=== PATIENT | male | born 1960 | race American Indian/Alaskan Native ===

== ENCOUNTER 2021-10-03 17:26 | Emergency (ER) | payer SELFPAY ==
[2021-10-03 21:37] VITALS: BP 169/107
[2021-10-03] MEDS ORDERED: HYDROcodone/ACETAMINOPHEN 5-325 MG TAB PO ONE (21:46)
--- NOTE | 2021-10-03 21:50 | Emergency Department Report ---
ED General Adult HPI - General Chief complaint: Medical Clearance Stated complaint: DIALYSIS PUI?: No Time Seen by Provider: 10/03/21 21:38 Source: patient, EMS Mode of arrival: Stretcher Limitations: Physical Limitation - History of Present Illness Initial comments: Patient is a 61-year-old male with history of chronic kidney disease stage IV, hypertension presenting to ED via EMS for evaluation. He denies any specific complaints however lives his chronic medical conditions, CKD, hypertension and sciatica and states he needs "treatment ". Associated Symptoms: denies: chest pain, fever/chills Treatments Prior to Arrival: none - Related Data Previous Rx's Medication Instructions Recorded Last Taken Type Calcium Carbonate/Vitamin D3 1 each PO DAILY #10 10/04/21 Unknown Rx [Calcium 500-Vit D3 600 Tablet] Allergies Allergy/AdvReac Type Severity Reaction Status Date / Time No Known Allergies Allergy Verified 10/03/21 17:52 ED Review of Systems ROS: Stated complaint: DIALYSIS Other details as noted in HPI Constitutional: denies: chills, fever Respiratory: denies: cough, shortness of breath, wheezing Cardiovascular: denies: chest pain, palpitations, dyspnea on exertion, orthopnea Gastrointestinal: denies: abdominal pain, nausea, vomiting Musculoskeletal: back pain Skin: denies: rash, lesions Neurological: weakness. denies: headache ED Past Medical Hx - Past Medical History Hx Hypertension: Yes Hx Renal Disease: Yes - Social History Smoking Status: Never Smoker Substance Use Type: None - Medications Home Medications: Home Medications Medication Instructions Recorded Confirmed Last Taken Type Calcium Carbonate/Vitamin D3 1 each PO DAILY #10 10/04/21 Unknown Rx [Calcium 500-Vit D3 600 Tablet] ED Physical Exam - General Limitations: Physical Limitation General appearance: alert, in no apparent distress - Head Head exam: Present: atraumatic, normocephalic - Eye Eye exam: Present: normal appearance, EOMI - Respiratory Respiratory exam: Present: normal lung sounds bilaterally. Absent: respiratory distress - Cardiovascular Cardiovascular Exam: Present: regular rate, normal rhythm. Absent: systolic murmur, diastolic murmur, rubs, gallop - GI/Abdominal GI/Abdominal exam: Present: soft. Absent: distended, tenderness - Rectal Rectal exam: Present: deferred - Back Exam Back exam: Present: paraspinal tenderness. Absent: vertebral tenderness - Neurological Exam Neurological exam: Present: alert, oriented X3 - Psychiatric Psychiatric exam: Present: normal affect, normal mood - Skin Skin exam: Present: warm, dry, intact, normal color ED Course Vital Signs 10/03/21 10/03/21 10/04/21 17:43 21:31 00:05 Temperature 98.6 F Pulse Rate 94 H 91 H 60 Respiratory 18 Rate Blood Pressure 169/107 Blood Pressure 164/98 [Left] O2 Sat by Pulse 95 96 Oximetry ED Medical Decision Making - Lab Data Result diagrams: 10/03/21 21:47 10/03/21 21:47 - Medical Decision Making Purvis given for pain. Labs reviewed. Creatinine 20.4. BUN 69. Potassium is within normal range. Calcium is 6.2. Given oral calcium in ED. Patient is alert and oriented without signs of uremia. He dialyzes Friday and Friday. He is stable for discharge home and follow-up with dialysis on Friday. Will discharge on supplemental calcium. Critical care attestation.: If time is entered above; I have spent that time in minutes in the direct care of this critically ill patient, excluding procedure time. ED Disposition Clinical Impression: Chronic kidney disease, Hypocalcemia, Sciatica Disposition: HOME / SELF CARE / HOMELESS Is pt being admited?: No Does the pt Need Aspirin: No Condition: Stable Instructions: Food Basics for Chronic Kidney Disease, Sciatica, Hypocalcemia, Adult Additional Instructions: Please follow-up with dialysis on Friday. Time of Disposition: 02:06 Print Language: ARMENIAN
[2021-10-03 22:03] LABS: Basophils # (Auto) 0.1 K/mm3 (0.0-0.1); Basophils % (Auto) 1.4 % (0.0-1.8); Eosinophils % (Auto) 0.8 % (0.0-4.3); Hematocrit 28.7 % (35.5-45.6); Lymphocytes # (Auto) 1.4 K/mm3 (1.2-5.4); Lymphocytes % (Auto) 29.9 % (13.4-35.0); Mean Corpuscular HGB Conc 31 % (32-34); Mean Corpuscular Volume 86 fl (84-94); Monocytes # (Auto) 0.5 K/mm3 (0.0-0.8); Monocytes % (Auto) 11.6 % (0.0-7.3); Platelet Count 105 K/mm3 (140-440); Red Blood Count 3.34 M/mm3 (3.65-5.03); Red Cell Distribution Width 15.9 % (13.2-15.2)
[2021-10-03 22:22] LABS: Alanine Aminotransferase 17 units/L (7-56); Albumin 2.1 g/dL (3.9-5); Blood Urea Nitrogen 69 mg/dL (9-20); Calcium 6.2 mg/dL (8.4-10.2); Hemolysis Index 6
[2021-10-03 22:25] LABS: BUN/Creatinine Ratio 3; Bilirubin,Direct < 0.2 mg/dL (0-0.2)
[2021-10-03] MEDS ORDERED: cloNIDine 0.1 MG TAB PO ONE (22:26)
[2021-10-04] MEDS ORDERED: CALCIUM CARBONATE 500 MG TAB CHEW PO ONE (02:00)
== END 2021-10-04 03:41 | disposition home or self-care (01) ==
LOC: ED 17:26
DX: I12.0 Hypertensive chronic kidney disease with stage 5 chronic kidney disease or end stage renal disease (principal); N18.6 End stage renal disease; E87.6 Hypokalemia; M54.30 Sciatica, unspecified side; N28.9 Disorder of kidney and ureter, unspecified
CPT/HCPCS: 36415; 80048; 80076; 85025; 99283

== ENCOUNTER 2021-10-04 23:02 | Inpatient (IN) | payer SELFPAY ==
--- NOTE | 2021-10-05 00:16 | Emergency Department Report ---
ED General Adult HPI - General Chief complaint: Earache Stated complaint: DIAYLIS Time Seen by Provider: 10/05/21 00:05 Source: patient Mode of arrival: Ambulatory Limitations: No Limitations - History of Present Illness Initial comments: Patient is 61 years old male with history of end-stage renal disease on hemodialysis and hypertension. Patient presented to the ER stating that he missed dialysis x7 days. Patient stated that he did not have transportation since his sister that take him to dialysis had a stroke this week and nobody is taking him to dialysis. Patient is complaining of mild shortness of breath. No cough fever or chills. Patient is also complaining of diarrhea has been going on for few days. No abdominal pain, nausea or vomiting. -: days(s) (7) - Related Data Previous Rx's Medication Instructions Recorded Last Taken Type Calcium Carbonate/Vitamin D3 1 each PO DAILY #10 10/04/21 Unknown Rx [Calcium 500-Vit D3 600 Tablet] Allergies Allergy/AdvReac Type Severity Reaction Status Date / Time No Known Allergies Allergy Verified 10/03/21 17:52 ED Review of Systems ROS: Stated complaint: DIAYLIS Other details as noted in HPI Comment: All other systems reviewed and negative Constitutional: denies: chills, fever Respiratory: shortness of breath, SOB with exertion, SOB at rest. denies: cough Cardiovascular: denies: chest pain, palpitations Gastrointestinal: diarrhea. denies: abdominal pain, nausea, vomiting Musculoskeletal: denies: back pain Neurological: denies: headache, weakness, numbness, paresthesias, confusion ED Past Medical Hx - Past Medical History Hx Hypertension: Yes Hx Renal Disease: Yes - Social History Smoking Status: Never Smoker Substance Use Type: None - Medications Home Medications: Home Medications Medication Instructions Recorded Confirmed Last Taken Type Calcium Carbonate/Vitamin D3 1 each PO DAILY #10 10/04/21 Unknown Rx [Calcium 500-Vit D3 600 Tablet] ED Physical Exam - General Limitations: No Limitations General appearance: alert, in no apparent distress - Head Head exam: Present: atraumatic, normocephalic, normal inspection - Eye Eye exam: Present: normal appearance - ENT ENT exam: Present: normal exam, normal orophraynx, mucous membranes moist - Neck Neck exam: Present: normal inspection, full ROM. Absent: tenderness, meningismus - Respiratory Respiratory exam: Present: normal lung sounds bilaterally - Cardiovascular Cardiovascular Exam: Present: regular rate, normal rhythm, normal heart sounds - GI/Abdominal GI/Abdominal exam: Present: soft, normal bowel sounds. Absent: distended, tenderness, guarding, rebound, rigid, organomegaly, mass, bruit, pulsatile mass - Extremities Exam Extremities exam: Present: normal inspection, full ROM, normal capillary refill. Absent: tenderness - Back Exam Back exam: Present: normal inspection, full ROM. Absent: CVA tenderness (R), CVA tenderness (L) - Neurological Exam Neurological exam: Present: alert, oriented X3, CN II-XII intact. Absent: motor sensory deficit - Psychiatric Psychiatric exam: Present: normal mood - Skin Skin exam: Present: warm, intact, normal color ED Course Vital Signs 10/04/21 23:52 Temperature 97.6 F Pulse Rate 91 H Respiratory 18 Rate Blood Pressure 151/91 O2 Sat by Pulse 96 Oximetry ED Medical Decision Making - Lab Data Result diagrams: 10/05/21 00:22 10/05/21 00:22 - Radiology Data Radiology results: report reviewed - Medical Decision Making Patient is 61 years old male with history of end-stage renal disease on hemodialysis and hypertension. Patient presented to the ER stating that he missed dialysis x7 days. Patient stated that he did not have transportation since his sister that take him to dialysis had a stroke this week and nobody is taking him to dialysis. Patient is complaining of mild shortness of breath. No cough fever or chills. Patient is also complaining of diarrhea has been going on for few days. No abdominal pain, nausea or vomiting. Patient remained stable in the ER with elevated blood pressure. Chest x-ray showed pulmonary edema and pleural effusion. Labs reviewed and showed significantly elevated creatinine of 20.4 and a BUN of 80 however potassium is 4.8. Calcium is 5.9. I discussed the patient with Dr. Lafleur, surveillance investigator on- call. He advised to admit the patient for dialysis. I discussed the patient with , he agreed to admit the patient to medical service for further management. Critical Care Time: Yes Critical care time in (mins) excluding proc time.: 35 Critical care attestation.: If time is entered above; I have spent that time in minutes in the direct care of this critically ill patient, excluding procedure time. ED Disposition Clinical Impression: End-stage renal disease needing dialysis, Volume overload, Hypocalcemia Disposition: 09 ADMITTED INPATIENT Is pt being admited?: Yes Condition: Stable
--- NOTE | 2021-10-05 00:37 | XRay Report ---
Chest single view INDICATION: Dyspnea IMPRESSION: Mild bilateral interstitial edema and tiny pleural effusions. Dialysis catheter terminate s near the SVC/right atrial junction. Signer Name: Angel oNrth MD Signed: 10/05/2021 12:33 AM Workstation Name: [email or web address]
[2021-10-05 00:58] LABS: Basophils % (Auto) 1.1 % (0.0-1.8); Eosinophils % (Auto) 1.3 % (0.0-4.3); Hematocrit 26.3 % (35.5-45.6); Hemoglobin 8.7 gm/dl (11.8-15.2); Lymphocytes # (Auto) 0.9 K/mm3 (1.2-5.4); Lymphocytes % (Auto) 26.4 % (13.4-35.0); Mean Corpuscular HGB Conc 33 % (32-34); Mean Corpuscular Volume 85 fl (84-94); Monocytes # (Auto) 0.4 K/mm3 (0.0-0.8); Monocytes % (Auto) 11.6 % (0.0-7.3); Platelet Count 104 K/mm3 (140-440); Red Blood Count 3.08 M/mm3 (3.65-5.03); Red Cell Distribution Width 16.2 % (13.2-15.2)
[2021-10-05 01:34] LABS: Calcium 5.9 mg/dL (8.4-10.2)
[2021-10-05] MEDS ORDERED: CALCIUM CHLORIDE 1,000 MG in SODIUM CHLORIDE 0.9% 100 ML IV ONE (02:06)
[2021-10-05 04:47] LABS: Hepatitis B Surface Antigen Non-Reactive (Negative); Hepatitis C Virus Antibody Non-Reactive (NonReactive)
[2021-10-05] MEDS ORDERED: MORPHINE 4 MG/1 ML INJ IV PRN (04:47)
[2021-10-05] MEDS ORDERED: MAGNESIUM HYDROXIDE (MOM) ORAL LIQD UDC PO PRN (04:47)
[2021-10-05] MEDS ORDERED: ONDANSETRON 4 MG/2 ML INJ IV PRN (04:47)
[2021-10-05] MEDS ORDERED: ACETAMINOPHEN 325 MG TAB PO PRN (04:47)
--- NOTE | 2021-10-05 05:11 | History and Physical Report ---
History of Present Illness Date of examination: 10/05/21 Date of admission: 10/05/2021 Chief complaint: ESRD - Needing dialysis History of present illness: 61-year-old male with known history of hypertension, end-stage renal disease on dialysis presenting to the emergency room today for evaluation stating he has missed dialysis for about 7 days. Indicates that he had transportation issues and therefore could not make it to the dialysis facility. His sister will take him to the dialysis unit had a stroke and therefore was unable to transport him. He denies any chest pain but has been having some mild shortness of breath. Denies any headache or dizziness and denies any diaphoresis. Denies any nausea or vomiting and no abdominal pain. Has had occasional diarrhea. Denies any bright red blood per rectum. Work-up in the emergency room today, significant findings were that of BUN of 81 and creatinine of 20.4. Calcium of 5.9. Hemoglobin of 8.7 and hematocrit of 26.3. Chest x-ray significant for mild bilateral interstitial edema and tiny pleural effusions. Past History Past Medical History: dialysis, ESRD, hypertension Past Surgical History: No surgical history Social history: no significant social history Family history: no significant family history Medications and Allergies Allergies Allergy/AdvReac Type Severity Reaction Status Date / Time No Known Allergies Allergy Verified 10/05/21 02:09 Home Medications Medication Instructions Recorded Confirmed Last Taken Type Calcium Carbonate/Vitamin D3 1 each PO DAILY #10 10/04/21 Unknown Rx [Calcium 500-Vit D3 600 Tablet] Active Meds: Active Medications Acetaminophen (Acetaminophen 325 Mg Tab) 650 mg PO Q4H PRN PRN Reason: Pain MILD(1-3)/Fever >100.5/RACHEL Heparin Sodium (Porcine) (Heparin 5,000 Unit/1 Ml Vial) 5,000 unit SUB-Q Q8HR [facility] Magnesium Hydroxide (Magnesium Hydroxide (Mom) Oral Liqd Udc) 30 ml PO Q4H PRN PRN Reason: Constipation Morphine Sulfate (Morphine 2 Mg/1 Ml Inj) 2 mg IV Q4H PRN PRN Reason: Pain, Moderate (4-6) Morphine Sulfate (Morphine 4 Mg/1 Ml Inj) 4 mg IV Q4H PRN PRN Reason: Pain , Severe (7-10) Ondansetron HCl (Ondansetron 4 Mg/2 Ml Inj) 4 mg IV Q8H PRN PRN Reason: Nausea And Vomiting Sodium Chloride (Sodium Chloride 0.9% 10 Ml Flush Syringe) 10 ml IV BID [facility] Sodium Chloride (Sodium Chloride 0.9% 10 Ml Flush Syringe) 10 ml IV PRN PRN PRN Reason: LINE FLUSH Review of Systems Constitutional: no fever, no chills Ears, nose, mouth and throat: no nasal congestion, no sore throat Cardiovascular: no chest pain, no palpitations Respiratory: no cough, no shortness of breath Gastrointestinal: no abdominal pain, no nausea, no vomiting, no diarrhea Genitourinary Male: no dysuria, no flank pain, no nocturia, no polyuria Musculoskeletal: no neck pain, no low back pain Integumentary: no rash, no pruritis Neurological: no headaches, no confusion Psychiatric: no anxiety, no depression, no confusion Endocrine: no polyphagia, no polydipsia, no polyuria, no nocturia Exam - Constitutional Vitals: Temp Pulse Resp BP Pulse Ox 98.9 F 89 20 156/104 100 10/05/21 03:09 10/05/21 03:09 10/05/21 03:09 10/05/21 03:09 10/05/21 03:09 General appearance: Present: no acute distress, well-nourished - EENT Eyes: Present: PERRL, EOM intact. Absent: scleral icterus ENT: hearing intact, clear oral mucosa, dentition normal - Neck Neck: Present: supple, normal ROM - Respiratory Respiratory effort: normal Respiratory: bilateral: CTA - Cardiovascular Rhythm: other (Right anterior chest wall vascath.) Heart Sounds: Present: S1 & S2. Absent: gallop, systolic murmur, diastolic murmur, rub, click - Extremities Extremities: no ischemia, pulses intact, pulses symmetrical, normal temperature, normal color, Full ROM Extremity abnormal: edema (2+ roscoe. lower extremity edema) Peripheral Pulses: within normal limits - Abdominal General gastrointestinal: Present: soft, non-tender, non-distended, normal bowel sounds. Absent: mass - Integumentary Integumentary: Present: clear, warm, dry, normal turgor. Absent: rash - Musculoskeletal Musculoskeletal: strength equal bilaterally - Psychiatric Psychiatric: appropriate mood/affect, intact judgment & insight, memory intact, cooperative - Neurologic Neurologic: CNII-XII intact, no focal deficits, moves all extremities Results - Labs CBC & Chem 7: 10/05/21 00:22 10/05/21 00:22 Labs: Abnormal lab results 10/05/21 10/05/21 Range/Units 00: 00:22 WBC 3.5 L (4.5-11.0) K/mm3 RBC 3.08 L (3.65-5.03) M/mm3 Hgb 8.7 L (11.8-15.2) gm/dl Hct 26.3 L (35.5-45.6) % RDW 16.2 H (13.2-15.2) % Plt Count 104 L (140-440) K/mm3 [place]ergus % (Auto) 11.6 H (0.0-7.3) % Lymph # (Auto) 0.9 L (1.2-5.4) K/mm3 Carbon Dioxide 16 L (22-30) mmol/L BUN 81 H (9-20) mg/dL Creatinine 20.4 H (0.8-1.3) mg/dL Calcium 5.9 L* (8.4-10.2) mg/dL Assessment and Plan - Patient Problems (1) End-stage renal disease needing dialysis Current Visit: Yes Status: Acute Plan to address problem: Patient has missed dialysis for about a week. Consult placed to nephrology for possible dialysis. (2) Hypertension Current Visit: Yes Status: Acute Plan to address problem: We will resume routine home medications and monitor vital signs closely. (3) Volume overload Current Visit: Yes Status: Acute Plan to address problem: Possibly secondary to the missed dialysis. (4) Hypocalcemia Current Visit: Yes Status: Acute Plan to address problem: Calcium will be repleted and will monitor chemistry. (5) DVT prophylaxis Current Visit: Yes Status: Acute Plan to address problem: Patient placed on subcutaneous heparin. (6) Full code status Current Visit: Yes Status: Acute Plan to address problem: Patient is full code.
[2021-10-05] MEDS: HEPARIN 5,000 UNIT/1 ML VIAL SUB-Q SCH ×3 (06:52→21:55)
[2021-10-05] MEDS ORDERED: SODIUM CHLORIDE 0.9% 100 ML IV PRN (07:08)
--- NOTE | 2021-10-05 07:18 | Consultation ---
History of Present Illness - Reason for Consult Consult date: 10/05/21 end stage renal disease Requesting physician: SHAYNE CEDILLO - History of Present Illness 61-year-old male with a history of hypertension completed by end-stage renal disease on hemodialysis on a Friday, Friday and Friday schedule. Patient lost discharge his dialysis clinic due to noncompliance. He had not been to dialysis for a month. He states his sister had a stroke and she was driving him to dialysis. He does not drive. He also moved here from [facility] when he became sick and does not really have any friends or anyone else he could depend on the driving to dialysis. Patient has not dialyzed in more than a week and came to the hospital on account of swelling and shortness of breath. He denies any chest pain but admits to nausea and vomiting. He has had diarrhea for some time and he says it is resolving. No fever or chills. No cough. Past History Past Medical History: dialysis, ESRD, hypertension Past Surgical History: No surgical history, Other (Permacath placement, back surgery in 2019) Social history: no significant social history, lives with family (With sister) Family history: hypertension, stroke Medications and Allergies Allergies Allergy/AdvReac Type Severity Reaction Status Date / Time No Known Allergies Allergy Verified 10/05/21 02:09 Home Medications Medication Instructions Recorded Confirmed Last Taken Type Calcium Carbonate/Vitamin D3 1 each PO DAILY #10 10/04/21 Unknown Rx [Calcium 500-Vit D3 600 Tablet] Active Meds: Active Medications Acetaminophen (Acetaminophen 325 Mg Tab) 650 mg PO Q4H PRN PRN Reason: Pain MILD(1-3)/Fever >100.5/RACHEL Epoetin Alen-epbx (Epoetin Alen-Epbx 20,000 Unit/1 Ml Vial) 20,000 unit [facility] Heparin Sodium (Porcine) (Heparin 5,000 Unit/1 Ml Vial) 5,000 unit SUB-Q Q8HR [facility] Last Admin: 10/05/21 06:52 Dose: 5,000 unit Sodium Chloride (Nacl 0.9%) 100 mls @ 999 mls/hr [facility] PRN PRN Reason: Hypotension Magnesium Hydroxide (Magnesium Hydroxide (Mom) Oral Liqd Udc) 30 ml PO Q4H PRN PRN Reason: Constipation Morphine Sulfate (Morphine 2 Mg/1 Ml Inj) 2 mg IV Q4H PRN PRN Reason: Pain, Moderate (4-6) Morphine Sulfate (Morphine 4 Mg/1 Ml Inj) 4 mg IV Q4H PRN PRN Reason: Pain , Severe (7-10) Ondansetron HCl (Ondansetron 4 Mg/2 Ml Inj) 4 mg IV Q8H PRN PRN Reason: Nausea And Vomiting Sodium Chloride (Sodium Chloride 0.9% 10 Ml Flush Syringe) 10 ml IV BID [facility] Sodium Chloride (Sodium Chloride 0.9% 10 Ml Flush Syringe) 10 ml IV PRN PRN PRN Reason: LINE FLUSH Review of Systems All systems: negative (Constitutional: no fever or chills. No anorexia or weight loss. HEENT: No sore throat or sinus drainage no hearing or vision impairment . Cardiovascular: No chest pain, admits to SOB, palpitations, admits to LE swelling or dizziness. Respiratory: No cough, sputum, shortness of breath, hemo) Gastrointestinal: nausea, vomiting, diarrhea, no abdominal pain, no hematemesis, no coffee ground emesis, no melena, no hematochezia Genitourinary Male: no dysuria, no hematuria, no urinary frequency, no urinary hesitancy Musculoskeletal: no neck stiffness, no low back pain, no hot joints Integumentary: no rash, no pruritis Neurological: no weakness, no numbness, no tingling, no seizures, no syncope, no headaches Psychiatric: no anxiety, no depression Endocrine: no cold intolerance, no heat intolerance Exam - Vital Signs Vital signs: Vital Signs Temp Pulse Resp BP Pulse Ox 97.6 F 91 H 18 151/91 96 10/04/21 23:52 10/04/21 23:52 10/04/21 23:52 10/04/21 23:52 10/04/21 23:52 - Physical Exam Narrative exam: Middle-aged -[place] male in no acute distress HEENT: NCAT, pink and intact anicteric sclera Neck: Supple, no venous distention, right IJ permacath CVS: S1S2 RRR with no murmur, rub or gallop Chest: Clear to auscultation Abdomen: Protuberant, soft, nontender, no organomegaly, bowel sounds are present Extremities: No edema Neuro: Awake, alert no focal deficits Results - Lab Results 10/05/21 00:22 10/05/21 00:22 Most recent lab results Calcium 5.9 mg/dL (8.4-10.2) L* 10/05/21 00:22 Assessment and Plan - Patient Problems (1) Volume overload Current Visit: Yes Status: Acute Plan to address problem: End-stage renal disease with volume overload secondary to missed dialysis. We will dialyze patient today and again tomorrow for fluid removal. (2) Hypertensive chronic kidney disease with stage 5 chronic kidney disease or end stage renal disease Current Visit: Yes Status: Acute Plan to address problem: Blood pressure was high on presentation due to fluid overload. Follow-up blood pressure with fluid removal. (3) Anemia in ESRD (end-stage renal disease) Current Visit: Yes Status: Acute Plan to address problem: Give erythropoietin on dialysis and follow-up hemoglobin. (4) Metabolic acidosis Current Visit: Yes Status: Acute Plan to address problem: Uremic acidosis secondary to missed dialysis treatment. Follow-up bicarbonate after dialysis (5) End stage renal disease Current Visit: Yes Status: Acute Plan to address problem: Patient does not have HF outpatient dialysis. Will consult case management to assist with placement.
[2021-10-05] MEDS ORDERED: EPOETIN ALFA-EPBX 20,000 UNIT/1 ML VIAL IV SCH (08:00)
--- NOTE | 2021-10-05 12:47 | Progress Note ---
Assessment and Plan Assessment and plan: ESRD Medical noncompliance Hypertension Volume overload Hypocalcemia 10/05/2021. Patient was discharged from his dialysis clinic due to noncompliance. He had not been to dialysis for a month. He states his sister had a stroke and she was driving him to dialysis. He does not drive. He also moved here from [facility] when he became sick and does not really have any friends or anyone else he could depend on the driving to dialysis. Patient has not dialyzed in more than a week and came to the hospital on account of swelling and shortness of breath. Nephrology seen the patient in consultation and plans for hemodialysis today and tomorrow. Patient does not have outpatient dialysis. Will consult case management to assist with placement. History Interval history: No new issues overnight. Hospitalist Physical - Constitutional Vitals: Temp Pulse Resp BP Pulse Ox 98.9 F 89 20 156/104 94 10/05/21 03:09 10/05/21 03:09 10/05/21 03:09 10/05/21 03:09 10/05/21 09:19 General appearance: Present: no acute distress, well-nourished - EENT Eyes: Present: PERRL, EOM intact ENT: hearing intact, clear oral mucosa, dentition normal - Neck Neck: Present: supple, normal ROM - Respiratory Respiratory effort: normal Respiratory: bilateral: CTA - Cardiovascular Rhythm: regular Heart Sounds: Present: S1 & S2. Absent: gallop, rub - Extremities Extremities: no ischemia, No edema, Full ROM - Abdominal General gastrointestinal: soft, non-tender, non-distended, normal bowel sounds - Integumentary Integumentary: Present: clear, warm, dry - Neurologic Neurologic: CNII-XII intact, moves all extremities Results - Labs CBC & Chem 7: 10/05/21 00:22 10/05/21 00:22 Labs: Laboratory Last Values WBC 3.5 K/mm3 (4.5-11.0) L 10/05/21 00:22 RBC 3.08 M/mm3 (3.65-5.03) L 10/05/21 00:22 Hgb 8.7 gm/dl (11.8-15.2) L 10/05/21 00:22 Hct 26.3 % (35.5-45.6) L 10/05/21 00:22 MCV 85 fl (84-94) 10/05/21 00: MCH 28 pg (28-32) 10/05/21 00: MCHC 33 % (32-34) 10/05/21 00: RDW 16.2 % (13.2-15.2) H 10/05/21 00:22 Plt Count 104 K/mm3 (140-440) L 10/05/21 00: Lymph % (Auto) 26.4 % (13.4-35.0) 10/05/21: [place] % (Auto) 11.6 % (0.0-7.3) H 10/05/21 00: Eos % (Auto) 1.3 % (0.0-4.3) 10/05/21: Baso % (Auto) 1.1 % (0.0-1.8) 10/05/21 00:22 Lymph # (Auto) 0.9 K/mm3 (1.2-5.4) L 10/05/21 00: [place] # (Auto) 0.4 K/mm3 (0.0-0.8) 10/05/21 00: Eos # (Auto) 0.0 K/mm3 (0.0-0.4) 10/05/21 00: Baso # (Auto) 0.0 K/mm3 (0.0-0.1) 10/05/21 00: Seg Neutrophils % 59.6 % (40.0-70.0) 10/05/21 00: Seg Neutrophils # 2.1 K/mm3 (1.8-7.7) 10/05/21 00: Sodium 140 mmol/L (137-145) 10/05/21 00: Potassium 4.8 mmol/L (3.6-5.0) 10/05/21 00: Chloride 101.2 mmol/L (98-107) 10/05/21 00: Carbon Dioxide 16 mmol/L (22-30) L 10/05/21 00: Anion Gap 28 mmol/L 10/05/21 00:22 BUN 81 mg/dL (9-20) H 10/05/21 00: Creatinine 20.4 mg/dL (0.8-1.3) H 10/05/21 00:22 Estimated GFR 3 ml/min 10/05/21 00:22 BUN/Creatinine Ratio 4 % 10/05/21 00:22 Glucose 87 mg/dL (75-100) 10/05/21 00:22 Calcium 5.9 mg/dL (8.4-10.2) L* 10/05/21 00:22 Hepatitis A IgM Ab Non-reactive (NonReactive) 10/05/21 03:36 Hep Bs Antigen Non-reactive (Negative) 10/05/21 03:36 Hep B Core IgM Ab Non-reactive (NonReactive) 10/05/21 03:36 Hepatitis C Antibody Non-reactive (NonReactive) 10/05/21 03:36 Active Medications - Current Medications Current Medications: Generic Name Dose Route Start Last Admin Trade Name Freq PRN Reason Stop Dose Admin Acetaminophen 650 mg 10/05/21 04:47 Acetaminophen 325 Mg Tab PO Q4H PRN Pain MILD(1-3)/Fever >100.5/RACHEL Epoetin Alen-epbx 20,000 unit 10/05/21 08:00 Epoetin Alen-Epbx 20,000 Unit/1 Ml Vial IV [place] Heparin Sodium (Porcine) 5,000 unit 10/05/21 06:00 10/05/21 06:52 Heparin 5,000 Unit/1 Ml Vial SUB-Q 5,000 unit Q8HR [facility] Administration Sodium Chloride 100 mls @ 999 mls/hr 10/05/21 07:08 Nacl 0.9% IV [place] PRN Hypotension Magnesium Hydroxide 30 ml 10/05/21 04:47 Magnesium Hydroxide (Mom) Oral Liqd Udc PO Q4H PRN Constipation Morphine Sulfate 2 mg 10/05/21 04:47 Morphine 2 Mg/1 Ml Inj IV Q4H PRN Pain, Moderate (4-6) Morphine Sulfate 4 mg 10/05/21 04:47 Morphine 4 Mg/1 Ml Inj IV Q4H PRN Pain , Severe (7-10) Ondansetron HCl 4 mg 10/05/21 04:47 Ondansetron 4 Mg/2 Ml Inj IV Q8H PRN Nausea And Vomiting Sodium Chloride 10 ml 10/05/21 10:00 Sodium Chloride 0.9% 10 Ml Flush Syringe IV BID [place]IL[place] Sodium Chloride 10 ml 10/05/21 04:47 Sodium Chloride 0.9% 10 Ml Flush Syringe IV PRN PRN LINE FLUSH
[2021-10-06] MEDS: HEPARIN 5,000 UNIT/1 ML VIAL SUB-Q SCH ×3 (05:39→21:21)
[2021-10-06 07:29] LABS: Basophils % (Auto) 0.8 % (0.0-1.8); Eosinophils % (Auto) 0.8 % (0.0-4.3); Hematocrit 23.7 % (35.5-45.6); Hemoglobin 7.7 gm/dl (11.8-15.2); Lymphocytes # (Auto) 1.1 K/mm3 (1.2-5.4); Lymphocytes % (Auto) 33.5 % (13.4-35.0); Mean Corpuscular HGB Conc 32 % (32-34); Mean Corpuscular Volume 84 fl (84-94); Monocytes # (Auto) 0.5 K/mm3 (0.0-0.8); Monocytes % (Auto) 15.7 % (0.0-7.3); Platelet Count 76 K/mm3 (140-440); Red Blood Count 2.83 M/mm3 (3.65-5.03); Red Cell Distribution Width 15.4 % (13.2-15.2)
--- NOTE | 2021-10-06 10:51 | Progress Note ---
Assessment and Plan Assessment and plan: ESRD Medical noncompliance Hypertension Volume overload Hypocalcemia 10/05/2021. Patient was discharged from his dialysis clinic due to noncompliance. He had not been to dialysis for a month. He states his sister had a stroke and she was driving him to dialysis. He does not drive. He also moved here from [facility] when he became sick and does not really have any friends or anyone else he could depend on the driving to dialysis. Patient has not dialyzed in more than a week and came to the hospital on account of swelling and shortness of breath. Nephrology seen the patient in consultation and plans for hemodialysis today and tomorrow. Patient does not have outpatient dialysis. Will consult case management to assist with placement. 10/06/2021. Patient reports that He was going to [facility] in [place] but he was discharged from there for non compliance. pt. has no insurance. He states he applied for Medicare and Medicaid. He lives with his sister, Viviana Ochoa. Await hemodialysis outpatient placement History Interval history: No new issues overnight. Hospitalist Physical - Constitutional Vitals: Temp Pulse Resp BP Pulse Ox 98.6 F 86 16 137/76 95 10/06/21 04:30 10/06/21 04:30 10/06/21 04:30 10/06/21 04:30 10/06/21 04:30 General appearance: Present: no acute distress, well-nourished - EENT Eyes: Present: PERRL, EOM intact ENT: hearing intact, clear oral mucosa, dentition normal - Neck Neck: Present: supple, normal ROM - Respiratory Respiratory effort: normal Respiratory: bilateral: CTA - Cardiovascular Rhythm: regular Heart Sounds: Present: S1 & S2. Absent: gallop, rub - Extremities Extremities: no ischemia, No edema, Full ROM - Abdominal General gastrointestinal: soft, non-tender, non-distended, normal bowel sounds - Integumentary Integumentary: Present: clear, warm, dry - Neurologic Neurologic: CNII-XII intact, moves all extremities Results - Labs CBC & Chem 7: 10/06/21 06:47 10/06/21 06:47 Labs: Laboratory Last Values WBC 3.3 K/mm3 (4.5-11.0) L 10/06/21 06:47 RBC 2.83 M/mm3 (3.65-5.03) L 10/06/21 06:47 Hgb 7.7 gm/dl (11.8-15.2) L 10/06/21 06:47 Hct 23.7 % (35.5-45.6) L 10/06/21 06:47 MCV 84 fl (84-94) 10/06/21 06:47 MCH 27 pg (28-32) L 10/06/21 06:47 MCHC 32 % (32-34) 10/06/21 06:47 RDW 15.4 % (13.2-15.2) H 10/06/21 06:47 Plt Count 76 K/mm3 (140-440) L 10/06/21 06:47 Lymph % (Auto) 33.5 % (13.4-35.0) 10/06/21 06:47 [place] % (Auto) 15.7 % (0.0-7.3) H 10/06/21 06:47 Eos % (Auto) 0.8 % (0.0-4.3) 10/06/21 06:47 Baso % (Auto) 0.8 % (0.0-1.8) 10/06/21 06:47 Lymph # (Auto) 1.1 K/mm3 (1.2-5.4) L 10/06/21 06:47 [place] # (Auto) 0.5 K/mm3 (0.0-0.8) 10/06/21 06:47 Eos # (Auto) 0.0 K/mm3 (0.0-0.4) 10/06/21 06:47 Baso # (Auto) 0.0 K/mm3 (0.0-0.1) 10/06/21 06:47 Seg Neutrophils % 49.2 % (40.0-70.0) 10/06/21 06:47 Seg Neutrophils # 1.6 K/mm3 (1.8-7.7) L 10/06/21 06:47 Sodium 139 mmol/L (137-145) 10/06/21 06:47 Potassium 3.6 mmol/L (3.6-5.0) D 10/06/21 06:47 Chloride 102.1 mmol/L (98-107) 10/06/21 06:47 Carbon Dioxide 23 mmol/L (22-30) D 10/06/21 06:47 Anion Gap 18 mmol/L 10/06/21 06:47 BUN 38 mg/dL (9-20) H 10/06/21 06:47 Creatinine 13.0 mg/dL (0.8-1.3) H 10/06/21 06:47 Estimated GFR 5 ml/min 10/06/21 06:47 BUN/Creatinine Ratio 3 % 10/06/21 06:47 Glucose 79 mg/dL (75-100) 10/06/21 06:47 Calcium 7.0 mg/dL (8.4-10.2) L D 10/06/21 06:47 Hepatitis A IgM Ab Non-reactive (NonReactive) 10/05/21 03:36 Hep Bs Antigen Non-reactive (Negative) 10/05/21 03:36 Hep B Core IgM Ab Non-reactive (NonReactive) 10/05/21 03:36 Hepatitis C Antibody Non-reactive (NonReactive) 10/05/21 03:36 [place]/IV: Voiding Method Toilet Active Medications - Current Medications Current Medications: Generic Name Dose Route Start Last Admin Trade Name Freq PRN Reason Stop Dose Admin Acetaminophen 650 mg 10/05/21 04:47 Acetaminophen 325 Mg Tab PO Q4H PRN Pain MILD(1-3)/Fever >100.5/RACHEL Epoetin Alen-epbx 20,000 unit 10/05/21 08:00 10/05/21 13:45 Epoetin Alen-Epbx 20,000 Unit/1 Ml Vial IV 20,000 unit [place] Administration Heparin Sodium (Porcine) 5,000 unit 10/05/21 06:00 10/06/21 05:39 Heparin 5,000 Unit/1 Ml Vial SUB-Q Not Given Q8HR [place] Sodium Chloride 100 mls @ 999 mls/hr 10/05/21 07:08 Nacl 0.9% IV [place] PRN Hypotension Magnesium Hydroxide 30 ml 10/05/21 04:47 Magnesium Hydroxide (Mom) Oral Liqd Udc PO Q4H PRN Constipation Morphine Sulfate 2 mg 10/05/21 04:47 Morphine 2 Mg/1 Ml Inj IV Q4H PRN Pain, Moderate (4-6) Morphine Sulfate 4 mg 10/05/21 04:47 Morphine 4 Mg/1 Ml Inj IV Q4H PRN Pain , Severe (7-10) Ondansetron HCl 4 mg 10/05/21 04:47 Ondansetron 4 Mg/2 Ml Inj IV Q8H PRN Nausea And Vomiting Sodium Chloride 10 ml 10/05/21 10:00 10/05/21 21:55 Sodium Chloride 0.9% 10 Ml Flush Syringe IV 10 ml BID [place] Administration Sodium Chloride 10 ml 10/05/21 04:47 Sodium Chloride 0.9% 10 Ml Flush Syringe IV PRN PRN LINE FLUSH
--- NOTE | 2021-10-06 11:26 | Progress Note ---
Assessment and Plan - Patient Problems (1) Volume overload Current Visit: Yes Status: Acute Plan to address problem: End-stage renal disease with volume overload secondary to missed dialysis. We will dialyze patient again today for fluid removal. (2) Hypertensive chronic kidney disease with stage 5 chronic kidney disease or end stage renal disease Current Visit: Yes Status: Acute Plan to address problem: Blood pressure was high on presentation due to fluid overload. Improved with fluid removal on dialysis. (3) Anemia in ESRD (end-stage renal disease) Current Visit: Yes Status: Acute Plan to address problem: Give erythropoietin on dialysis and follow-up hemoglobin. (4) Metabolic acidosis Current Visit: Yes Status: Acute Plan to address problem: Uremic acidosis secondary to missed dialysis treatment. Improved after dialysis (5) End stage renal disease Current Visit: Yes Status: Acute Plan to address problem: Patient does not have outpatient dialysis clinic arrangements. He was discharged from [facility] after missing dialysis for a month. I discussed with case management social worker yesterday and she is working on placement though she admits it would be challenging as patient is currently uninsured. Subjective Date of service: 10/06/21 Principal diagnosis: End-stage renal disease with fluid overload Interval history: Patient seen lying in bed. He has no complaints this morning. Shortness of breath improving. Had nausea earlier. No vomiting. Objective - Exam Narrative Exam: Middle-aged -La[place] male in no acute distress HEENT: NCAT, pink and intact anicteric sclera Neck: Supple, no venous distention, right IJ permacath CVS: S1S2 RRR with no murmur, rub or gallop Chest: Few rhonchi bilaterally Abdomen: Protuberant, soft, nontender, no organomegaly, bowel sounds are present Extremities: Mild edema Neuro: Awake, alert no focal deficits - Vital Signs Vital signs: Vital Signs - 12hr 10/06/21 04:30 Temperature 98.6 F Pulse Rate 86 Respiratory 16 Rate Blood Pressure 137/76 O2 Sat by Pulse 95 Oximetry - Lab 10/06/21 06:47 10/06/21 06:47 Most recent lab results Calcium 7.0 mg/dL (8.4-10.2) L D 10/06/21 06:47 Medications & Allergies - Medications Allergies/Adverse Reactions: Allergies No Known Allergies Allergy (Verified 10/05/21 02:09) Home Medications: Home Medications Medication Instructions Recorded Confirmed Last Taken Type Calcium Carbonate/Vitamin D3 1 each PO DAILY #10 10/04/21 Unknown Rx [Calcium 500-Vit D3 600 Tablet] Active Medications: Generic Name Dose Route Start Last Admin Trade Name Shahbazq PRN Reason Stop Dose Admin Acetaminophen 650 mg 10/05/21 04:47 Acetaminophen 325 Mg Tab PO Q4H PRN Pain MILD(1-3)/Fever >100.5/RACHEL Epoetin Alen-epbx 20,000 unit 10/05/21 08:00 10/05/21 13:45 Epoetin Alen-Epbx 20,000 Unit/1 Ml Vial IV 20,000 unit [place] Administration Heparin Sodium (Porcine) 5,000 unit 10/05/21 06:00 10/06/21 05:39 Heparin 5,000 Unit/1 Ml Vial SUB-Q Not Given Q8HR [facility] Sodium Chloride 100 mls @ 999 mls/hr 10/05/21 07:08 Nacl 0.9% IV [place] PRN Hypotension Magnesium Hydroxide 30 ml 10/05/21 04:47 Magnesium Hydroxide (Mom) Oral Liqd Udc PO Q4H PRN Constipation Morphine Sulfate 2 mg 10/05/21 04:47 Morphine 2 Mg/1 Ml Inj IV Q4H PRN Pain, Moderate (4-6) Morphine Sulfate 4 mg 10/05/21 04:47 Morphine 4 Mg/1 Ml Inj IV Q4H PRN Pain , Severe (7-10) Ondansetron HCl 4 mg 10/05/21 04:47 Ondansetron 4 Mg/2 Ml Inj IV Q8H PRN Nausea And Vomiting Sodium Chloride 10 ml 10/05/21 10:00 10/05/21 21:55 Sodium Chloride 0.9% 10 Ml Flush Syringe IV 10 ml BID [place] Administration Sodium Chloride 10 ml 10/05/21 04:47 Sodium Chloride 0.9% 10 Ml Flush Syringe IV PRN PRN LINE FLUSH
[2021-10-06] MEDS: MORPHINE 2 MG/1 ML INJ IV PRN ×2 (15:40→16:10)
[2021-10-06] MEDS ORDERED: oxyCODONE /ACETAMINOPHEN 5-325MG TAB PO PRN (15:55)
[2021-10-06] MEDS: GABAPENTIN 300 MG CAP PO SCH (21:21)
[2021-10-07] MEDS: GABAPENTIN 300 MG CAP PO SCH ×2 (05:23→14:07)
[2021-10-07] MEDS: HEPARIN 5,000 UNIT/1 ML VIAL SUB-Q SCH ×2 (05:24→14:07)
--- NOTE | 2021-10-07 09:01 | Discharge Summary ---
Providers - Providers Date of Admission: 10/05/21 04:47 Date of discharge: 10/07/21 Attending physician: JADEN DENIS 10/05/21 02:02 Consult to Physician [CONS] Stat Comment: Dr. Gould spoke with Dr. Lafleur @ [phone] Consulting Provider: KATHARINE LAFLEUR Physician Instructions: Reason For Exam: End-stage renal disease needing dialysis 10/05/21 12:20 Consult to Case Management [CONS] Routine Services Needed at Discharge: Other Notified:: cm Comment:: Arrange outpatient dialysis Additional Physician Instructions: Patient has been discharged from [facility] Primary care physician: JEANNETTE WALSH Hospitalization Reason for admission: missed HD Condition: Stable Hospital course: 61-year-old male with known history of hypertension, end-stage renal disease on dialysis presenting to the emergency room today for evaluation stating he has missed dialysis for about 7 days. Indicates that he had transportation issues and therefore could not make it to the dialysis facility. His sister will take him to the dialysis unit had a stroke and therefore was unable to transport him. Work-up in the emergency room revealed significant findings of BUN 81 and creatinine of 20.4. Calcium of 5.9. Hemoglobin of 8.7 and hematocrit of 26.3. Chest x-ray significant for mild bilateral interstitial edema and tiny pleural effusions. The patient was admitted with diagnosis of ESRD with missed hemodialysis, medical noncompliance, volume overload, bilateral pleural effusions, hypertension, and hypercalcemia. Hospital course: 10/05/2021. Patient was discharged from his dialysis clinic due to noncompliance. He had not been to dialysis for a month. He states his sister had a stroke and she was driving him to dialysis. He does not drive. He also moved here from [facility] when he became sick and does not really have any friends or anyone else he could depend on the driving to dialysis. Patient has not dialyzed in more than a week and came to the hospital on account of swelling and shortness of breath. Nephrology seen the patient in consultation and plans for hemodialysis today and tomorrow. Patient does not have outpatient dialysis. Will consult case management to assist with placement. 10/06/2021. Patient reports that He was going to [facility] in [place] but he was discharged from there for non compliance. pt. has no insurance. He states he applied for Medicare and Medicaid. He lives with his sister, Viviana Ochoa. Await hemodialysis outpatient placement 10/07/2021. Patient reports that he would like to leave AMA. I discussed the risk including . Patient voiced understanding but would like to leave AMA. Dedicated discharge time 35 minutes Disposition: LEFT AGAINST MEDICAL ADVICE Final Discharge Diagnosis (Prints w/discharge instructions): Bilateral pleural effusions, volume overload, ESRD, anemia of chronic kidney disease, metabolic acidosis Core Measure Documentation - Palliative Care Palliative Care/ Comfort Measures: Not Applicable - Core Measures Any of the following diagnoses?: none Exam - Constitutional Vitals: Temp Pulse Resp BP Pulse Ox 100.4 F H 89 20 139/64 93 10/07/21 05:42 10/07/21 05:42 10/07/21 05:42 10/07/21 05:42 10/07/21 05:42 General appearance: Present: no acute distress, well-nourished - EENT Eyes: Present: PERRL ENT: hearing intact, clear oral mucosa - Neck Neck: Present: supple, normal ROM - Respiratory Respiratory effort: normal Respiratory: bilateral: CTA - Cardiovascular Heart Sounds: Present: S1 & S2. Absent: rub, click - Extremities Extremities: pulses symmetrical, No edema Peripheral Pulses: within normal limits - Abdominal General gastrointestinal: Present: soft, non-tender, non-distended, normal bowel sounds Male genitourinary: Present: normal - Integumentary Integumentary: Present: clear, warm, dry - Musculoskeletal Musculoskeletal: gait normal, strength equal bilaterally - Psychiatric Psychiatric: appropriate mood/affect, intact judgment & insight - Neurologic Neurologic: CNII-XII intact, moves all extremities Plan Activity: advance as tolerated Weight Bearing Status: Weight Bear as Tolerated Diet: renal Follow up with: JEANNETTE WALSH MD [Primary Care Provider] - 7 Days
[2021-10-07 12:01] VITALS: BP 146/91
== END 2021-10-07 14:30 | disposition left against medical advice (07) | DRG 186 ==
LOC: ED 23:02 → 3A 10-05 04:47
PROVIDERS: ADMIT Internal Medicine Geriatric Medicine; ATTEND Hospitalist
PROC: 5A1D70Z Performance of Urinary Filtration, Intermittent, Less than 6 Hours Per Day (ICD-10-PCS; principal; 2021-10-05)
PROC: 5A1D70Z Performance of Urinary Filtration, Intermittent, Less than 6 Hours Per Day (ICD-10-PCS; 2021-10-06)
DX: J90 Pleural effusion, not elsewhere classified (principal); N18.6 End stage renal disease; E87.2 Acidosis; I12.0 Hypertensive chronic kidney disease with stage 5 chronic kidney disease or end stage renal disease; D63.1 Anemia in chronic kidney disease; E87.70 Fluid overload, unspecified; E83.51 Hypocalcemia; Z82.49 Family history of ischemic heart disease and other diseases of the circulatory system; Z82.3 Family history of stroke; Z91.14 Patient's other noncompliance with medication regimen
CPT/HCPCS: 36415; 71045; 80048; 80074; 85025; G0378; J3490; J0885; J1644; J2270; U0003

== ENCOUNTER 2021-10-07 22:33 | Emergency (ER) | payer SELFPAY ==
[2021-10-08 09:01] VITALS: BP 136/79
--- NOTE | 2021-10-08 11:40 | Emergency Department Report ---
ED General Adult HPI - General Chief complaint: Nausea/Vomiting/Diarrhea Stated complaint: EVALUATION Time Seen by Provider: 10/08/21 11:30 Source: patient, old records reviewed Mode of arrival: Ambulatory Limitations: No Limitations - History of Present Illness Initial comments: 61-year-old male with end-stage renal disease on dialysis presents to the hospital after signing out AGAINST MEDICAL ADVICE requesting readmission. Patient was admitted on the for noncompliance with dialysis, edema, shortness of breath. Patient apparently has been discharged from his previous dialysis center for noncompliance and does not have transportation to and from dialysis. As per medical record review patient received dialysis. October 06 and signed out AGAINST MEDICAL ADVICE on the . He returns stating that signing out AGAINST MEDICAL ADVICE was mistake but the only physical complaint he complains of a sciatic related leg pain rated 10/10 intensity. Patient does endorse shortness of breath when asked what no respiratory distress noted Severity scale (0 -10): 10 - Related Data Previous Rx's Medication Instructions Recorded Last Taken Type Calcium Carbonate/Vitamin D3 1 each PO DAILY #10 10/04/21 Unknown Rx [Calcium 500-Vit D3 600 Tablet] Allergies Allergy/AdvReac Type Severity Reaction Status Date / Time No Known Allergies Allergy Verified 10/05/21 02:09 ED Review of Systems ROS: Stated complaint: EVALUATION Other details as noted in HPI Comment: All other systems reviewed and negative ED Past Medical Hx - Past Medical History Hx Hypertension: Yes Hx Renal Disease: Yes - Social History Smoking Status: Never Smoker Substance Use Type: None - Medications Home Medications: Home Medications Medication Instructions Recorded Confirmed Last Taken Type Calcium Carbonate/Vitamin D3 1 each PO DAILY #10 10/04/21 Unknown Rx [Calcium 500-Vit D3 600 Tablet] ED Physical Exam - General Limitations: No Limitations - Other Other exam information: General: No acute distress Head: Atraumatic Eyes: normal appearance ENT: Moist mucous membranes Neck: Normal appearance, no midline tenderness Chest: Clear to auscultation bilaterally, dialysis access right upper chest wall wall CV: Regular rate and rhythm Abdomen: Soft, normal bowel sounds, nontender, nondistended, no rebound or guarding Back: Normal inspection Extremity: Normal inspection, full range of motion Neuro: Alert O x 3, no facial asymmetry, speech clear, no gross motor sensory deficit Psych: Appropriate behavior Skin: No rash ED Course Vital Signs 04/17/22 04/18/22 22:59 08:58 Temperature 98.2 F 97.6 F Pulse Rate 92 H 101 H Respiratory 18 26 H Rate Blood Pressure 135/100 Blood Pressure 136/79 [Right] O2 Sat by Pulse 98 94 Oximetry - Consultations Consultation #1: 10/08/21 13:[address] Muñoz on-call residential field manager who agrees patient does not meet criteria for dialysis at this time ED Medical Decision Making - Lab Data Result diagrams: 10/08/21 12:09 10/08/21 12:09 Lab Results 10/08/21 10/08/21 Range/Units 12:09 12:09 WBC 3.4 L (4.5-11.0) K/mm3 RBC 3.28 L (3.65-5.03) M/mm3 Hgb 9.1 L (11.8-15.2) gm/dl Hct 27.5 L (35.5-45.6) % MCV 84 (84-94) fl MCH 28 (28-32) pg MCHC 33 (32-34) % RDW 15.0 (13.2-15.2) % Plt Count 123 L (140-440) K/mm3 Lymph % (Auto) 26.0 (13.4-35.0) % [place] % (Auto) 12.7 H (0.0-7.3) % Eos % (Auto) 1.4 (0.0-4.3) % Baso % (Auto) 1.4 (0.0-1.8) % Lymph # (Auto) 0.9 L (1.2-5.4) K/mm3 [place] # (Auto) 0.4 (0.0-0.8) K/mm3 Eos # (Auto) 0.0 (0.0-0.4) K/mm3 Baso # (Auto) 0.0 (0.0-0.1) K/mm3 Seg Neutrophils % 58.5 (40.0-70.0) % Seg Neutrophils # 2.0 (1.8-7.7) K/mm3 Sodium 134 L (137-145) mmol/L Potassium 3.8 (3.6-5.0) mmol/L Chloride 96.0 L (98-107) mmol/L Carbon Dioxide 24 (22-30) mmol/L Anion Gap 18 mmol/L BUN 23 H (9-20) mg/dL Creatinine 10.0 H (0.8-1.3) mg/dL Estimated GFR 6 ml/min BUN/Creatinine Ratio 2 % Glucose 81 (75-100) mg/dL Calcium 7.0 L (8.4-10.2) mg/dL - Radiology Data Radiology results: report reviewed CHEST 1 VIEW INDICATION / CLINICAL INFORMATION: missed dialysis. COMPARISON: 10/05/2021 FINDINGS: SUPPORT DEVICES: Right internal jugular dialysis catheter, unchanged. HEART / MEDIASTINUM: No significant abnormality. LUNGS / PLEURA: Tiny right pleural effusion and mild interstitial edema again noted. No pneumothorax. ADDITIONAL FINDINGS: No significant additional findings. IMPRESSION: 1. Mild CHF - Medical Decision Making 61-year-old male presents to the hospital with end-stage renal disease without a dialysis center who decided against AMA after receiving dialysis on October 06. Labs did not not indicate need for emergent dialysis. Patient does have mild CHF remained saturation 94 to 98% and no dyspnea or crackles on examination. Case discussed with residential field manager on-call Dr. Salas who agrees that patient does not meet criteria for admission and therefore will be discharged - Differential Diagnosis Volume overload, hyperkalemia, uremia, anemia Critical Care Time: No Critical care attestation.: If time is entered above; I have spent that time in minutes in the direct care of this critically ill patient, excluding procedure time. ED Disposition Clinical Impression: ESRD on dialysis, Mild congestive heart failure Disposition: HOME / SELF CARE / HOMELESS Is pt being admited?: No Does the pt Need Aspirin: No Condition: Stable Instructions: Dialysis, Heart Failure, Self Care, [id number] Additional Instructions: Follow-up with your doctor or doctor/clinic provided. Return if symptoms worsen as indicated by your discharge instructions. Referrals: PRIMARY MD FAIZAN [Primary Care Provider] - 3-5 Days MARGIE SALAS MD [Staff Physician] - 3-5 Days Time of Disposition: 13:50
--- NOTE | 2021-10-08 12:23 | XRay Report ---
CHEST 1 VIEW INDICATION / CLINICAL INFORMATION: missed dialysis. COMPARISON: 10/05/2021 FINDINGS: SUPPORT DEVICES: Right internal jugular dialysis catheter, unchanged. HEART / MEDIASTINUM: No significant abnormality. LUNGS / PLEURA: Tiny right pleural effusion and mild interstitial edema again noted. No pneumothorax. ADDITIONAL FINDINGS: No significant additional findings. IMPRESSION: 1. Mild CHF Signer Name: Sotero Herbert MD Signed: 10/08/2021 12:18 PM Workstation Name: [id number] [id number]
[2021-10-08 12:45] LABS: Basophils % (Auto) 1.4 % (0.0-1.8); Eosinophils % (Auto) 1.4 % (0.0-4.3); Hematocrit 27.5 % (35.5-45.6); Hemoglobin 9.1 gm/dl (11.8-15.2); Lymphocytes # (Auto) 0.9 K/mm3 (1.2-5.4); Mean Corpuscular HGB Conc 33 % (32-34); Mean Corpuscular Volume 84 fl (84-94); Monocytes # (Auto) 0.4 K/mm3 (0.0-0.8); Monocytes % (Auto) 12.7 % (0.0-7.3); Platelet Count 123 K/mm3 (140-440); Red Blood Count 3.28 M/mm3 (3.65-5.03)
== END 2021-10-08 14:27 | disposition home or self-care (01) ==
LOC: ED 22:33
DX: I13.2 Hypertensive heart and chronic kidney disease with heart failure and with stage 5 chronic kidney disease, or end stage renal disease (principal); N18.6 End stage renal disease; I50.9 Heart failure, unspecified; Z99.2 Dependence on renal dialysis
CPT/HCPCS: 36415; 71045; 80048; 85025; 99283

== ENCOUNTER 2021-10-09 10:56 | Emergency (ER) | payer SELFPAY ==
--- NOTE | 2021-10-09 12:04 | Emergency Department Report ---
ED Fall HPI - General Chief Complaint: Fall Stated Complaint: FALL Time Seen by Provider: 10/09/21 11:37 Source: patient Mode of arrival: Stretcher Limitations: No Limitations - History of Present Illness Initial Comments: 61-year-old male with a past medical history of hypertension and end-stage renal disease on dialysis presents to the hospital with generalized weakness and trip and fall outside the hospital. Patient was seen by me yesterday after returning 1 day after signing out AGAINST MEDICAL ADVICE. Patient does not currently have an outpatient dialysis center and was admitted to receive dialysis prior to signing out AMA. Yesterday he was reevaluated and did not meet criteria for emergent dialysis therefore was subsequently discharged. Patient was returning to the ER to sign in due to complaint of generalized weakness. He tripped, fell, sustained abrasions and injury to right forehead, left thumb, and left knee but denies LOC. Patient was too weak to lift himself off the ground. patient complains of moderate pain at areas of impact. Patient denies lightheadedness, chest pain, shortness of breath, or abdominal pain. Tetanus up-to-date within 10 years. Last dialysis was performed here on October 06. Patient denies being on a blood thinner. Hide Shaker: Dr. Olivo but he has been discharged from practice as per DR Lafleur therefore he is unassigned - Related Data Previous Rx's Medication Instructions Recorded Last Taken Type Calcium Carbonate/Vitamin D3 1 each PO DAILY #10 10/04/21 Unknown Rx [Calcium 500-Vit D3 600 Tablet] Bacitracin/Pramoxine/Aloe Vera 1 applicatio TP TID #1 tube 10/09/21 Unknown Rx [Bacitraycin Plus Ointment] Allergies Allergy/AdvReac Type Severity Reaction Status Date / Time No Known Allergies Allergy Verified 10/09/21 11:02 ED Review of Systems ROS: Stated complaint: FALL Other details as noted in HPI Comment: All other systems reviewed and negative ED Past Medical Hx - Past Medical History Hx Hypertension: Yes Hx Renal Disease: Yes - Social History Smoking Status: Never Smoker - Medications Home Medications: Home Medications Medication Instructions Recorded Confirmed Last Taken Type Calcium Carbonate/Vitamin D3 1 each PO DAILY #10 10/04/21 Unknown Rx [Calcium 500-Vit D3 600 Tablet] Bacitracin/Pramoxine/Aloe Vera 1 applicatio TP TID #1 tube 10/09/21 Unknown Rx [Bacitraycin Plus Ointment] ED Physical Exam - General Limitations: No Limitations - Other Other exam information: General: No acute distress Head: Right forehead abrasion without step-off Eyes: normal appearance ENT: Moist mucous membranes Neck: Normal appearance, no midline tenderness Chest: Clear to auscultation bilaterally CV: Regular rate and rhythm Abdomen: Soft, normal bowel sounds, nontender, nondistended, no rebound or guarding Back: Normal inspection Extremity: Left knee abrasion with pain with flexion past 30 degrees. Left lateral thumb abrasion with full range of motion. No snuffbox tenderness Neuro: Alert O x 3, no facial asymmetry, speech clear, no gross motor sensory deficit, gcs 15 Psych: Appropriate behavior Skin: Abrasion ED Course Vital Signs 10/09/21 11:06 Temperature 97.9 F Pulse Rate 95 H Blood Pressure 138/80 [Left] O2 Sat by Pulse 100 Oximetry - Reevaluation(s) Reevaluation #1: 10/09/21 13:25 pt able to ambulate in the ed 10/09/21 13:39 respiratory rate 18 - Consultations Consultation #1: 10/09/21 13:35 Case d/w Dr Lafleur, pt has been discharged from Dr Olivo's practice ED Medical Decision Making - Lab Data Result diagrams: 10/09/21 12:36 10/09/21 12:36 Lab Results 10/09/21 10/09/21 Range/Units 12:36 12:36 WBC 4.6 (4.5-11.0) K/mm3 RBC 3.09 L (3.65-5.03) M/mm3 Hgb 8.5 L (11.8-15.2) gm/dl Hct 25.9 L (35.5-45.6) % MCV 84 (84-94) fl MCH 28 (28-32) pg MCHC 33 (32-34) % RDW 15.5 H (13.2-15.2) % Plt Count 140 (140-440) K/mm3 Lymph % (Auto) 18.8 (13.4-35.0) % [place] % (Auto) 12.6 H (0.0-7.3) % Eos % (Auto) 1.2 (0.0-4.3) % Baso % (Auto) 1.3 (0.0-1.8) % Lymph # (Auto) 0.9 L (1.2-5.4) K/mm3 [place] # (Auto) 0.6 (0.0-0.8) K/mm3 Eos # (Auto) 0.1 (0.0-0.4) K/mm3 Baso # (Auto) 0.1 (0.0-0.1) K/mm3 Seg Neutrophils % 66.1 (40.0-70.0) % Seg Neutrophils # 3.0 (1.8-7.7) K/mm3 Sodium 138 (137-145) mmol/L Potassium 3.7 (3.6-5.0) mmol/L Chloride 98.8 (98-107) mmol/L Carbon Dioxide 23 (22-30) mmol/L Anion Gap 20 mmol/L BUN 31 H (9-20) mg/dL Creatinine 11.2 H (0.8-1.3) mg/dL Estimated GFR 6 ml/min BUN/Creatinine Ratio 3 % Glucose 88 (75-100) mg/dL Calcium 6.6 L (8.4-10.2) mg/dL - EKG Data -: EKG Interpreted by Pr EKG shows normal: sinus rhythm (with premature atrial complexes), intervals (qtc 567 prolonged), ST-T waves (lateral t wae inversions) - EKG Data When compared to previous EKG there are: previous EKG unavailable - Radiology Data Radiology results: report reviewed (xray left knee, arthritis, no fracture as per report) - Medical Decision Making 61-year-old male presents to the hospital close head injury and abrasion status post fall without signs of LOC or anticoagulant use. Patient does not meet indication for CT scanning at this time. ED work-up performed due to history of dialysis noncompliance and complaints of generalized weakness [place] ct head rules score: [address] head not indicated. Patient tripped and fell and needed help getting off the ground. He does not endorse syncope. not meet criteria for inpatient dialysis at this time. Patient has abnormal EKG without complaints of chest pain or shortness of breath. Critical Care Time: No Critical care attestation.: If time is entered above; I have spent that time in minutes in the direct care of this critically ill patient, excluding procedure time. ED Disposition Clinical Impression: End stage renal disease, Fall from slip, trip, or stumble, Abrasion, Minor head injury Disposition: 01 HOME / SELF CARE / HOMELESS Is pt being admited?: No Does the pt Need Aspirin: No Condition: Stable Instructions: Abrasion, Dialysis, Head Injury, Adult, [id number], Fall Prevention in the Home, Adult Additional Instructions: Take the medication as prescribed. Follow-up with your doctor or doctor/clinic provided. Return if symptoms worsen as indicated by your discharge instru ctions. Prescriptions: Bacitracin/Pramoxine/Aloe Vera [Bacitraycin Plus Ointment] 1 applicatio TP TID #1 tube Referrals: PRIMARY CAREMD [Primary Care Provider] - 3-5 Days PETRA ROONEY MD [Staff Physician] - 3-5 Days (cma or lpn)
--- NOTE | 2021-10-09 12:51 | XRay Report ---
LEFT KNEE 3 VIEW(S) INDICATION / CLINICAL INFORMATION: fall, abrasion, pain COMPARISON: None available. FINDINGS: BONES / JOINT(S): No acute fracture or dislocation. Mild to moderate tricompartmental DJD, most prono unced at the medial compartment. Mild degenerative enthesopathic changes at the superior pole patella . SOFT TISSUES: No significant abnormality. ADDITIONAL FINDINGS: None. Signer Name: Derrek Carson MD Signed: 10/09/2021 12:47 PM Workstation Name: [id number]
[2021-10-09 13:10] LABS: Basophils # (Auto) 0.1 K/mm3 (0.0-0.1); Basophils % (Auto) 1.3 % (0.0-1.8); Calcium 6.6 mg/dL (8.4-10.2); Eosinophils # (Auto) 0.1 K/mm3 (0.0-0.4); Eosinophils % (Auto) 1.2 % (0.0-4.3); Hematocrit 25.9 % (35.5-45.6); Hemoglobin 8.5 gm/dl (11.8-15.2); Lymphocytes # (Auto) 0.9 K/mm3 (1.2-5.4); Lymphocytes % (Auto) 18.8 % (13.4-35.0); Mean Corpuscular HGB Conc 33 % (32-34); Mean Corpuscular Volume 84 fl (84-94); Monocytes # (Auto) 0.6 K/mm3 (0.0-0.8); Monocytes % (Auto) 12.6 % (0.0-7.3); Platelet Count 140 K/mm3 (140-440); Red Blood Count 3.09 M/mm3 (3.65-5.03); Red Cell Distribution Width 15.5 % (13.2-15.2)
[2021-10-09 17:59] VITALS: BP 148/90
--- NOTE | 2021-10-10 10:58 | Electrocardiograph Report ---
[facility] Test Date: 2021-10-09 Test Time: 11:11:40 Pat Name: TERESA HARGROVE Department: Room: Gender: M Uniform [employer]: TV : 1960 Requested By: AIDA OLIVAS Order Number: [id number] Reading MD: Declan Fitzgerald Measurements Intervals [place] Rate: 88 P: 46 NE: 134 QRS: -66 QRSD: 108 T: 186 QT: 469 QTc: 567 Interpretive Statements Sinus rhythm Atrial premature complexes Left atrial enlargement Left anterior fascicular block Abnrm T, consider ischemia, anterolateral lds No previous ECG available for comparison Electronically Signed On 10-10-2021 10:58:08 EDT by Declan Fitzgerald
== END 2021-10-09 14:00 | disposition home or self-care (01) ==
LOC: ED 10:56
DX: S00.91XA Abrasion of unspecified part of head, initial encounter (principal); R53.1 Weakness; I12.0 Hypertensive chronic kidney disease with stage 5 chronic kidney disease or end stage renal disease; N18.6 End stage renal disease; Z79.899 Other long term (current) drug therapy; W19.XXXA Unspecified fall, initial encounter; Y93.89 Activity, other specified; Y92.89 Other specified places as the place of occurrence of the external cause; Y99.8 Other external cause status
CPT/HCPCS: 36415; 80048; 85025; 93005; 99284

== ENCOUNTER 2021-10-14 06:24 | Inpatient (IN) | payer SELFPAY ==
--- NOTE | 2021-10-14 07:46 | Emergency Department Report ---
HPI - General Chief Complaint: Dyspnea/Respdistress Time Seen by Provider: 10/14/21 07:27 - HPI HPI: Room 19 The patient is a 61-year-old male present with a chief complaint of shortness of breath. The patient has a history ESRD but states is secondary to transportation he has not received dialysis since 10/08/2021. The patient states last night he developed shortness of breath and occasional cough that was nonproductive. EMS was called and found the patient hypoxic with an SPO2 in the 80s. The patient is not on home O2. The patient is HIV positive but states he has not had any HIV meds for the past 6 months. Patient is not certain when his last CD4 count was but believes it was normal ED Past Medical Hx - Past Medical History Hx Hypertension: Yes Hx Renal Disease: Yes Hx HIV: Yes (Unknown CD4 count. No meds x6 months) Additional medical history: MS, Sciatica - Surgical History Additional Surgical History: Right chest Vas-Cath, back surgery - Family History Family history: no significant - Social History Smoking Status: Never Smoker Substance Use Type: None (Denies illicit drug use) - Medications Home Medications: Home Medications Medication Instructions Recorded Confirmed Last Taken Type Calcium Carbonate/Vitamin D3 1 each PO DAILY #10 10/04/21 Unknown Rx [Calcium 500-Vit D3 600 Tablet] Bacitracin/Pramoxine/Aloe Vera 1 applicatio TP TID #1 tube 10/09/21 Unknown Rx [Bacitraycin Plus Ointment] ED Review of Systems ROS: Stated complaint: SOB Other details as noted in HPI Constitutional: denies: fever Eyes: denies: eye pain ENT: denies: throat pain Respiratory: cough, shortness of breath Cardiovascular: denies: chest pain Endocrine: no symptoms reported Gastrointestinal: nausea, vomiting Genitourinary: denies: dysuria Musculoskeletal: denies: back pain Neurological: denies: headache Physical Exam - Physical Exam Vital Signs: Vital Signs 10/14/21 10/14/21 06:36 06:55 Temperature 98.6 F Pulse Rate 118 H Respiratory 24 22 Rate Blood Pressure 189/118 [Right] O2 Sat by Pulse 99 96 Oximetry Physical Exam: GENERAL: The patient is well-developed well-nourished male sitting on stretcher appearing to have slightly increased work of breathing with no acute distress. [] HEENT: Normocephalic. Atraumatic. Extraocular motions are intact. Patient has moist mucous membranes. NECK: Supple. Trachea midline CHEST/LUNGS: Diminished at the bases, coarse breath sounds throughout. No wheezing auscultated. There is slightly increased work of breathing HEART/CARDIOVASCULAR: Regular. There is no tachycardia. There is no gallop rub or murmur. ABDOMEN: Abdomen is soft, nontender. Patient has normal bowel sounds. There is no abdominal distention. SKIN: There is no rash. There is trace bilateral lower extremity pitting edema. There is no diaphoresis. NEURO: The patient is awake, alert, and oriented. The patient is cooperative. The patient has no focal neurologic deficits. The patient has normal speech. GCS 15 MUSCULOSKELETAL: There is no evidence of acute injury. ED Course Vital Signs 10/14/21 10/14/21 06:36 06:55 Temperature 98.6 F Pulse Rate 118 H Respiratory 24 22 Rate Blood Pressure 189/118 [Right] O2 Sat by Pulse 99 96 Oximetry - Consultations Consultation #1: 10/14/21 10:01 Nephrology called ED Medical Decision Making - Lab Data Result diagrams: 10/14/21 08:03 10/14/21 08:03 Laboratory Tests 10/14/21 10/14/21 08:03 08:03 WBC 7.0 RBC 3.39 L Hgb 9.3 L Hct 29.1 L MCV 86 MCH 28 MCHC 32 RDW 16.8 H Plt Count 197 Lymph % (Auto) 33.1 [place] % (Auto) 7.6 H Eos % (Auto) 0.5 Baso % (Auto) 1.4 Lymph # (Auto) 2.3 [place] # (Auto) 0.5 Eos # (Auto) 0.0 Baso # (Auto) 0.1 Seg Neutrophils % 57.4 Seg Neutrophils # 4.0 Sodium 140 Potassium 4.6 D Chloride 101.7 Carbon Dioxide 18 L Anion Gap 25 BUN 58 H Creatinine 16.0 H Estimated GFR 4 BUN/Creatinine Ratio 4 Glucose 99 Calcium 6.8 L - Differential Diagnosis Volume overload, PCP, symptomatic anemia Critical care attestation.: If time is entered above; I have spent that time in minutes in the direct care of this critically ill patient, excluding procedure time. ED Disposition Clinical Impression: End-stage renal disease needing dialysis, Volume overload, Hypoxia Disposition: 09 ADMITTED INPATIENT Is pt being admited?: Yes Does the pt Need Aspirin: No Condition: Serious Time of Disposition: 10:07 (Care transferred to hospitalist Dr Lopes (discussed with Dr. Gonzalez))
--- NOTE | 2021-10-14 07:59 | XRay Report ---
XR chest 1V ap INDICATION / CLINICAL INFORMATION: Shortness of breath, hypoxia. COMPARISON: 10/08/2021 FINDINGS: SUPPORT DEVICES: Unchanged. HEART /PULMONARY VASCULATURE: Worsening congestive changes. LUNGS / PLEURA: Pulmonary edema is worse compared to the prior examination. No pneumothorax. IMPRESSION: Worsening volume overload/CHF with pulmonary edema. Signer Name: Hola Birmingham MD Signed: 10/14/2021 7:55 AM Workstation Name: [id number]
[2021-10-14 09:19] LABS: Calcium 6.8 mg/dL (8.4-10.2)
[2021-10-14 09:57] LABS: Basophils # (Auto) 0.1 K/mm3 (0.0-0.1); Basophils % (Auto) 1.4 % (0.0-1.8); Eosinophils % (Auto) 0.5 % (0.0-4.3); Hematocrit 29.1 % (35.5-45.6); Hemoglobin 9.3 gm/dl (11.8-15.2); Lymphocytes # (Auto) 2.3 K/mm3 (1.2-5.4); Lymphocytes % (Auto) 33.1 % (13.4-35.0); Mean Corpuscular HGB Conc 32 % (32-34); Mean Corpuscular Volume 86 fl (84-94); Monocytes # (Auto) 0.5 K/mm3 (0.0-0.8); Monocytes % (Auto) 7.6 % (0.0-7.3); Platelet Count 197 K/mm3 (140-440); Red Blood Count 3.39 M/mm3 (3.65-5.03); Red Cell Distribution Width 16.8 % (13.2-15.2)
[2021-10-14] MEDS ORDERED: SODIUM CHLORIDE 0.9% 100 ML IV PRN (10:10)
[2021-10-14 10:15] LABS: INR 1.02 (0.87-1.13)
[2021-10-14] MEDS ORDERED: MORPHINE 4 MG/1 ML INJ IV PRN (12:15)
[2021-10-14] MEDS ORDERED: ACETAMINOPHEN 325 MG TAB PO PRN (12:15)
[2021-10-14] MEDS ORDERED: oxyCODONE /ACETAMINOPHEN 5-325MG TAB PO PRN (12:15)
[2021-10-14] MEDS ORDERED: ONDANSETRON 4 MG/2 ML INJ IV PRN (12:15)
--- NOTE | 2021-10-14 12:55 | History and Physical Report ---
History of Present Illness Date of examination: 10/14/21 Date of admission: 10/14/2021 Chief complaint: Shortness of breath History of present illness: Patient is 61-year-old male past medical history of ESRD on hemodialysis, hypertension, HIV (not on antiretrovirals), normocytic anemia, history of multiple sclerosis, and history of sciatica who presented with shortness of breath. The patient endorsed not receiving dialysis since 10/08/2021 due to laughlin sportation issues. In the EMS, the patient was found to be hypoxic to the 80s, and he does not normally utilize supplemental oxygen. In the ED the patient was found to be hypertensive, tachycardic, and hypoxic requiring supplemental oxygen. Nephrology was immediately consulted for emergent hemodialysis given the patient's severe hypoxia secondary to presumed volume overload. Past History Past Medical History: ESRD, HIV/AIDS, hypertension, other (Multiple sclerosis and sciatica) Past Surgical History: Other (AV fistula formation) Social history: single, full code Family history: hypertension Medications and Allergies Allergies Allergy/AdvReac Type Severity Reaction Status Date / Time No Known Allergies Allergy Verified 10/09/21 11:02 Home Medications Medication Instructions Recorded Confirmed Last Taken Type Calcium Carbonate/Vitamin D3 1 each PO DAILY #10 10/04/21 10/14/21 Unknown Rx [Calcium 500-Vit D3 600 Tablet] Bacitracin/Pramoxine/Aloe Vera 1 applicatio TP TID #1 tube 10/09/21 10/14/21 Unknown Rx [Bacitraycin Plus Ointment] Gabapentin 300 mg PO BID 10/15/21 10/15/21 Unknown History Losartan 50 mg PO DAILY 10/15/21 10/15/21 Unknown History Active Meds: Active Medications Acetaminophen (Acetaminophen 325 Mg Tab) 650 mg PO Q4H PRN PRN Reason: Pain MILD(1-3)/Fever >100.5/RACHEL Albuterol/Ipratropium (Ipratropium/Albuterol Sulfate 3 Ml Ampul.Neb) 1 ampul IH QIDRT [facility] Azithromycin (Azithromycin 250 Mg Tab) 500 mg PO DAILY [facility]; Protocol Stop: 10/17/21 10:01 Calcitriol (Calcitriol 0.5 Mcg Cap) 0.5 mcg PO DAILY [facility] Dexamethasone (Dexamethasone 4 Mg/Ml Vial) 8 mg IV DAILY [facility] Stop: 10/23/21 10:01 Famotidine (Famotidine 10 Mg Tab) 10 mg PO BID [facility] Furosemide (Furosemide 20 Mg/2 Ml Inj) 60 mg IV ONCE ONE Stop: 10/14/21 13:01 Heparin Sodium (Porcine) (Heparin 5,000 Unit/1 Ml Vial) 5,000 unit SUB-Q Q8H S [facility] Sodium Chloride (Nacl 0.9%) 100 mls @ 999 mls/hr IV [place] PRN PRN Reason: Hypotension Ceftriaxone Sodium (Rocephin/Ns 1 Gm/50 Ml) 1 gm in 50 mls @ 100 mls/hr IV Q24H [facility]; Protocol Stop: 10/19/21 12:59 Morphine Sulfate (Morphine 4 Mg/1 Ml Inj) 2 mg IV Q4H PRN PRN Reason: Pain , Severe (7-10) Ondansetron HCl (Ondansetron 4 Mg/2 Ml Inj) 4 mg IV Q8H PRN PRN Reason: Nausea And Vomiting Oxycodone/Acetaminophen (Oxycodone /Acetaminophen 5-325mg Tab) 1 tab PO Q6H PRN PRN Reason: Pain, Moderate (4-6) Sodium Chloride (Sodium Chloride 0.9% 10 Ml Flush Syringe) 10 ml IV BID [facility] Sodium Chloride (Sodium Chloride 0.9% 10 Ml Flush Syringe) 10 ml IV PRN PRN PRN Reason: LINE FLUSH Review of Systems All systems: negative Cardiovascular: edema Respiratory: shortness of breath Gastrointestinal: nausea Exam - Constitutional Vitals: Temp Pulse Resp BP Pulse Ox 98.7 F 110 H 20 166/111 95 10/14/21 08:09 10/14/21 08:09 10/14/21 08:09 10/14/21 08:09 10/14/21 08:14 General appearance: Present: no acute distress - EENT Eyes: Present: PERRL, EOM intact ENT: hearing intact, clear oral mucosa, dentition normal - Neck Neck: Present: supple, normal ROM - Respiratory Respiratory effort: labored Respiratory: bilateral: diminished (On 5 L nasal cannula) - Cardiovascular Heart rate: 120 Rhythm: regular Heart Sounds: Present: S1 & S2 - Extremities Extremities: no ischemia, pulses intact, pulses symmetrical, normal temperature, Full ROM, abnormal (Left upper extremity AV fistula) Extremity abnormal: edema (1+ pitting edema bilateral lower extremities) Peripheral Pulses: within normal limits - Abdominal General gastrointestinal: Present: soft, non-tender, non-distended, normal bowel sounds Male genitourinary: Present: deferred - Rectal Rectal Exam: deferred - Integumentary Integumentary: Present: clear, warm, dry - Musculoskeletal Musculoskeletal: strength equal bilaterally - Psychiatric Psychiatric: appropriate mood/affect, intact judgment & insight, memory intact, cooperative - Neurologic Neurologic: CNII-XII intact - Allied Health Allied health notes reviewed: nursing Results - Labs CBC & Chem 7: 10/14/21 08:03 10/15/21 04:10 Labs: Laboratory Last Values WBC 7.0 K/mm3 (4.5-11.0) 10/14/21 08:03 RBC 3.39 M/mm3 (3.65-5.03) L 10/14/21 08:03 Hgb 9.3 gm/dl (11.8-15.2) L 10/14/21 08:03 Hct 29.1 % (35.5-45.6) L 10/14/21 08:03 MCV 86 fl (84-94) 10/14/21 08:03 MCH 28 pg (28-32) 10/14/21 08:03 MCHC 32 % (32-34) 10/14/21 08:03 RDW 16.8 % (13.2-15.2) H 10/14/21 08:03 Plt Count 197 K/mm3 (140-440) 10/14/21 08:03 Lymph % (Auto) 33.1 % (13.4-35.0) 10/14/21 08:03 [place] % (Auto) 7.6 % (0.0-7.3) H 10/14/21 08:03 Eos % (Auto) 0.5 % (0.0-4.3) 10/14/21 08:03 Baso % (Auto) 1.4 % (0.0-1.8) 10/14/21 08:03 Lymph # (Auto) 2.3 K/mm3 (1.2-5.4) 10/14/21 08:03 [place] # (Auto) 0.5 K/mm3 (0.0-0.8) 10/14/21 08:03 Eos # (Auto) 0.0 K/mm3 (0.0-0.4) 10/14/21 08:03 Baso # (Auto) 0.1 K/mm3 (0.0-0.1) 10/14/21 08:03 Seg Neutrophils % 57.4 % (40.0-70.0) 10/14/21 08:03 Seg Neutrophils # 4.0 K/mm3 (1.8-7.7) 10/14/21 08:03 PT 14.5 Sec. (12.2-14.9) 10/14/21 08:03 INR 1.02 (0.87-1.13) 10/14/21 08:03 Sodium 140 mmol/L (137-145) 10/14/21 08:03 Potassium 4.6 mmol/L (3.6-5.0) D 10/14/21 08:03 Chloride 101.7 mmol/L (98-107) 10/14/21 08:03 Carbon Dioxide 18 mmol/L (22-30) L 10/14/21 08:03 Anion Gap 25 mmol/L 10/14/21 08:03 BUN 58 mg/dL (9-20) H 10/14/21 08:03 Creatinine 16.0 mg/dL (0.8-1.3) H 10/14/21 08:03 Estimated GFR 4 ml/min 10/14/21 08:03 BUN/Creatinine Ratio 4 % 10/14/21 08:03 Glucose 99 mg/dL (75-100) 10/14/21 08:03 Calcium 6.8 mg/dL (8.4-10.2) L 10/14/21 08:03 Assessment and Plan Assessment and plan: #Acute hypoxic respiratory failure - etiology: Secondary to volume overload with missed HD sessions but also can be coinciding with infectious etiology such as pneumonia - baseline oxygen requirements: Room air - supplemental oxygen: Ventimask -Ordering sputum culture, procalcitonin, DuoNebs, and coronavirus PCR. Starting azithromycin 500 mg daily and Rocephin 1 g daily for community- acquired pneumonia treatment. Starting IV dexamethasone 8 mg daily for possible COVID-19 treatment. If coronavirus PCR is negative, discontinue antibiotics. - Continue protocol: continue pulse oximetry, wean oxygen as tolerated, ordered incentive spirometry and educated patient on how to use it and its importance. - continue to monitor #Hypertensive emergency Likely secondary to missed hemodialysis sessions in the setting of volume overload Associated with acute hypoxic respiratory failure. Ordering IV Lasix 60 mg x 1, valsartan 160 mg daily, nifedipine 60 mg twice daily, and p.o. hydralazine 25 mg every 8 hours Should improve when patient receives hemodialysis tomorrow Continue to monitor #ESRD on hemodialysis -Access: Permacath in right upper chest -Outpatient schedule: -HD center: Unknown -Nephrology consulted; appreciate recs. -Renally dose medications and avoid nephrotoxic drugs. Renal diet. #Hypertension - home medications: - current medications: - SBP goal <160 and DBP goal <90 while inpatient - continue to monitor #HIV CD4 count unknown; pending labs Patient endorses not being on antiretrovirals for approximately 6 months. Patient cannot recall medications. Infectious disease consulted; pending recs #Hypocalcemia Calcium 6.8 --> likely worsened by anemia of chronic disease secondary to ESRD. Repleted. Initiating calcitriol 0.5 mcg daily. Continue to monitor. #Normocytic anemia Hemoglobin 9.3 Likely secondary to anemia of chronic disease. Transfuse if hemoglobin less than 7 or patient becomes symptomatic. #History of multiple sclerosis Stable #History of sciatica Stable The high probability of a clinically significant, sudden or life threatening deterioration of the [respiratory] system(s) required my full and direct attention, intervention and personal management. The aggregate critical care time was [60] minutes. This time is in addition to time spent performing reported procedures but includes the following: [x] Data Review and interpretation [x] Patient assessment and monitoring of vital signs [x] Documentation [x] Medication orders and management Advance Directives: No VTE prophylaxis?: Chemical Plan of care discussed with patient/family: Yes
[2021-10-14] MEDS ORDERED: cefTRIAXone/NS 1 GM/50 ML 1 GM/50 ML BAG IV SCH (13:00)
[2021-10-14] MEDS ORDERED: FUROSEMIDE 20 MG/2 ML INJ IV ONE (13:00)
[2021-10-14] MEDS ORDERED: dexAMETHasone 4 MG/ML VIAL IV SCH (13:00)
[2021-10-14] MEDS ORDERED: VALSARTAN 160MG TAB PO ONE (13:05)
[2021-10-14] MEDS: IPRATROPIUM/ALBUTEROL SULFATE 3 ML AMPUL.NEB IH SCH ×2 (16:09→19:54)
[2021-10-14] MEDS: FAMOTIDINE 10 MG TAB PO SCH (21:35)
[2021-10-14] MEDS: NIFEdipine XL 60 MG TAB PO SCH (21:35)
[2021-10-14] MEDS: HEPARIN 5,000 UNIT/1 ML VIAL SUB-Q SCH (21:36)
[2021-10-15] MEDS: hydrALAZINE 25 MG TAB PO SCH ×5 (00:41→22:08)
[2021-10-15] MEDS: HEPARIN 5,000 UNIT/1 ML VIAL SUB-Q SCH ×4 (04:30→22:08)
[2021-10-15 05:02] LABS: Calcium 6.5 mg/dL (8.4-10.2)
--- NOTE | 2021-10-15 07:56 | Progress Note ---
Assessment and Plan Assessment and plan: #Acute hypoxic respiratory failure - etiology: Secondary to volume overload with missed HD sessions but also can be coinciding with infectious etiology such as pneumonia - baseline oxygen requirements: Room air - supplemental oxygen: Ventimask -Ordering sputum culture, procalcitonin, DuoNebs, and coronavirus PCR. Starting azithromycin 500 mg daily and Rocephin 1 g daily for community- acquired pneumonia treatment. Starting IV dexamethasone 8 mg daily for possible COVID-19 treatment. If coronavirus PCR is negative, discontinue antibiotics. - Continue protocol: continue pulse oximetry, wean oxygen as tolerated, ordered incentive spirometry and educated patient on how to use it and its importance. - continue to monitor -CT chest ordered. #Hypertensive emergency Likely secondary to missed hemodialysis sessions in the setting of volume overl oad Associated with acute hypoxic respiratory failure. Ordering IV Lasix 60 mg x 1, valsartan 160 mg daily, nifedipine 60 mg twice daily, and p.o. hydralazine 25 mg every 8 hours Should improve when patient receives hemodialysis tomorrow Continue to monitor #ESRD on hemodialysis -Access: Permacath in right upper chest -HD center: Unknown, non compliant with HD, was discharged from previous dialysis center per prior documentation. -Nephrology consulted; appreciate recs. -Renally dose medications and avoid nephrotoxic drugs. Renal diet. #Hypertension - home medications: - current medications: - SBP goal <160 and DBP goal <90 while inpatient - continue to monitor #HIV CD4 count unknown; pending labs Patient endorses not being on antiretrovirals for approximately 6 months. Patient cannot recall medications. Infectious disease consulted; pending recs #Hypocalcemia Calcium 6.8 --> likely worsened by anemia of chronic disease secondary to ESRD. Repleted. Initiating calcitriol 0.5 mcg daily. Continue to monitor. #Normocytic anemia Hemoglobin 9.3 Likely secondary to anemia of chronic disease. Transfuse if hemoglobin less than 7 or patient becomes symptomatic. #History of multiple sclerosis Stable #History of sciatica Stable Dispo: med/surg. History Interval history: Spoke to patient on bedside encounter. Patient has no history of lung disorders. He does not utilize oxygen at home. Currently on 4 L nasal cannula. He states he received hemodialysis yesterday for volume control however states that his respiratory symptoms are still persisting. Patient is unsure about his CD4 count. Has not been taking antiretroviral therapy. Hospitalist Physical - Physical exam Narrative exam: Physical Exam: VITAL SIGNS: Reviewed. GENERAL: The patient appears normally developed, Vital signs as documented. On 4 L nasal cannula HEAD: No signs of head trauma. EYES: Pupils are equal. Extraocular motions intact. EARS: Hearing grossly intact. MOUTH: Oropharynx is normal. NECK: No adenopathy, no JVD. CHEST: Bilateral rhonchi CARDIAC: Regular rate and rhythm. S1 and S2, without murmurs, gallops, or rubs. VASCULAR: No Edema. Peripheral pulses normal and equal in all extremities. ABDOMEN: Soft, non tender and non distended. No rebound or guarding, and no masses palpated. Bowel Sounds normal. MUSCULOSKELETAL: Good range of motion of all major joints. Extremities without clubbing, cyanosis or edema. NEUROLOGIC EXAM: Alert and oriented x 4. no focal sensory or strength deficits. PSYCHIATRIC: Mood normal. SKIN: detail exam as documented in skin assessment - Constitutional Vitals: Temp Pulse Resp BP Pulse Ox 98.1 F 101 H 14 98/55 92 10/15/21 04:31 10/15/21 04:31 10/15/21 04:31 10/15/21 04:31 10/15/21 04:31 Results - Labs CBC & Chem 7: 10/14/21 08:03 10/15/21 04:10 Labs: Laboratory Last Values WBC 7.0 K/mm3 (4.5-11.0) 10/14/21 08:03 RBC 3.39 M/mm3 (3.65-5.03) L 10/14/21 08:03 Hgb 9.3 gm/dl (11.8-15.2) L 10/14/21 08:03 Hct 29.1 % (35.5-45.6) L 10/14/21 08:03 MCV 86 fl (84-94) 10/14/21 08:03 MCH 28 pg (28-32) 10/14/21 08:03 MCHC 32 % (32-34) 10/14/21 08:03 RDW 16.8 % (13.2-15.2) H 10/14/21 08:03 Plt Count 197 K/mm3 (140-440) 10/14/21 08:03 Lymph % (Auto) 33.1 % (13.4-35.0) 10/14/21 08:03 [place] % (Auto) 7.6 % (0.0-7.3) H 10/14/21 08:03 Eos % (Auto) 0.5 % (0.0-4.3) 10/14/21 08:03 Baso % (Auto) 1.4 % (0.0-1.8) 10/14/21 08:03 Lymph # (Auto) 2.3 K/mm3 (1.2-5.4) 10/14/21 08:03 [place] # (Auto) 0.5 K/mm3 (0.0-0.8) 10/14/21 08:03 Eos # (Auto) 0.0 K/mm3 (0.0-0.4) 10/14/21 08:03 Baso # (Auto) 0.1 K/mm3 (0.0-0.1) 10/14/21 08:03 Seg Neutrophils % 57.4 % (40.0-70.0) 10/14/21 08:03 Seg Neutrophils # 4.0 K/mm3 (1.8-7.7) 10/14/21 08:03 PT 14.5 Sec. (12.2-14.9) 10/14/21 08:03 INR 1.02 (0.87-1.13) 10/14/21 08:03 Sodium 138 mmol/L (137-145) 10/15/21 04:10 Potassium 3.8 mmol/L (3.6-5.0) 10/15/21 04:10 Chloride 99.1 mmol/L (98-107) 10/15/21 04:10 Carbon Dioxide 24 mmol/L (22-30) 10/15/21 04:10 Anion Gap 19 mmol/L 10/15/21 04:10 BUN 38 mg/dL (9-20) H 10/15/21 04:10 Creatinine 11.8 mg/dL (0.8-1.3) H 10/15/21 04:10 Estimated GFR 5 ml/min 10/15/21 04:10 BUN/Creatinine Ratio 3 % 10/15/21 04:10 Glucose 96 mg/dL (75-100) 10/15/21 04:10 Calcium 6.5 mg/dL (8.4-10.2) L 10/15/21 04:10 Coronavirus (PCR) Negative (Negative) 10/14/21 11:35 Atkins/IV: Voiding Method Urinal Active Medications - Current Medications Current Medications: Generic Name Dose Route Start Last Admin Trade Name Freq PRN Reason Stop Dose Admin Acetaminophen 650 mg 10/14/21 12:15 Acetaminophen 325 Mg Tab PO Q4H PRN Pain MILD(1-3)/Fever >100.5/RACHEL Albuterol/Ipratropium 1 ampul 10/14/21 16:00 10/14/21 19:54 Ipratropium/Albuterol Sulfate 3 Ml Ampul.Neb IH 1 ampul QIDRT CAILIN Administration Azithromycin 500 mg 10/14/21 13:00 Azithromycin 250 Mg Tab PO 10/17/21 10:01 DAILY ON LICENSE OF [facility] Protocol Calcitriol 0.5 mcg 10/15/21 10:00 Calcitriol 0.5 Mcg Cap PO DAILY CAILIN Famotidine 10 mg 10/14/21 22:00 10/14/21 21:35 Famotidine 10 Mg Tab PO 10 mg BID ON LICENSE OF [facility] Administration Heparin Sodium (Porcine) 5,000 unit 10/14/21 12:30 10/14/21 21:36 Heparin 5,000 Unit/1 Ml Vial SUB-Q 5,000 unit Q8H ON LICENSE OF [facility] Administration Hydralazine HCl 50 mg 10/14/21 14:00 10/15/21 00:41 Hydralazine 25 Mg Tab PO Not Given Q8H ON LICENSE OF [facility] Sodium Chloride 100 mls @ 999 mls/hr 10/14/21 10:10 Nacl 0.9% IV [place]KE PRN Hypotension Ceftriaxone Sodium 1 gm in 50 mls @ 100 mls/hr 10/14/21 13:00 Rocephin/Ns 1 Gm/50 Ml IV 10/19/21 12:59 Q24H ON LICENSE OF [facility] Protocol Morphine Sulfate 2 mg 10/14/21 12:15 Morphine 4 Mg/1 Ml Inj IV Q4H PRN Pain , Severe (7-10) Nifedipine 60 mg 10/14/21 14:00 10/14/21 21:35 Nifedipine Xl 60 Mg Tab PO 60 mg BID CAILIN Administration Ondansetron HCl 4 mg 10/14/21 12:15 10/14/21 21:37 Ondansetron 4 Mg/2 Ml Inj IV 4 mg Q8H PRN Administration Nausea And Vomiting Oxycodone/Acetaminophen 1 tab 10/14/21 12:15 Oxycodone /Acetaminophen 5-325mg Tab PO Q6H PRN Pain, Moderate (4-6) Sodium Chloride 10 ml 10/14/21 22:00 10/14/21 21:35 Sodium Chloride 0.9% 10 Ml Flush Syringe IV 10 ml BID CAILIN Administration Sodium Chloride 10 ml 10/14/21 12:15 Sodium Chloride 0.9% 10 Ml Flush Syringe IV PRN PRN LINE FLUSH
[2021-10-15] MEDS: IPRATROPIUM/ALBUTEROL SULFATE 3 ML AMPUL.NEB IH SCH ×4 (08:51→19:54)
[2021-10-15] MEDS: NIFEdipine XL 60 MG TAB PO SCH ×3 (09:51→22:04)
[2021-10-15] MEDS: AZITHROMYCIN 250 MG TAB PO SCH ×2 (09:57→10:55)
[2021-10-15] MEDS: FAMOTIDINE 10 MG TAB PO SCH ×2 (09:57→22:04)
[2021-10-15] MEDS: GABAPENTIN 300 MG CAP PO SCH ×2 (10:55→22:04)
--- NOTE | 2021-10-15 11:11 | Consultation ---
History of Present Illness - Reason for Consult Consult date: 10/15/21 end stage renal disease Requesting physician: HELEN DAVID - History of Present Illness This is a 61 yo M with history of hypertension, HIV, ESRD on HD,currently does not have outpatient HD chair due to uninsured status, who presents to ER with chief complaint of shortness of breath. EMS was called and found the patient hypoxic with an SPO2 in the 80s. Pt has not had any HIV meds for the past 6 months. Pt was evaluated by ID at [facility] during hospitalization in 08/2021, he was supposed to follow-up with [facility] for HIV therapy (e.g., IDP at [place], [facility]). renal consult is requested for management of ESRD/HD. Past History Past Medical History: ESRD, HIV/AIDS, hypertension Past Surgical History: Other (permcath ) Social history: denies: smoking, alcohol abuse, prescription drug abuse Family history: hypertension Medications and Allergies Allergies Allergy/AdvReac Type Severity Reaction Status Date / Time No Known Allergies Allergy Verified 10/09/21 11:02 Home Medications Medication Instructions Recorded Confirmed Last Taken Type Calcium Carbonate/Vitamin D3 1 each PO DAILY #10 10/04/21 10/14/21 Unknown Rx [Calcium 500-Vit D3 600 Tablet] Bacitracin/Pramoxine/Aloe Vera 1 applicatio TP TID #1 tube 10/09/21 10/14/21 Unknown Rx [Bacitraycin Plus Ointment] Gabapentin 300 mg PO BID 10/15/21 10/15/21 Unknown History Losartan 50 mg PO DAILY 10/15/21 10/15/21 Unknown History Active Meds: Active Medications Acetaminophen (Acetaminophen 325 Mg Tab) 650 mg PO Q4H PRN PRN Reason: Pain MILD(1-3)/Fever >100.5/RACHEL Albuterol/Ipratropium (Ipratropium/Albuterol Sulfate 3 Ml Ampul.Neb) 1 ampul IH QIDRT [facility] Last Admin: 10/15/21 08:51 Dose: 1 ampul Azithromycin (Azithromycin 250 Mg Tab) 500 mg PO DAILY [facility]; Protocol Stop: 10/17/21 10:01 Last Admin: 10/15/21 10:55 Dose: 500 mg Calcitriol (Calcitriol 0.5 Mcg Cap) 0.5 mcg PO DAILY [facility] Famotidine (Famotidine 10 Mg Tab) 10 mg PO BID [facility] Last Admin: 10/15/21 09:57 Dose: 10 mg Gabapentin (Gabapentin 300 Mg Cap) 300 mg PO BID [facility] Last Admin: 10/15/21 10:55 Dose: 300 mg Heparin Sodium (Porcine) (Heparin 5,000 Unit/1 Ml Vial) 5,000 unit SUB-Q Q8H [facility] Last Admin: 10/15/21 04:30 Dose: Not Given Hydralazine HCl (Hydralazine 25 Mg Tab) 50 mg PO Q8H [facility] Last Admin: 10/15/21 06:00 Dose: Not Given Sodium Chloride (Nacl 0.9%) 100 mls @ 999 mls/hr [place] PRN PRN Reason: Hypotension Ceftriaxone Sodium (Rocephin/Ns 1 Gm/50 Ml) 1 gm in 50 mls @ 100 mls/hr IV Q24H [facility]; Protocol Stop: 10/19/21 12:59 Morphine Sulfate (Morphine 4 Mg/1 Ml Inj) 2 mg IV Q4H PRN PRN Reason: Pain , Severe (7-10) Nifedipine (Nifedipine Xl 60 Mg Tab) 60 mg PO BID [facility] Last Admin: 10/15/21 09:51 Dose: Not Given Ondansetron HCl (Ondansetron 4 Mg/2 Ml Inj) 4 mg IV Q8H PRN PRN Reason: Nausea And Vomiting Last Admin: 10/14/21 21:37 Dose: 4 mg Oxycodone/Acetaminophen (Oxycodone /Acetaminophen 5-325mg Tab) 1 tab PO Q6H PRN PRN Reason: Pain, Moderate (4-6) Sodium Chloride (Sodium Chloride 0.9% 10 Ml Flush Syringe) 10 ml IV BID [facility] Last Admin: 10/15/21 09:58 Dose: 10 ml Sodium Chloride (Sodium Chloride 0.9% 10 Ml Flush Syringe) 10 ml IV PRN PRN PRN Reason: LINE FLUSH Review of Systems All systems: negative Constitutional: fatigue, weakness, malaise Cardiovascular: shortness of breath Exam - Vital Signs Vital signs: Vital Signs Temp Pulse Resp BP Pulse Ox 98.6 F 118 H 24 189/118 99 10/14/21 06:36 10/14/21 06:36 10/14/21 06:36 10/14/21 06:36 10/14/21 06:36 - General Appearance General appearance: well-developed, well-nourished, appears stated age EENT: ATNC, PERRL, mucous membranes moist Neck: Present: neck supple Respiratory: Clear to Ascultation Heart: regular, S1S2 Gastrointestinal: Present: normoactive bowel sounds Integumentary: no rash Neurologic: no focal deficit, CN 3-12 intact Psychiatric: mood/affect appropriate, cooperative Results - Lab Results 10/14/21 08:03 10/15/21 04:10 Most recent lab results Calcium 6.5 mg/dL (8.4-10.2) L 10/15/21 04:10 Assessment and Plan - Patient Problems (1) End-stage renal disease needing dialysis Current Visit: Yes Status: Acute Plan to address problem: Pt received HD yesterday for volume control and solute clearance. Cont HD on TTS schedule (2) Hypertensive chronic kidney disease with stage 5 chronic kidney disease or end stage renal disease Current Visit: No Status: Acute Plan to address problem: BP improved with HD with IF of3L, monitor BP on current meds (3) Anemia in ESRD (end-stage renal disease) Current Visit: No Status: Acute (4) Hypocalcemia Current Visit: No Status: Acute Plan to address problem: use 3Ca bath. check PTH/PO4 level, if PO4 remains above target > 5.5 will start phoslo. (5) HIV (human immunodeficiency virus infection) Current Visit: Yes Status: Acute Plan to address problem: Pt was evaluated by ID at [facility] during hospitalization in 08/2021, he was supposed to [facility]up with [facility] for [facility] therapy (e.g., IDP at [place] [facility])
[2021-10-15 15:50] LABS: Hepatitis B Surface Antigen Non-Reactive (Negative); Hepatitis C Virus Antibody Non-Reactive (NonReactive)
--- NOTE | 2021-10-15 16:03 | Cat Scan Report ---
CT chest wo con INDICATION / CLINICAL INFORMATION: interstitial pneumonitis vs pneumonia. TECHNIQUE: CT of the chest without IV contrast All CT scans at this location are performed using CT dose reducti on for ALARA by means of automated exposure control. COMPARISON: None available. FINDINGS: CHEST: There are large bilateral pleural effusions present. There is evidence of mild bilateral inter stitial edema. Scattered groundglass densities in a perihilar distribution are present bilaterally. T he heart size is borderline enlarged. There is minimal pericardial fluid. Large bore right IJ cathete r terminates near the SVC/right atrial junction. The upper abdomen demonstrates no acute findings IMPRESSION: Large bilateral pleural effusions with mild bilateral interstitial edema. Signer Name: Angel North MD Signed: 10/15/2021 3:51 PM Workstation Name: [id number]
--- NOTE | 2021-10-15 16:04 | Progress Note ---
Assessment and Plan Cultures: None A/P: 61-year-old man past medical history ESRD on HD, HIV presented with: #Bilateral pulmonary edema: After missed dialysis sessions due to transportation issues. #HIV: Most recent CD4 count in July was 139 (11%). Unknown viral load. Not on antiretrovirals. Has been discussed with him previously that he needs to follow-up with the [facility] for [facility] to establish care for ART. He is also not on prophylactics #ESRD on HD: Renally dose medications Recs: -Follow-up CT chest. If shortness of breath does not resolve with removal of fluid, he is at risk of PJP given CD4 count. -Check CD4 and viral load -Follow-up with [facility] or [facility] for establishing ART care Thank you for the consult, we will continue to follow. Karishma Liang MD [facility] O: [phone] F: [phone] Subjective Date of service: 10/15/21 Interval history: 61-year-old male past medical history HIV, ESRD on HD, hypertension presented to hospital complaining of shortness of breath. He notes*dialysis since 10/09/2019 due to transportation issues. He was found to be hypoxic on admission. He was requiring supplemental oxygen. He has known to me from [place] has been seen multiple times due to his HIV diarrhea. He has not on ART, and has not been for at least 1 year. Afebrile, white count 7. COVID-negative. No cultures available for review. Personally reviewed: Chest x-ray: Volume overload/CHF pulmonary edema. Review of Systems: Bold if positive, otherwise negative General: fevers, chills, rigors HEENT: visual disturbance, diplopia, eye pain Respiratory: cough, sputum, hemoptysis, shortness of breath Cardiovascular: chest pain, syncope Gastrointestinal: nausea, vomiting, diarrhea, abdominal pain Genitourinary: dysuria, hematuria, flank pain Musculoskeletal: neck pain, back pain, joint pain, edema Neurologic: headaches, seizures Hematologic: easy bruising or bleeding Endocrine: night sweats, acute weight loss Skin: rash, jaundice, redness Psychiatric: suicidal, homicidal ideation Objective - Exam Narrative Exam: Physical Exam: Constitutional: Alert, cooperative. No acute distress Head, Ears, Nose: Normocephalic, atraumatic. External ears, nose normal Eyes: Conjunctivae/corneas clear. No icterus. No ptosis. Neck: Supple, no meningeal signs Oral: dentition fair, no thrush Cardiovascular: S1, S2 normal. Respiratory: Good air entry, clear to auscultation bilaterally GI: Soft, non-tender; bowel sounds normal. No peritoneal signs. Musculoskeletal: No pedal edema, no cyanosis. Skin: No rash or abscess Hem/Lymphatic: No palpable cervical or supraclavicular nodes. No lymphangitis Psych: Mood ok. Affect normal Neurological: Awake, alert, oriented. No gross abnormality - Constitutional Vitals: Vital Signs Temp Pulse Resp BP Pulse Ox 98.6 F 92 H 16 99/62 96 10/15/21 11:57 10/15/21 12:50 10/15/21 12:50 10/15/21 11:57 10/15/21 11:57 Temperature -Last 24 Hours Temperature 98.6 F Temperature 97.7 F Temperature 98.1 F Temperature 98.2 F Temperature 98.2 F Temperature 98.2 F - Labs CBC & Chem 7: 10/14/21 08:03 10/15/21 04:10 Labs: Abnormal lab results 10/15/21 Range/Units 04:10 BUN 38 H (9-20) mg/dL Creatinine 11.8 H (0.8-1.3) mg/dL Calcium 6.5 L (8.4-10.2) mg/dL
[2021-10-15] MEDS: CALCITRIOL 0.5 MCG CAP PO SCH (19:00)
[2021-10-16] MEDS: HEPARIN 5,000 UNIT/1 ML VIAL SUB-Q SCH ×3 (05:19→21:49)
[2021-10-16] MEDS: hydrALAZINE 25 MG TAB PO SCH ×3 (05:20→21:55)
[2021-10-16 07:00] LABS: Calcium 6.4 mg/dL (8.4-10.2)
[2021-10-16] MEDS: IPRATROPIUM/ALBUTEROL SULFATE 3 ML AMPUL.NEB IH SCH ×4 (09:27→19:44)
--- NOTE | 2021-10-16 09:32 | Discharge Summary ---
Providers - Providers Date of Admission: 10/15/21 07:42 Date of discharge: 10/17/21 Attending physician: JADEN DENIS 10/14/21 10:06 Consult to Physician [CONS] Urgent Comment: Consulting Provider: LEESA BUSH Physician Instructions: Reason For Exam: ESRD needing dialysis 10/14/21 12:21 Consult to Physician [CONS] Routine Comment: Consulting Provider: SABAS TAPIA Physician Instructions: Reason For Exam: HIV not on antiretrovirals x6 months 10/15/21 10:58 Physical Therapy Evaluation and Treat [CONS] Routine Comment: Reason For Exam: weakness Primary care physician: JEANNETTE WALSH Hospitalization Reason for admission: sob Condition: Serious Hospital course: 61-year-old male past medical history HIV, ESRD on HD, hypertension presented to hospital complaining of shortness of breath. He notes*dialysis since 10/09/2019 due to transportation issues. He was found to be hypoxic on admission. He was requiring supplemental oxygen. He has known to me from [place] has been seen multiple times due to his HIV diarrhea. The patient was admitted with diagnosis of acute hypoxic respiratory failure secondary to volume overload from missed hemodialysis, ESRD, hypertensive emergency, HIV, hypocalcemia, history of multiple sclerosis and normocytic anemia. The patient was started empirically on antibiotics with azithromycin and Rocephin daily for possible community-acquired pneumonia. Treviño PCR was found to be negative. The patient initially required 4 L O2 which was later weaned off after patient underwent hemodialysis. The patient is back to baseline respiratory status. The patient was seen in hemodialysis today and will be discharged home after. Dedicated discharge time 32 minutes. Disposition: 30 STILL A PATIENT Final Discharge Diagnosis (Prints w/discharge instructions): Acute hypoxic respiratory failure, hypertensive emergency, volume overload secondary to missed hemodialysis, ESRD, hypocalcemia, Core Measure Documentation - Palliative Care Palliative Care/ Comfort Measures: Not Applicable - Core Measures Any of the following diagnoses?: none Exam - Constitutional Vitals: Temp Pulse Resp BP Pulse Ox 98.4 F 93 H 18 99/65 96 10/16/21 05:06 10/16/21 05:06 10/16/21 05:06 10/16/21 05:06 10/16/21 08:00 General appearance: Present: no acute distress, well-nourished - EENT Eyes: Present: PERRL ENT: hearing intact, clear oral mucosa - Neck Neck: Present: supple, normal ROM - Respiratory Respiratory effort: normal Respiratory: bilateral: CTA - Cardiovascular Heart Sounds: Present: S1 & S2. Absent: rub, click - Extremities Extremities: pulses symmetrical, No edema Peripheral Pulses: within normal limits - Abdominal General gastrointestinal: Present: soft, non-tender, non-distended, normal bowel sounds Male genitourinary: Present: normal - Integumentary Integumentary: Present: clear, warm, dry - Musculoskeletal Musculoskeletal: gait normal, strength equal bilaterally - Psychiatric Psychiatric: appropriate mood/affect, intact judgment & insight - Neurologic Neurologic: CNII-XII intact, moves all extremities Plan Activity: advance as tolerated Weight Bearing Status: Weight Bear as Tolerated Diet: renal Follow up with: JEANNETTE WALSH MD [Primary Care Provider] - 7 Days LEESA BUSH MD [Staff Physician] - 7 Days
[2021-10-16] MEDS: NIFEdipine XL 60 MG TAB PO SCH ×2 (10:00→21:57)
[2021-10-16] MEDS: GABAPENTIN 300 MG CAP PO SCH ×2 (10:34→21:49)
[2021-10-16] MEDS: FAMOTIDINE 10 MG TAB PO SCH ×2 (10:35→21:49)
[2021-10-16] MEDS: CALCITRIOL 0.5 MCG CAP PO SCH (10:36)
[2021-10-16] MEDS ORDERED: SODIUM CHLORIDE 0.9% 100 ML IV PRN (11:24)
--- NOTE | 2021-10-16 11:54 | Progress Note ---
Assessment and Plan - Patient Problems (1) End-stage renal disease needing dialysis Current Visit: Yes Status: Acute Plan to address problem: Pt received HD yesterday for volume control and solute clearance. Cont HD on TTS schedule. Stable for discharge from renal stand point after HD today. pt does not have outpatient HD chair due to uninsured status, has to come to ER for HD treatments. (2) Hypertensive chronic kidney disease with stage 5 chronic kidney disease or end stage renal disease Current Visit: No Status: Acute Plan to address problem: BP improved with HD with IF of3L, monitor BP on current meds (3) Anemia in ESRD (end-stage renal disease) Current Visit: No Status: Acute (4) Hypocalcemia Current Visit: No Status: Acute Plan to address problem: use 3Ca bath. start phoslo 1 tab tid with meals (5) HIV (human immunodeficiency virus infection) Current Visit: Yes Status: Acute Plan to address problem: Pt was evaluated by ID at [facility] during hospitalization in 08/2021, he was supposed to follow-up with [facility] for HIV therapy (e.g., IDP at [facility]) Subjective Date of service: 10/16/21 Principal diagnosis: ESRD Interval history: Patient awake, alert, in no acute distress Objective - Vital Signs Vital signs: Vital Signs - 12hr 10/16/21 10/16/21 10/16/21 05:06 08:00 09:27 Temperature 98.4 F Pulse Rate 93 H Pulse Rate [ 97 H Anterior Throughout] Respiratory 18 Rate Respiratory 18 Rate [Anterior Throughout] Blood Pressure 99/65 O2 Sat by Pulse 97 96 Oximetry O2 Sat by Pulse Oximetry [ Anterior Throughout] 10/16/21 10/16/21 10/16/21 09:30 11:09 11:16 Temperature 98.2 F Pulse Rate 97 H 94 H Pulse Rate [ Anterior Throughout] Respiratory 20 Rate Respiratory Rate [Anterior Throughout] Blood Pressure 110/64 111/65 O2 Sat by Pulse 96 Oximetry O2 Sat by Pulse 95 Oximetry [ Anterior Throughout] 10/16/21 10/16/21 11:30 11:45 Temperature Pulse Rate 93 H 64 Pulse Rate [ Anterior Throughout] Respiratory Rate Respiratory Rate [Anterior Throughout] Blood Pressure 117/67 103/60 O2 Sat by Pulse Oximetry O2 Sat by Pulse Oximetry [ Anterior Throughout] - General Appearance General appearance: well-developed, well-nourished, appears stated age EENT: ATNC, PERRL, mucous membranes moist Neck: no JVD Respiratory: Present: Clear to Ascultation Cardiology: regular, S1S2 Gastrointestinal: normoactive bowel sounds Integumentary: no rash Neurologic: no focal deficit, CN 3-12 intact Psychiatric: mood/affect appropriate, cooperative - Lab 10/14/21 08:03 10/16/21 05:15 Most recent lab results Calcium 6.4 mg/dL (8.4-10.2) L 10/16/21 05:15 Phosphorus 5.50 mg/dL (2.5-4.5) H 10/16/21 05:15 Medications & Allergies - Medications Allergies/Adverse Reactions: Allergies No Known Allergies Allergy (Verified 10/09/21 11:02) Home Medications: Home Medications Medication Instructions Recorded Confirmed Last Taken Type Calcium Carbonate/Vitamin D3 1 each PO DAILY #10 10/04/21 10/14/21 Unknown Rx [Calcium 500-Vit D3 600 Tablet] Bacitracin/Pramoxine/Aloe Vera 1 applicatio TP TID #1 tube 10/09/21 10/14/21 Unknown Rx [Bacitraycin Plus Ointment] Gabapentin 300 mg PO BID 10/15/21 10/15/21 Unknown History Losartan 50 mg PO DAILY 10/15/21 10/15/21 Unknown History Active Medications: Generic Name Dose Route Start Last Admin Trade Name Freq PRN Reason Stop Dose Admin Acetaminophen 650 mg 10/14/21 12:15 Acetaminophen 325 Mg Tab PO Q4H PRN Pain MILD(1-3)/Fever >100.5/RACHEL Albuterol/Ipratropium 1 ampul 10/14/21 16:00 10/16/21 09:27 Ipratropium/Albuterol Sulfate 3 Ml Ampul.Neb IH 1 ampul QIDRT CAILIN Administration Calcitriol 0.5 mcg 10/15/21 10:00 10/16/21 10:36 Calcitriol 0.5 Mcg Cap PO 0.5 mcg DAILY CAILIN Administration Calcium Acetate 667 mg 10/16/21 12:00 Calcium Acetate 667 Mg Cap PO TIDWM CAILIN Epoetin Alen-epbx 10,000 unit 10/16/21 12:00 Epoetin Alen-Epbx 10,000 Unit/1 Ml Vial SUB-Q [place] CAILIN Famotidine 10 mg 10/14/21 22:00 10/16/21 10:35 Famotidine 10 Mg Tab PO 10 mg BID CAILIN Administration Gabapentin 300 mg 10/15/21 11:00 10/16/21 10:34 Gabapentin 300 Mg Cap PO 300 mg BID CAILIN Administration Heparin Sodium (Porcine) 5,000 unit 10/14/21 12:30 10/16/21 05:19 Heparin 5,000 Unit/1 Ml Vial SUB-Q 5,000 unit Q8H CAILIN Administration Hydralazine HCl 50 mg 10/14/21 14:00 10/16/21 05:20 Hydralazine 25 Mg Tab PO Not Given Q8H [facility] Sodium Chloride 100 mls @ 999 mls/hr 10/16/21 11:24 Nacl 0.9% IV [place] PRN Hypotension Morphine Sulfate 2 mg 10/14/21 12:15 Morphine 4 Mg/1 Ml Inj IV Q4H PRN Pain , Severe (7-10) Nifedipine 60 mg 10/14/21 14:00 10/15/21 22:04 Nifedipine Xl 60 Mg Tab PO 60 mg BID CAILIN Administration Ondansetron HCl 4 mg 10/14/21 12:15 10/14/21 21:37 Ondansetron 4 Mg/2 Ml Inj IV 4 mg Q8H PRN Administration Nausea And Vomiting Oxycodone/Acetaminophen 1 tab 10/14/21 12:15 Oxycodone /Acetaminophen 5-325mg Tab PO Q6H PRN Pain, Moderate (4-6) Sodium Chloride 10 ml 10/14/21 22:00 10/15/21 22:05 Sodium Chloride 0.9% 10 Ml Flush Syringe IV 10 ml BID CAILIN Administration Sodium Chloride 10 ml 10/14/21 12:15 Sodium Chloride 0.9% 10 Ml Flush Syringe IV PRN PRN LINE FLUSH
[2021-10-16] MEDS ORDERED: EPOETIN ALFA-EPBX 10,000 UNIT/1 ML VIAL SUB-Q SCH (12:00)
[2021-10-16] MEDS: CALCIUM ACETATE 667 MG CAP PO SCH ×2 (12:00→16:59)
--- NOTE | 2021-10-16 15:54 | Progress Note ---
Assessment and Plan Cultures: None A/P: 61-year-old man past medical history ESRD on HD, HIV presented with: #Bilateral pulmonary edema: After missed dialysis sessions due to transportation issues. #HIV: Most recent CD4 count in July was 139 (11%). Unknown viral load. Not on antiretrovirals. Has been discussed with him previously that he needs to follow-up with the [facility] to establish care for ART. He is also not on prophylactics #ESRD on HD: Renally dose medications Recs:. -Check CD4 and viral load -Follow-up with [facility] or [facility] for establishing ART care -Okay for discharge from infectious disease perspective Thank you for the consult, we will continue to follow. Karishma Liang MD [facility] O: [phone] F: [phone] Subjective Date of service: 10/16/21 Principal diagnosis: ESRD Interval history: Afebrile, normal white count. Imaging personally reviewed: Chest CT: 5 bilateral pleural effusions with interstitial edema. Objective - Exam Narrative Exam: Physical Exam: Constitutional: Alert, cooperative. No acute distress Head, Ears, Nose: Normocephalic, atraumatic. External ears, nose normal Eyes: Conjunctivae/corneas clear. No icterus. No ptosis. Neck: Supple, no meningeal signs Oral: dentition fair, no thrush Cardiovascular: S1, S2 normal. Respiratory: Good air entry, clear to auscultation bilaterally GI: Soft, non-tender; bowel sounds normal. No peritoneal signs. Musculoskeletal: No pedal edema, no cyanosis. Skin: No rash or abscess Hem/Lymphatic: No palpable cervical or supraclavicular nodes. No lymphangitis Psych: Mood ok. Affect normal Neurological: Awake, alert, oriented. No gross abnormality - Constitutional Vitals: Vital Signs Temp Pulse Resp BP Pulse Ox 98.0 F 101 H 20 128/82 99 10/16/21 14:59 10/16/21 14:59 10/16/21 14:59 10/16/21 14:59 10/16/21 14:59 Temperature -Last 24 Hours Temperature 98.0 F Temperature 98.2 F Temperature 98.4 F Temperature 98.8 F Temperature 98.7 F - Labs CBC & Chem 7: 10/14/21 08:03 10/16/21 05:15 Labs: Abnormal lab results 10/16/21 10/16/21 Range/Units 05:15 05:15 Carbon Dioxide 20 L (22-30) mmol/L BUN 47 H (9-20) mg/dL Creatinine 13.2 H (0.8-1.3) mg/dL Calcium 6.4 L (8.4-10.2) mg/dL Phosphorus 5.50 H (2.5-4.5) mg/dL PTH Intact 205.3 H (15-65) pg/mL
[2021-10-17] MEDS: hydrALAZINE 25 MG TAB PO SCH ×2 (05:38→14:10)
[2021-10-17] MEDS: HEPARIN 5,000 UNIT/1 ML VIAL SUB-Q SCH ×2 (05:40→14:09)
[2021-10-17] MEDS: IPRATROPIUM/ALBUTEROL SULFATE 3 ML AMPUL.NEB IH SCH ×2 (08:28→13:04)
[2021-10-17 09:29] VITALS: BP 97/57
[2021-10-17] MEDS: GABAPENTIN 300 MG CAP PO SCH (09:29)
[2021-10-17] MEDS: FAMOTIDINE 10 MG TAB PO SCH (09:29)
[2021-10-17] MEDS: CALCITRIOL 0.5 MCG CAP PO SCH (09:29)
[2021-10-17] MEDS: NIFEdipine XL 60 MG TAB PO SCH (09:30)
[2021-10-17] MEDS: CALCIUM ACETATE 667 MG CAP PO SCH ×2 (09:30→14:09)
--- NOTE | 2021-10-17 09:32 | Progress Note ---
Assessment and Plan Assessment and plan: Acute hypoxic respiratory failure Etiology secondary to bilateral pulmonary edema after missed hemodialysis session due to medical noncompliance and transportation issues Hypertensive emergency Likely secondary to missed hemodialysis sessions in the setting of volume overload Resolved. ESRD on hemodialysis -Access: Permacath in right upper chest -HD center: Unknown, non compliant with HD, was discharged from previous dialys is center per prior documentation. -Nephrology following -Renally dose medications and avoid nephrotoxic drugs. Renal diet. HIV Most recent CD4 count in July was 139 (11%). Unknown viral load. Not on antiretrovirals. Has been discussed with him previously that he needs to follow-up with the [facility] for [facility] to establish care for ART. He is also not on prophylactics Hypocalcemia Calcium 6.8 --> likely worsened by anemia of chronic disease secondary to ESRD. Repleted. Initiating calcitriol 0.5 mcg daily. Continue to monitor. Normocytic anemia Hemoglobin 9.3 Likely secondary to anemia of chronic disease. Transfuse if hemoglobin less than 7 or patient becomes symptomatic. History of multiple sclerosis Stable History of sciatica Stable Disposition. Patient has been discharged but sister reports she is unable to get him into the [facility] patient refused bus pass History Interval history: No new issues overnight. Hospitalist Physical - Constitutional Vitals: Temp Pulse Resp BP Pulse Ox 98.3 F 97 H 16 114/67 94 10/17/21 04:44 10/17/21 08:31 10/17/21 08:31 10/17/21 04:44 10/17/21 08:31 General appearance: Present: no acute distress, well-nourished - EENT Eyes: Present: PERRL, EOM intact ENT: hearing intact, clear oral mucosa, dentition normal - Neck Neck: Present: supple, normal ROM - Respiratory Respiratory effort: normal Respiratory: bilateral: CTA - Cardiovascular Rhythm: regular Heart Sounds: Present: S1 & S2. Absent: gallop, rub - Extremities Extremities: no ischemia, No edema, Full ROM - Abdominal General gastrointestinal: soft, non-tender, non-distended, normal bowel sounds - Integumentary Integumentary: Present: clear, warm, dry - Neurologic Neurologic: CNII-XII intact, moves all extremities Results - Labs CBC & Chem 7: 10/14/21 08:03 10/16/21 05:15 Labs: Laboratory Last Values WBC 7.0 K/mm3 (4.5-11.0) 10/14/21 08:03 RBC 3.39 M/mm3 (3.65-5.03) L 10/14/21 08:03 Hgb 9.3 gm/dl (11.8-15.2) L 10/14/21 08:03 Hct 29.1 % (35.5-45.6) L 10/14/21 08:03 MCV 86 fl (84-94) 10/14/21 08:03 MCH 28 pg (28-32) 10/14/21 08:03 MCHC 32 % (32-34) 10/14/21 08:03 RDW 16.8 % (13.2-15.2) H 10/14/21 08:03 Plt Count 197 K/mm3 (140-440) 10/14/21 08:03 Lymph % (Auto) 33.1 % (13.4-35.0) 10/14/21 08:03 [place] % (Auto) 7.6 % (0.0-7.3) H 10/14/21 08:03 Eos % (Auto) 0.5 % (0.0-4.3) 10/14/21 08:03 Baso % (Auto) 1.4 % (0.0-1.8) 10/14/21 08:03 Lymph # (Auto) 2.3 K/mm3 (1.2-5.4) 10/14/21 08:03 [place] # (Auto) 0.5 K/mm3 (0.0-0.8) 10/14/21 08:03 Eos # (Auto) 0.0 K/mm3 (0.0-0.4) 10/14/21 08:03 Baso # (Auto) 0.1 K/mm3 (0.0-0.1) 10/14/21 08:03 Seg Neutrophils % 57.4 % (40.0-70.0) 10/14/21 08:03 Seg Neutrophils # 4.0 K/mm3 (1.8-7.7) 10/14/21 08:03 PT 14.5 Sec. (12.2-14.9) 10/14/21 08:03 INR 1.02 (0.87-1.13) 10/14/21 08:03 Sodium 139 mmol/L (137-145) 10/16/21 05:15 Potassium 3.7 mmol/L (3.6-5.0) 10/16/21 05:15 Chloride 100.9 mmol/L (98-107) 10/16/21 05:15 Carbon Dioxide 20 mmol/L (22-30) L 10/16/21 05:15 Anion Gap 22 mmol/L 10/16/21 05:15 BUN 47 mg/dL (9-20) H 10/16/21 05:15 Creatinine 13.2 mg/dL (0.8-1.3) H 10/16/21 05:15 Estimated GFR 5 ml/min 10/16/21 05:15 BUN/Creatinine Ratio 4 % 10/16/21 05:15 Glucose 82 mg/dL (75-100) 10/16/21 05:15 Calcium 6.4 mg/dL (8.4-10.2) L 10/16/21 05:15 Phosphorus 5.50 mg/dL (2.5-4.5) H 10/16/21 05:15 PTH Intact 205.3 pg/mL (15-65) H 10/16/21 05:15 Coronavirus (PCR) Negative (Negative) 10/14/21 11:35 Hep Bs Antigen Non-reactive (Negative) 10/15/21 13:52 Hep B Core IgM Ab Non-reactive (NonReactive) 10/15/21 13:52 Hepatitis C Antibody Non-reactive (NonReactive) 10/15/21 13:52 Atkins/IV: Voiding Method Toilet Active Medications - Current Medications Current Medications: Generic Name Dose Route Start Last Admin Trade Name Freq PRN Reason Stop Dose Admin Acetaminophen 650 mg 10/14/21 12:15 Acetaminophen 325 Mg Tab PO Q4H PRN Pain MILD(1-3)/Fever >100.5/RACHEL Albuterol/Ipratropium 1 ampul 10/14/21 16:00 10/17/21 08:28 Ipratropium/Albuterol Sulfate 3 Ml Ampul.Neb IH 1 ampul QIDRT CAILIN Administration Calcitriol 0.5 mcg 10/15/21 10:00 10/16/21 10:36 Calcitriol 0.5 Mcg Cap PO 0.5 mcg DAILY CAILIN Administration Calcium Acetate 667 mg 10/16/21 12:00 10/16/21 16:59 Calcium Acetate 667 Mg Cap PO 667 mg TIDWM CAILIN Administration Epoetin Alen-epbx 10,000 unit 10/16/21 12:00 10/16/21 14:42 Epoetin Alen-Epbx 10,000 Unit/1 Ml Vial SUB-Q 10,000 unit [place] CAILIN Administration Famotidine 10 mg 10/14/21 22:00 10/16/21 21:49 Famotidine 10 Mg Tab PO 10 mg BID CAILIN Administration Gabapentin 300 mg 10/15/21 11:00 10/16/21 21:49 Gabapentin 300 Mg Cap PO 300 mg BID [facility] Administration Heparin Sodium (Porcine) 5,000 unit 10/14/21 12:30 10/17/21 05:40 Heparin 5,000 Unit/1 Ml Vial SUB-Q 5,000 unit Q8H CAILIN Administration Hydralazine HCl 50 mg 10/14/21 14:00 10/17/21 05:38 Hydralazine 25 Mg Tab PO Not Given Q8H [facility] Sodium Chloride 100 mls @ 999 mls/hr 10/16/21 11:24 Nacl 0.9% IV [place] PRN Hypotension Morphine Sulfate 2 mg 10/14/21 12:15 Morphine 4 Mg/1 Ml Inj IV Q4H PRN Pain , Severe (7-10) Nifedipine 60 mg 10/14/21 14:00 10/16/21 21:57 Nifedipine Xl 60 Mg Tab PO 60 mg BID [facility] Administration Ondansetron HCl 4 mg 10/14/21 12:15 10/14/21 21:37 Ondansetron 4 Mg/2 Ml Inj IV 4 mg Q8H PRN Administration Nausea And Vomiting Oxycodone/Acetaminophen 1 tab 10/14/21 12:15 Oxycodone /Acetaminophen 5-325mg Tab PO Q6H PRN Pain, Moderate (4-6) Sodium Chloride 10 ml 10/14/21 22:00 10/16/21 21:56 Sodium Chloride 0.9% 10 Ml Flush Syringe IV 10 ml BID CAILIN Administration Sodium Chloride 10 ml 10/14/21 12:15 Sodium Chloride 0.9% 10 Ml Flush Syringe IV PRN PRN LINE FLUSH
--- NOTE | 2021-10-17 09:53 | Progress Note ---
Assessment and Plan - Patient Problems (1) End-stage renal disease needing dialysis Current Visit: Yes Status: Acute Plan to address problem: Cont HD on TTS schedule while inpatient. Stable for discharge from renal stand point. pt does not have outpatient HD chair due to uninsured status, has to come to ER for HD treatments. (2) Hypertensive chronic kidney disease with stage 5 chronic kidney disease or end stage renal disease Current Visit: No Status: Acute Plan to address problem: BP improved with HD with IF of3L, monitor BP on current meds (3) Anemia in ESRD (end-stage renal disease) Current Visit: No Status: Acute (4) Hypocalcemia Current Visit: No Status: Acute Plan to address problem: use 3Ca bath. start phoslo 1 tab tid with meals (5) HIV (human immunodeficiency virus infection) Current Visit: Yes Status: Acute Plan to address problem: follow ID recommendations Subjective Date of service: 10/17/21 Principal diagnosis: ESRD Interval history: Patient awake, alert, in no acute distress Objective - Vital Signs Vital signs: Vital Signs - 12hr 10/16/21 10/16/21 10/17/21 21:55 22:05 04:44 Temperature 98.2 F 98.3 F Pulse Rate 107 H 96 H Pulse Rate [ Anterior Throughout] Respiratory 20 18 Rate Respiratory Rate [Anterior Throughout] Blood Pressure 131/66 114/67 Blood Pressure 131/66 [Left] O2 Sat by Pulse 95 Oximetry 10/17/21 10/17/21 10/17/21 07:41 08:31 09:28 Temperature Pulse Rate 102 H Pulse Rate [ 97 H Anterior Throughout] Respiratory 20 Rate Respiratory 16 Rate [Anterior Throughout] Blood Pressure Blood Pressure 97/57 [Left] O2 Sat by Pulse 96 94 98 Oximetry - General Appearance General appearance: well-developed, well-nourished, appears stated age EENT: ATNC, PERRL, mucous membranes moist Neck: no JVD Respiratory: Present: Clear to Ascultation Cardiology: regular, S1S2 Gastrointestinal: normoactive bowel sounds Integumentary: no rash Neurologic: no focal deficit, alert and oriented x3, strength 5/5, CN 3-12 intact Psychiatric: mood/affect appropriate, cooperative - Lab 10/14/21 08:03 10/16/21 05:15 Most recent lab results Calcium 6.4 mg/dL (8.4-10.2) L 10/16/21 05:15 Phosphorus 5.50 mg/dL (2.5-4.5) H 10/16/21 05:15 Medications & Allergies - Medications Allergies/Adverse Reactions: Allergies No Known Allergies Allergy (Verified 10/09/21 11:02) Home Medications: Home Medications Medication Instructions Recorded Confirmed Last Taken Type Calcium Carbonate/Vitamin D3 1 each PO DAILY #10 10/04/21 10/14/21 Unknown Rx [Calcium 500-Vit D3 600 Tablet] Bacitracin/Pramoxine/Aloe Vera 1 applicatio TP TID #1 tube 10/09/21 10/14/21 Unknown Rx [Bacitraycin Plus Ointment] Gabapentin 300 mg PO BID 10/15/21 10/15/21 Unknown History Losartan 50 mg PO DAILY 10/15/21 10/15/21 Unknown History Active Medications: Generic Name Dose Route Start Last Admin Trade Name Freq PRN Reason Stop Dose Admin Acetaminophen 650 mg 10/14/21 12:15 Acetaminophen 325 Mg Tab PO Q4H PRN Pain MILD(1-3)/Fever >100.5/RACHEL Albuterol/Ipratropium 1 ampul 10/14/21 16:00 10/17/21 08:28 Ipratropium/Albuterol Sulfate 3 Ml Ampul.Neb IH 1 ampul QIDRT CAILIN Administration Calcitriol 0.5 mcg 10/15/21 10:00 10/17/21 09:29 Calcitriol 0.5 Mcg Cap PO 0.5 mcg DAILY CAILIN Administration Calcium Acetate 667 mg 10/16/21 12:00 10/17/21 09:30 Calcium Acetate 667 Mg Cap PO 667 mg TIDWM CAILIN Administration Epoetin Alen-epbx 10,000 unit 10/16/21 12:00 10/16/21 14:42 Epoetin Alen-Epbx 10,000 Unit/1 Ml Vial SUB-Q 10,000 unit [place] CAILIN Administration Famotidine 10 mg 10/14/21 22:00 10/17/21 09:29 Famotidine 10 Mg Tab PO 10 mg BID CAILIN Administration Gabapentin 300 mg 10/15/21 11:00 10/17/21 09:29 Gabapentin 300 Mg Cap PO 300 mg BID CAILIN Administration Heparin Sodium (Porcine) 5,000 unit 10/14/21 12:30 10/17/21 05:40 Heparin 5,000 Unit/1 Ml Vial SUB-Q 5,000 unit Q8H CAILIN Administration Hydralazine HCl 50 mg 10/14/21 14:00 10/17/21 05:38 Hydralazine 25 Mg Tab PO Not Given Q8H [facility] Sodium Chloride 100 mls @ 999 mls/hr 10/16/21 11:24 Nacl 0.9% IV [place] PRN Hypotension Morphine Sulfate 2 mg 10/14/21 12:15 Morphine 4 Mg/1 Ml Inj IV Q4H PRN Pain , Severe (7-10) Nifedipine 60 mg 10/14/21 14:00 10/17/21 09:30 Nifedipine Xl 60 Mg Tab PO 60 mg BID CAILIN Administration Ondansetron HCl 4 mg 10/14/21 12:15 10/14/21 21:37 Ondansetron 4 Mg/2 Ml Inj IV 4 mg Q8H PRN Administration Nausea And Vomiting Oxycodone/Acetaminophen 1 tab 10/14/21 12:15 Oxycodone /Acetaminophen 5-325mg Tab PO Q6H PRN Pain, Moderate (4-6) Sodium Chloride 10 ml 10/14/21 22:00 10/17/21 09:30 Sodium Chloride 0.9% 10 Ml Flush Syringe IV 10 ml BID CAILIN Administration Sodium Chloride 10 ml 10/14/21 12:15 Sodium Chloride 0.9% 10 Ml Flush Syringe IV PRN PRN LINE FLUSH
--- NOTE | 2021-10-17 14:04 | Progress Note ---
Assessment and Plan Cultures: None A/P: 61-year-old man past medical history ESRD on HD, HIV presented with: #Bilateral pulmonary edema: After missed dialysis sessions due to transportation issues. #HIV: Most recent CD4 count in July was 139 (11%). Unknown viral load. Not on antiretrovirals. Has been discussed with him previously that he needs to follow-up with the [facility] for [facility] to establish care for ART. He is also not on prophylactics #ESRD on HD: Renally dose medications Recs:. -Follow up CD4 and viral load -Follow-up with [facility] or [facility] for establishing ART care -Okay for discharge from infectious disease perspective Thank you for the consult, we will continue to follow. Karishma Liang MD [facility] O: [phone] F: [phone] Subjective Date of service: 10/17/21 Principal diagnosis: ESRD Interval history: Afebrile, normal white count. No acute changes. Objective - Exam Narrative Exam: Physical Exam: Constitutional: Alert, cooperative. No acute distress Head, Ears, Nose: Normocephalic, atraumatic. External ears, nose normal Eyes: Conjunctivae/corneas clear. No icterus. No ptosis. Neck: Supple, no meningeal signs Oral: dentition fair, no thrush Cardiovascular: S1, S2 normal. Respiratory: Good air entry, clear to auscultation bilaterally GI: Soft, non-tender; bowel sounds normal. No peritoneal signs. Musculoskeletal: No pedal edema, no cyanosis. Skin: No rash or abscess Hem/Lymphatic: No palpable cervical or supraclavicular nodes. No lymphangitis Psych: Mood ok. Affect normal Neurological: Awake, alert, oriented. No gross abnormality - Constitutional Vitals: Vital Signs Temp Pulse Resp BP Pulse Ox 98.3 F 98 H 18 97/57 98 10/17/21 04:44 10/17/21 13:05 10/17/21 13:05 10/17/21 09:28 10/17/21 09:28 Temperature -Last 24 Hours Temperature 98.3 F Temperature 98.2 F Temperature 98.0 F - Labs CBC & Chem 7: 10/14/21 08:03 10/16/21 05:15
[2021-10-17 22:10] LABS: HIV-1 RNA QN PCR 5.02 Log cps/mL
== END 2021-10-17 16:48 | disposition home or self-care (01) | DRG 189 ==
LOC: ED 06:24 → 3A 12:15 → OBSVTOIN 10-15 07:42 → 3A 10-17 09:14
PROVIDERS: ADMIT Student in an Organized Health Care Education/Training Program; ATTEND Hospitalist
PROC: 5A1D70Z Performance of Urinary Filtration, Intermittent, Less than 6 Hours Per Day (ICD-10-PCS; principal; 2021-10-14)
PROC: 5A1D70Z Performance of Urinary Filtration, Intermittent, Less than 6 Hours Per Day (ICD-10-PCS; 2021-10-16)
DX: J96.01 Acute respiratory failure with hypoxia (principal); N18.6 End stage renal disease; I16.1 Hypertensive emergency; B20 Human immunodeficiency virus [HIV] disease; I12.0 Hypertensive chronic kidney disease with stage 5 chronic kidney disease or end stage renal disease; I10 Essential (primary) hypertension; E87.70 Fluid overload, unspecified; Z82.49 Family history of ischemic heart disease and other diseases of the circulatory system; E83.51 Hypocalcemia; D64.9 Anemia, unspecified; D63.1 Anemia in chronic kidney disease; Z20.822 Contact with and (suspected) exposure to COVID-19
CPT/HCPCS: 36415; 71045; 71250; 80048; 80074; 82024; 83970; 84100; 84145; 85025; 85610; 87535; 87536; 94640; 94760; G0378; J0885; J1644; J2405; U0003

== ENCOUNTER 2021-10-20 02:49 | Observation (INO) | payer SELFPAY ==
[2021-10-20 04:58] LABS: Hematocrit 25.1 % (35.5-45.6); Hemoglobin 8.3 gm/dl (11.8-15.2); Mean Corpuscular HGB Conc 33 % (32-34); Mean Corpuscular Volume 85 fl (84-94); Platelet Count 167 K/mm3 (140-440); Red Blood Count 2.96 M/mm3 (3.65-5.03); Red Cell Distribution Width 16.7 % (13.2-15.2)
[2021-10-20 05:22] LABS: Albumin 2.4 g/dL (3.9-5); Calcium 7.8 mg/dL (8.4-10.2)
[2021-10-20 05:39] LABS: Band Neutrophils # (Manual) 0.1 K/mm3; Basophils % (Manual) 0 % (0.0-1.8); Total Cells Counted 100
[2021-10-20 05:40] LABS: Anisocytosis 1+; Hypochromasia 2+; Platelet Estimate Consistent w Auto
[2021-10-20] MEDS ORDERED: SODIUM CHLORIDE 0.9% 100 ML IV PRN (09:26)
--- NOTE | 2021-10-20 09:28 | Emergency Department Report ---
ED Shortness of Breath HPI - General Chief Complaint: Recheck/Abnormal Lab/Rx Stated Complaint: DIALYSIS Time Seen by Provider: 10/20/21 08:36 Source: patient Mode of arrival: Ambulatory Limitations: No Limitations - History of Present Illness Initial Comments: Patient is a 61-year-old male that is known to us in the emergency room. He presents to the ER for dialysis. Patient is complaining of shortness of breath. He is winded with conversation and when walking. He denies chest pain. He denies fever or chills. No appreciable pedal or pretibial edema. Patient states that he was last dialyzed on Friday here. He states he does not have a dialysis clinic. He reports to me that he was a patient of Dr. Olivo. However, when I called Dr. Olivo's office they say he is not a patient of theirs. So they referred me to Dr. Soni who is on-call for nephrology. I have staffed with Dr. Soni and he will place dialysis orders. He asked that I admit to hospital medicine. MD Complaint: shortness of breath -: Gradual, days(s) Worsens With: lying flat, movement Context: other (End-stage renal disease on HD) Associated Symptoms: denies other symptoms, orhopnia Treatments Prior to Arrival: none - Related Data Home Oxygen Therapy: No Home Medications Medication Instructions Recorded Confirmed Last Taken Gabapentin 300 mg PO BID 10/15/21 10/15/21 Unknown Losartan 50 mg PO DAILY 10/15/21 10/15/21 Unknown Previous Rx's Medication Instructions Recorded Last Taken Type Calcium Carbonate/Vitamin D3 1 each PO DAILY #10 10/04/21 Unknown Rx [Calcium 500-Vit D3 600 Tablet] Bacitracin/Pramoxine/Aloe Vera 1 applicatio TP TID #1 tube 10/09/21 Unknown Rx [Bacitraycin Plus Ointment] Allergies Allergy/AdvReac Type Severity Reaction Status Date / Time No Known Allergies Allergy Verified 10/09/21 11:02 ED Review of Systems ROS: Stated complaint: DIALYSIS Other details as noted in HPI Comment: All other systems reviewed and negative ED Past Medical Hx - Past Medical History Previous Medical History?: Yes Hx Hypertension: Yes Hx Congestive Heart Failure: Yes Hx Diabetes: Yes Hx Renal Disease: Yes Hx HIV: Yes (Unknown CD4 count. No meds x6 months) Additional medical history: MS, Sciatica - Surgical History Past Surgical History?: Yes Additional Surgical History: Right chest Vas-Cath, back surgery - Family History Family history: no significant - Social History Smoking Status: Never Smoker Substance Use Type: None - Medications Home Medications: Home Medications Medication Instructions Recorded Confirmed Last Taken Type Calcium Carbonate/Vitamin D3 1 each PO DAILY #10 10/04/21 10/14/21 Unknown Rx [Calcium 500-Vit D3 600 Tablet] Bacitracin/Pramoxine/Aloe Vera 1 applicatio TP TID #1 tube 10/09/21 10/14/21 Unknown Rx [Bacitraycin Plus Ointment] Gabapentin 300 mg PO BID 10/15/21 10/15/21 Unknown History Losartan 50 mg PO DAILY 10/15/21 10/15/21 Unknown History ED Physical Exam - General Limitations: No Limitations General appearance: alert - Head Head exam: Present: atraumatic, normocephalic - Eye Eye exam: Present: normal appearance, PERRL, EOMI - ENT ENT exam: Present: mucous membranes moist - Neck Neck exam: Present: normal inspection - Respiratory Respiratory exam: Present: normal lung sounds bilaterally. Absent: respiratory distress - Cardiovascular Cardiovascular Exam: Present: regular rate, normal rhythm, S3. Absent: systolic murmur, diastolic murmur, rubs, gallop - GI/Abdominal GI/Abdominal exam: Present: soft, normal bowel sounds - Rectal Rectal exam: Present: deferred - Extremities Exam Extremities exam: Present: normal inspection - Back Exam Back exam: Present: normal inspection - Neurological Exam Neurological exam: Present: alert, oriented X3 - Psychiatric Psychiatric exam: Present: normal affect, normal mood - Skin Skin exam: Present: warm, dry, intact, normal color. Absent: rash ED Course Vital Signs 10/20/21 03:35 Temperature 99.0 F Pulse Rate 97 H Respiratory 18 Rate Blood Pressure 102/42 O2 Sat by Pulse 97 Oximetry ED Medical Decision Making - Lab Data Result diagrams: 10/20/21 04:44 10/20/21 04:44 - EKG Data -: EKG Interpreted by Or EKG shows normal: sinus rhythm - Medical Decision Making Vital Signs 10/20/21 03:35 Temperature 99.0 F Pulse Rate 97 H Respiratory 18 Rate Blood Pressure 102/42 O2 Sat by Pulse 97 Oximetry Lab Results 10/20/21 10/20/21 10/20/21 Range/Units 04:44 04:44 04:44 WBC 4.4 L (4.5-11.0) K/mm3 RBC 2.96 L (3.65-5.03) M/mm3 Hgb 8.3 L (11.8-15.2) gm/dl Hct 25.1 L (35.5-45.6) % MCV 85 (84-94) fl MCH 28 (28-32) pg MCHC 33 (32-34) % RDW 16.7 H (13.2-15.2) % Plt Count 167 (140-440) K/mm3 Add Manual Diff Complete Total Counted 100 Seg Neuts % (Manual) 75.0 H (40.0-70.0) % Band Neutrophils % 2.0 % Lymphocytes % (Manual) 14.0 (13.4-35.0) % Reactive Lymphs % (Man) 0 % Monocytes % (Manual) 8.0 H (0.0-7.3) % Eosinophils % (Manual) 1.0 (0.0-4.3) % Basophils % (Manual) 0 (0.0-1.8) % Metamyelocytes % 0 % Myelocytes % 0 % Promyelocytes % 0 % Blast Cells % 0 % Nucleated RBC % Not Reportable Seg Neutrophils # Man 3.3 (1.8-7.7) K/mm3 Band Neutrophils # 0.1 K/mm3 Lymphocytes # (Manual) 0.6 L (1.2-5.4) K/mm3 Abs React Lymphs (Man) 0.0 K/mm3 Monocytes # (Manual) 0.4 (0.0-0.8) K/mm3 Eosinophils # (Manual) 0.0 (0.0-0.4) K/mm3 Basophils # (Manual) 0.0 (0.0-0.1) K/mm3 Metamyelocytes # 0.0 K/mm3 Myelocytes # 0.0 K/mm3 Promyelocytes # 0.0 K/mm3 Blast Cells # 0.0 K/mm3 WBC Morphology Not Reportable Hypersegmented Neuts Not Reportable Hyposegmented Neuts Not Reportable Hypogranular Neuts Not Reportable Smudge Cells Not Reportable Toxic Granulation Not Reportable Toxic Vacuolation Not Reportable Dohle Bodies Not Reportable Pelger-Huet Anomaly Not Reportable Jim Rods Not Reportable Platelet Estimate Consistent w auto Clumped Platelets Not Reportable Plt Clumps, EDTA Not Reportable Large Platelets Not Reportable Giant Platelets Not Reportable Platelet Satelliting Not Reportable Plt Morphology Comment Not Reportable RBC Morphology Not Reportable Dimorphic RBCs Not Reportable Polychromasia Not Reportable Hypochromasia 2+ Poikilocytosis Not Reportable Anisocytosis 1+ Microcytosis 1+ Macrocytosis Not Reportable Spherocytes Not Reportable Pappenheimer Bodies Not Reportable Sickle Cells Not Reportable Target Cells Not Reportable Tear Drop Cells Not Reportable Ovalocytes Not Reportable Helmet Cells Not Reportable Escalante-[place] Bodies Not Reportable [place] Rings Not Reportable [place] Cells Not Reportable Bite Cells Not Reportable Crenated Cell Not Reportable Elliptocytes Not Reportable Acanthocytes (Spur) Not Reportable Rouleaux Not Reportable Hemoglobin C Crystals Not Reportable Schistocytes Not Reportable Malaria parasites Not Reportable Severo Bodies Not Reportable Hem Pathologist Commnt No Sodium 138 (137-145) mmol/L Potassium 4.5 D (3.6-5.0) mmol/L Chloride 101.0 (98-107) mmol/L Carbon Dioxide 20 L (22-30) mmol/L Anion Gap 22 mmol/L BUN 43 H (9-20) mg/dL Creatinine 11.6 H (0.8-1.3) mg/dL Estimated GFR 5 ml/min BUN/Creatinine Ratio 4 % Glucose 91 (75-100) mg/dL Calcium 7.8 L D (8.4-10.2) mg/dL Phosphorus 4.80 H (2.5-4.5) mg/dL Total Bilirubin 0.20 (0.1-1.2) mg/dL AST 24 (5-40) units/L ALT 15 (7-56) units/L Alkaline Phosphatase 80 (35-129) units/L Total Protein 7.4 (6.3-8.2) g/dL Albumin 2.4 L (3.9-5) g/dL Albumin/Globulin Ratio 0.5 % Case discussed with Dr. Soni. He is placing HD orders. He has asked me to admit to hospital medicine. [facility] [place] and admit is being assigned to Dr. Costa. 1000 patient taken to main ED. HD and HMS evaluation pending. - Differential Diagnosis Eval for emergent HD Critical care attestation.: If time is entered above; I have spent that time in minutes in the direct care of this critically ill patient, excluding procedure time. ED Disposition Clinical Impression: Shortness of breath, Anemia in ESRD (end-stage renal disease) HIV (human immunodeficiency virus infection) Qualifiers: HIV symptom status: unspecified Qualified Code(s): B20 - Human immunodeficiency virus [HIV] disease Disposition: 02 [facility] Is pt being admited?: Yes Does the pt Need Aspirin: No Condition: Stable Referrals: PRIMARY CARE, [Primary Care Provider] - 3-5 Days Time of Disposition: 09:28
--- NOTE | 2021-10-20 10:23 | Consultation ---
History of Present Illness - Reason for Consult Consult date: 10/20/21 end stage renal disease Requesting physician: KISHA AVENDAÑO - History of Present Illness Patient is a 61-year-old male that is known to us in the emergency room. He presents to the ER for dialysis. Patient is complaining of shortness of breath. He is winded with conversation and when walking. He denies chest pain. He denies fever or chills. No appreciable pedal or pretibial edema. Patient states that he was last dialyzed on Friday here. He states he does not have a dialysis clinic. He reports to me that he was a patient of Dr. Olivo. However, when I called Dr. Olivo's office they say he is not a patient of theirs. So they referred me to Dr. Soni who is on-call for nephrology. I have staffed with Dr. Soni and he will place dialysis orders. He asked that I admit to hospital medicine. MD Complaint: shortness of breath -: Gradual, days(s) Worsens With: lying flat, movement Context: other (End-stage renal disease on HD) Associated Symptoms: denies other symptoms, orhopnia Treatments Prior to Arrival: none ROS: Stated complaint: DIALYSIS Other details as noted in HPI Comment: All other systems reviewed and negative - Past Medical History Previous Medical History?: Yes Hx Hypertension: Yes Hx Congestive Heart Failure: Yes Hx Diabetes: Yes Hx Renal Disease: Yes Hx HIV: Yes (Unknown CD4 count. No meds x6 months) Additional medical history: MS, Sciatica - Surgical History Past Surgical History?: Yes Additional Surgical History: Right chest Vas-Cath, back surgery - Family History Family history: no significant - Social History Smoking Status: Never Smoker Substance Use Type: None Medications and Allergies Allergies Allergy/AdvReac Type Severity Reaction Status Date / Time No Known Allergies Allergy Verified 10/09/21 11:02 Home Medications Medication Instructions Recorded Confirmed Last Taken Type Calcium Carbonate/Vitamin D3 1 each PO DAILY #10 10/04/21 10/14/21 Unknown Rx [Calcium 500-Vit D3 600 Tablet] Bacitracin/Pramoxine/Aloe Vera 1 applicatio TP TID #1 tube 10/09/21 10/14/21 Unknown Rx [Bacitraycin Plus Ointment] Gabapentin 300 mg PO BID 10/15/21 10/15/21 Unknown History Losartan 50 mg PO DAILY 10/15/21 10/15/21 Unknown History Active Meds: Active Medications Sodium Chloride (Nacl 0.9%) 100 mls @ 999 mls/hr IV [place] PRN PRN Reason: Hypotension Exam - Vital Signs Vital signs: Vital Signs Temp Pulse Resp BP Pulse Ox 99.0 F 97 H 18 102/42 97 10/20/21 03:35 10/20/21 03:35 10/20/21 03:35 10/20/21 03:35 10/20/21 03:35 - Physical Exam Narrative exam: - General Limitations: No Limitations General appearance: alert - Head Head exam: Present: atraumatic, normocephalic - Eye Eye exam: Present: normal appearance, PERRL, EOMI - ENT ENT exam: Present: mucous membranes moist - Neck Neck exam: Present: normal inspection - Respiratory Respiratory exam: Present: normal lung sounds bilaterally. Absent: respiratory distress - Cardiovascular Cardiovascular Exam: Present: regular rate, normal rhythm, S3. Absent: systolic murmur, diastolic murmur, rubs, gallop - GI/Abdominal GI/Abdominal exam: Present: soft, normal bowel sounds - Rectal Rectal exam: Present: deferred - Extremities Exam Extremities exam: Present: normal inspection - Back Exam Back exam: Present: normal inspection - Neurological Exam Neurological exam: Present: alert, oriented X3 - Psychiatric Psychiatric exam: Present: normal affect, normal mood - Skin Skin exam: Present: warm, dry, intact, normal color. Absent: rash Results - Lab Results 10/20/21 04:44 10/20/21 04:44 Most recent lab results Calcium 7.8 mg/dL (8.4-10.2) L D 10/20/21 04:44 Phosphorus 4.80 mg/dL (2.5-4.5) H 10/20/21 04:44 Assessment and Plan impression: * ESRD * acc HTN * HIV * shortness of breath Plan: * hd today, uf as tolerated * strict i/o, fluid restriction and renal diet * recently discharge from [facility] due to noncompliance * ok to dc after hd today if stable from primary team standpoint
[2021-10-20] MEDS ORDERED: ONDANSETRON 4 MG/2 ML INJ IV PRN (12:43)
[2021-10-20] MEDS ORDERED: MORPHINE 2 MG/1 ML INJ IV PRN (12:43)
[2021-10-20] MEDS ORDERED: METOCLOPRAMIDE 10 MG/2 ML INJ IV PRN (12:43)
[2021-10-20] MEDS ORDERED: oxyCODONE /ACETAMINOPHEN 5-325MG TAB PO PRN (12:43)
[2021-10-20] MEDS ORDERED: ACETAMINOPHEN 325 MG TAB PO PRN (12:43)
[2021-10-20] MEDS ORDERED: NON-FORMULARY EACH (Losartan 50 MG) PO SCH (12:45)
[2021-10-20] MEDS ORDERED: VITAMIN D3 PO SCH (12:45)
[2021-10-20] MEDS ORDERED: [UNRECOGNIZED DRUG - OTHER] PO SCH (12:45)
[2021-10-20] MEDS ORDERED: CALCIUM CARBONATE PO SCH (12:45)
[2021-10-20] MEDS ORDERED: NON-FORMULARY EACH (Gabapentin 300 MG) PO SCH (12:45)
[2021-10-20] MEDS: LOSARTAN 50 MG TAB PO SCH (18:29)
[2021-10-20] MEDS: HEPARIN 5,000 UNIT/1 ML VIAL SUB-Q SCH ×2 (18:29→22:48)
[2021-10-20] MEDS: FAMOTIDINE 10 MG TAB PO SCH (23:05)
[2021-10-20] MEDS: GABAPENTIN 300 MG CAP PO SCH (23:05)
[2021-10-21 06:18] LABS: Basophils % (Auto) 1.4 % (0.0-1.8); Eosinophils # (Auto) 0.1 K/mm3 (0.0-0.4); Eosinophils % (Auto) 4.6 % (0.0-4.3); Hemoglobin 7.3 gm/dl (11.8-15.2); Lymphocytes # (Auto) 0.9 K/mm3 (1.2-5.4); Lymphocytes % (Auto) 30.6 % (13.4-35.0); Mean Corpuscular HGB Conc 32 % (32-34); Mean Corpuscular Volume 86 fl (84-94); Monocytes # (Auto) 0.4 K/mm3 (0.0-0.8); Monocytes % (Auto) 13.7 % (0.0-7.3); Platelet Count 125 K/mm3 (140-440); Red Blood Count 2.66 M/mm3 (3.65-5.03); Red Cell Distribution Width 16.1 % (13.2-15.2)
[2021-10-21 06:39] LABS: Alanine Aminotransferase 11 units/L (7-56); Albumin 2.1 g/dL (3.9-5); Blood Urea Nitrogen 29 mg/dL (9-20); Hemolysis Index 2
[2021-10-21 06:46] LABS: BUN/Creatinine Ratio 3
--- NOTE | 2021-10-21 07:07 | History and Physical Report ---
History of Present Illness Date of examination: 10/20/21 Date of admission: 10/20/21 10:48 Chief complaint: Shortness of breath for 1 day History of present illness: 61-year-old -[place] male comes in for shortness of breath. He is a hemodialysis patient. Does not have a dialysis chair. Whenever he has shortness of breath patient comes to emergency room for emergency hemodialysis. Patient was last dialyzed 5 days ago. Patient is waiting for his Medicare and Medicaid to come through. Patient being admitted for emergent hemodialysis. Shortness of breath on minimal exertion present. - Past Medical History Previous Medical History?: Yes Hx Hypertension: Yes Hx Congestive Heart Failure: Yes Hx Diabetes: Yes Hx Renal Disease: Yes Hx HIV: Yes (Unknown CD4 count. No meds x6 months) Additional medical history: MS, Sciatica - Surgical History Past Surgical History?: Yes Additional Surgical History: Right chest Vas-Cath, back surgery - Family History Family history: no significant - Social History Smoking Status: Never Smoker Substance Use Type: None - Medications Home Medications: Home Medications Medication Instructions Recorded Confirmed Last Taken Type Calcium Carbonate/Vitamin D3 1 each PO DAILY #10 10/04/21 10/14/21 Unknown Rx [Calcium 500-Vit D3 600 Tablet] Bacitracin/Pramoxine/Aloe Vera 1 applicatio TP TID #1 tube 10/09/21 10/14/21 Unknown Rx [Bacitraycin Plus Ointment] Gabapentin 300 mg PO BID 10/15/21 10/15/21 Unknown History Losartan 50 mg PO DAILY 10/15/21 10/15/21 Unknown History Review of Systems ROS: Stated complaint: DIALYSIS Other details as noted in HPI Comment: All other systems reviewed and negative Medications and Allergies Allergies Allergy/AdvReac Type Severity Reaction Status Date / Time No Known Allergies Allergy Verified 10/09/21 11:02 Home Medications Medication Instructions Recorded Confirmed Last Taken Type Calcium Carbonate/Vitamin D3 1 each PO DAILY #10 10/04/21 10/14/21 Unknown Rx [Calcium 500-Vit D3 600 Tablet] Bacitracin/Pramoxine/Aloe Vera 1 applicatio TP TID #1 tube 10/09/21 10/14/21 Unknown Rx [Bacitraycin Plus Ointment] Gabapentin 300 mg PO BID 10/15/21 10/15/21 Unknown History Losartan 50 mg PO DAILY 10/15/21 10/15/21 Unknown History Active Meds: Active Medications Acetaminophen (Acetaminophen 325 Mg Tab) 650 mg PO Q4H PRN PRN Reason: Pain MILD(1-3)/Fever >100.5/RACHEL Calcium/Vitamin D (Calcium Carbonate/Vitamin D3 500 Mg-200 Unit Tab) 1 each PO DAILY [facility] Famotidine (Famotidine 10 Mg Tab) 10 mg PO BID [facility] Last Admin: 10/20/21 23:05 Dose: 10 mg Gabapentin (Gabapentin 300 Mg Cap) 300 mg PO BID [facility] Last Admin: 10/20/21 23:05 Dose: 300 mg Heparin Sodium (Porcine) (Heparin 5,000 Unit/1 Ml Vial) 5,000 unit SUB-Q Q12HR [facility] Last Admin: 10/20/21 22:48 Dose: 5,000 unit Sodium Chloride (Nacl 0.9%) 100 mls @ 999 mls/hr [place] PRN PRN Reason: Hypotension Losartan Potassium (Losartan 50 Mg Tab) 50 mg PO QDAY [facility] Last Admin: 10/20/21 18:29 Dose: Not Given Metoclopramide HCl (Metoclopramide 10 Mg/2 Ml Inj) 10 mg IV Q6H PRN PRN Reason: Nausea And Vomiting Morphine Sulfate (Morphine 2 Mg/1 Ml Inj) 2 mg IV Q4H PRN PRN Reason: Pain, Moderate (4-6) Ondansetron HCl (Ondansetron 4 Mg/2 Ml Inj) 4 mg IV Q8H PRN PRN Reason: Nausea And Vomiting Last Admin: 10/20/21 23:10 Dose: 4 mg Oxycodone/Acetaminophen (Oxycodone /Acetaminophen 5-325mg Tab) 1 tab PO Q6H PRN PRN Reason: Pain, Moderate (4-6) Sodium Chloride (Sodium Chloride 0.9% 10 Ml Flush Syringe) 10 ml IV BID [facility] Last Admin: 10/20/21 23:05 Dose: 10 ml Sodium Chloride (Sodium Chloride 0.9% 10 Ml Flush Syringe) 10 ml IV PRN PRN PRN Reason: LINE FLUSH Exam - Constitutional Vitals: Temp Pulse Resp BP Pulse Ox 99.1 F 91 H 16 120/77 99 10/21/21 03:16 10/21/21 03:16 10/21/21 03:16 10/21/21 03:16 10/21/21 03:16 General appearance: Present: no acute distress, well-nourished - EENT Eyes: Present: PERRL ENT: hearing intact, clear oral mucosa - Neck Neck: Present: supple, normal ROM - Respiratory Respiratory effort: normal Respiratory: bilateral: CTA - Cardiovascular Heart rate: 78 Rhythm: regular Heart Sounds: Present: S1 & S2. Absent: rub, click - Extremities Extremities: pulses symmetrical, No edema Peripheral Pulses: within normal limits - Abdominal General gastrointestinal: Present: soft, non-tender, non-distended, normal bowel sounds Male genitourinary: Present: normal - Integumentary Integumentary: Present: clear, warm, dry - Musculoskeletal Musculoskeletal: gait normal, strength equal bilaterally - Psychiatric Psychiatric: appropriate mood/affect, intact judgment & insight - Neurologic Neurologic: CNII-XII intact, moves all extremities Results - Labs CBC & Chem 7: 10/21/21 05:26 10/21/21 05:26 Labs: Laboratory Last Values WBC 2.8 K/mm3 (4.5-11.0) L 10/21/21 05:26 RBC 2.66 M/mm3 (3.65-5.03) L 10/21/21 05:26 Hgb 7.3 gm/dl (11.8-15.2) L 10/21/21 05:26 Hct 23.0 % (35.5-45.6) L 10/21/21 05:26 MCV 86 fl (84-94) 10/21/21 05:26 MCH 28 pg (28-32) 10/21/21 05:26 MCHC 32 % (32-34) 10/21/21 05:26 RDW 16.1 % (13.2-15.2) H 10/21/21 05:26 Plt Count 125 K/mm3 (140-440) L 10/21/21 05:26 Lymph % (Auto) 30.6 % (13.4-35.0) 10/21/21 05:26 [place] % (Auto) 13.7 % (0.0-7.3) H 10/21/21 05:26 Eos % (Auto) 4.6 % (0.0-4.3) H 10/21/21 05:26 Baso % (Auto) 1.4 % (0.0-1.8) 10/21/21 05:26 Lymph # (Auto) 0.9 K/mm3 (1.2-5.4) L 10/21/21 05:26 [place] # (Auto) 0.4 K/mm3 (0.0-0.8) 10/21/21 05:26 Eos # (Auto) 0.1 K/mm3 (0.0-0.4) 10/21/21 05:26 Baso # (Auto) 0.0 K/mm3 (0.0-0.1) 10/21/21 05:26 Add Manual Diff Complete 10/20/21 04:44 Total Counted 100 10/20/21 04:44 Seg Neutrophils % 49.7 % (40.0-70.0) 10/21/21 05:26 Seg Neuts % (Manual) 75.0 % (40.0-70.0) H 10/20/21 04:44 Band Neutrophils % 2.0 % 10/20/21 04:44 Lymphocytes % (Manual) 14.0 % (13.4-35.0) 10/20/21 04:44 Reactive Lymphs % (Man) 0 % 10/20/21 04:44 Monocytes % (Manual) 8.0 % (0.0-7.3) H 10/20/21 04:44 Eosinophils % (Manual) 1.0 % (0.0-4.3) 10/20/21 04:44 Basophils % (Manual) 0 % (0.0-1.8) 10/20/21 04:44 Metamyelocytes % 0 % 10/20/21 04:44 Myelocytes % 0 % 10/20/21 04:44 Promyelocytes % 0 % 10/20/21 04:44 Blast Cells % 0 % 10/20/21 04:44 Nucleated RBC % Not Reportable 10/20/21 04:44 Seg Neutrophils # 1.4 K/mm3 (1.8-7.7) L 10/21/21 05:26 Seg Neutrophils # Man 3.3 K/mm3 (1.8-7.7) 10/20/21 04:44 Band Neutrophils # 0.1 K/mm3 10/20/21 04:44 Lymphocytes # (Manual) 0.6 K/mm3 (1.2-5.4) L 10/20/21 04:44 Abs React Lymphs (Man) 0.0 K/mm3 10/20/21 04:44 Monocytes # (Manual) 0.4 K/mm3 (0.0-0.8) 10/20/21 04:44 Eosinophils # (Manual) 0.0 K/mm3 (0.0-0.4) 10/20/21 04:44 Basophils # (Manual) 0.0 K/mm3 (0.0-0.1) 10/20/21 04:44 Metamyelocytes # 0.0 K/mm3 10/20/21 04:44 Myelocytes # 0.0 K/mm3 10/20/21 04:44 Promyelocytes # 0.0 K/mm3 10/20/21 04:44 Blast Cells # 0.0 K/mm3 10/20/21 04:44 WBC Morphology Not Reportable 10/20/21 04:44 Hypersegmented Neuts Not Reportable 10/20/21 04:44 Hyposegmented Neuts Not Reportable 10/20/21 04:44 Hypogranular Neuts Not Reportable 10/20/21 04:44 Smudge Cells Not Reportable 10/20/21 04:44 Toxic Granulation Not Reportable 10/20/21 04:44 Toxic Vacuolation Not Reportable 10/20/21 04:44 Dohle Bodies Not Reportable 10/20/21 04:44 Pelger-Huet Anomaly Not Reportable 10/20/21 04:44 Jim Rods Not Reportable 10/20/21 04:44 Platelet Estimate Consistent w auto 10/20/21 04:44 Clumped Platelets Not Reportable 10/20/21 04:44 Plt Clumps, EDTA Not Reportable 10/20/21 04:44 Large Platelets Not Reportable 10/20/21 04:44 Giant Platelets Not Reportable 10/20/21 04:44 Platelet Satelliting Not Reportable 10/20/21 04:44 Plt Morphology Comment Not Reportable 10/20/21 04:44 RBC Morphology Not Reportable 10/20/21 04:44 Dimorphic RBCs Not Reportable 10/20/21 04:44 Polychromasia Not Reportable 10/20/21 04:44 Hypochromasia 2+ 10/20/21 04:44 Poikilocytosis Not Reportable 10/20/21 04:44 Anisocytosis 1+ 10/20/21 04:44 Microcytosis 1+ 10/20/21 04:44 Macrocytosis Not Reportable 10/20/21 04:44 Spherocytes Not Reportable 10/20/21 04:44 Pappenheimer Bodies Not Reportable 10/20/21 04:44 Sickle Cells Not Reportable 10/20/21 04:44 Target Cells Not Reportable 10/20/21 04:44 Tear Drop Cells Not Reportable 10/20/21 04:44 Ovalocytes Not Reportable 10/20/21 04:44 Helmet Cells Not Reportable 10/20/21 04:44 [place]al[place] Bodies Not Reportable 10/20/21 04:44 [place] Rings Not Reportable 10/20/21 04:44 [place] Cells Not Reportable 10/20/21 04:44 Bite Cells Not Reportable 10/20/21 04:44 Crenated Cell Not Reportable 10/20/21 04:44 Elliptocytes Not Reportable 10/20/21 04:44 Acanthocytes (Spur) Not Reportable 10/20/21 04:44 Rouleaux Not Reportable 10/20/21 04:44 Hemoglobin C Crystals Not Reportable 10/20/21 04:44 Schistocytes Not Reportable 10/20/21 04:44 Malaria parasites Not Reportable 10/20/21 04:44 Severo Bodies Not Reportable 10/20/21 04:44 Hem Pathologist Commnt No 10/20/21 04:44 Sodium 139 mmol/L (137-145) 10/21/21 05:26 Potassium 4.1 mmol/L (3.6-5.0) 10/21/21 05:26 Chloride 102.3 mmol/L (98-107) 10/21/21 05:26 Carbon Dioxide 23 mmol/L (22-30) 10/21/21 05:26 Anion Gap 18 mmol/L 10/21/21 05:26 BUN 29 mg/dL (9-20) H 10/21/21 05:26 Creatinine 8.5 mg/dL (0.8-1.3) H 10/21/21 05:26 Estimated GFR 8 ml/min 10/21/21 05:26 BUN/Creatinine Ratio 3 % 10/21/21 05:26 Glucose 83 mg/dL (75-100) 10/21/21 05:26 Calcium 7.0 mg/dL (8.4-10.2) L 10/21/21 05:26 Phosphorus 4.80 mg/dL (2.5-4.5) H 10/20/21 04:44 Total Bilirubin < 0.20 mg/dL (0.1-1.2) 10/21/21 05:26 AST 19 units/L (5-40) 10/21/21 05:26 ALT 11 units/L (7-56) 10/21/21 05:26 Alkaline Phosphatase 63 units/L (35-129) 10/21/21 05:26 NT-Pro-B Natriuret Pep [id number] pg/mL (0-900) H 10/20/21 04:44 Total Protein 6.4 g/dL (6.3-8.2) 10/21/21 05:26 Albumin 2.1 g/dL (3.9-5) L 10/21/21 05:26 Albumin/Globulin Ratio 0.5 % 10/21/21 05:26 Short CBC 10/21/21 Range/Units 05:26 WBC 2.8 L (4.5-11.0) K/mm3 Hgb 7.3 L (11.8-15.2) gm/dl Hct 23.0 L (35.5-45.6) % Plt Count 125 L (140-440) K/mm3 BMP 10/21/21 05:26 Sodium 139 Potassium 4.1 Chloride 102.3 Carbon Dioxide 23 BUN 29 H Creatinine 8.5 H Glucose 83 Calcium 7.0 L Liver Function 10/21/21 Range/Units 05:26 Total Bilirubin < 0.20 (0.1-1.2) mg/dL AST 19 (5-40) units/L ALT 11 (7-56) units/L Alkaline Phosphatase 63 (35-129) units/L Albumin 2.1 L (3.9-5) g/dL Atkins/IV: Voiding Method Toilet Assessment and Plan Advance Directives: Yes (Full code) VTE prophylaxis?: Chemical Plan of care discussed with patient/family: Yes - Patient Problems (1) Volume overload Current Visit: No Status: Acute Plan to address problem: Emergent hemodialysis (2) End-stage renal disease needing dialysis Current Visit: No Status: Acute Plan to address problem: Emergent hemodialysis Nephrology consulted (3) Hypertension Current Visit: No Status: Chronic Qualifiers: Hypertension type: primary hypertension Qualified Code(s): I10 - Essential (primary) hypertension Plan to address problem: Continue antihypertensives (4) DVT prophylaxis Current Visit: No Status: Acute Plan to address problem: On heparin and GI prophylaxis (5) Advance care planning Current Visit: Yes Status: Acute Plan to address problem: Disease education conducted, care plan discussed, diagnosis discussed, prognosis discussed, patient is full code. Patient acknowledges understanding and agreement.. Care plan +30 minutes.
--- NOTE | 2021-10-21 07:08 | Discharge Summary ---
Providers - Providers Date of Admission: 10/20/21 10:48 Date of discharge: 10/21/21 Attending physician: DARIAN ARELLANO 10/20/21 12:43 Consult to Physician [CONS] Routine Comment: Consulting Provider: SUSSY NAQVI Physician Instructions: Reason For Exam: ESRD Primary care physician: PROCUREMENT CONSULTANT Hospitalization Condition: Stable Hospital course: 61-year-old -[place] male comes in for shortness of breath. He is a hemodialysis patient. Does not have a dialysis chair. Whenever he has shortness of breath patient comes to emergency room for emergency hemodialysis. Patient was last dialyzed 5 days ago. Patient is waiting for his Medicare and Medicaid to come through. Patient being admitted for emergent hemodialysis. Shortness of breath on minimal exertion present. Assessment and Plan Advance Directives: Yes (Full code) VTE prophylaxis?: Chemical Plan of care discussed with patient/family: Yes - Patient Problems (1) Volume overload Current Visit: No Status: Acute Plan to address problem: Emergent hemodialysis (2) End-stage renal disease needing dialysis Current Visit: No Status: Acute Plan to address problem: Emergent hemodialysis Nephrology consulted (3) Hypertension Current Visit: No Status: Chronic Qualifiers: Hypertension type: primary hypertension Qualified Code(s): I10 - Essential (primary) hypertension Plan to address problem: Continue antihypertensives (4) DVT prophylaxis Current Visit: No Status: Acute Plan to address problem: On heparin and GI prophylaxis (5) Advance care planning Current Visit: Yes Status: Acute Plan to address problem: Disease education conducted, care plan discussed, diagnosis discussed, prognosis discussed, patient is full code. Patient acknowledges understanding and agreement.. Care plan +30 minutes. Disposition: 01 HOME / SELF CARE / HOMELESS Final Discharge Diagnosis (Prints w/discharge instructions): Volume overload. End-stage renal disease. Hypertension. Anemia Time spent for discharge: 32 minutes - Discharge Diagnoses (1) Volume overload Status: Acute (2) Anemia in ESRD (end-stage renal disease) Status: Acute (3) ESRD on dialysis Status: Acute (4) Hypertension Status: Chronic Qualifiers: Hypertension type: primary hypertension Qualified Code(s): I10 - Essential (primary) hypertension (5) DVT prophylaxis Status: Acute (6) Advance care planning Status: Acute Core Measure Documentation - Palliative Care Palliative Care/ Comfort Measures: Not Applicable - Core Measures Any of the following diagnoses?: none Exam - Constitutional Vitals: Temp Pulse Resp BP Pulse Ox 99.1 F 91 H 16 120/77 99 10/21/21 03:16 10/21/21 03:16 10/21/21 03:16 10/21/21 03:16 10/21/21 03:16 General appearance: Present: no acute distress, well-nourished - EENT Eyes: Present: PERRL ENT: hearing intact, clear oral mucosa - Neck Neck: Present: supple, normal ROM - Respiratory Respiratory effort: normal Respiratory: bilateral: CTA - Cardiovascular Rhythm: regular Heart Sounds: Present: S1 & S2. Absent: rub, click - Extremities Extremities: pulses symmetrical, No edema Peripheral Pulses: within normal limits - Abdominal General gastrointestinal: Present: soft, non-tender, non-distended, normal bowel sounds Male genitourinary: Present: normal - Integumentary Integumentary: Present: clear, warm, dry - Musculoskeletal Musculoskeletal: gait normal, strength equal bilaterally - Psychiatric Psychiatric: appropriate mood/affect, intact judgment & insight - Neurologic Neurologic: CNII-XII intact, moves all extremities Plan Activity: no restrictions Diet: renal Follow up with: PRIMARY CAREMD [Primary Care Provider] - 3-5 Days SUSSY NAQVI MD [Staff Physician] - 7 Days
--- NOTE | 2021-10-21 10:02 | Progress Note ---
Assessment and Plan impression: * ESRD * acc HTN * HIV * shortness of breath Plan: * hd yesterday and q MWF, uf as tolerated * strict i/o, fluid restriction and renal diet * recently discharge from [facility] due to noncompliance * ok to dc today if stable from primary team standpoint Subjective Date of service: 10/21/21 Principal diagnosis: esrd Interval history: resting in bed no acute issues Objective - Exam Narrative Exam: - General Limitations: No Limitations General appearance: alert - Head Head exam: Present: atraumatic, normocephalic - Eye Eye exam: Present: normal appearance, PERRL, EOMI - ENT ENT exam: Present: mucous membranes moist - Neck Neck exam: Present: normal inspection - Respiratory Respiratory exam: Present: normal lung sounds bilaterally. Absent: respiratory distress - Cardiovascular Cardiovascular Exam: Present: regular rate, normal rhythm, S3. Absent: systolic murmur, diastolic murmur, rubs, gallop - GI/Abdominal GI/Abdominal exam: Present: soft, normal bowel sounds - Rectal Rectal exam: Present: deferred - Extremities Exam Extremities exam: Present: normal inspection - Back Exam Back exam: Present: normal inspection - Neurological Exam Neurological exam: Present: alert, oriented X3 - Psychiatric Psychiatric exam: Present: normal affect, normal mood - Skin Skin exam: Present: warm, dry, intact, normal color. Absent: rash - Vital Signs Vital signs: Vital Signs - 12hr 10/20/21 10/20/21 10/21/21 23:26 23:47 03:16 Temperature 99.2 F 99.1 F Pulse Rate 93 H 91 H Respiratory 16 16 Rate Blood Pressure 125/78 120/77 O2 Sat by Pulse 98 98 99 Oximetry 10/21/21 07:49 Temperature 98.4 F Pulse Rate 89 Respiratory 16 Rate Blood Pressure 128/82 O2 Sat by Pulse 95 Oximetry - Lab 10/21/21 05:26 10/21/21 05:26 Most recent lab results Calcium 7.0 mg/dL (8.4-10.2) L 10/21/21 05:26 Phosphorus 4.80 mg/dL (2.5-4.5) H 10/20/21 04:44 Medications & Allergies - Medications Allergies/Adverse Reactions: Allergies No Known Allergies Allergy (Verified 10/09/21 11:02) Home Medications: Home Medications Medication Instructions Recorded Confirmed Last Taken Type Calcium Carbonate/Vitamin D3 1 each PO DAILY #10 10/04/21 10/14/21 Unknown Rx [Calcium 500-Vit D3 600 Tablet] Bacitracin/Pramoxine/Aloe Vera 1 applicatio TP TID #1 tube 10/09/21 10/14/21 Unknown Rx [Bacitraycin Plus Ointment] Gabapentin 300 mg PO BID 10/15/21 10/15/21 Unknown History Losartan 50 mg PO DAILY 10/15/21 10/15/21 Unknown History Active Medications: Generic Name Dose Route Start Last Admin Trade Name Freq PRN Reason Stop Dose Admin Acetaminophen 650 mg 10/20/21 12:43 Acetaminophen 325 Mg Tab PO Q4H PRN Pain MILD(1-3)/Fever >100.5/RACHEL Calcium/Vitamin D 1 each 10/21/21 10:00 Calcium Carbonate/Vitamin D3 500 Mg-200 Unit Tab PO DAILY CAILIN Famotidine 10 mg 10/20/21 22:00 10/20/21 23:05 Famotidine 10 Mg Tab PO 10 mg BID CAILIN Administration Gabapentin 300 mg 10/20/21 22:00 10/20/21 23:05 Gabapentin 300 Mg Cap PO 300 mg BID CAILIN Administration Heparin Sodium (Porcine) 5,000 unit 10/20/21 14:00 10/20/21 22:48 Heparin 5,000 Unit/1 Ml Vial SUB-Q 5,000 unit Q12HR CAILIN Administration Sodium Chloride 100 mls @ 999 mls/hr 10/20/21 09:26 Nacl 0.9% IV LAKE PRN Hypotension Losartan Potassium 50 mg 10/20/21 15:00 10/20/21 18:29 Losartan 50 Mg Tab PO Not Given QDAY CAILIN Metoclopramide HCl 10 mg 10/20/21 12:43 Metoclopramide 10 Mg/2 Ml Inj IV Q6H PRN Nausea And Vomiting Morphine Sulfate 2 mg 10/20/21 12:43 Morphine 2 Mg/1 Ml Inj IV Q4H PRN Pain, Moderate (4-6) Ondansetron HCl 4 mg 10/20/21 12:43 10/20/21 23:10 Ondansetron 4 Mg/2 Ml Inj IV 4 mg Q8H PRN Administration Nausea And Vomiting Oxycodone/Acetaminophen 1 tab 10/20/21 12:43 Oxycodone /Acetaminophen 5-325mg Tab PO Q6H PRN Pain, Moderate (4-6) Sodium Chloride 10 ml 10/20/21 22:00 10/20/21 23:05 Sodium Chloride 0.9% 10 Ml Flush Syringe IV 10 ml BID CAILIN Administration Sodium Chloride 10 ml 10/20/21 12:43 Sodium Chloride 0.9% 10 Ml Flush Syringe IV PRN PRN LINE FLUSH
[2021-10-21] MEDS: GABAPENTIN 300 MG CAP PO SCH ×2 (10:28→21:41)
[2021-10-21] MEDS: FAMOTIDINE 10 MG TAB PO SCH ×2 (10:28→21:41)
[2021-10-21] MEDS: LOSARTAN 50 MG TAB PO SCH (10:28)
[2021-10-21] MEDS: CALCIUM CARBONATE/VITAMIN D3 500 MG-200 UNIT TAB PO SCH (10:28)
[2021-10-21] MEDS: HEPARIN 5,000 UNIT/1 ML VIAL SUB-Q SCH (21:41)
--- NOTE | 2021-10-22 08:57 | Progress Note ---
Assessment and Plan impression: * ESRD * acc HTN * HIV * shortness of breath * anemia in ESRD Plan: * continue HD MWF or prn, due today * continue ESAs with HD prn * strict i/o, fluid restriction and renal diet * recently discharge from [facility] due to noncompliance- patient continues to state he is a patient of Dr. Olivo but not active with their group currently * ok to dc today if stable from primary team standpoint after HD Subjective Date of service: 10/22/21 Principal diagnosis: esrd Interval history: No acute issues noted this AM. Objective - Exam Narrative Exam: Constitutional: no acute distress Head: NC/AT Neck: supple Lungs: clear to auscultation CV: RRR, no M/R/G Abdomen: soft, non-tender, bowel sounds present Back: nontender Extremities: no edema, pulses WNL Skin: intact Neuro: no focal deficits, alert and oriented x4 - Vital Signs Vital signs: Vital Signs - 12hr 10/21/21 10/21/21 10/22/21 23:00 23:15 03:17 Temperature 98.5 F 98.5 F Pulse Rate 91 H 89 Respiratory 19 16 16 Rate Blood Pressure 139/95 136/93 O2 Sat by Pulse 95 96 89 Oximetry 10/22/21 03:18 Temperature Pulse Rate Respiratory Rate Blood Pressure O2 Sat by Pulse 96 Oximetry - Lab 10/21/21 05:26 10/21/21 05:26 Most recent lab results Calcium 7.0 mg/dL (8.4-10.2) L 10/21/21 05:26 Phosphorus 4.80 mg/dL (2.5-4.5) H 10/20/21 04:44 Medications & Allergies - Medications Allergies/Adverse Reactions: Allergies No Known Allergies Allergy (Verified 10/09/21 11:02) Home Medications: Home Medications Medication Instructions Recorded Confirmed Last Taken Type Bacitracin/Pramoxine/Aloe Vera 1 applicatio TP TID #1 tube 10/09/21 10/14/21 Unknown Rx [Bacitraycin Plus Ointment] Calc Carb/Vit D 500 mg-200 Uni 1 each PO DAILY #30 tablet 10/21/21 Unknown Rx [Oysco D 500 mg-200 Unit] Famotidine [Pepcid] 10 mg PO BID #60 tablet 10/21/21 Unknown Rx Gabapentin 300 mg PO BID #60 capsule 10/21/21 Unknown Rx Losartan 50 mg PO DAILY #30 10/21/21 Unknown Rx Active Medications: Generic Name Dose Route Start Last Admin Trade Name Freq PRN Reason Stop Dose Admin Acetaminophen 650 mg 10/20/21 12:43 Acetaminophen 325 Mg Tab PO Q4H PRN Pain MILD(1-3)/Fever >100.5/RACHEL Calcium/Vitamin D 1 each 10/21/21 10:00 10/21/21 10:28 Calcium Carbonate/Vitamin D3 500 Mg-200 Unit Tab PO 1 each DAILY CAILIN Administration Famotidine 10 mg 10/20/21 22:00 10/21/21 21:41 Famotidine 10 Mg Tab PO 10 mg BID CAILIN Administration Gabapentin 300 mg 10/20/21 22:00 10/21/21 21:41 Gabapentin 300 Mg Cap PO 300 mg BID CAILIN Administration Heparin Sodium (Porcine) 5,000 unit 10/20/21 14:00 10/21/21 21:41 Heparin 5,000 Unit/1 Ml Vial SUB-Q 5,000 unit Q12HR CAILIN Administration Sodium Chloride 100 mls @ 999 mls/hr 10/20/21 09:26 Nacl 0.9% IV LAKE PRN Hypotension Losartan Potassium 50 mg 10/20/21 15:00 10/21/21 10:28 Losartan 50 Mg Tab PO 50 mg QDAY CAILIN Administration Metoclopramide HCl 10 mg 10/20/21 12:43 Metoclopramide 10 Mg/2 Ml Inj IV Q6H PRN Nausea And Vomiting Morphine Sulfate 2 mg 10/20/21 12:43 Morphine 2 Mg/1 Ml Inj IV Q4H PRN Pain, Moderate (4-6) Ondansetron HCl 4 mg 10/20/21 12:43 10/20/21 23:10 Ondansetron 4 Mg/2 Ml Inj IV 4 mg Q8H PRN Administration Nausea And Vomiting Oxycodone/Acetaminophen 1 tab 10/20/21 12:43 Oxycodone /Acetaminophen 5-325mg Tab PO Q6H PRN Pain, Moderate (4-6) Sodium Chloride 10 ml 10/20/21 22:00 10/22/21 04:24 Sodium Chloride 0.9% 10 Ml Flush Syringe IV Not Given BID CAILIN Sodium Chloride 10 ml 10/20/21 12:43 Sodium Chloride 0.9% 10 Ml Flush Syringe IV PRN PRN LINE FLUSH
[2021-10-22] MEDS: FAMOTIDINE 10 MG TAB PO SCH (09:21)
[2021-10-22] MEDS: GABAPENTIN 300 MG CAP PO SCH (09:21)
[2021-10-22] MEDS: HEPARIN 5,000 UNIT/1 ML VIAL SUB-Q SCH (09:21)
[2021-10-22] MEDS: CALCIUM CARBONATE/VITAMIN D3 500 MG-200 UNIT TAB PO SCH (09:21)
[2021-10-22] MEDS: LOSARTAN 50 MG TAB PO SCH (09:22)
[2021-10-22 17:23] VITALS: BP 145/84
== END 2021-10-22 20:05 | disposition home or self-care (01) ==
LOC: ED 02:49 → 4A 10:48 → INTOOBSV 10:48 → 4A 17:36
PROVIDERS: ADMIT Internal Medicine; ATTEND Internal Medicine
DX: E87.70 Fluid overload, unspecified (principal); I16.1 Hypertensive emergency; I13.2 Hypertensive heart and chronic kidney disease with heart failure and with stage 5 chronic kidney disease, or end stage renal disease; I50.9 Heart failure, unspecified; N18.6 End stage renal disease; E11.22 Type 2 diabetes mellitus with diabetic chronic kidney disease; D63.1 Anemia in chronic kidney disease; M54.30 Sciatica, unspecified side; Z21 Asymptomatic human immunodeficiency virus [HIV] infection status; Z99.2 Dependence on renal dialysis; Z79.899 Other long term (current) drug therapy; Z98.890 Other specified postprocedural states
CPT/HCPCS: 36415; 80053; 83880; 84100; 85025; 96372; 96374; 99284; G0257; G0378; J1644; J2405; 85007; 99285

== ENCOUNTER 2021-10-26 17:26 | Inpatient (IN) | payer SELFPAY ==
[2021-10-26 19:04] LABS: Hematocrit 26.2 % (35.5-45.6); Hemoglobin 8.5 gm/dl (11.8-15.2); Mean Corpuscular HGB Conc 32 % (32-34); Mean Corpuscular Volume 86 fl (84-94); Platelet Count 166 K/mm3 (140-440); Red Blood Count 3.06 M/mm3 (3.65-5.03); Red Cell Distribution Width 16.3 % (13.2-15.2)
[2021-10-26 19:15] LABS: Calcium 8.1 mg/dL (8.4-10.2)
--- NOTE | 2021-10-26 19:31 | XRay Report ---
CHEST 1 VIEW 10/26/2021 6:16 PM INDICATION / CLINICAL INFORMATION: esrd weakness needs HD. COMPARISON: 10/14/2021 FINDINGS: SUPPORT DEVICES: Right Port-A-Cath tip overlies distal SVC HEART / MEDIASTINUM: No significant abnormality. LUNGS / PLEURA: Mild increased pulmonary opacities in bilateral lungs appears improved No pneumothora x. ADDITIONAL FINDINGS: No significant additional findings. IMPRESSION: 1. Bilateral pulmonary opacities appear improved. Signer Name: Jerad Caballero MD Signed: 10/26/2021 7:26 PM Workstation Name: [id number]
--- NOTE | 2021-10-27 08:28 | Emergency Department Report ---
HPI - General Chief Complaint: Weakness - HPI HPI: Room 25 The patient is a 61-year-old male present with a chief complaint of "need dialysis." Patient has a history of end-stage renal disease but does not yet have his own code enforcement inspector and dialysis center/schedule. Patient states he was last dialyzed 5 days ago on 10/22/2021. Patient states he developed shortness of breath yesterday. Patient complains of left lower extremity pain from his sciatica as well. ED Past Medical Hx - Past Medical History Hx Hypertension: Yes Hx Congestive Heart Failure: Yes Hx Diabetes: Yes Hx Renal Disease: Yes Hx HIV: Yes (Unknown CD4 count. No meds x6 months) Additional medical history: MS, Sciatica - Surgical History Additional Surgical History: Right chest Vas-Cath, back surgery - Family History Family history: no significant - Social History Smoking Status: Never Smoker Substance Use Type: None - Medications Home Medications: Home Medications Medication Instructions Recorded Confirmed Last Taken Type Bacitracin/Pramoxine/Aloe Vera 1 applicatio TP TID #1 tube 10/09/21 10/14/21 Unknown Rx [Bacitraycin Plus Ointment] Calc Carb/Vit D 500 mg-200 Uni 1 each PO DAILY #30 tablet 10/21/21 Unknown Rx [Oysco D 500 mg-200 Unit] Famotidine [Pepcid] 10 mg PO BID #60 tablet 10/21/21 Unknown Rx Gabapentin 300 mg PO BID #60 capsule 10/21/21 Unknown Rx Losartan 50 mg PO DAILY #30 10/21/21 Unknown Rx ED Review of Systems ROS: Stated complaint: MISSED DIALYSIS Other details as noted in HPI Constitutional: no symptoms reported Eyes: denies: eye pain ENT: denies: throat pain Respiratory: shortness of breath Cardiovascular: denies: chest pain Endocrine: no symptoms reported Gastrointestinal: denies: abdominal pain Genitourinary: denies: testicular pain Musculoskeletal: denies: back pain Neurological: other (Sciatica). denies: headache Physical Exam - Physical Exam Vital Signs: Vital Signs 10/26/21 10/27/21 10/27/21 17:29 05:55 06:47 Temperature 98.3 F Pulse Rate 89 103 H Respiratory 16 13 Rate Blood Pressure 155/107 Blood Pressure 156/77 [Left] O2 Sat by Pulse 99 98 98 Oximetry Physical Exam: GENERAL: The patient is well-developed well-nourished male lying on stretcher not appearing to be in acute distress. [] HEENT: Normocephalic. Atraumatic. Extraocular motions are intact. Patient has moist mucous membranes. NECK: Supple. Trachea midline CHEST/LUNGS: Clear to auscultation. There is no respiratory distress noted. HEART/CARDIOVASCULAR: Regular. There is no tachycardia. There is no gallop rub or murmur. ABDOMEN: Abdomen is soft, nontender. Patient has normal bowel sounds. There is no abdominal distention. SKIN: There is no rash. There is no edema. There is no diaphoresis. NEURO: The patient is awake, alert, and oriented. The patient is cooperative. The patient has no focal neurologic deficits. The patient has normal speech. GCS 15 MUSCULOSKELETAL: There is no evidence of acute injury. ED Course Vital Signs 10/26/21 10/27/21 10/27/21 17:29 05:55 06:47 Temperature 98.3 F Pulse Rate 89 103 H Respiratory 16 13 Rate Blood Pressure 155/107 Blood Pressure 156/77 [Left] O2 Sat by Pulse 99 98 98 Oximetry - Consultations Consultation #1: 10/27/21 08:29 Nephrology paged 10/27/21 08:37 Case discussed with code enforcement inspector Dr. Olivo-will place dialysis orders. ED Medical Decision Making - Lab Data Result diagrams: 10/26/21 18:45 10/26/21 18:45 Laboratory Tests 10/26/21 10/26/21 18:45 18:45 WBC 4.2 L RBC 3.06 L Hgb 8.5 L Hct 26.2 L MCV 86 MCH 28 MCHC 32 RDW 16.3 H Plt Count 166 Sodium 144 Potassium 4.2 Chloride 105.6 Carbon Dioxide 23 Anion Gap 20 BUN 48 H Creatinine 12.1 H Estimated GFR 5 BUN/Creatinine Ratio 4 Glucose 93 Calcium 8.1 L - Radiology Data Radiology results: report reviewed (Chest x-ray), image reviewed (Chest x-ray) interpreted by me: Chest x-ray-trace right lower lobe opacity. No pneumothorax [facility] [address] [place] [address] XRay Report Signed Patient: TERESA HARGROVE MR#: [id number] : 1960 Acct:[id number] Age/Sex: 61 / M ADM Date: 10/26/21 Loc: ED Attending Dr: Ordering Physician: KISHA AVENDAÑO MD Date of Service: 10/26/21 Procedure(s): XR chest 1V ap Accession Number(s): [id number] cc: KISHA AVENDAÑO MD Fluoro Time In Minutes: CHEST 1 VIEW 10/26/2021 6:16 PM INDICATION / CLINICAL INFORMATION: esrd weakness needs HD. COMPARISON: 10/14/2021 FINDINGS: SUPPORT DEVICES: Right Port-A-Cath tip overlies distal SVC HEART / MEDIASTINUM: No significant abnormality. LUNGS / PLEURA: Mild increased pulmonary opacities in bilateral lungs appears improved No pneumothorax. ADDITIONAL FINDINGS: No significant additional findings. IMPRESSION: 1. Bilateral pulmonary opacities appear improved. Signer Name: Jerad Caballero MD Signed: 10/26/2021 7:26 PM Workstation Name: [id number] Transcribed By: CW Dictated By: STEPHON CABALLERO MD Electronically Authenticated By: STEPHON CABALLERO MD Signed Date/Time: 10/26/211925 DD/ 25 TD/TT: - Differential Diagnosis ESRD needing dialysis Critical care attestation.: If time is entered above; I have spent that time in minutes in the direct care of this critically ill patient, excluding procedure time. ED Disposition Clinical Impression: Uremia, ESRD needing dialysis Disposition: 09 ADMITTED INPATIENT Is pt being admited?: Yes Does the pt Need Aspirin: No Condition: Fair Time of Disposition: 08:37 (Care transferred to hospitalist Dr. Ross (discussed with Dr. Gonzalez))
[2021-10-27] MEDS ORDERED: SODIUM CHLORIDE 0.9% 100 ML IV PRN (08:39)
--- NOTE | 2021-10-27 09:50 | Electrocardiograph Report ---
[facility] Test Date: 2021-10-27 Test Time: 06:22:22 Pat Name: TERESA HARGROVE Department: Room: Gender: M [employer] Finisher: Lamar CULVER : 1960 Requested By: KISHA AVENDAÑO Order Number: [id number] Reading MD: John Sharma Measurements Intervals [place] Rate: 100 P: 40 NM: 117 QRS: -38 QRSD: 101 T: 150 QT: 371 QTc: 479 Interpretive Statements Sinus tachycardia Incomplete right bundle branch block Probable left atrial enlargement LVH T wave abnormality, consider anterolateral ischemia Compared to ECG 10/09/2021 11:11:40 Left ventricular hypertrophy now present Atrial premature complex(es) no longer present Left anterior fascicular block no longer present Electronically Signed On 10-27-2021 9:49:28 EDT by John Sharma
[2021-10-27] MEDS ORDERED: NALOXONE 0.4 MG/1 ML INJ IV PRN (11:04)
[2021-10-27] MEDS ORDERED: HYDROmorphone 1 MG/1 ML INJ IV PRN ×2 (11:04→11:11)
[2021-10-27] MEDS ORDERED: ONDANSETRON 4 MG/2 ML INJ IV PRN (11:04)
[2021-10-27] MEDS ORDERED: oxyCODONE /ACETAMINOPHEN 5-325MG TAB PO PRN (11:04)
[2021-10-27] MEDS ORDERED: ACETAMINOPHEN 325 MG TAB PO PRN (11:04)
--- NOTE | 2021-10-27 11:11 | History and Physical Report ---
History of Present Illness Date of examination: 10/27/21 Date of admission: 10/27/2021 Chief complaint: Worsening shortness of breath, noncompliance with hemodialysis, fluid overload of 1 day duration History of present illness: 61-year-old male patient with significant past medical history of end-stage renal disease on hemodialysis, hypertension peripheral neuropathy on gabapentin noncompliant with dialysis presented to the emergency room with worsening shortness of breath of 1 day duration, patient reports that his last dialysis was 5 days ago, and came for dialysis treatment here. Patient complains of some social issues unable to go to the dialysis center Initial evaluation shows some fluid overload, however chest x-ray showed improvement of pulmonary opacities compared to previous imaging study. ER physician has informed the wheelchair van operator first responder for possible stat HD Patient denies any fevers no nausea vomiting or abdominal pain, no chest pain denies cough Denies headache or dizziness, weakness or numbness Past History Past Medical History: dialysis, ESRD, hypertension, other (Neuropathy) Past Surgical History: Other (AV fistula) Social history: denies: smoking, alcohol abuse, prescription drug abuse Family history: denies: no significant family history Medications and Allergies Allergies Allergy/AdvReac Type Severity Reaction Status Date / Time No Known Allergies Allergy Verified 10/09/21 11:02 Home Medications Medication Instructions Recorded Confirmed Last Taken Type Bacitracin/Pramoxine/Aloe Vera 1 applicatio TP TID #1 tube 10/09/21 10/14/21 Unknown Rx [Bacitraycin Plus Ointment] Calc Carb/Vit D 500 mg-200 Uni 1 each PO DAILY #30 tablet 10/21/21 Unknown Rx [Oysco D 500 mg-200 Unit] Famotidine [Pepcid] 10 mg PO BID #60 tablet 10/21/21 10/27/21 Unknown Rx Losartan 50 mg PO DAILY #30 10/21/21 10/27/21 Unknown Rx Acetaminophen [Tylenol] 500 mg PO Q6H PRN 10/27/21 10/27/21 Unknown History Gabapentin [Neurontin] 600 mg PO BID 10/27/21 10/27/21 Unknown History amLODIPine 10 mg PO DAILY 10/27/21 10/27/21 Unknown History Active Meds: Active Medications Acetaminophen (Acetaminophen 325 Mg Tab) 650 mg PO Q4H PRN PRN Reason: Pain MILD(1-3)/Fever >100.5/RACHEL Famotidine (Famotidine 10 Mg Tab) 10 mg PO BID CAILIN Gabapentin (Gabapentin 300 Mg Cap) 300 mg PO BID [facility] Heparin Sodium (Porcine) (Heparin 5,000 Unit/1 Ml Vial) 5,000 unit SUB-Q Q12HR CAILIN Hydromorphone HCl (Hydromorphone 1 Mg/1 Ml Inj) 0.5 mg IV Q3H PRN PRN Reason: Pain , Severe (7-10) Sodium Chloride (Nacl 0.9%) 100 mls @ 999 mls/hr IV LAKE PRN PRN Reason: Hypotension Miscellaneous Medication (Losartan) 50 mg PO DAILY CAILIN Naloxone HCl (Naloxone 0.4 Mg/1 Ml Inj) 0.1 mg IV Q2MIN PRN PRN Reason: Res Rate </= 8 or 02 SAT < 92% Ondansetron HCl (Ondansetron 4 Mg/2 Ml Inj) 4 mg IV Q8H PRN PRN Reason: Nausea And Vomiting Oxycodone/Acetaminophen (Oxycodone /Acetaminophen 5-325mg Tab) 1 tab PO Q6H PRN PRN Reason: Pain, Moderate (4-6) Review of Systems Constitutional: fatigue, weakness, no weight loss, no weight gain Ears, nose, mouth and throat: no nasal congestion, no nasal discharge Cardiovascular: edema, shortness of breath, no chest pain Respiratory: shortness of breath, no cough, no cough with sputum Gastrointestinal: no abdominal pain, no nausea, no vomiting Genitourinary Male: no flank pain Musculoskeletal: no myalgias, no arthritis Integumentary: no rash, no lesions Neurological: weakness, no seizures, no syncope, no tremors Psychiatric: no anxiety, no depression Endocrine: no cold intolerance, no heat intolerance Hematologic/Lymphatic: no easy bruising, no easy bleeding Allergic/Immunologic: no urticaria, no allergic rhinitis Exam - Constitutional Vitals: Temp Pulse Resp BP Pulse Ox 98.3 F 103 H 13 155/107 98 10/26/21 17:29 10/27/21 05:55 10/27/21 05:55 10/27/21 05:55 10/27/21 06:47 General appearance: Present: no acute distress, well-nourished - EENT Eyes: Present: PERRL, EOM intact - Neck Neck: Present: supple, normal ROM - Respiratory Respiratory effort: normal Respiratory: bilateral: diminished, negative: rales, rhonchi, wheezing - Cardiovascular Rhythm: regular Heart Sounds: Present: S1 & S2 - Extremities Extremities: no ischemia, No edema - Abdominal General gastrointestinal: Present: soft, non-tender, non-distended, normal bowel sounds - Integumentary Integumentary: Present: clear, warm - Musculoskeletal Musculoskeletal: strength equal bilaterally, generalized weakness - Psychiatric Psychiatric: appropriate mood/affect, cooperative - Neurologic Neurologic: moves all extremities Results - Labs CBC & Chem 7: 10/26/21 18:45 10/26/21 18:45 Labs: Abnormal lab results 10/26/21 10/26/21 Range/Units 18:45 18:45 WBC 4.2 L (4.5-11.0) K/mm3 RBC 3.06 L (3.65-5.03) M/mm3 Hgb 8.5 L (11.8-15.2) gm/dl Hct 26.2 L (35.5-45.6) % RDW 16.3 H (13.2-15.2) % BUN 48 H (9-20) mg/dL Creatinine 12.1 H (0.8-1.3) mg/dL Calcium 8.1 L (8.4-10.2) mg/dL Assessment and Plan -- Worsening shortness of breath/secondary to fluid overload/due to missed dialysis Hemodialysis per schedule, oxygen titrate O2 sats to more than 90%, supportive care --Fluid overload; -- ESRD; on dialysis Nephrology consulted, hemodialysis per schedule Supportive care -- Hypertension; Resume home antihypertensives And as needed hydralazine -- Peripheral neuropathy; Continue home gabapentin -- DVT prophylaxis; Subcu heparin -- Medical noncompliance; Counseled the importance of adhering to the treatment plan diet and mainly hemodialysis And follow-up visits Advance care planning Disease education conducted, care plan discussed, diagnosis discussed, prognosis discussed, patient is full code. Patient acknowledges understanding and agreement.. Care plan +30 minutes.
[2021-10-27] MEDS: FAMOTIDINE 10 MG TAB PO SCH (21:49)
[2021-10-27] MEDS: HEPARIN 5,000 UNIT/1 ML VIAL SUB-Q SCH (21:49)
[2021-10-27] MEDS: GABAPENTIN 300 MG CAP PO SCH (21:49)
--- NOTE | 2021-10-28 01:57 | Progress Note ---
Assessment and Plan Assessment and plan: -- Worsening shortness of breath/secondary to fluid overload/due to missed dialysis Hemodialysis per schedule, oxygen titrate O2 sats to more than 90%, supportive care --Fluid overload; -- ESRD; on dialysis Nephrology consulted, hemodialysis per schedule Supportive care -- Hypertension; Resume home antihypertensives And as needed hydralazine -- Peripheral neuropathy; Continue home gabapentin -- DVT prophylaxis; Subcu heparin -- Medical noncompliance; Counseled the importance of adhering to the treatment plan diet and mainly hemodialysis And follow-up visits Advance care planning Disease education conducted, care plan discussed, diagnosis discussed, prognosis discussed, patient is full code. Patient acknowledges understanding and agreement.. Care plan +30 minutes. Hospitalist Physical - Constitutional Vitals: Temp Pulse Resp BP Pulse Ox 98.9 F 86 20 183/106 98 10/27/21 19:59 10/27/21 19:59 10/27/21 19:59 10/27/21 19:59 10/27/21 22:00 General appearance: Present: no acute distress, well-nourished Results - Labs CBC & Chem 7: 10/26/21 18:45 10/26/21 18:45 Labs: Laboratory Last Values WBC 4.2 K/mm3 (4.5-11.0) L 10/26/21 18:45 RBC 3.06 M/mm3 (3.65-5.03) L 10/26/21 18:45 Hgb 8.5 gm/dl (11.8-15.2) L 10/26/21 18:45 Hct 26.2 % (35.5-45.6) L 10/26/21 18:45 MCV 86 fl (84-94) 10/26/21 18:45 MCH 28 pg (28-32) 10/26/21 18:45 MCHC 32 % (32-34) 10/26/21 18:45 RDW 16.3 % (13.2-15.2) H 10/26/21 18:45 Plt Count 166 K/mm3 (140-440) 10/26/21 18:45 Sodium 144 mmol/L (137-145) 10/26/21 18:45 Potassium 4.2 mmol/L (3.6-5.0) 10/26/21 18:45 Chloride 105.6 mmol/L (98-107) 10/26/21 18:45 Carbon Dioxide 23 mmol/L (22-30) 10/26/21 18:45 Anion Gap 20 mmol/L 10/26/21 18:45 BUN 48 mg/dL (9-20) H 10/26/21 18:45 Creatinine 12.1 mg/dL (0.8-1.3) H 10/26/21 18:45 Estimated GFR 5 ml/min 10/26/21 18:45 BUN/Creatinine Ratio 4 % 10/26/21 18:45 Glucose 93 mg/dL (75-100) 10/26/21 18:45 Calcium 8.1 mg/dL (8.4-10.2) L 10/26/21 18:45 Atkins/IV: Voiding Method Toilet Active Medications - Current Medications Current Medications: Generic Name Dose Route Start Last Admin Trade Name Freq PRN Reason Stop Dose Admin Acetaminophen 650 mg 10/27/21 11:04 Acetaminophen 325 Mg Tab PO Q4H PRN Pain MILD(1-3)/Fever >100.5/RACHEL Famotidine 10 mg 10/27/21 22:00 10/27/21 21:49 Famotidine 10 Mg Tab PO 10 mg BID CAILIN Administration Gabapentin 300 mg 10/27/21 22:00 10/27/21 21:49 Gabapentin 300 Mg Cap PO 300 mg BID CAILIN Administration Heparin Sodium (Porcine) 5,000 unit 10/27/21 22:00 10/27/21 21:49 Heparin 5,000 Unit/1 Ml Vial SUB-Q 5,000 unit Q12HR CAILIN Administration Hydromorphone HCl 0.5 mg 10/27/21 11:11 Hydromorphone 1 Mg/1 Ml Inj IV Q6H PRN Pain , Severe (7-10) Sodium Chloride 100 mls @ 999 mls/hr 10/27/21 08:39 Nacl 0.9% IV LAKE PRN Hypotension Losartan Potassium 50 mg 10/28/21 10:00 Losartan 50 Mg Tab PO QDAY CAILIN Naloxone HCl 0.1 mg 10/27/21 11:04 Naloxone 0.4 Mg/1 Ml Inj IV Q2MIN PRN Res Rate </= 8 or 02 SAT < 92% Ondansetron HCl 4 mg 10/27/21 11:04 Ondansetron 4 Mg/2 Ml Inj IV Q8H PRN Nausea And Vomiting Oxycodone/Acetaminophen 1 tab 10/27/21 11:04 10/27/21 15:05 Oxycodone /Acetaminophen 5-325mg Tab PO 1 tab Q6H PRN Administration Pain, Moderate (4-6)
[2021-10-28 04:58] VITALS: BP 133/79
[2021-10-28 05:55] LABS: Calcium 7.2 mg/dL (8.4-10.2)
--- NOTE | 2021-10-28 09:35 | Consultation ---
History of Present Illness - Reason for Consult Consult date: 10/28/21 end stage renal disease Requesting physician: DOMINIC MILLER - History of Present Illness This is a 61 yo M with history of hypertension, HIV, ESRD on HD,currently does not have outpatient HD chair due to uninsured status, who presents to ER with chief complaint of shortness of breath. chest x-ray showed improvement of pulmonary opacities compared to previous imaging study. renal consult is req uested for management of ESRD/HD. Patient denies any chest pain, fever, chills, no nausea vomiting or abdominal pain Past History Past Medical History: dialysis, ESRD, hypertension, other (Neuropathy) Past Surgical History: Other (AV fistula) Social history: denies: smoking, alcohol abuse, prescription drug abuse Family history: denies: no significant family history Medications and Allergies Allergies Allergy/AdvReac Type Severity Reaction Status Date / Time No Known Allergies Allergy Verified 10/09/21 11:02 Home Medications Medication Instructions Recorded Confirmed Last Taken Type Bacitracin/Pramoxine/Aloe Vera 1 applicatio TP TID #1 tube 10/09/21 10/27/21 Unknown Rx [Bacitraycin Plus Ointment] Calc Carb/Vit D 500 mg-200 Uni 1 each PO DAILY #30 tablet 10/21/21 10/27/21 Unknown Rx [Oysco D 500 mg-200 Unit] Famotidine [Pepcid] 10 mg PO BID #60 tablet 10/21/21 10/27/21 Unknown Rx Losartan 50 mg PO DAILY #30 10/21/21 10/27/21 Unknown Rx Acetaminophen [Tylenol] 500 mg PO Q6H PRN 10/27/21 10/27/21 Unknown History Gabapentin [Neurontin] 600 mg PO BID 10/27/21 10/27/21 Unknown History amLODIPine 10 mg PO DAILY 10/27/21 10/27/21 Unknown History Active Meds: Active Medications Acetaminophen (Acetaminophen 325 Mg Tab) 650 mg PO Q4H PRN PRN Reason: Pain MILD(1-3)/Fever >100.5/RACHEL Famotidine (Famotidine 10 Mg Tab) 10 mg PO BID [facility] Last Admin: 10/27/21 21:49 Dose: 10 mg Gabapentin (Gabapentin 300 Mg Cap) 300 mg PO BID [facility] Last Admin: 10/27/21 21:49 Dose: 300 mg Heparin Sodium (Porcine) (Heparin 5,000 Unit/1 Ml Vial) 5,000 unit SUB-Q Q12HR CAILIN Last Admin: 10/27/21 21:49 Dose: 5,000 unit Hydromorphone HCl (Hydromorphone 1 Mg/1 Ml Inj) 0.5 mg IV Q6H PRN PRN Reason: Pain , Severe (7-10) Sodium Chloride (Nacl 0.9%) 100 mls @ 999 mls/hr IV LAKE PRN PRN Reason: Hypotension Losartan Potassium (Losartan 50 Mg Tab) 50 mg PO QDAY CAILIN Naloxone HCl (Naloxone 0.4 Mg/1 Ml Inj) 0.1 mg IV Q2MIN PRN PRN Reason: Res Rate </= 8 or 02 SAT < 92% Ondansetron HCl (Ondansetron 4 Mg/2 Ml Inj) 4 mg IV Q8H PRN PRN Reason: Nausea And Vomiting Oxycodone/Acetaminophen (Oxycodone /Acetaminophen 5-325mg Tab) 1 tab PO Q6H PRN PRN Reason: Pain, Moderate (4-6) Last Admin: 10/27/21 15:05 Dose: 1 tab Review of Systems All systems: negative Constitutional: weakness Cardiovascular: shortness of breath Exam - Vital Signs Vital signs: Vital Signs Temp Pulse Resp BP Pulse Ox 98.3 F 89 16 156/77 99 10/26/21 17:29 10/26/21 17:29 10/26/21 17:29 10/26/21 17:29 10/26/21 17:29 Results - Lab Results 10/26/21 18:45 10/28/21 05:15 Most recent lab results Calcium 7.2 mg/dL (8.4-10.2) L 10/28/21 05:15 Assessment and Plan - Patient Problems (1) End-stage renal disease needing dialysis Current Visit: Yes Status: Acute Plan to address problem: Pt received HD on 10/27/21 for volume control and solute clearance. Patient is stable for discharge from renal stand point (2) Hypertensive chronic kidney disease with stage 5 chronic kidney disease or end stage renal disease Current Visit: No Status: Acute Plan to address problem: monitor BP on current meds (3) Anemia in ESRD (end-stage renal disease) Current Visit: No Status: Acute Plan to address problem: cont EPO with HD. (4) HIV (human immunodeficiency virus infection) Current Visit: No Status: Acute Qualifiers: HIV symptom status: unspecified Qualified Code(s): B20 - Human immunodeficiency virus [HIV] disease Plan to address problem: Pt was evaluated by ID during prior hospitalizations, he was supposed to follow- up with [facility] for HIV therapy (e.g., IDP at [facility])
[2021-10-28] MEDS: FAMOTIDINE 10 MG TAB PO SCH (09:52)
[2021-10-28] MEDS: GABAPENTIN 300 MG CAP PO SCH (09:52)
[2021-10-28] MEDS: HEPARIN 5,000 UNIT/1 ML VIAL SUB-Q SCH (09:52)
[2021-10-28] MEDS ORDERED: LOSARTAN 50 MG TAB PO SCH (10:00)
[2021-10-28] MEDS ORDERED: NON-FORMULARY EACH (Losartan 50 MG) PO SCH (10:00)
[2021-10-28] MEDS ORDERED: FAMOTIDINE 20 MG TAB PO ONE (11:06)
[2021-10-28] MEDS ORDERED: ONDANSETRON 4 MG ODT TAB PO ONE (11:06)
--- NOTE | 2021-10-28 11:15 | Discharge Summary ---
Providers - Providers Date of Admission: 10/27/21 11:04 Date of discharge: 10/28/21 Attending physician: DOMINIC MILLER 10/27/21 08:36 Consult to Physician [CONS] Urgent Comment: Consulting Provider: LEESA BUSH Physician Instructions: Reason For Exam: ESRD needing hemodialysis Primary care physician: JEANNETTE WALSH Hospitalization Reason for admission: Worsening shortness of breath and fluid overload/missed dialysis Condition: Fair Pertinent studies: X-ray; bilateral pulmonary opacities Hospital course: -- Worsening shortness of breath/secondary to fluid overload/due to missed dialysis Hemodialysis per schedule, oxygen titrate O2 sats to more than 90%, supportive care --Fluid overload; -- ESRD; on dialysis Nephrology consulted, hemodialysis per schedule Supportive care -- Hypertension; Resume home antihypertensives And as needed hydralazine -- Peripheral neuropathy; Continue home gabapentin -- DVT prophylaxis; Subcu heparin -- Medical noncompliance; Counseled the importance of adhering to the treatment plan diet and mainly hemodialysis And follow-up visits -- Noncompliance with hemodialysis Advance care planning Disease education conducted, care plan discussed, diagnosis discussed, prognosis discussed, patient is full code. Patient acknowledges understanding and agreement.. Care plan +30 minutes. Final Discharge Diagnosis (Prints w/discharge instructions): Worsening shortness of breath/improved. Fluid overload due to ESRD. ESRD on hemodialysis. Hypertension. Peripheral neuropathy. Medical noncompliance. Noncompliance with hemodialysis Time spent for discharge: 35 minutes Core Measure Documentation - Palliative Care Palliative Care/ Comfort Measures: Not Applicable - Core Measures Any of the following diagnoses?: none Exam - Constitutional Vitals: Temp Pulse Resp BP Pulse Ox 99.0 F 86 16 133/79 98 10/28/21 04:30 10/27/21 19:59 10/28/21 04:30 10/28/21 04:30 10/27/21 22:00 General appearance: Present: no acute distress, well-nourished - EENT Eyes: Present: PERRL, EOM intact - Neck Neck: Present: supple, normal ROM - Respiratory Respiratory effort: normal Respiratory: bilateral: diminished, negative: rales, rhonchi, wheezing - Cardiovascular Rhythm: regular Heart Sounds: Present: S1 & S2 - Extremities Extremities: no ischemia, No edema - Integumentary Integumentary: Present: clear, warm - Musculoskeletal Musculoskeletal: strength equal bilaterally - Psychiatric Psychiatric: appropriate mood/affect, cooperative - Neurologic Neurologic: moves all extremities Plan Activity: no restrictions, advance as tolerated Diet: renal Additional Instructions: Follow renal, hemodialysis per schedule. If you have worsening symptoms contact MD or go to the nearest emergency room as needed. Strongly advised t to comply with medications, diet and follow-up visits Follow up with: JEANNETTE WALSH MD [Primary Care Provider] - 3-5 Days LEESA BUSH MD [Staff Physician] - 7 Days Prescriptions: Mag Hydrox/Aluminum Hyd/Simeth [Maalox Advanced Suspension] 15 ml PO Q6H PRN 15 Days #1 bottle PRN Reason: Dyspepsia Ondansetron [Zofran Odt] 4 mg PO Q8HR PRN #20 tab.rapdis PRN Reason: Nausea And Vomiting
== END 2021-10-28 13:47 | disposition home or self-care (01) | DRG 640 ==
LOC: ED 17:26 → 3A 10-27 11:04
PROVIDERS: ADMIT Internal Medicine; ATTEND Internal Medicine
DX: E87.79 Other fluid overload (principal); N18.6 End stage renal disease; I13.2 Hypertensive heart and chronic kidney disease with heart failure and with stage 5 chronic kidney disease, or end stage renal disease; B20 Human immunodeficiency virus [HIV] disease; E87.2 Acidosis; I50.9 Heart failure, unspecified; D63.1 Anemia in chronic kidney disease; E11.42 Type 2 diabetes mellitus with diabetic polyneuropathy; E11.22 Type 2 diabetes mellitus with diabetic chronic kidney disease; Z99.2 Dependence on renal dialysis; Z91.14 Patient's other noncompliance with medication regimen; Z79.899 Other long term (current) drug therapy
CPT/HCPCS: 36415; 71045; 80048; 85027; 93005; 94760; 99285; G0378; J3490; J1644; Q0162

== ENCOUNTER 2021-11-01 18:08 | Inpatient (IN) | payer SELFPAY ==
--- NOTE | 2021-11-02 06:45 | XRay Report ---
CHEST 1 VIEW 11/02/2021 5:30 AM INDICATION / CLINICAL INFORMATION: Dyspnea. COMPARISON: 10/26/2021 FINDINGS: SUPPORT DEVICES: None. HEART / MEDIASTINUM: No significant abnormality. LUNGS / PLEURA: Mild pulmonary vascular indistinctness. No pneumothorax. ADDITIONAL FINDINGS: No significant additional findings. IMPRESSION: 1. Mild pulmonary edema Signer Name: González Keen DO Signed: 11/02/2021 6:40 AM Workstation Name: [id number]
--- NOTE | 2021-11-02 06:50 | Emergency Department Report ---
ED Shortness of Breath HPI - General Chief Complaint: Dyspnea/Respdistress Stated Complaint: SKIPPED DIALYSIS Time Seen by Provider: 11/02/21 06:07 Source: patient Mode of arrival: Ambulatory Limitations: No Limitations - History of Present Illness Initial Comments: Patient is a 61-year-old male with history of end-stage renal disease on dialysis Friday and Friday presenting with complaint of shortness of breath after missed dialysis. States his last dialysis was last Friday. - Related Data Home Medications Medication Instructions Recorded Confirmed Last Taken Acetaminophen [Tylenol] 500 mg PO Q6H PRN 10/27/21 10/27/21 Unknown Gabapentin [Neurontin] 600 mg PO BID 10/27/21 10/27/21 Unknown amLODIPine 10 mg PO DAILY 10/27/21 10/27/21 Unknown Previous Rx's Medication Instructions Recorded Last Taken Type Bacitracin/Pramoxine/Aloe Vera 1 applicatio TP TID #1 tube 10/09/21 Unknown Rx [Bacitraycin Plus Ointment] Calc Carb/Vit D 500 mg-200 Uni 1 each PO DAILY #30 tablet 10/21/21 Unknown Rx [Oysco D 500 mg-200 Unit] Famotidine [Pepcid] 10 mg PO BID #60 tablet 10/21/21 Unknown Rx Losartan 50 mg PO DAILY #30 10/21/21 Unknown Rx Mag Hydrox/Aluminum Hyd/Simeth 15 ml PO Q6H PRN 15 Days #1 bottle 10/28/21 Unknown Rx [Maalox Advanced Suspension] Ondansetron [Zofran Odt] 4 mg PO Q8HR PRN #20 tab.rapdis 10/28/21 Unknown Rx Allergies Allergy/AdvReac Type Severity Reaction Status Date / Time No Known Allergies Allergy Verified 10/09/21 11:02 ED Review of Systems ROS: Stated complaint: SKIPPED DIALYSIS Other details as noted in HPI Comment: All other systems reviewed and negative Constitutional: denies: chills, fever Respiratory: shortness of breath Cardiovascular: denies: chest pain, palpitations Gastrointestinal: denies: abdominal pain, nausea, diarrhea Musculoskeletal: denies: back pain, joint swelling Skin: denies: rash, lesions Neurological: denies: headache, weakness Psychiatric: denies: anxiety, depression ED Past Medical Hx - Past Medical History Hx Hypertension: Yes Hx Congestive Heart Failure: Yes Hx Diabetes: Yes Hx Renal Disease: Yes Hx HIV: Yes (Unknown CD4 count. No meds x6 months) Additional medical history: MS, Sciatica - Surgical History Additional Surgical History: Right chest Vas-Cath, back surgery - Social History Smoking Status: Unknown if ever smoked Substance Use Type: None - Medications Home Medications: Home Medications Medication Instructions Recorded Confirmed Last Taken Type Bacitracin/Pramoxine/Aloe Vera 1 applicatio TP TID #1 tube 10/09/21 10/27/21 Unknown Rx [Bacitraycin Plus Ointment] Calc Carb/Vit D 500 mg-200 Uni 1 each PO DAILY #30 tablet 10/21/21 10/27/21 Unknown Rx [Oysco D 500 mg-200 Unit] Famotidine [Pepcid] 10 mg PO BID #60 tablet 10/21/21 10/27/21 Unknown Rx Losartan 50 mg PO DAILY #30 10/21/21 10/27/21 Unknown Rx Acetaminophen [Tylenol] 500 mg PO Q6H PRN 10/27/21 10/27/21 Unknown History Gabapentin [Neurontin] 600 mg PO BID 10/27/21 10/27/21 Unknown History amLODIPine 10 mg PO DAILY 10/27/21 10/27/21 Unknown History Mag Hydrox/Aluminum Hyd/Simeth 15 ml PO Q6H PRN 15 Days #1 bottle 10/28/21 Unknown Rx [Maalox Advanced Suspension] Ondansetron [Zofran Odt] 4 mg PO Q8HR PRN #20 tab.rapdis 10/28/21 Unknown Rx ED Physical Exam - General Limitations: No Limitations General appearance: alert, in no apparent distress - Head Head exam: Present: atraumatic, normocephalic - Neck Neck exam: Present: normal inspection - Respiratory Respiratory exam: Present: normal lung sounds bilaterally, respiratory distress (Mild respiratory distress) - Cardiovascular Cardiovascular Exam: Present: regular rate, normal rhythm, normal heart sounds - GI/Abdominal GI/Abdominal exam: Present: soft. Absent: distended, guarding - Neurological Exam Neurological exam: Present: alert, oriented X3 - Psychiatric Psychiatric exam: Present: normal affect, normal mood - Skin Skin exam: Present: warm, dry, intact, normal color ED Course Vital Signs 11/01/21 11/02/21 11/02/21 21:49 04:10 04:11 Temperature 98.9 F 98.9 F Pulse Rate 99 H 100 H Respiratory 20 14 Rate Blood Pressure Blood Pressure 150/93 159/102 [Right] O2 Sat by Pulse 99 85 94 Oximetry 11/02/21 11/02/21 11/02/21 04:12 04:16 04:30 Temperature 98.9 F Pulse Rate 100 H Respiratory 15 15 Rate Blood Pressure 159/102 151/93 Blood Pressure [Right] O2 Sat by Pulse 94 94 89 Oximetry 11/02/21 07:44 Temperature Pulse Rate 93 H Respiratory 18 Rate Blood Pressure Blood Pressure 149/91 [Right] O2 Sat by Pulse 94 Oximetry ED Medical Decision Making - Lab Data Result diagrams: 11/02/21 06:37 11/02/21 06:37 - Medical Decision Making Chest x-ray shows mild pulmonary edema. Potassium 5.1. Patient currently satting 94% on room air and does not appear to be in any acute respiratory distr ess. Speaking full sentences. States he currently receives his dialysis here due to not having insurance. Will admit to hospitalist service for dialysis. Critical care attestation.: If time is entered above; I have spent that time in minutes in the direct care of this critically ill patient, excluding procedure time. ED Disposition Clinical Impression: End-stage renal disease needing dialysis Disposition: 09 ADMITTED INPATIENT Is pt being admited?: Yes Condition: Stable
[2021-11-02 07:01] LABS: Basophils % (Auto) 1.1 % (0.0-1.8); Eosinophils # (Auto) 0.2 K/mm3 (0.0-0.4); Eosinophils % (Auto) 5.5 % (0.0-4.3); Hematocrit 25.9 % (35.5-45.6); Hemoglobin 8.5 gm/dl (11.8-15.2); Lymphocytes # (Auto) 1.1 K/mm3 (1.2-5.4); Lymphocytes % (Auto) 27.5 % (13.4-35.0); Mean Corpuscular HGB Conc 33 % (32-34); Mean Corpuscular Volume 86 fl (84-94); Monocytes # (Auto) 0.6 K/mm3 (0.0-0.8); Monocytes % (Auto) 15.4 % (0.0-7.3); Platelet Count 143 K/mm3 (140-440); Red Blood Count 3.03 M/mm3 (3.65-5.03); Red Cell Distribution Width 16.2 % (13.2-15.2)
[2021-11-02 07:40] LABS: Albumin 2.5 g/dL (3.9-5); Calcium 8.2 mg/dL (8.4-10.2)
--- NOTE | 2021-11-02 09:17 | History and Physical Report ---
History of Present Illness Date of examination: 11/02/21 Date of admission: 11/02/21 Chief complaint: Missed hemodialysis History of present illness: Patient is a 61-year-old male with history of end-stage renal disease on dialysis Friday and Friday presenting with complaint of shortness of breath after missed dialysis. States his last dialysis was last Friday. Also note patient does not have any insurance or outpatient dialysis set up. He had multiple admission in the past for similar issues. Nephrology was immediately consulted for emergent hemodialysis given the patient's severe hypoxia secondary to presumed volume overload. Patient being admitted for further evaluation and management. Past History Past Medical History: ESRD, hypertension, HIV Past Surgical History: Other (AV fistula formation) Social history: single, full code Family history: hypertension Review of System: Constitutional: no fever, no chills, no weight loss Ears, eyes, nose, mouth and throat: no nasal congestion, no nasal discharge, no sinus pressure, no vision change, no red eye. Neck: No neck pain or rigidity. Cardiovascular: No chest pain, +ve orthopnea, no palpitations, no leg swelling Respiratory: +ve shortness of breath, no cough, no congestion, no wheezing Gastrointestinal: no abdominal pain, no nausea, no vomiting Genitourinary : no dysuria, no hematuria Musculoskeletal: no joint swelling or muscle ache Integumentary: no rash, no pruritis Neurological: no parathesias, no numbness, no tingling Endocrine: no cold or heat intolerance, no polyuria or polydipsia Hematologic/Lymphatic: no easy bruising, no easy bleeding, no gland swelling Allergic/Immunologic: no urticaria, no angioedema. Medications and Allergies Allergies Allergy/AdvReac Type Severity Reaction Status Date / Time No Known Allergies Allergy Verified 10/09/21 11:02 Home Medications Medication Instructions Recorded Confirmed Last Taken Type Bacitracin/Pramoxine/Aloe Vera 1 applicatio TP TID #1 tube 10/09/21 11/02/21 Unknown Rx [Bacitraycin Plus Ointment] Calc Carb/Vit D 500 mg-200 Uni 1 each PO DAILY #30 tablet 10/21/21 11/02/21 11/01/21 10:00 Rx [Oysco D 500 mg-200 Unit] Famotidine [Pepcid] 10 mg PO BID #60 tablet 10/21/21 11/02/21 11/01/21 22:00 Rx Losartan 50 mg PO DAILY #30 10/21/21 11/02/21 11/01/21 09:00 Rx Acetaminophen [Tylenol] 500 mg PO Q6H PRN 10/27/21 11/02/21 Unknown History Gabapentin [Neurontin] 600 mg PO BID 10/27/21 11/02/21 11/01/21 22:00 History amLODIPine 10 mg PO DAILY 10/27/21 11/02/21 11/01/21 10:00 History Mag Hydrox/Aluminum Hyd/Simeth 15 ml PO Q6H PRN 15 Days #1 bottle 10/28/21 11/02/21 Unknown Rx [Maalox Advanced Suspension] Ondansetron [Zofran Odt] 4 mg PO Q8HR PRN #20 tab.rapdis 10/28/21 11/02/21 11/01/21 09:00 Rx Exam - Physical Exam Narrative exam: Physical exam GENERAL: well-developed and well-nourished elderly - Vincentian male lying on bed appeared to be in no discomfort. HEENT: Normocephalic. Atraumatic. No conjunctival congestion or icterus. Patient has moist mucous membranes. NECK: Supple. Trachea midline. CHEST/LUNGS: Diminished breath sound auscultated bilaterally, patient on nasal cannula O2 HEART/CARDIOVASCULAR: Regular in rate and rhythm. S1 and S2 positive. ABDOMEN: Abdomen is soft, nontender. Patient has normal bowel sounds. SKIN: There is no rash. Warm and dry. NEURO: No focal motor deficit. Follows command. MUSCULOSKELETAL: No joint effusion or tenderness. EXTRIMITY: No edema, no cyanosis or clubbing. PSYCH: Cooperative. - Constitutional Vitals: Temp Pulse Resp BP Pulse Ox 98.9 F 93 H 18 149/91 94 11/02/21 04:16 11/02/21 07:44 11/02/21 07:44 11/02/21 07:44 11/02/21 07:44 Results - Labs CBC & Chem 7: 11/02/21 06:37 11/03/21 04:24 Labs: Abnormal lab results 11/02/21 11/02/21 Range/Units 06:37 06:37 WBC 4.0 L (4.5-11.0) K/mm3 RBC 3.03 L (3.65-5.03) M/mm3 Hgb 8.5 L (11.8-15.2) gm/dl Hct 25.9 L (35.5-45.6) % RDW 16.2 H (13.2-15.2) % [place] % (Auto) 15.4 H (0.0-7.3) % Eos % (Auto) 5.5 H (0.0-4.3) % Lymph # (Auto) 1.1 L (1.2-5.4) K/mm3 Potassium 5.1 H (3.6-5.0) mmol/L Carbon Dioxide 18 L (22-30) mmol/L BUN 54 H (9-20) mg/dL Creatinine 17.3 H (0.8-1.3) mg/dL Glucose 72 L (75-100) mg/dL Calcium 8.2 L (8.4-10.2) mg/dL Albumin 2.5 L (3.9-5) g/dL - Imaging and Cardiology Chest x-ray: report reviewed (Mild pulmonary edema) Assessment and Plan End-stage renal disease with volume overload hypertension Mild hyperkalemia Anemia of chronic disease Hypoalbuminemia HIV not on any medications -- Admit to MedSurg, consult nephrology for immediate hemodialysis -- Resume home meds, follow CBC and BMP --Heparin for DVT prophylaxis -- Dietary consult, renal diet
[2021-11-02] MEDS ORDERED: NALOXONE 0.4 MG/1 ML INJ IV PRN (09:30)
[2021-11-02] MEDS ORDERED: ONDANSETRON 4 MG/2 ML INJ IV PRN (10:00)
[2021-11-02] MEDS ORDERED: NON-FORMULARY EACH (Amlodipine 10 MG) PO SCH (10:00)
[2021-11-02] MEDS ORDERED: ACETAMINOPHEN 325 MG TAB PO PRN (10:00)
[2021-11-02] MEDS ORDERED: MORPHINE 4 MG/1 ML INJ IV PRN (10:00)
[2021-11-02] MEDS ORDERED: NON-FORMULARY EACH (Gabapentin [Neurontin] 600 MG Tablet) PO SCH (10:00)
--- NOTE | 2021-11-02 11:23 | Consultation ---
History of Present Illness - History of Present Illness Thank you for the consultation ! Patient was evaluated today, Assessment and plan; #End-stage kidney disease: Patient will continue to receive hemodialysis treatment 3 times a week on Friday and Friday, Patient currently does not have insurance or any [facility] admitted with volume overload will benefit from hemodialysis Discussed about compliance issues Monitor dialysis related labs/monitor for any access issues Fluid restriction 1200 cc/day high-protein diet #Access: Needs to be monitored during dialysis #Hypertension and volume: To monitor and follow avoid hypotension tachycardia during dialysis ultrafiltration goals can be adjusted if needed dialysis nurse to monitor hemodynamics closely #Anemia in end-stage kidney disease: To monitor and follow erythropoietin periodically goal hemoglobin between 10-11-1/2 Minimize lab draw in dialysis patients, if possible consider limiting to dialysis days #Bone mineral disorder and secondary hyperparathyroidism; Monitor phosphorus binders as necessary goal phosphorus less than 5-1/2 #Diet and nutrition: Consider high-protein diet nutrition supplementation, #Medication recommendation: Please dose for creatinine clearance less than 15 cc/min All related questions have been addressed with the patient including diet lifestyle changes fluid restriction sodium restrictions avoidance of processed food as much as possible. Patient has been advised to get further education regarding renal related issues from our website as well as attached links such as [email or web address] as well as [employer], patient was advised to make a follow-up appointment with coater brake linings within a week or 2 of the discharge If you have any questions regarding this patient's renal care please feel free to reach me at [phone] Author: Kayden Cordero M.D. [facility], [address] [place] [address] Tel; [phone] History of present illness; Patient is 61-year-old male who has been admitted here with pulmonary edema, currently on dialysis and has not been dialyzed since Friday this week, admission potassium was 5.1 with a BUN of 54 creatinine 7.3 hemoglobin was 8.5 platelet count was normal white cell count slightly low at 4000, currently is uninsured, needing dialysis, which has been ordered Past medical history: End-stage kidney disease Anemia in end-stage kidney disease Secondary hyperparathyroidism Hypertension Current allergies: Reviewed from the current chart Social history: Reviewed from the current chart Family history: Reviewed from the current chart Review of system: Positive for shortness of breath volume overload unable to dialyze since Friday of this week All other review of systems negative Physical examination Vitals: Reviewed General: No acute distress HEENT: Oral mucosa moist no pallor or icterus Neck: Supple without any JVD thyromegaly or nodular mass Chest: Clear to auscultation Heart: Regular rate and rhythm S1-S2 heard no S3-S4 Abdomen: Soft nontender, bowel sounds present no renal bruit no suprapubic masses no CVA tenderness noted Extremity: Minimal edema dry skin no peripheral cyanosis Endocrine: Thyroid not enlarged Psychiatric: No agitation and aggression noted Musculoskeletal: No joint effusion noted Labs and x-rays: Reviewed from this admission Medications and Allergies Allergies Allergy/AdvReac Type Severity Reaction Status Date / Time No Known Allergies Allergy Verified 10/09/21 11:02 Home Medications Medication Instructions Recorded Confirmed Last Taken Type Bacitracin/Pramoxine/Aloe Vera 1 applicatio TP TID #1 tube 10/09/21 10/27/21 Unknown Rx [Bacitraycin Plus Ointment] Calc Carb/Vit D 500 mg-200 Uni 1 each PO DAILY #30 tablet 10/21/21 10/27/21 Unknown Rx [Oysco D 500 mg-200 Unit] Famotidine [Pepcid] 10 mg PO BID #60 tablet 10/21/21 10/27/21 Unknown Rx Losartan 50 mg PO DAILY #30 10/21/21 10/27/21 Unknown Rx Acetaminophen [Tylenol] 500 mg PO Q6H PRN 10/27/21 10/27/21 Unknown History Gabapentin [Neurontin] 600 mg PO BID 10/27/21 10/27/21 Unknown History amLODIPine 10 mg PO DAILY 10/27/21 10/27/21 Unknown History Mag Hydrox/Aluminum Hyd/Simeth 15 ml PO Q6H PRN 15 Days #1 bottle 10/28/21 Unknown Rx [Maalox Advanced Suspension] Ondansetron [Zofran Odt] 4 mg PO Q8HR PRN #20 tab.rapdis 10/28/21 Unknown Rx Active Meds: Active Medications Acetaminophen (Acetaminophen 325 Mg Tab) 650 mg PO Q4H PRN PRN Reason: Pain MILD(1-3)/Fever >100.5/RACHEL Amlodipine Besylate (Amlodipine 10 Mg Tab) 10 mg PO DAILY CAILIN Docusate Sodium (Docusate Sodium 100 Mg Cap) 100 mg PO BID [facility] Famotidine (Famotidine 10 Mg Tab) 10 mg PO QDAY [facility] Heparin Sodium (Porcine) (Heparin 5,000 Unit/1 Ml Vial) 5,000 unit SUB-Q Q8HR [facility] Miscellaneous Medication (Gabapentin [Neurontin]) 100 mg PO BID [facility] Morphine Sulfate (Morphine 4 Mg/1 Ml Inj) 4 mg IV Q4H PRN PRN Reason: Pain , Severe (7-10) Naloxone HCl (Naloxone 0.4 Mg/1 Ml Inj) 0.1 mg IV Q2MIN PRN PRN Reason: Res Rate </= 8 or 02 SAT < 92% Ondansetron HCl (Ondansetron 4 Mg/2 Ml Inj) 4 mg IV Q8H PRN PRN Reason: Nausea And Vomiting Oxycodone/Acetaminophen (Oxycodone /Acetaminophen 5-325mg Tab) 1 tab PO Q6H PRN PRN Reason: Pain, Moderate (4-6) Sodium Chloride (Sodium Chloride 0.9% 10 Ml Flush Syringe) 10 ml IV BID [facility] Sodium Chloride (Sodium Chloride 0.9% 10 Ml Flush Syringe) 10 ml IV PRN PRN PRN Reason: LINE FLUSH Exam - Vital Signs Vital signs: Vital Signs Temp Pulse Resp BP Pulse Ox 98.9 F 99 H 20 150/93 99 11/01/21 21:49 11/01/21 21:49 11/01/21 21:49 11/01/21 21:49 11/01/21 21:49 Results - Lab Results 11/02/21 06:37 11/02/21 06:37 Most recent lab results Calcium 8.2 mg/dL (8.4-10.2) L 11/02/21 06:37
[2021-11-02] MEDS ORDERED: EPOETIN ALFA-EPBX 20,000 UNIT/1 ML VIAL SUB-Q NR (11:24)
[2021-11-02] MEDS ORDERED: SODIUM CHLORIDE 0.9% 100 ML IV PRN (11:30)
[2021-11-02] MEDS: GABAPENTIN 300 MG CAP PO SCH ×2 (12:28→22:26)
[2021-11-02] MEDS: FAMOTIDINE 10 MG TAB PO SCH (12:29)
[2021-11-02] MEDS: amLODIPine 10 MG TAB PO SCH (12:30)
[2021-11-02] MEDS: DOCUSATE SODIUM 100 MG CAP PO SCH ×2 (12:30→22:27)
[2021-11-02] MEDS: HEPARIN 5,000 UNIT/1 ML VIAL SUB-Q SCH ×2 (14:41→22:26)
[2021-11-02] MEDS: oxyCODONE /ACETAMINOPHEN 5-325MG TAB PO PRN (22:30)
[2021-11-03 05:33] LABS: Calcium 8.1 mg/dL (8.4-10.2)
[2021-11-03] MEDS: HEPARIN 5,000 UNIT/1 ML VIAL SUB-Q SCH ×3 (07:51→21:53)
[2021-11-03] MEDS: amLODIPine 10 MG TAB PO SCH (09:12)
[2021-11-03] MEDS: GABAPENTIN 300 MG CAP PO SCH ×2 (09:12→21:53)
[2021-11-03] MEDS: FAMOTIDINE 10 MG TAB PO SCH (09:12)
[2021-11-03] MEDS: DOCUSATE SODIUM 100 MG CAP PO SCH ×2 (09:13→21:53)
--- NOTE | 2021-11-03 11:14 | Progress Note ---
Subjective Interval history: My assessment and plan are as follows #End-stage kidney disease: Status postdialysis As of today potassium is 4.3 BUN 29 creatinine is 10.1 much better and improved He currently does not have any insurance and dialysis clinic to go to but have encouraged him to consider dialysis at least 2-3 times per week Patient has had evidence of volume overload and shortness of breath yesterday he was dyspneic during conversation but much improved today Monitor dialysis related labs/monitor for any access issues Fluid restriction 1200 cc/day high-protein diet #Access: Needs to be monitored during dialysis #Hypertension and volume: To monitor and follow avoid hypotension tachycardia during dialysis ultrafiltration goals can be adjusted if needed dialysis nurse to monitor hemodynamics closely Volume status much improved #Anemia in end-stage kidney disease: To monitor and follow erythropoietin periodically goal hemoglobin between 04-02-06/24 Minimize lab draw in dialysis patients, if possible consider limiting to dialysis days Patient was adequately counseled and educated regarding all the renal related issues, relevant renal related labs were also discussed and all questions were answered If there are any renal related issues in regards to this patient please feel free to reach out without any hesitation at [phone] We'll continue to follow and make recommendation for renal standpoint. Progress note by: Kayden Cordero MD [address] [place] [id number] Tele [phone] [email or web address] Patient was seen today for follow-up of multiple renal related issues No complaints of any chest pain pressure or shortness of breath Interdisciplinary notes that also reviewed Events of 24 hours vitals labs intake output medications were reviewed Past medical history: Reviewed Family history: Reviewed Social history: Reviewed Allergies: Reviewed Physical examination: Vitals: Reviewed HEENT: No pallor or icterus oral mucosa moist Neck: Supple no JVD no thyromegaly Chest: Bilateral clear to auscultation anteriorly Heart: Regular rate and rhythm S1-S2 heard no S3-S4 Abdomen: Soft nontender no voluntary guarding rigidity rebound Extremity: Dry skin less than 1+ peripheral edema Psychiatric: No evidence of agitation and aggression noted Dermatology: No petechial rashes Labs and x-rays: Reviewed from today Objective - Vital Signs Vital signs: Vital Signs - 12hr 11/03/21 11/03/21 11/03/21 02:00 04:59 08:16 Temperature 98.8 F Pulse Rate 97 H Respiratory 18 18 Rate Blood Pressure 151/87 O2 Sat by Pulse 97 95 100 Oximetry 11/03/21 09:12 Temperature Pulse Rate Respiratory Rate Blood Pressure 151/91 O2 Sat by Pulse Oximetry - Lab 11/02/21 06:37 11/03/21 04:24 Most recent lab results Calcium 8.1 mg/dL (8.4-10.2) L 11/03/21 04:24 Medications & Allergies - Medications Allergies/Adverse Reactions: Allergies No Known Allergies Allergy (Verified 10/09/21 11:02) Home Medications: Home Medications Medication Instructions Recorded Confirmed Last Taken Type RX: Bacitracin/Pramoxine/Aloe Vera 1 applicatio TP TID #1 tube 10/09/21 11/02/21 Unknown Rx [Bacitraycin Plus Ointment] RX: Calc Carb/Vit D 500 mg-200 Uni 1 each PO DAILY #30 tablet 10/21/21 11/02/21 11/01/21 10:00 Rx [Oysco D 500 mg-200 Unit] RX: Famotidine [Pepcid] 10 mg PO BID #60 tablet 10/21/21 11/02/21 11/01/21 22:00 Rx RX: Acetaminophen [Tylenol] 500 mg PO Q6H PRN 10/27/21 11/02/21 Unknown History amLODIPine 10 mg PO DAILY 10/27/21 11/02/21 11/01/21 10:00 History Active Medications: Generic Name Dose Route Start Last Admin Trade Name Freq PRN Reason Stop Dose Admin Acetaminophen 650 mg 11/02/21 10:00 Acetaminophen 325 Mg Tab PO Q4H PRN Pain MILD(1-3)/Fever >100.5/RACHEL Amlodipine Besylate 10 mg 11/02/21 10:00 11/03/21 09:12 Amlodipine 10 Mg Tab PO 10 mg DAILY CAILIN Administration Docusate Sodium 100 mg 11/02/21 10:00 11/03/21 09:13 Docusate Sodium 100 Mg Cap PO Not Given BID CAILIN Famotidine 10 mg 11/02/21 10:00 11/03/21 09:12 Famotidine 10 Mg Tab PO 10 mg QDAY CAILIN Administration Gabapentin 600 mg 11/02/21 12:30 11/03/21 09:12 Gabapentin 300 Mg Cap PO 600 mg BID CAILIN Administration Heparin Sodium (Porcine) 5,000 unit 11/02/21 14:00 11/03/21 07:51 Heparin 5,000 Unit/1 Ml Vial SUB-Q 5,000 unit Q8HR CAILIN Administration Sodium Chloride 100 mls @ 999 mls/hr 11/02/21 11:30 Nacl 0.9% IV LAKE PRN Hypotension Morphine Sulfate 4 mg 11/02/21 10:00 Morphine 4 Mg/1 Ml Inj IV Q4H PRN Pain , Severe (7-10) Naloxone HCl 0.1 mg 11/02/21 09:30 Naloxone 0.4 Mg/1 Ml Inj IV Q2MIN PRN Res Rate </= 8 or 02 SAT < 92% Ondansetron HCl 4 mg 11/02/21 10:00 Ondansetron 4 Mg/2 Ml Inj IV Q8H PRN Nausea And Vomiting Oxycodone/Acetaminophen 1 tab 11/02/21 10:00 11/02/21 22:30 Oxycodone /Acetaminophen 5-325mg Tab PO 1 tab Q6H PRN Administration Pain, Moderate (4-6) Sodium Chloride 10 ml 11/02/21 10:00 11/03/21 09:14 Sodium Chloride 0.9% 10 Ml Flush Syringe IV 10 ml BID CAILIN Administration Sodium Chloride 10 ml 11/02/21 10:00 Sodium Chloride 0.9% 10 Ml Flush Syringe IV PRN PRN LINE FLUSH
[2021-11-03] MEDS: oxyCODONE /ACETAMINOPHEN 5-325MG TAB PO PRN (13:17)
--- NOTE | 2021-11-03 14:18 | Discharge Summary ---
Providers - Providers Date of Admission: 11/02/21 09:17 Date of discharge: 11/05/21 Attending physician: SOCTT SINGH 11/02/21 09:17 Consult to Physician [CONS] Routine Comment: Consulting Provider: SUSSY NAQVI Physician Instructions: Reason For Exam: ESRD Primary care physician: OUTCOMES ANALYST Hospitalization Condition: Stable Hospital course: Patient is a 61-year-old male with history of end-stage renal disease on dialysis Friday and Friday presenting with complaint of shortness of breath after missed dialysis. States his last dialysis was last Friday. Also note patient does not have any insurance or outpatient dialysis set up. He had multiple admission in the past for similar issues. Nephrology was immediately consulted for emergent hemodialysis given the patient's severe hypoxia secondary to presumed volume overload. Patient was admitted for further evaluation and management. His home medications were resumed and his symptom improved following hemodialysis. Patient was then planned for discharge but he claimed that he does not have any ride home. He was then dialyzed again today and he will be discharged home when his ride is available. Discharge planning management was thoroughly discussed with the patient and he verbalized understanding. Disposition: 01 HOME / SELF CARE / HOMELESS Final Discharge Diagnosis (Prints w/discharge instructions): Acute respiratory failure, due to volume overload. End-stage renal disease with volume overload. hypertension. Mild hyperkalemia. Anemia of chronic disease. Hypoalbuminemia. HIV not on any medications Time spent for discharge: 34 minutes Core Measure Documentation - Palliative Care Palliative Care/ Comfort Measures: Not Applicable - Core Measures Any of the following diagnoses?: none Exam - Physical Exam Narrative exam: Physical exam GENERAL: well-developed and well-nourished elderly - Taiwanese male lying on bed appeared to be in no discomfort. HEENT: Normocephalic. Atraumatic. No conjunctival congestion or icterus. Patient has moist mucous membranes. NECK: Supple. Trachea midline. CHEST/LUNGS: +ve breath sound auscultated bilaterally, patient on RA HEART/CARDIOVASCULAR: Regular in rate and rhythm. S1 and S2 positive. ABDOMEN: Abdomen is soft, nontender. Patient has normal bowel sounds. SKIN: There is no rash. Warm and dry. NEURO: No focal motor deficit. Follows command. MUSCULOSKELETAL: No joint effusion or tenderness. EXTRIMITY: No edema, no cyanosis or clubbing. PSYCH: Cooperative. - Constitutional Vitals: Temp Pulse Resp BP Pulse Ox 98.8 F 101 H 20 127/88 94 11/03/21 11:54 11/03/21 11:54 11/03/21 11:54 11/03/21 11:54 11/03/21 11:54 Plan Activity: advance as tolerated Weight Bearing Status: Weight Bear as Tolerated Diet: renal Special Instructions: restrict fluid intake to (1.2L daily) Additional Instructions: Please come back to your nearest ER for your next dialysis need Follow up with: KAMARI GLORIA MD [Primary Care Provider] - 3-5 Days DARIAN ARELLANO MD [Staff Physician] - 7 Days
[2021-11-04] MEDS: HEPARIN 5,000 UNIT/1 ML VIAL SUB-Q SCH ×3 (05:51→21:53)
[2021-11-04] MEDS: GABAPENTIN 300 MG CAP PO SCH ×2 (09:38→21:53)
[2021-11-04] MEDS: FAMOTIDINE 10 MG TAB PO SCH (09:38)
[2021-11-04] MEDS: DOCUSATE SODIUM 100 MG CAP PO SCH ×2 (09:39→21:53)
[2021-11-04] MEDS: amLODIPine 10 MG TAB PO SCH (09:40)
--- NOTE | 2021-11-04 15:31 | Progress Note ---
Assessment and Plan End-stage renal disease with volume overload hypertension, moderately controlled Mild hyperkalemia Anemia of chronic disease Hypoalbuminemia HIV not on any medications -- consulted nephrology for immediate hemodialysis -- Resumed home meds, follow CBC and BMP -- Heparin for DVT prophylaxis -- Continue renal diet --Patient stating that he does not have any ride until Friday, CM unable to set up for transportation Subjective Date of service: 11/04/21 Interval history: Patient seen and examined. Medical records and medication list reviewed. No acute event overnight noted by the RN. Patient denies any chest pain or difficulty breathing. Patient is tolerating diet. Discussed plan of care at bedside with patient. Objective - Exam Narrative Exam: Physical exam GENERAL: well-developed and well-nourished elderly - Mauritanian male lying on bed appeared to be in no discomfort. HEENT: Normocephalic. Atraumatic. No conjunctival congestion or icterus. Patient has moist mucous membranes. NECK: Supple. Trachea midline. CHEST/LUNGS: +ve breath sound auscultated bilaterally, patient on RA HEART/CARDIOVASCULAR: Regular in rate and rhythm. S1 and S2 positive. ABDOMEN: Abdomen is soft, nontender. Patient has normal bowel sounds. SKIN: There is no rash. Warm and dry. NEURO: No focal motor deficit. Follows command. MUSCULOSKELETAL: No joint effusion or tenderness. EXTRIMITY: No edema, no cyanosis or clubbing. PSYCH: Cooperative. - Constitutional Vitals: Vital Signs - 12hr 11/04/21 11/04/21 11/04/21 06:00 08:13 08:20 Temperature 99.2 F Pulse Rate 94 H Respiratory 18 Rate Blood Pressure Blood Pressure 149/81 [Right] O2 Sat by Pulse 95 95 98 Oximetry 11/04/21 11/04/21 11/04/21 09:39 09:40 11:15 Temperature 98.9 F Pulse Rate 98 H 99 H Respiratory 22 Rate Blood Pressure 143/91 138/92 Blood Pressure [Right] O2 Sat by Pulse 96 95 Oximetry - Labs CBC & Chem 7: 11/02/21 06:37 11/03/21 04:24
[2021-11-05] MEDS: HEPARIN 5,000 UNIT/1 ML VIAL SUB-Q SCH ×2 (06:08→14:05)
--- NOTE | 2021-11-05 08:17 | Progress Note ---
Assessment and Plan End-stage renal disease with volume overload hypertension, moderately controlled Mild hyperkalemia Anemia of chronic disease Hypoalbuminemia HIV not on any medications -- consulted nephrology for immediate hemodialysis -- Resumed home meds, follow CBC and BMP -- Heparin for DVT prophylaxis -- Continue renal diet --Patient was discharged today stating that he does not have any ride, called his sister but she stated that she cannot come and cotton picker the patient, called on-call disability case manager to arrange transportation for discharge. Subjective Date of service: 11/03/21 Interval history: Patient seen and examined. Medical records and medication list reviewed. No acute event overnight noted by the RN. Patient denies any chest pain or difficulty breathing. Patient is tolerating diet. Discussed plan of care at bedside with patient. Objective - Exam Narrative Exam: Physical exam GENERAL: well-developed and well-nourished elderly - Grenadian male lying on bed appeared to be in no discomfort. HEENT: Normocephalic. Atraumatic. No conjunctival congestion or icterus. Patient has moist mucous membranes. NECK: Supple. Trachea midline. CHEST/LUNGS: +ve breath sound auscultated bilaterally, patient on RA HEART/CARDIOVASCULAR: Regular in rate and rhythm. S1 and S2 positive. ABDOMEN: Abdomen is soft, nontender. Patient has normal bowel sounds. SKIN: There is no rash. Warm and dry. NEURO: No focal motor deficit. Follows command. MUSCULOSKELETAL: No joint effusion or tenderness. EXTRIMITY: No edema, no cyanosis or clubbing. PSYCH: Cooperative. - Constitutional Vitals: Vital Signs - 12hr 11/04/21 11/04/21 11/05/21 21:30 22:30 06:45 Temperature 98.6 F Pulse Rate 100 H 90 Respiratory 18 20 Rate Blood Pressure 148/98 142/88 [Right] O2 Sat by Pulse 98 98 96 Oximetry - Labs CBC & Chem 7: 11/02/21 06:37 11/03/21 04:24
[2021-11-05] MEDS: amLODIPine 10 MG TAB PO SCH (09:12)
[2021-11-05] MEDS: GABAPENTIN 300 MG CAP PO SCH (09:12)
[2021-11-05] MEDS: FAMOTIDINE 10 MG TAB PO SCH (09:12)
[2021-11-05] MEDS: DOCUSATE SODIUM 100 MG CAP PO SCH (09:13)
--- NOTE | 2021-11-05 10:48 | Progress Note ---
Subjective Date of service: 11/05/21 Interval history: #End-stage kidney disease: Status postdialysis He currently does not have any insurance and dialysis clinic to go to but have encouraged him to consider dialysis at least 2-3 times per week HD q MWF Monitor dialysis related labs/monitor for any access issues Fluid restriction 1200 cc/day high-protein diet ok to dc from renal standpoint after hd today #Access: Needs to be monitored during dialysis #Hypertension and volume: To monitor and follow avoid hypotension tachycardia during dialysis ultrafiltration goals can be adjusted if needed dialysis nurse to monitor hemodynamics closely Volume status much improved #Anemia in end-stage kidney disease: To monitor and follow erythropoietin periodically goal hemoglobin between 04-02-06/24 Minimize lab draw in dialysis patients, if possible consider limiting to dialysis days Patient was adequately counseled and educated regarding all the renal related issues, relevant renal related labs were also discussed and all questions were answered Patient was seen today for follow-up of multiple renal related issues No complaints of any chest pain pressure or shortness of breath Interdisciplinary notes that also reviewed Events of 24 hours vitals labs intake output medications were reviewed Past medical history: Reviewed Family history: Reviewed Social history: Reviewed Allergies: Reviewed Physical examination: Vitals: Reviewed HEENT: No pallor or icterus oral mucosa moist Neck: Supple no JVD no thyromegaly Chest: Bilateral clear to auscultation anteriorly Heart: Regular rate and rhythm S1-S2 heard no S3-S4 Abdomen: Soft nontender no voluntary guarding rigidity rebound Extremity: Dry skin less than 1+ peripheral edema Psychiatric: No evidence of agitation and aggression noted Dermatology: No petechial rashes Labs and x-rays: Reviewed from today Objective - Vital Signs Vital signs: Vital Signs - 12hr 11/05/21 11/05/21 11/05/21 06:45 08:00 09:11 Pulse Rate 90 100 H Respiratory 20 20 Rate Blood Pressure Blood Pressure 142/88 144/92 [Right] O2 Sat by Pulse 96 97 Oximetry 11/05/21 09:12 Pulse Rate 100 H Respiratory Rate Blood Pressure 144/92 Blood Pressure [Right] O2 Sat by Pulse Oximetry - Lab 11/02/21 06:37 11/03/21 04:24 Most recent lab results Calcium 8.1 mg/dL (8.4-10.2) L 11/03/21 04:24 Medications & Allergies - Medications Allergies/Adverse Reactions: Allergies No Known Allergies Allergy (Verified 10/09/21 11:02) Home Medications: Home Medications Medication Instructions Recorded Confirmed Last Taken Type Bacitracin/Pramoxine/Aloe Vera 1 applicatio TP TID #1 tube 10/09/21 11/02/21 Unknown Rx [Bacitraycin Plus Ointment] Calc Carb/Vit D 500 mg-200 Uni 1 each PO DAILY #30 tablet 10/21/21 11/02/21 11/01/21 10:00 Rx [Oysco D 500 mg-200 Unit] Famotidine [Pepcid] 10 mg PO BID #60 tablet 10/21/21 11/02/21 11/01/21 22:00 Rx Acetaminophen [Tylenol] 500 mg PO Q6H PRN 10/27/21 11/02/21 Unknown History amLODIPine 10 mg PO DAILY 10/27/21 11/02/21 11/01/21 10:00 History Active Medications: Generic Name Dose Route Start Last Admin Trade Name Freq PRN Reason Stop Dose Admin Acetaminophen 650 mg 11/02/21 10:00 Acetaminophen 325 Mg Tab PO Q4H PRN Pain MILD(1-3)/Fever >100.5/RACHEL Amlodipine Besylate 10 mg 11/02/21 10:00 11/05/21 09:12 Amlodipine 10 Mg Tab PO 10 mg DAILY CAILIN Administration Docusate Sodium 100 mg 11/02/21 10:00 11/05/21 09:13 Docusate Sodium 100 Mg Cap PO 100 mg BID CAILIN Administration Famotidine 10 mg 11/02/21 10:00 11/05/21 09:12 Famotidine 10 Mg Tab PO 10 mg QDAY CAILIN Administration Gabapentin 600 mg 11/02/21 12:30 11/05/21 09:12 Gabapentin 300 Mg Cap PO 600 mg BID CAILIN Administration Heparin Sodium (Porcine) 5,000 unit 11/02/21 14:00 11/05/21 06:08 Heparin 5,000 Unit/1 Ml Vial SUB-Q 5,000 unit Q8HR CAILIN Administration Sodium Chloride 100 mls @ 999 mls/hr 11/02/21 11:30 Nacl 0.9% IV LAKE PRN Hypotension Morphine Sulfate 4 mg 11/02/21 10:00 Morphine 4 Mg/1 Ml Inj IV Q4H PRN Pain , Severe (7-10) Naloxone HCl 0.1 mg 11/02/21 09:30 Naloxone 0.4 Mg/1 Ml Inj IV Q2MIN PRN Res Rate </= 8 or 02 SAT < 92% Ondansetron HCl 4 mg 11/02/21 10:00 Ondansetron 4 Mg/2 Ml Inj IV Q8H PRN Nausea And Vomiting Oxycodone/Acetaminophen 1 tab 11/02/21 10:00 11/03/21 13:17 Oxycodone /Acetaminophen 5-325mg Tab PO 1 tab Q6H PRN Administration Pain, Moderate (4-6) Sodium Chloride 10 ml 11/02/21 10:00 11/05/21 09:13 Sodium Chloride 0.9% 10 Ml Flush Syringe IV 10 ml BID CAILIN Administration Sodium Chloride 10 ml 11/02/21 10:00 Sodium Chloride 0.9% 10 Ml Flush Syringe IV PRN PRN LINE FLUSH
[2021-11-05] MEDS ORDERED: hydrALAZINE 20 MG/1 ML INJ IV ONE (15:00)
[2021-11-05 15:02] VITALS: BP 118/68
--- NOTE | 2021-11-06 18:47 | Electrocardiograph Report ---
[facility] Test Date: 2021-11-04 Test Time: 07:40:00 Pat Name: TERESA HARGROVE Department: Room: A390 Gender: M Apricot Washer: KYLE : 1960 Requested By: POLO TIERNEY Order Number: [id number] Reading MD: Parul Rodriguez Measurements Intervals [place] Rate: 95 P: 60 NH: 131 QRS: -59 QRSD: 104 T: 154 QT: 415 QTc: 519 Interpretive Statements Sinus with frequent PACs Left axis deviation Low voltage QRS Possible old anterior infarct Nonspecific anterolateral T wave abnormality Compared to ECG 10/27/2021 06:22:22 No significant change Electronically Signed On 11-06-2021 18:46:52 EDT by Parul Rodriguez
== END 2021-11-05 16:00 | disposition home or self-care (01) | DRG 640 ==
LOC: ED 18:08 → 3A 11-02 09:17 → OBSVTOIN 11-04 08:28
PROVIDERS: ADMIT Internal Medicine; ATTEND Internal Medicine
PROC: 5A1D70Z Performance of Urinary Filtration, Intermittent, Less than 6 Hours Per Day (ICD-10-PCS; principal; 2021-11-02)
PROC: 5A1D70Z Performance of Urinary Filtration, Intermittent, Less than 6 Hours Per Day (ICD-10-PCS; 2021-11-05)
DX: E87.5 Hyperkalemia (principal); N18.6 End stage renal disease; J96.01 Acute respiratory failure with hypoxia; I13.2 Hypertensive heart and chronic kidney disease with heart failure and with stage 5 chronic kidney disease, or end stage renal disease; N25.81 Secondary hyperparathyroidism of renal origin; Z21 Asymptomatic human immunodeficiency virus [HIV] infection status; E11.22 Type 2 diabetes mellitus with diabetic chronic kidney disease; Z99.2 Dependence on renal dialysis; I50.9 Heart failure, unspecified; Z82.49 Family history of ischemic heart disease and other diseases of the circulatory system; D63.1 Anemia in chronic kidney disease; Z86.79 Personal history of other diseases of the circulatory system
CPT/HCPCS: 36415; 71045; 80048; 80053; 85025; 93005; 94760; G0378; J0360; J0885; J1644

== ENCOUNTER 2021-11-12 06:01 | Observation (INO) | payer SELFPAY ==
--- NOTE | 2021-11-12 06:53 | Emergency Department Report ---
HPI - General Time Seen by Provider: 11/12/21 06:38 - HPI HPI: Room 24 The patient is a 61-year-old male present with chief complaint of "needing hemodialysis." The patient states he receives hemodialysis every Friday and Friday here from the emergency department. Patient states his last dialyzed 7 days ago did not go over the weekend secondary to episodes of nausea vomiting and sciatic pain. Patient denies shortness of breath or fever. The patient also states he does not know what happened to his right chest Vas-Cath his last time he saw it was 1 week ago but is now not present. ED Past Medical Hx - Past Medical History Hx Hypertension: Yes Hx Congestive Heart Failure: Yes Hx Diabetes: Yes Hx Renal Disease: Yes (ESRD) Hx HIV: Yes (Unknown CD4 count. No meds x12 months) Additional medical history: MS, Sciatica - Surgical History Additional Surgical History: Right chest Vas-Cath, back surgery - Family History Family history: no significant - Social History Smoking Status: Never Smoker Substance Use Type: None - Medications Home Medications: Home Medications Medication Instructions Recorded Confirmed Last Taken Type Bacitracin/Pramoxine/Aloe Vera 1 applicatio TP TID #1 tube 10/09/21 11/02/21 Unknown Rx [Bacitraycin Plus Ointment] Calc Carb/Vit D 500 mg-200 Uni 1 each PO DAILY #30 tablet 10/21/21 11/02/21 11/01/21 10:00 Rx [Oysco D 500 mg-200 Unit] Famotidine [Pepcid] 10 mg PO BID #60 tablet 10/21/21 11/02/21 11/01/21 22:00 Rx Acetaminophen [Tylenol] 500 mg PO Q6H PRN 10/27/21 11/02/21 Unknown History amLODIPine 10 mg PO DAILY 10/27/21 11/02/21 11/01/21 10:00 History ED Review of Systems ROS: Stated complaint: NEED DIALYSIS Other details as noted in HPI Constitutional: denies: fever Eyes: denies: eye pain ENT: denies: throat pain Respiratory: denies: shortness of breath Cardiovascular: denies: chest pain Endocrine: no symptoms reported Gastrointestinal: denies: abdominal pain Genitourinary: denies: testicular pain Musculoskeletal: back pain Neurological: denies: headache Physical Exam - Physical Exam Physical Exam: GENERAL: The patient is well-developed well-nourished male lying on stretcher not appearing to be in acute distress. [] HEENT: Normocephalic. Atraumatic. Extraocular motions are intact. Patient has moist mucous membranes. NECK: Supple. Trachea midline CHEST/LUNGS: Clear to auscultation. There is no respiratory distress noted. HEART/CARDIOVASCULAR: Regular. There is no tachycardia. There is no gallop rub or murmur. ABDOMEN: Abdomen is soft, nontender. Patient has normal bowel sounds. There is no abdominal distention. SKIN: There is no rash. There is no edema. There is no diaphoresis. NEURO: The patient is awake, alert, and oriented. The patient is cooperative. The patient has no focal neurologic deficits. The patient has normal speech. GCS 15 MUSCULOSKELETAL: There is no evidence of acute injury. ED Course - Consultations Consultation #1: 11/12/21 09:22 Case discussed with embossograph operator Dr. Colon-karolina arrange for hemodialysis. Please consult vascular surgery for access Consultation #2: 11/12/21 09:22 Vascular surgery paged 11/12/21 10:[address] Nava-keep patient n.p.o. except for sips of water with meds ED Medical Decision Making - Lab Data Result diagrams: 11/12/21 06:50 11/12/21 06:50 Laboratory Tests 11/12/21 11/12/21 11/12/21 06:50 06:50 06:50 WBC 5.9 RBC 3.07 L Hgb 8.5 L Hct 26.0 L MCV 85 MCH 28 MCHC 33 RDW 16.3 H Plt Count 147 Lymph % (Auto) 23.1 Bowie % (Auto) 12.0 H Eos % (Auto) 3.8 Baso % (Auto) 1.0 Lymph # (Auto) 1.4 Bowie # (Auto) 0.7 Eos # (Auto) 0.2 Baso # (Auto) 0.1 Seg Neutrophils % 60.1 Seg Neutrophils # 3.5 PT 13.7 INR 0.95 APTT 32.7 Sodium 143 Potassium 4.8 Chloride 104.6 Carbon Dioxide 21 L Anion Gap 22 BUN 74 H Creatinine 15.9 H Estimated GFR 4 BUN/Creatinine Ratio 5 Glucose 89 Calcium 7.7 L - Radiology Data Radiology results: report reviewed (Chest x-ray), image reviewed (Chest x-ray) interpreted by me: Chest [id number]-feertemuvpod edema, no pneumothorax [facility] [address] [place] [address] XRay Report Signed Patient: TERESA HARGROVE MR#: [id number] [birth year] : 1960 Acct:[id number] Age/Sex: 61 / M ADM Date: 11/12/21 Loc: ED Attending Dr: Ordering Physician: ACOSTA DOUGLASS MD Date of Service: 11/12/21 Procedure(s): XR chest 1V ap Accession Number(s): [id number] cc: ACOSTA DOUGLASS MD Fluoro Time In Minutes: CHEST 1 VIEW INDICATION / CLINICAL INFORMATION: Right chest Vas-Cath pulled out STUDY TIME: 645 COMPARISON: 11/02/2021 FINDINGS: SUPPORT DEVICES: Vas-Cath has been removed. HEART / MEDIASTINUM: No significant abnormality. LUNGS / PLEURA: Mildly congested appearance is noted with slight interstitial edema. Density in the right base has improved without definite focal infiltrate at this time. No pneumothorax. ADDITIONAL FINDINGS: No significant additional findings. Signer Name: Kin Schultz MD Signed: 11/12/2021 7:02 AM Workstation Name: [id number] Transcribed By: GJ Dictated By: Kin Schultz MD Electronically Authenticated By: Kin Schultz MD Signed Date/Time: 11/12/21701 DD/ 0 TD/TT: - Differential Diagnosis ESRD, hyperkalemia Critical care attestation.: If time is entered above; I have spent that time in minutes in the direct care of this critically ill patient, excluding procedure time. ED Disposition Clinical Impression: End-stage renal disease needing dialysis Disposition: ADMITTED INPATIENT Is pt being admited?: Yes Does the pt Need Aspirin: No Condition: Fair Referrals: JEANNETTE WALSH MD [Primary Care Provider] - 3-5 Days Time of Disposition: 10:09 (Care transferred to hospitalist Dr Lopes (discussed with Dr. Gonzalez))
--- NOTE | 2021-11-12 07:06 | XRay Report ---
CHEST 1 VIEW INDICATION / CLINICAL INFORMATION: Right chest Vas-Cath pulled out STUDY TIME: 645 COMPARISON: 11/02/2021 FINDINGS: SUPPORT DEVICES: Vas-Cath has been removed. HEART / MEDIASTINUM: No significant abnormality. LUNGS / PLEURA: Mildly congested appearance is noted with slight interstitial edema. Density in the r ight base has improved without definite focal infiltrate at this time. No pneumothorax. ADDITIONAL FINDINGS: No significant additional findings. Signer Name: Kin Schultz MD Signed: 11/12/2021 7:02 AM Workstation Name: [id number]
[2021-11-12 07:11] LABS: Basophils # (Auto) 0.1 K/mm3 (0.0-0.1); Eosinophils # (Auto) 0.2 K/mm3 (0.0-0.4); Eosinophils % (Auto) 3.8 % (0.0-4.3); Hemoglobin 8.5 gm/dl (11.8-15.2); Lymphocytes # (Auto) 1.4 K/mm3 (1.2-5.4); Lymphocytes % (Auto) 23.1 % (13.4-35.0); Mean Corpuscular HGB Conc 33 % (32-34); Mean Corpuscular Volume 85 fl (84-94); Monocytes # (Auto) 0.7 K/mm3 (0.0-0.8); Platelet Count 147 K/mm3 (140-440); Red Blood Count 3.07 M/mm3 (3.65-5.03); Red Cell Distribution Width 16.3 % (13.2-15.2)
[2021-11-12 07:23] LABS: INR 0.95 (0.87-1.13)
[2021-11-12 07:24] LABS: Partial Thromboplastin Time 32.7 Sec. (24.2-36.6)
[2021-11-12 07:31] LABS: Calcium 7.7 mg/dL (8.4-10.2)
[2021-11-12] MEDS: HEPARIN 10,000 UNITS/10 ML VIAL IV PRN (09:00)
[2021-11-12] MEDS ORDERED: ONDANSETRON 4 MG/2 ML INJ IV PRN (10:54)
[2021-11-12] MEDS ORDERED: ACETAMINOPHEN 325 MG TAB PO PRN (10:54)
[2021-11-12] MEDS ORDERED: oxyCODONE /ACETAMINOPHEN 5-325MG TAB PO PRN (10:54)
[2021-11-12] MEDS ORDERED: CALCITRIOL 0.5 MCG CAP PO ONE (10:57)
[2021-11-12] MEDS ORDERED: HEPARIN/NS 5000 UNIT/500ML 1,000 ML IR ONE (11:02)
[2021-11-12] MEDS ORDERED: MIDAZOLAM 2 MG/2 ML INJ ONE (11:02)
[2021-11-12] MEDS ORDERED: fentaNYL 100 MCG/2 ML INJ ONE (11:02)
[2021-11-12] MEDS ORDERED: HEPARIN 10,000 UNITS/10 ML VIAL ONE (11:02)
[2021-11-12] MEDS ORDERED: ceFAZolin/Water 2 GM/20 ML 2 GM/20 ML SYRINGE IV ONE (11:03)
[2021-11-12] MEDS ORDERED: SODIUM CHLORIDE 0.9% 250ML 250 ML ONE (11:04)
[2021-11-12] MEDS ORDERED: LIDOCAINE 2%/EPINEPHRINE 1:200,000 VIAL (20 ML) INFILTRATI ONE ×2 (11:09→12:28)
[2021-11-12] MEDS: HEPARIN 10,000 UNITS/10 ML VIAL ONE ×2 (12:30→12:31)
--- NOTE | 2021-11-12 12:50 | Operative Report ---
Operative Report Operative Report: EXAM: 1. Ultrasound-guided puncture of the right internal jugular vein 2. Fluoroscopic-guided placement of a right internal jugular tunneled cuffed hemodialysis catheter. DATE: 11/12/2021 INDICATION: End-stage renal disease requiring hemodialysis. MEDICATIONS: Please see nursing report for full details. DEVICES: 27 cm tip to cuff 15 Fr dual lumen hemodialysis catheter [employer]ENSKEEPER LABORER: JOCELYNE SHOOK MD CONTRAST: None PROCEDURE: The risks, benefits, and alternatives were discussed and informed consent was obtained. The patient was transported to the angiography suite in satisfactory/stable condition and was transported onto the angiography table. The patient's right internal jugular vein was assessed with ultrasound and determined to be patent prior to procedure. The patient was prepped and draped in a sterile fashion. The puncture site was anesthetized. Under sonographic guidance, the right internal jugular vein was punctured with a 21-gauge micropuncture needle and a 0.018 inch wire was advanced into the inferior vena cava. The micropuncture needle was exchanged for a transitional dilator and the wire was retracted into the right atrium to halle intravascular distance. The wire and inner dilator were removed. 0.035 inch wire was advanced through the transitional dilator int o the inferior vena cava. A suitable exit site was identified on the patient's chest inferior and lateral to the venotomy. The site was anesthetized with local anesthetic and the track was anesthetized. Dermatotomy was made. The PermCath was attached to the tunneling device and tunneled between the dermatotomy to the venotomy. Over the 0.035 inch wire, serial dilatation was performed with ultimate placement of a peel-away sheath. The catheter was advanced through the peel- away sheath after the wire was removed and positioned centrally under fluoroscopic guidance. The peel-away sheath was removed. 4-0 Vicryl suture was used to close the venotomy and Dermabond was then applied. 2-0 Ethilon suture was used to secure the catheter at the dermatotomy. The catheter was charged with heparin 1000 units/mL of space. Sterile dressing and Biopatch applied. The patient was transferred from the angiography suite back to the floor in stable condition. FINDINGS: 1. Excellent flow was obtained through the dialysis catheter with 20 mL syringes. 2. The catheter tip is in the right atrium. IMPRESSION: 1. Successful ultrasound and fluoroscopically guided placement of a right internal jugular tunneled cuffed hemodialysis catheter.
[2021-11-12] MEDS ORDERED: SODIUM CHLORIDE 0.9% 100 ML IV PRN (13:58)
[2021-11-12] MEDS ORDERED: EPOETIN ALFA-EPBX 20,000 UNIT/1 ML VIAL SUB-Q PRN (13:58)
--- NOTE | 2021-11-12 14:00 | Consultation ---
History of Present Illness - Reason for Consult Consult date: 11/12/21 end stage renal disease - History of Present Illness The patient is a 61 YO male with history significant for HTN, Anemia and ESRD on HD who presented to [facility] ED 11/12/2021 with hemodialysis need. Patient currently not establised with any outpatient dialysis unit. He has been coming to ED for dialysis. He was last dialyzed about a week ago during the prior admission at this facility. Patient also reports that his hemodialysis catheter fell off few days ago. Denies fever, chills, nausea, vomiting, diarrhea, abd pain, CP, sob, leg swelling or syncope. Labs noted. CXR negative for any acute findings. Nephrology was consulted for ESRD management. Past History Past Medical History: other (See HPI.) Medications and Allergies Allergies Allergy/AdvReac Type Severity Reaction Status Date / Time No Known Allergies Allergy Verified 10/09/21 11:02 Home Medications Medication Instructions Recorded Confirmed Last Taken Type Bacitracin/Pramoxine/Aloe Vera 1 applicatio TP TID #1 tube 10/09/21 11/02/21 Unknown Rx [Bacitraycin Plus Ointment] Calc Carb/Vit D 500 mg-200 Uni 1 each PO DAILY #30 tablet 10/21/21 11/02/21 11/01/21 10:00 Rx [Oysco D 500 mg-200 Unit] Acetaminophen [Tylenol] 500 mg PO Q6H PRN 10/27/21 11/02/21 Unknown History Famotidine [Pepcid] 10 mg PO BID #60 tablet 11/12/21 Unknown Rx amLODIPine 10 mg PO DAILY #30 tab 11/12/21 Unknown Rx Active Meds: Active Medications Acetaminophen (Acetaminophen 325 Mg Tab) 650 mg PO Q4H PRN PRN Reason: Pain MILD(1-3)/Fever >100.5/RACHEL Morphine Sulfate (Morphine 4 Mg/1 Ml Inj) 2 mg IV Q4H PRN PRN Reason: Pain , Severe (7-10) Ondansetron HCl (Ondansetron 4 Mg/2 Ml Inj) 4 mg IV Q8H PRN PRN Reason: Nausea And Vomiting Oxycodone/Acetaminophen (Oxycodone /Acetaminophen 5-325mg Tab) 1 tab PO Q6H PRN PRN Reason: Pain, Moderate (4-6) Sodium Chloride (Sodium Chloride 0.9% 10 Ml Flush Syringe) 10 ml IV BID CAILIN Sodium Chloride (Sodium Chloride 0.9% 10 Ml Flush Syringe) 10 ml IV PRN PRN PRN Reason: LINE FLUSH Review of Systems All systems: negative Exam - Vital Signs Vital signs: Vital Signs Temp Pulse Resp BP Pulse Ox 98 F 67 18 165/99 100 11/12/21 06:35 11/12/21 06:35 11/12/21 06:35 11/12/21 06:35 11/12/21 06:35 Results - Lab Results 11/12/21 06:50 11/12/21 06:50 Most recent lab results Calcium 7.7 mg/dL (8.4-10.2) L 11/12/21 06:50 Assessment and Plan 1. ESRD: Patient is on maintenance hemodialysis. Currently not established with outpatient dialysis unit. Meds dosage based on GFR. Hemodialysis: today. 2. FEN: UF with HD tolerated. Strict renal diet. Binders as prescribed. Monitor lytes and volume status. 3. HTN: Volume control thru HD. Adjust meds as needed. Monitor BP. 4. Anemia, POA: Epogen with HD as needed. 5. Malfunctioning hemodialysis catheter: S/p new R IJ tunnel catheter. Subjective: Patient was seen and examined at the bedside. General Appearance: General appearance: well-developed, appears stated age, no distress EENT: ATNC, STEVE, hearing intact, vision intact Neck: neck supple, trachea midline Respiratory: ctab Heart: regular, S1S2, no murmur Abdomen: soft, NT, BS heard Integumentary: no obvious rash Neurologic: AO, able to move extremities Ext: no edema noted Hemodialysis access: R IJ tunnel catheter
--- NOTE | 2021-11-12 14:39 | History and Physical Report ---
History of Present Illness Date of examination: 11/12/21 Date of admission: 11/12/21 10:54 Chief complaint: "Needing dialysis" History of present illness: Patient is a 61-year-old male past medical history of hypertension, congestive heart failure, ESRD on hemodialysis, noninsulin-dependent type 2 diabetes mellitus, HIV (currently not on antiretrovirals/HAART), multiple sclerosis, and sciatica who presents with "needing hemodialysis". The patient currently does not have an established hemodialysis chair, and he has been advised to present to the emergency department every Friday and Friday for hemodialysis. The patient was last dialyzed approximately 7 days ago due to having complaints of nausea, vomiting, and sciatic pain during the weekend. When the patient was recently discharged last week, he had a Vas-Cath in his right upper chest that was no longer present on this presentation. When questioned about his access, the patient could not provide any information. The patient was found to be hemodynamically stable on presentation. He is being admitted for placement of a permacath and hemodialysis. Past History Past Medical History: diabetes, dialysis, ESRD, heart failure, HIV/AIDS, hypertension, other (Multiple sclerosis and sciatica) Past Surgical History: Other (Back surgery and Vas-Cath placement) Social history: single, lives with family, full code Family history: hypertension Medications and Allergies Allergies Allergy/AdvReac Type Severity Reaction Status Date / Time No Known Allergies Allergy Verified 10/09/21 11:02 Home Medications Medication Instructions Recorded Confirmed Last Taken Type Bacitracin/Pramoxine/Aloe Vera 1 applicatio TP TID #1 tube 10/09/21 11/02/21 Unknown Rx [Bacitraycin Plus Ointment] Calc Carb/Vit D 500 mg-200 Uni 1 each PO DAILY #30 tablet 10/21/21 11/02/21 11/01/21 10:00 Rx [Oysco D 500 mg-200 Unit] Famotidine [Pepcid] 10 mg PO BID #60 tablet 10/21/21 11/02/21 11/01/21 22:00 Rx Acetaminophen [Tylenol] 500 mg PO Q6H PRN 10/27/21 11/02/21 Unknown History amLODIPine 10 mg PO DAILY 10/27/21 11/02/21 11/01/21 10:00 History Active Meds: Active Medications Acetaminophen (Acetaminophen 325 Mg Tab) 650 mg PO Q4H PRN PRN Reason: Pain MILD(1-3)/Fever >100.5/RACHEL Epoetin Alen-epbx (Epoetin Alen-Epbx 20,000 Unit/1 Ml Vial) 20,000 unit SUB-Q LAKE PRN PRN Reason: hemodialysis Heparin Sodium (Porcine) (Heparin 10,000 Units/10 Ml Vial) 3,000 unit IV LAKE PRN PRN Reason: hemodialysis Sodium Chloride (Nacl 0.9%) 100 mls @ 999 mls/hr IV LAKE PRN PRN Reason: Hypotension Morphine Sulfate (Morphine 4 Mg/1 Ml Inj) 2 mg IV Q4H PRN PRN Reason: Pain , Severe (7-10) Ondansetron HCl (Ondansetron 4 Mg/2 Ml Inj) 4 mg IV Q8H PRN PRN Reason: Nausea And Vomiting Oxycodone/Acetaminophen (Oxycodone /Acetaminophen 5-325mg Tab) 1 tab PO Q6H PRN PRN Reason: Pain, Moderate (4-6) Sodium Chloride (Sodium Chloride 0.9% 10 Ml Flush Syringe) 10 ml IV BID CAILIN Sodium Chloride (Sodium Chloride 0.9% 10 Ml Flush Syringe) 10 ml IV PRN PRN PRN Reason: LINE FLUSH Review of Systems All systems: negative Gastrointestinal: nausea, vomiting Exam - Constitutional Vitals: Temp Pulse Resp BP Pulse Ox 98 F 105 H 21 143/90 99 11/12/21 06:35 11/12/21 11:15 11/12/21 11:15 11/12/21 14:00 11/12/21 14:00 General appearance: Present: no acute distress - EENT Eyes: Present: PERRL, EOM intact ENT: hearing intact, clear oral mucosa - Neck Neck: Present: supple, normal ROM - Respiratory Respiratory effort: normal Respiratory: bilateral: CTA - Cardiovascular Rhythm: regular Heart Sounds: Present: S1 & S2 - Extremities Extremities: no ischemia, pulses intact, pulses symmetrical, normal temperature, normal color Peripheral Pulses: within normal limits - Abdominal General gastrointestinal: Present: soft, non-tender, non-distended, normal bowel sounds Male genitourinary: Present: deferred - Rectal Rectal Exam: deferred - Integumentary Integumentary: Present: clear, warm, dry - Musculoskeletal Musculoskeletal: strength equal bilaterally - Psychiatric Psychiatric: appropriate mood/affect, cooperative - Neurologic Neurologic: CNII-XII intact - Allied Health Allied health notes reviewed: nursing Results - Labs CBC & Chem 7: 11/12/21 06:50 11/12/21 06:50 Labs: Laboratory Last Values WBC 5.9 K/mm3 (4.5-11.0) 11/12/21 06:50 RBC 3.07 M/mm3 (3.65-5.03) L 11/12/21 06:50 Hgb 8.5 gm/dl (11.8-15.2) L 11/12/21 06:50 Hct 26.0 % (35.5-45.6) L 11/12/21 06:50 MCV 85 fl (84-94) 11/12/21 06:50 MCH 28 pg (28-32) 11/12/21 06:50 MCHC 33 % (32-34) 11/12/21 06:50 RDW 16.3 % (13.2-15.2) H 11/12/21 06:50 Plt Count 147 K/mm3 (140-440) 11/12/21 06:50 Lymph % (Auto) 23.1 % (13.4-35.0) 11/12/21 06:50 Rains % (Auto) 12.0 % (0.0-7.3) H 11/12/21 06:50 Eos % (Auto) 3.8 % (0.0-4.3) 11/12/21 06:50 Baso % (Auto) 1.0 % (0.0-1.8) 11/12/21 06:50 Lymph # (Auto) 1.4 K/mm3 (1.2-5.4) 11/12/21 06:50 Rains # (Auto) 0.7 K/mm3 (0.0-0.8) 11/12/21 06:50 Eos # (Auto) 0.2 K/mm3 (0.0-0.4) 11/12/21 06:50 Baso # (Auto) 0.1 K/mm3 (0.0-0.1) 11/12/21 06:50 Seg Neutrophils % 60.1 % (40.0-70.0) 11/12/21 06:50 Seg Neutrophils # 3.5 K/mm3 (1.8-7.7) 11/12/21 06:50 PT 13.7 Sec. (12.2-14.9) 11/12/21 06:50 INR 0.95 (0.87-1.13) 11/12/21 06:50 APTT 32.7 Sec. (24.2-36.6) 11/12/21 06:50 Sodium 143 mmol/L (137-145) 11/12/21 06:50 Potassium 4.8 mmol/L (3.6-5.0) 11/12/21 06:50 Chloride 104.6 mmol/L (98-107) 11/12/21 06:50 Carbon Dioxide 21 mmol/L (22-30) L 11/12/21 06:50 Anion Gap 22 mmol/L 11/12/21 06:50 BUN 74 mg/dL (9-20) H 11/12/21 06:50 Creatinine 15.9 mg/dL (0.8-1.3) H 11/12/21 06:50 Estimated GFR 4 ml/min 11/12/21 06:50 BUN/Creatinine Ratio 5 % 11/12/21 06:50 Glucose 89 mg/dL (75-100) 11/12/21 06:50 Calcium 7.7 mg/dL (8.4-10.2) L 11/12/21 06:50 Assessment and Plan Assessment and plan: Patient is a 61-year-old male past medical history of hypertension, congestive heart failure, ESRD on hemodialysis, noninsulin-dependent type 2 diabetes mellitus, HIV (currently not on antiretrovirals/HAART), multiple sclerosis, and sciatica who presents with "needing hemodialysis". The patient currently does not have an established hemodialysis chair, and he has been advised to present to the emergency department every Friday and Friday for hemodialysis. He is being admitted for placement of a permacath and hemodialysis. #ESRD on hemodialysis -Access: Obtaining permacath -Outpatient schedule: Friday and Friday at emergency department -HD center: N/A Vascular surgery consulted for catheter placement; appreciate recs. Placed on 11/12/2021. -Nephrology consulted; appreciate recs. -Renally dose medications and avoid nephrotoxic drugs. Renal diet. #Hypocalcemia Calcium 7.7 Likely secondary to anemia of chronic disease. Starting calcitriol 0.5 mg. #Anemia of chronic disease Hemoglobin 8.5 Transfuse if hemoglobin less than 7 or patient becomes symptomatic. Continue to monitor. #Hypertension - home medications: amlodipine 10 mg daily - current medications: amlodipine 10 mg daily - SBP goal <160 and DBP goal <90 while inpatient - continue to monitor #GERD Continue home famotidine 10 mg twice daily #HIV not currently on HAART/antiretrovirals Counseled patient about following with his infectious disease physician. Patient expresses understanding. #Multiple sclerosis #Sciatica Continue home treatment as both conditions are chronic in nature #Advanced care planning -Disease education conducted, care plan discussed, diagnoses discussed, prognosis discussed, and patient acknowledges understanding with care plan -Time: +30 min Advance Directives: Yes VTE prophylaxis?: Chemical Plan of care discussed with patient/family: Yes
--- NOTE | 2021-11-12 14:51 | Discharge Summary ---
Providers - Providers Date of Admission: 11/12/21 10:54 Date of discharge: 11/12/21 Attending physician: LEIDY GUZMAN MD 11/12/21 09:21 Consult to Physician [CONS] Stat Comment: Consulting Provider: NARINDER ZHENG Physician Instructions: Reason For Exam: ESRD needing dialysis 11/12/21 10:08 Consult to Physician [CONS] Stat Comment: Consulting Provider: JOCELYNE SHOOK Physician Instructions: Reason For Exam: Needs dialysis access Primary care physician: JEANNETTE WALSH Hospitalization Reason for admission: ESRD on hemodialysis Condition: Fair Pertinent studies: Reviewed. Procedures: Tunneled dialysis catheter placed by vascular surgery Hospital course: Patient is a 61-year-old male past medical history of hypertension, congestive heart failure, ESRD on hemodialysis, noninsulin-dependent type 2 diabetes mellitus, HIV (currently not on antiretrovirals/HAART), multiple sclerosis, and sciatica who presents with "needing hemodialysis". The patient currently does not have an established hemodialysis chair, and he has been advised to present to the emergency department every Friday and Friday for hemodialysis. The patient was last dialyzed approximately 7 days ago due to having complaints of nausea, vomiting, and sciatic pain during the weekend. When the patient was recently discharged last week, he had a Vas-Cath in his right upper chest that was no longer present on this presentation. When questioned about his access, the patient could not provide any information. The patient was found to be hemodynamically stable on presentation. He is being admitted for placement of a permacath and hemodialysis. Disposition: 01 HOME / SELF CARE / HOMELESS Final Discharge Diagnosis (Prints w/discharge instructions): ESRD on hemodialysis, hypertension, congestive heart failure, noninsulin-dependent type 2 diabetes mellitus, HIV, multiple sclerosis, sciatica, GERD, hypocalcemia, anemia of chronic disease Time spent for discharge: 45 min Core Measure Documentation - Palliative Care Palliative Care/ Comfort Measures: Not Applicable - Core Measures Any of the following diagnoses?: none Exam - Constitutional Vitals: Temp Pulse Resp BP Pulse Ox 98 F 105 H 21 158/92 98 11/12/21 06:35 11/12/21 11:15 11/12/21 11:15 11/12/21 14:30 11/12/21 14:30 General appearance: Present: no acute distress - EENT Eyes: Present: PERRL, EOM intact ENT: hearing intact, clear oral mucosa - Neck Neck: Present: supple, normal ROM - Respiratory Respiratory effort: normal Respiratory: bilateral: CTA - Cardiovascular Rhythm: regular Heart Sounds: Present: S1 & S2 - Extremities Extremities: no ischemia, pulses intact, pulses symmetrical, No edema, normal t emperature, normal color Peripheral Pulses: within normal limits - Abdominal General gastrointestinal: Present: soft, non-tender, non-distended, normal bowel sounds Male genitourinary: Present: deferred - Rectal Rectal Exam: deferred - Integumentary Integumentary: Present: clear, warm, dry - Musculoskeletal Musculoskeletal: strength equal bilaterally - Psychiatric Psychiatric: appropriate mood/affect, cooperative - Neurologic Neurologic: CNII-XII intact - Allied Health Allied health notes reviewed: nursing Plan Activity: advance as tolerated Diet: renal Additional Instructions: Patient is a 61-year-old male past medical history of hypertension, congestive heart failure, ESRD on hemodialysis, noninsulin- dependent type 2 diabetes mellitus, HIV (currently not on antiretrovirals/H AART), multiple sclerosis, and sciatica who presents with "needing hemodialysis". The patient currently does not have an established hemodialysis chair, and he has been advised to present to the emergency department every Friday and Friday for hemodialysis. The patient was last dialyzed approximately 7 days ago due to having complaints of nausea, vomiting, and sciatic pain during the weekend. When the patient was recently discharged last week, he had a Vas-Cath in his right upper chest that was no longer present on this presentation. When questioned about his access, the patient could not provide any information. The patient was found to be hemodynamically stable on presentation. He is being admitted for placement of a permacath and hemodialysis. Care Plan Goals: Patient is medically clear for discharge. Assessment: Patient is a 61-year-old male past medical history of hypertension, congestive heart failure, ESRD on hemodialysis, noninsulin-dependent type 2 diabetes mellitus, HIV (currently not on antiretrovirals/HAART), multiple sclerosis, and sciatica who presents with "needing hemodialysis". The patient currently does not have an established hemodialysis chair, and he has been advised to present to the emergency department every Friday and Friday for hemodialysis. The patient was last dialyzed approximately 7 days ago due to having complaints of nausea, vomiting, and sciatic pain during the weekend. When the patient was recently discharged last week, he had a Vas-Cath in his right upper chest that was no longer present on this presentation. When questioned about his access, the patient could not provide any information. The patient was found to be hemodynamically stable on presentation. He is being admitted for placement of a permacath and hemodialysis. Follow up with: JEANNETTE WALSH MD [Primary Care Provider] - 3-5 Days Prescriptions: amLODIPine 10 mg PO DAILY #30 tab Famotidine [Pepcid] 10 mg PO BID #60 tablet
[2021-11-12] MEDS: MORPHINE 4 MG/1 ML INJ IV PRN (22:00)
[2021-11-13] MEDS: MORPHINE 4 MG/1 ML INJ IV PRN (05:30)
--- NOTE | 2021-11-13 09:24 | Progress Note ---
Assessment and Plan 1. ESRD: Patient is on maintenance hemodialysis. Currently not established with outpatient dialysis unit. Meds dosage based on GFR. Hemodialysis: 11/12. HD today. 2. FEN: UF with HD tolerated. Strict renal diet. Binders as prescribed. Monitor lytes and volume status. 3. HTN: Volume control thru HD. Adjust meds as needed. Monitor BP. 4. Anemia, POA: Epogen with HD as needed. 5. Malfunctioning hemodialysis catheter: S/p new R IJ tunnel catheter 11/12/21. Spoke with CM about outpatient HD chair. Subjective: Patient was seen and examined at the bedside. General Appearance: General appearance: well-developed, appears stated age, no distress EENT: ATNC, STEVE, hearing intact, vision intact Neck: neck supple, trachea midline Respiratory: ctab Heart: regular, S1S2, no murmur Abdomen: soft, NT, BS heard Integumentary: no obvious rash Neurologic: AO, able to move extremities Ext: no edema noted Hemodialysis access: R IJ tunnel catheter Subjective Date of service: 11/13/21 Objective - Vital Signs Vital signs: Vital Signs - 12hr 11/12/21 11/13/21 11/13/21 21:54 05:07 07:09 Temperature 99.5 F 98.4 F Pulse Rate 102 H 65 Respiratory 20 20 Rate Blood Pressure 160/98 169/86 O2 Sat by Pulse 93 90 96 Oximetry - Lab 11/12/21 06:50 11/12/21 06:50 Most recent lab results Calcium 7.7 mg/dL (8.4-10.2) L 11/12/21 06:50 Medications & Allergies - Medications Allergies/Adverse Reactions: Allergies No Known Allergies Allergy (Verified 10/09/21 11:02) Home Medications: Home Medications Medication Instructions Recorded Confirmed Last Taken Type Bacitracin/Pramoxine/Aloe Vera 1 applicatio TP TID #1 tube 10/09/21 11/02/21 Unknown Rx [Bacitraycin Plus Ointment] Calc Carb/Vit D 500 mg-200 Uni 1 each PO DAILY #30 tablet 10/21/21 11/02/21 11/01/21 10:00 Rx [Oysco D 500 mg-200 Unit] Acetaminophen [Tylenol] 500 mg PO Q6H PRN 10/27/21 11/02/21 Unknown History Famotidine [Pepcid] 10 mg PO BID #60 tablet 11/12/21 Unknown Rx amLODIPine 10 mg PO DAILY #30 tab 11/12/21 Unknown Rx Active Medications: Generic Name Dose Route Start Last Admin Trade Name Freq PRN Reason Stop Dose Admin Acetaminophen 650 mg 11/12/21 10:54 Acetaminophen 325 Mg Tab PO Q4H PRN Pain MILD(1-3)/Fever >100.5/RACHEL Epoetin Alen-epbx 20,000 unit 11/12/21 13:58 11/12/21 15:25 Epoetin Alen-Epbx 20,000 Unit/1 Ml Vial SUB-Q 20,000 unit LAKE PRN Administration hemodialysis Heparin Sodium (Porcine) 3,000 unit 11/12/21 13:58 11/12/21 09:00 Heparin 10,000 Units/10 Ml Vial IV 3,000 unit LAKE PRN Administration hemodialysis Sodium Chloride 100 mls @ 999 mls/hr 11/12/21 13:58 Nacl 0.9% IV LAKE PRN Hypotension Morphine Sulfate 2 mg 11/12/21 10:54 11/13/21 05:30 Morphine 4 Mg/1 Ml Inj IV 2 mg Q4H PRN Administration Pain , Severe (7-10) Ondansetron HCl 4 mg 11/12/21 10:54 11/13/21 05:31 Ondansetron 4 Mg/2 Ml Inj IV 4 mg Q8H PRN Administration Nausea And Vomiting Oxycodone/Acetaminophen 1 tab 11/12/21 10:54 Oxycodone /Acetaminophen 5-325mg Tab PO Q6H PRN Pain, Moderate (4-6) Sodium Chloride 10 ml 11/12/21 22:00 11/13/21 09:07 Sodium Chloride 0.9% 10 Ml Flush Syringe IV 10 ml BID CAILIN Administration Sodium Chloride 10 ml 11/12/21 10:54 11/13/21 05:31 Sodium Chloride 0.9% 10 Ml Flush Syringe IV 10 ml PRN PRN Administration LINE FLUSH
--- NOTE | 2021-11-13 10:37 | Discharge Summary ---
Providers - Providers Date of Admission: 11/12/21 10:54 Date of discharge: 11/13/21 Attending physician: JADEN DENIS 11/12/21 09:21 Consult to Physician [CONS] Stat Comment: Consulting Provider: NARINDER ZHENG Physician Instructions: Reason For Exam: ESRD needing dialysis 11/12/21 10:08 Consult to Physician [CONS] Stat Comment: Consulting Provider: JOCELYNE SHOOK Physician Instructions: Reason For Exam: Needs dialysis access Primary care physician: JEANNETTE WALSH Hospitalization Reason for admission: missed HD Condition: Fair Hospital course: Patient is a 61-year-old male past medical history of hypertension, congestive heart failure, ESRD on hemodialysis, noninsulin-dependent type 2 diabetes mellitus, HIV (currently not on antiretrovirals/HAART), multiple sclerosis, and sciatica who presents with "needing hemodialysis". The patient currently does not have an established hemodialysis chair, and he has been advised to present to the emergency department every Friday and Friday for hemodialysis. The patient was last dialyzed approximately 7 days ago due to having complaints of nausea, vomiting, and sciatic pain during the weekend. When the patient was recently discharged last week, he had a Vas-Cath in his right upper chest that was no longer present on this presentation. When questioned about his access, the patient could not provide any information. The patient was found to be hemodynamically stable on presentation. He is being admitted for placement of a permacath and hemodialysis. Disposition: 01 HOME / SELF CARE / HOMELESS Final Discharge Diagnosis (Prints w/discharge instructions): ESRD on hemodialysis, hypertension, congestive heart failure, noninsulin-dependent type 2 diabetes mellitus, HIV, multiple sclerosis, sciatica, GERD, hypocalcemia, anemia of chronic disease Core Measure Documentation - Palliative Care Palliative Care/ Comfort Measures: Not Applicable - Core Measures Any of the following diagnoses?: none Exam - Constitutional Vitals: Temp Pulse Resp BP Pulse Ox 98.4 F 65 20 169/86 96 11/13/21 05:07 11/13/21 05:07 11/13/21 05:07 11/13/21 05:07 11/13/21 07:09 General appearance: Present: no acute distress, well-nourished - EENT Eyes: Present: PERRL ENT: hearing intact, clear oral mucosa - Neck Neck: Present: supple, normal ROM - Respiratory Respiratory effort: normal Respiratory: bilateral: CTA - Cardiovascular Heart Sounds: Present: S1 & S2. Absent: rub, click - Extremities Extremities: pulses symmetrical, No edema Peripheral Pulses: within normal limits - Abdominal General gastrointestinal: Present: soft, non-tender, non-distended, normal bowel sounds Male genitourinary: Present: normal - Integumentary Integumentary: Present: clear, warm, dry - Musculoskeletal Musculoskeletal: gait normal, strength equal bilaterally - Psychiatric Psychiatric: appropriate mood/affect, intact judgment & insight - Neurologic Neurologic: CNII-XII intact, moves all extremities Plan Activity: advance as tolerated Weight Bearing Status: Weight Bear as Tolerated Diet: renal Care Plan Goals: Patient is medically clear for discharge. Assessment: Patient is a 61-year-old male past medical history of hypertension, congestive heart failure, ESRD on hemodialysis, noninsulin-dependent type 2 diabetes mellitus, HIV (currently not on antiretrovirals/HAART), multiple sclerosis, and sciatica who presents with "needing hemodialysis". The patient currently does not have an established hemodialysis chair, and he has been advised to present to the emergency department every Friday and Friday for hemodialysis. The patient was last dialyzed approximately 7 days ago due to having complaints of nausea, vomiting, and sciatic pain during the weekend. When the patient was recently discharged last week, he had a Vas-Cath in his right upper chest that was no longer present on this presentation. When questioned about his access, the patient could not provide any information. The patient was found to be hemodynamically stable on presentation. He is being admitted for placement of a permacath and hemodialysis. Follow up with: JEANNETTE WALSH MD [Primary Care Provider] - 3-5 Days Prescriptions: amLODIPine 10 mg PO DAILY #30 tab Famotidine [Pepcid] 10 mg PO BID #60 tablet
[2021-11-13] MEDS: HEPARIN 10,000 UNITS/10 ML VIAL IV PRN (11:15)
[2021-11-13 14:35] VITALS: BP 164/98
[2021-11-13 16:16] LABS: Hepatitis B Surface Antigen Non-Reactive (Negative); Hepatitis C Virus Antibody Non-Reactive (NonReactive)
== END 2021-11-13 16:44 | disposition home or self-care (01) ==
LOC: ED 06:01 → 3A 10:54
PROVIDERS: ADMIT Student in an Organized Health Care Education/Training Program; ATTEND Hospitalist
DX: T82.41XA Breakdown (mechanical) of vascular dialysis catheter, initial encounter (principal); I13.2 Hypertensive heart and chronic kidney disease with heart failure and with stage 5 chronic kidney disease, or end stage renal disease; I50.9 Heart failure, unspecified; N18.6 End stage renal disease; E11.22 Type 2 diabetes mellitus with diabetic chronic kidney disease; D63.1 Anemia in chronic kidney disease; E83.51 Hypocalcemia; K21.9 Gastro-esophageal reflux disease without esophagitis; G35 Multiple sclerosis; M54.30 Sciatica, unspecified side; Z79.899 Other long term (current) drug therapy; Z98.890 Other specified postprocedural states; Z21 Asymptomatic human immunodeficiency virus [HIV] infection status; Z99.2 Dependence on renal dialysis
CPT/HCPCS: 36415; 36558; 71045; 77001; 80048; 80074; 85025; 85610; 85730; 96374; 96375; 96376; 99284; C1750; G0257; G0378; J0690; J0885; J1644; J2250; J2270; J2405; J3010; J3490; J7050

== ENCOUNTER 2021-11-13 17:41 | Emergency (ER) | payer SELFPAY ==
[2021-11-13 17:57] VITALS: BP 143/91
--- NOTE | 2021-11-13 18:41 | XRay Report ---
Bilateral knee radiographs, 2 views each knee provided. HISTORY: Injury COMPARISON: None FINDINGS: Right knee: No acute fracture or malalignment. Mild osteoarthritis. No significant joint effusion. No focal soft tissue abnormality. Left knee: No acute fracture or malalignment. Mild is moderate osteoarthritis, preferentially involvi ng the medial compartment. No sizable joint effusion. No focal soft tissue abnormality. Signer Name: Hola Birmingham MD Signed: 11/13/2021 6:36 PM Workstation Name: [id number]
--- NOTE | 2021-11-13 18:46 | Emergency Department Report ---
ED Fall HPI - General Chief Complaint: Fall Stated Complaint: FALL Time Seen by Provider: 11/13/21 17:56 Source: patient Mode of arrival: Ambulatory - History of Present Illness Initial Comments: PT FELL IN PARKING LOT , knee pain no head injury no loc MD Complaint: fall -: Sudden, hour(s) Fall From: standing Fall Witnessed: no Place Fall Occurred: street Loss of Consciousness: none Prolonged Down Time?: no Location - Extremities: Left: Knee, Right: Knee Severity scale (0 -10): 3 Quality: dull Associated Symptoms: denies: headache, neck pain - Related Data Home Medications Medication Instructions Recorded Confirmed Last Taken Acetaminophen [Tylenol] 500 mg PO Q6H PRN 10/27/21 11/02/21 Unknown Previous Rx's Medication Instructions Recorded Last Taken Type Bacitracin/Pramoxine/Aloe Vera 1 applicatio TP TID #1 tube 10/09/21 Unknown Rx [Bacitraycin Plus Ointment] Calc Carb/Vit D 500 mg-200 Uni 1 each PO DAILY #30 tablet 10/21/21 11/01/21 10:00 Rx [Oysco D 500 mg-200 Unit] Famotidine [Pepcid] 10 mg PO BID #60 tablet 11/12/21 Unknown Rx amLODIPine 10 mg PO DAILY #30 tab 11/12/21 Unknown Rx Allergies Allergy/AdvReac Type Severity Reaction Status Date / Time No Known Allergies Allergy Verified 10/09/21 11:02 ED Review of Systems ROS: Stated complaint: FALL Other details as noted in HPI Constitutional: denies: chills, fever Eyes: denies: eye pain, eye discharge, vision change ENT: denies: ear pain, throat pain Respiratory: denies: cough, shortness of breath, wheezing Cardiovascular: denies: chest pain, palpitations Endocrine: no symptoms reported Gastrointestinal: denies: abdominal pain, nausea, diarrhea Genitourinary: denies: urgency, dysuria Musculoskeletal: denies: back pain, joint swelling, arthralgia Skin: denies: rash, lesions Neurological: denies: headache, weakness, paresthesias Psychiatric: denies: anxiety, depression Hematological/Lymphatic: denies: easy bleeding, easy bruising ED Past Medical Hx - Past Medical History Previous Medical History?: Yes Hx Hypertension: Yes Hx Congestive Heart Failure: Yes Hx Diabetes: Yes Hx Renal Disease: Yes Hx HIV: Yes (Unknown CD4 count. No meds x12 months) Additional medical history: MS, Sciatica - Surgical History Additional Surgical History: Right chest Vas-Cath, back surgery - Social History Smoking Status: Never Smoker - Medications Home Medications: Home Medications Medication Instructions Recorded Confirmed Last Taken Type Bacitracin/Pramoxine/Aloe Vera 1 applicatio TP TID #1 tube 10/09/21 11/02/21 Unknown Rx [Bacitraycin Plus Ointment] Calc Carb/Vit D 500 mg-200 Uni 1 each PO DAILY #30 tablet 10/21/21 11/02/21 11/01/21 10:00 Rx [Oysco D 500 mg-200 Unit] Acetaminophen [Tylenol] 500 mg PO Q6H PRN 10/27/21 11/02/21 Unknown History Famotidine [Pepcid] 10 mg PO BID #60 tablet 11/12/21 Unknown Rx amLODIPine 10 mg PO DAILY #30 tab 11/12/21 Unknown Rx ED Physical Exam - General Limitations: Physical Limitation General appearance: alert, in no apparent distress - Head Head exam: Present: atraumatic, normocephalic - Eye Eye exam: Present: normal appearance - ENT ENT exam: Present: mucous membranes moist - Neck Neck exam: Present: normal inspection - Respiratory Respiratory exam: Present: normal lung sounds bilaterally. Absent: respiratory distress - Cardiovascular Cardiovascular Exam: Present: regular rate, normal rhythm. Absent: systolic murmur, diastolic murmur, rubs, gallop - GI/Abdominal GI/Abdominal exam: Present: soft, normal bowel sounds - Rectal Rectal exam: Present: deferred - Extremities Exam Extremities exam: Present: normal inspection - Back Exam Back exam: Present: normal inspection - Neurological Exam Neurological exam: Present: alert, oriented X3 - Psychiatric Psychiatric exam: Present: normal affect, normal mood - Skin Skin exam: Present: warm, dry, intact, normal color. Absent: rash ED Course Vital Signs 11/13/21 11/13/21 17:56 18:06 Temperature 97.6 F 98.9 F Pulse Rate 102 H 85 Respiratory 16 18 Rate Blood Pressure 143/91 Blood Pressure 143/91 [Left] O2 Sat by Pulse 96 99 Oximetry ED Medical Decision Making - Radiology Data Radiology results: report reviewed, image reviewed - Medical Decision Making x ray done no fractures vss, Critical care attestation.: If time is entered above; I have spent that time in minutes in the direct care of this critically ill patient, excluding procedure time. ED Disposition Clinical Impression: Fall, End-stage renal disease needing dialysis, Knee pain Disposition: HOME / SELF CARE / HOMELESS Is pt being admited?: No Does the pt Need Aspirin: No Condition: Stable Instructions: Acute Knee Pain, Adult
== END 2021-11-13 19:51 | disposition home or self-care (01) ==
LOC: ED 17:41
DX: M25.561 Pain in right knee (principal); I12.9 Hypertensive chronic kidney disease with stage 1 through stage 4 chronic kidney disease, or unspecified chronic kidney disease; E11.22 Type 2 diabetes mellitus with diabetic chronic kidney disease; N18.6 End stage renal disease; W19.XXXA Unspecified fall, initial encounter; Y93.89 Activity, other specified; Y92.89 Other specified places as the place of occurrence of the external cause; Y99.8 Other external cause status
CPT/HCPCS: 99283

== ENCOUNTER 2021-11-17 07:17 | Emergency (ER) | payer SELFPAY ==
[2021-11-17 07:37] VITALS: BP 167/101
--- NOTE | 2021-11-17 15:00 | Emergency Department Report ---
ED General Adult HPI - General Chief complaint: High BP Stated complaint: DIALYSIS Time Seen by Provider: 11/17/21 14:52 Source: EMS Mode of arrival: Stretcher Limitations: No Limitations - History of Present Illness Initial comments: Patient is a 61-year-old male with history of chronic kidney disease on dialysis presenting here for routine dialysis. He currently denies any symptoms. - Related Data Home Medications Medication Instructions Recorded Confirmed Last Taken Acetaminophen [Tylenol] 500 mg PO Q6H PRN 10/27/21 11/02/21 Unknown Previous Rx's Medication Instructions Recorded Last Taken Type Bacitracin/Pramoxine/Aloe Vera 1 applicatio TP TID #1 tube 10/09/21 Unknown Rx [Bacitraycin Plus Ointment] Calc Carb/Vit D 500 mg-200 Uni 1 each PO DAILY #30 tablet 10/21/21 11/01/21 10:00 Rx [Oysco D 500 mg-200 Unit] Famotidine [Pepcid] 10 mg PO BID #60 tablet 11/12/21 Unknown Rx amLODIPine 10 mg PO DAILY #30 tab 11/12/21 Unknown Rx Allergies Allergy/AdvReac Type Severity Reaction Status Date / Time No Known Allergies Allergy Verified 10/09/21 11:02 ED Review of Systems ROS: Stated complaint: DIALYSIS Other details as noted in HPI Comment: All other systems reviewed and negative Constitutional: denies: chills, fever Respiratory: denies: cough, shortness of breath, wheezing Cardiovascular: denies: chest pain, palpitations Gastrointestinal: denies: abdominal pain, nausea, diarrhea Genitourinary: denies: urgency, dysuria Skin: denies: rash, lesions Neurological: denies: headache, weakness, paresthesias Psychiatric: denies: anxiety, depression ED Past Medical Hx - Past Medical History Previous Medical History?: Yes Hx Hypertension: Yes Hx Congestive Heart Failure: Yes Hx Diabetes: Yes Hx Renal Disease: Yes Hx HIV: Yes (Unknown CD4 count. No meds x12 months) Additional medical history: MS, Sciatica - Surgical History Past Surgical History?: Yes Additional Surgical History: Right chest Vas-Cath, back surgery - Social History Smoking Status: Current Every Day Smoker - Medications Home Medications: Home Medications Medication Instructions Recorded Confirmed Last Taken Type Bacitracin/Pramoxine/Aloe Vera 1 applicatio TP TID #1 tube 10/09/21 11/02/21 Unknown Rx [Bacitraycin Plus Ointment] Calc Carb/Vit D 500 mg-200 Uni 1 each PO DAILY #30 tablet 10/21/21 11/02/21 11/01/21 10:00 Rx [Oysco D 500 mg-200 Unit] Acetaminophen [Tylenol] 500 mg PO Q6H PRN 10/27/21 11/02/21 Unknown History Famotidine [Pepcid] 10 mg PO BID #60 tablet 11/12/21 Unknown Rx amLODIPine 10 mg PO DAILY #30 tab 11/12/21 Unknown Rx ED Physical Exam - General Limitations: No Limitations General appearance: alert, in no apparent distress - Head Head exam: Present: atraumatic, normocephalic - Neck Neck exam: Present: normal inspection - Respiratory Respiratory exam: Present: normal lung sounds bilaterally. Absent: respiratory distress - Cardiovascular Cardiovascular Exam: Present: regular rate, normal rhythm, normal heart sounds. Absent: systolic murmur, diastolic murmur, rubs, gallop - GI/Abdominal GI/Abdominal exam: Present: soft. Absent: distended, tenderness - Rectal Rectal exam: Present: deferred - Neurological Exam Neurological exam: Present: alert, oriented X3 - Psychiatric Psychiatric exam: Present: normal affect, normal mood - Skin Skin exam: Present: warm, dry, intact, normal color ED Course Vital Signs 11/17/21 07:34 Temperature 98.6 F Pulse Rate 93 H Respiratory 18 Rate Blood Pressure 167/101 O2 Sat by Pulse 98 Oximetry ED Medical Decision Making - Lab Data Result diagrams: 11/17/21 15:18 11/17/21 15:18 - Medical Decision Making Labs reviewed. Potassium is 4.1. BUN and creatinine chronically elevated as expected. Patient is otherwise stable and has no complaints. I discussed the case with Dr. Elizabeth. Patient does not meet admission criteria therefore unable to dialyze at this time. Patient discharged in stable condition. Critical care attestation.: If time is entered above; I have spent that time in minutes in the direct care of this critically ill patient, excluding procedure time. ED Disposition Clinical Impression: Chronic kidney disease Disposition: HOME / SELF CARE / HOMELESS Is pt being admited?: No Does the pt Need Aspirin: No Condition: Stable Instructions: Dialysis, Food Basics for Chronic Kidney Disease Time of Disposition: 16:51
[2021-11-17 15:32] LABS: Basophils # (Auto) 0.1 K/mm3 (0.0-0.1); Basophils % (Auto) 1.8 % (0.0-1.8); Eosinophils # (Auto) 0.3 K/mm3 (0.0-0.4); Eosinophils % (Auto) 6.7 % (0.0-4.3); Hematocrit 24.8 % (35.5-45.6); Hemoglobin 8.2 gm/dl (11.8-15.2); Lymphocytes % (Auto) 21.1 % (13.4-35.0); Mean Corpuscular HGB Conc 33 % (32-34); Mean Corpuscular Volume 84 fl (84-94); Monocytes # (Auto) 0.6 K/mm3 (0.0-0.8); Monocytes % (Auto) 12.5 % (0.0-7.3); Platelet Count 190 K/mm3 (140-440); Red Blood Count 2.96 M/mm3 (3.65-5.03); Red Cell Distribution Width 16.3 % (13.2-15.2)
[2021-11-17 16:34] LABS: Calcium 8.1 mg/dL (8.4-10.2)
== END 2021-11-18 16:51 | disposition home or self-care (01) ==
LOC: ED 07:17
DX: I13.0 Hypertensive heart and chronic kidney disease with heart failure and stage 1 through stage 4 chronic kidney disease, or unspecified chronic kidney disease (principal); E11.22 Type 2 diabetes mellitus with diabetic chronic kidney disease; N18.9 Chronic kidney disease, unspecified; I50.9 Heart failure, unspecified; F17.200 Nicotine dependence, unspecified, uncomplicated; Z79.899 Other long term (current) drug therapy
CPT/HCPCS: 36415; 80048; 85025; 99283

== ENCOUNTER 2021-11-23 20:50 | Inpatient (IN) | payer SELFPAY ==
--- NOTE | 2021-11-23 20:59 | Emergency Department Report ---
- General Chief complaint: Weakness Stated complaint: POSS STROKE PUI?: No Time Seen by Provider: 11/23/21 20:50 Source: patient, EMS Mode of arrival: Stretcher Limitations: No Limitations - History of Present Illness Initial comments: Patient is a 61-year-old male who presents emergency room with complaints of a syncopal episode. Patient states when he woke up he was unable to move his left upper extremity and he had left lower extremity weakness. Patient's last known well time was 30 minutes prior to arrival. Patient denies chest pain. Patient denies shortness of breath. Patient's not sure if he hit his head. Patient complains of neck pain. Patient states he fell back hit the back of his head. Patient states his loss of consciousness was brief. Patient's not sure exactly how long. Patient arrived in a c-collar. Patient denies recent travel. Patient denies recent international travel. Patient denies exposure to the novel coronavirus. Patient denies sick contacts. Patient denies fever and chills. Patient denies cough. Patient denies diarrhea. Patient denies coming in contact with anybody with symptoms of the novel coronavirus. MD Complaint: focal weakness, lack of energy -: Sudden Location: [facility] Severity: moderate, severe Consistency: constant Improves with: none Worsens with: none Associated Symptoms: denies other symptoms, confusion, headaches, syncope. denies: chest pain, dark stools, diaphoresis, dysuria, easy bruising, fever/chills, loss of appetite, nausea/vomiting, myalgias, rash, shortness of breath - Related Data Home Medications Medication Instructions Recorded Confirmed Last Taken Acetaminophen [Tylenol] 500 mg PO Q6H PRN 10/27/21 11/02/21 Unknown Previous Rx's Medication Instructions Recorded Last Taken Type Bacitracin/Pramoxine/Aloe Vera 1 applicatio TP TID #1 tube 10/09/21 Unknown Rx [Bacitraycin Plus Ointment] Calc Carb/Vit D 500 mg-200 Uni 1 each PO DAILY #30 tablet 10/21/21 11/01/21 10:00 Rx [Oysco D 500 mg-200 Unit] Famotidine [Pepcid] 10 mg PO BID #60 tablet 11/12/21 Unknown Rx amLODIPine 10 mg PO DAILY #30 tab 11/12/21 Unknown Rx Allergies Allergy/AdvReac Type Severity Reaction Status Date / Time No Known Allergies Allergy Verified 10/09/21 11:02 ED Review of Systems ROS: Stated complaint: POSS STROKE Other details as noted in HPI Constitutional: weakness. denies: chills, fever Eyes: denies: eye pain, eye discharge, vision change ENT: denies: ear pain, throat pain Respiratory: denies: cough, shortness of breath, wheezing Cardiovascular: denies: chest pain, palpitations Endocrine: no symptoms reported Gastrointestinal: denies: abdominal pain, nausea, diarrhea Genitourinary: denies: urgency, dysuria Musculoskeletal: as per HPI. denies: back pain, joint swelling, arthralgia Skin: denies: rash, lesions Neurological: as per HPI, headache, weakness. denies: paresthesias Psychiatric: denies: anxiety, depression Hematological/Lymphatic: denies: easy bleeding, easy bruising ED Past Medical Hx - Past Medical History Previous Medical History?: Yes Hx Hypertension: Yes Hx Congestive Heart Failure: Yes Hx Diabetes: Yes Hx Renal Disease: Yes Hx HIV: Yes (Unknown CD4 count. No meds x12 months) Additional medical history: MS, Sciatica - Surgical History Past Surgical History?: Yes Additional Surgical History: Right chest Vas-Cath, back surgery - Family History Family history: no significant - Social History Smoking Status: Current Every Day Smoker Substance Use Type: None - Medications Home Medications: Home Medications Medication Instructions Recorded Confirmed Last Taken Type Bacitracin/Pramoxine/Aloe Vera 1 applicatio TP TID #1 tube 10/09/21 11/02/21 Unknown Rx [Bacitraycin Plus Ointment] Calc Carb/Vit D 500 mg-200 Uni 1 each PO DAILY #30 tablet 10/21/21 11/02/21 11/01/21 10:00 Rx [Oysco D 500 mg-200 Unit] Acetaminophen [Tylenol] 500 mg PO Q6H PRN 10/27/21 11/02/21 Unknown History Famotidine [Pepcid] 10 mg PO BID #60 tablet 11/12/21 Unknown Rx amLODIPine 10 mg PO DAILY #30 tab 11/12/21 Unknown Rx ED Physical Exam - General Limitations: Altered Mental Status, Physical Limitation General appearance: alert, in no apparent distress - Head Head exam: Present: atraumatic, normocephalic - Eye Eye exam: Present: normal appearance, PERRL Pupils: Present: normal accommodation - ENT ENT exam: Present: mucous membranes moist - Neck Neck exam: Present: normal inspection - Respiratory Respiratory exam: Present: normal lung sounds bilaterally. Absent: respiratory distress - Cardiovascular Cardiovascular Exam: Present: regular rate, normal rhythm. Absent: systolic murmur, diastolic murmur, rubs, gallop - GI/Abdominal GI/Abdominal exam: Present: soft, normal bowel sounds - Rectal Rectal exam: Present: deferred - Extremities Exam Extremities exam: Present: normal inspection - Back Exam Back exam: Present: normal inspection - Neurological Exam Neurological exam: Present: alert, altered - Psychiatric Psychiatric exam: Present: normal affect, normal mood - Skin Skin exam: Present: warm, dry, intact, normal color. Absent: rash - Assessment Assessment Interval: Baseline - Level of Consciousness 1a. Level of Consciousness: alert/keenly responsive - LOC Questions 1b. LOC Questions: answers 1 question correctly - LOC Command 1c. LOC Commands: performs tasks correctly - Best Gaze 2. Best Gaze: normal - Visual 3. Visual: no visual loss - Facial Palsy 4. Facial Palsy: minor paralysis - Motor Arm 5a. Motor Arm Left: no gravity effort 5b. Motor Arm Right: no drift - Motor Leg 6a. Motor Leg Left: drift 6b. Motor Leg Right: no drift - Limb Ataxia 7. Limb Ataxia: absent - Sensory 8. Sensory: normal - Best Language 9. Best Language: mild/moderate aphasia - Dysarthria 10. Dysarthria: mild/moderate dysarthria - Extinction and Inattention 11. Extinction/Inattention: no abnormality - Scoring Total Score: 8 Stroke Severity: Moderate Stroke ED Course Vital Signs 11/23/21 11/23/21 11/23/21 21:38 21:48 22:01 Temperature 98 F Pulse Rate 103 H 102 H Respiratory 18 16 24 Rate Blood Pressure 157/92 Blood Pressure 158/98 [Left] O2 Sat by Pulse 100 Oximetry 11/23/21 11/23/21 11/23/21 22:15 22:30 22:45 Temperature Pulse Rate 99 H 102 H 94 H Respiratory 15 17 10 L Rate Blood Pressure 157/92 161/100 161/100 Blood Pressure [Left] O2 Sat by Pulse 90 Oximetry 11/23/21 11/23/21 11/23/21 22:47 22:48 23:01 Temperature Pulse Rate 96 H 96 H 81 Respiratory 15 Rate Blood Pressure 161/100 161/100 126/82 Blood Pressure [Left] O2 Sat by Pulse 91 Oximetry 11/23/21 11/23/21 11/23/21 23:15 23:31 23:43 Temperature Pulse Rate 82 79 79 Respiratory 12 11 L 11 L Rate Blood Pressure 128/80 134/79 122/79 Blood Pressure [Left] O2 Sat by Pulse 94 94 94 Oximetry 11/23/21 11/24/21 23:45 00:15 Temperature Pulse Rate 80 90 Respiratory 11 L 13 Rate Blood Pressure 128/80 Blood Pressure [Left] O2 Sat by Pulse 94 92 Oximetry - Reevaluation(s) Reevaluation #1: Initial evaluation done. Code stroke was initiated prior to arrival. Initial evaluation done and the patient sent directly to CT scan. 11/23/21 20:51 Reevaluation #2: I discussed findings and recommendation of the neurologist to the patient. The patient agrees with tPA. Patient will sign consent and received tPA and then go for a CTA of the head and neck. 11/23/21 21:37 - Consultations Consultation #1: I discussed the case with Dr. Li, neurology. Dr. Li recommends tPA. And a stat CTA of the head and neck. 11/23/21 21:34 Consultation #2: Nephrology consult placed. 11/24/21 00:24 Consultation #3: I discussed the case with pulmonary critical care. Pulmonary critical care agrees with ICU admission. 11/24/21 00:24 ED Medical Decision Making - Lab Data Result diagrams: 11/23/21 21:29 11/23/21 21:29 - EKG Data -: EKG Interpreted by In EKG shows normal: sinus rhythm, axis, intervals, QRS complexes, ST-T waves Rate: normal - Radiology Data Radiology results: report reviewed, image reviewed CT head/brain wo con INDICATION: Stroke symptoms. TECHNIQUE: Routine CT head. All CT scans at this location are performed using CT dose reduction for ALARA by means of automated exposure control. COMPARISON: None. FINDINGS: Intracranial: Benton-white matter differentiation is maintained. No intracranial hemorrhage. No extra axial collection. No hydrocephalus. No herniation. Sinuses: Small mucous retention cyst left maxillary sinus. Paranasal sinuses and mastoid air cells are essentially clear. Orbits: Globes are intact. Calvarium: No acute fracture. IMPRESSION: 1. No acute intracranial abnormality. CT cervical spine wo con INDICATION: neck pain. syncope. TECHNIQUE: Axial CT images of the cervical spine were obtained. Sagittal and coronal reformatted images were produced. All CT scans at this location are performed using CT dose reduction for [employer] by means of automated exposure control. COMPARISON: None available. FINDINGS: ALIGNMENT: Normal alignment. VERTEBRAE: No fracture. Vertebral body heights are preserved. C1 and C2 are congruent. SPONDYLOSIS: Mild spondylosis. SOFT TISSUES: No significant soft tissue abnormality. ADDITIONAL FINDINGS: Large bilateral pleural effusions. IMPRESSION: 1. No fracture of the cervical spine. 2. Large bilateral pleural effusions. CHEST 1 VIEW 11/23/2021 9:30 PM INDICATION / CLINICAL INFORMATION: syncope. COMPARISON: 11/12/2021 FINDINGS: SUPPORT DEVICES: Permacath has been placed from a right internal jugular approach. The catheter tip projects the level the right atrium. HEART / MEDIASTINUM: No significant abnormality. LUNGS / PLEURA: There is perihilar edema. There are small right pleural e ffusion. No pneumothorax. ADDITIONAL FINDINGS: No significant additional findings. IMPRESSION: 1. Permacath tip projects the level the right atrium. There is bilateral perihilar edema. There is a small right pleural effusion. CT angio head, CT angio head, CT angio neck HISTORY: weakness COMPARISON: None. TECHNIQUE: CTA of the neck and head is performed after IV contrast. 3-D/MIP re formats were postprocessed. Percentage stenosis is determined by direct quantitative measurements of diseased internal carotid artery diameter compared with normal distal internal carotid artery reference segments or by criteria similar to NASCET where applicable. All CT scans at this location are performed using CT dose reduction for ALARA by means of automated exposure control. FINDINGS: CTA NECK: Aortic arch: No significant abnormality. Cervical vertebral arteries: No occlusion or hemodynamically significant stenosis. Common Carotid arteries: No occlusion or hemodynamically significant stenosis. Internal carotid arteries: No occlusion or hemodynamically significant stenosis. CTA HEAD: Intracranial internal carotid arteries: No occlusion or significant stenosis. Anterior cerebral arteries: No occlusion or significant stenosis. Middle cerebral arteries: No occlusion or significant stenosis. Intracranial vertebral arteries: No occlusion or significant stenosis. Basilar artery: No occlusion or significant stenosis. Posterior cerebral arteries: No occlusion or significant stenosis. No aneurysm. Additional findings: Large bilateral pleural effusions. IMPRESSION: 1. CTA NECK: No occlusion or significant stenosis of the carotid or vertebral arteries. 2. CTA HEAD: No occlusion or significant stenosis of the major intracranial vasculature. 3. Large bilateral pleural effusions. - Medical Decision Making Patient is a 61-year-old male who presents emergency room for left-sided w eakness after urinary syncopal episode and fall. Patient hit his head and the back of his neck when falling. Patient had an unknown amount of time of downtime with a syncopal episode. Patient brought in by EMS. Code stroke initiated prior to arrival by EMS. Patient taken directly to CT scan of the head. Patient will have a CT of the head and neck at the same time. Patient CT of the head was negative. Patient's neck CT was negative. Patient arrived from EMS with a c-collar in the c-collar removed once the C-spine was cleared by CT scan. Patient had labs which were significant for end-stage renal disease and anemia. Patient had elevated troponin which is consistent with end-stage re nal disease. Neurology saw the patient immediately after the CT was resulted. Neurology recommended tPA. Patient was given tPA in accordance with the tPA protocol of a bolus and a drip. Patient then had a CTA of the head and neck. CTA of the head and neck were negative for large vessel occlusions. Nephrology consulted. ICU smocker consulted. Patient admitted to the hospital service for further evaluation and treatment. Critical care time documented due to the multiple reassessments, prolonged time at the bedside, interpretation of diagnostics and labs and discussion with the consultants.. - Differential Diagnosis CVA, weakness, electrolyte imbalance, hypertension Critical Care Time: Yes Critical care time in (mins) excluding proc time.: 80 Critical care attestation.: If time is entered above; I have spent that time in minutes in the direct care of this critically ill patient, excluding procedure time. Critical Care Time: 80 minutes ED Disposition Clinical Impression: Weakness, Neck pain Syncope Qualifiers: Syncope type: unspecified Qualified Code(s): R55 - Syncope and collapse Head injury Qualifiers: Encounter type: initial encounter Qualified Code(s): S09.90XA - Unspecified injury of head, initial encounter Fall Qualifiers: Encounter type: initial encounter Qualified Code(s): W19.XXXA - Unspecified fall, initial encounter Disposition: ADMITTED INPATIENT Is pt being admited?: Yes Does the pt Need Aspirin: No Condition: Critical Instructions: Syncope (ED) Time of Disposition: 00:47
--- NOTE | 2021-11-23 21:17 | Cat Scan Report ---
CT head/brain wo con INDICATION: Stroke symptoms. TECHNIQUE: Routine CT head. All CT scans at this location are performed using CT dose reduction for A YOHANA by means of automated exposure control. COMPARISON: None. FINDINGS: Intracranial: Benton-white matter differentiation is maintained. No intracranial hemorrhage. No extra a xial collection. No hydrocephalus. No herniation. Sinuses: Small mucous retention cyst left maxillary sinus. Paranasal sinuses and mastoid air cells ar e essentially clear. Orbits: Globes are intact. Calvarium: No acute fracture. IMPRESSION: 1. No acute intracranial abnormality. Signer Name: Christiano Hernandez MD Signed: 11/23/2021 9:13 PM Workstation Name: [id number]
--- NOTE | 2021-11-23 21:33 | Consultation ---
History of Present Illness History of present illness: [facility] Consult Note # Demographics Consult Type: Acute Stroke Level 1 (0-4.5 hrs) Patient Location: Emergency Room First Name: Kurtis Last Name: Don Date of : 1960 Age: 61 Gender: Male Time of Initial Page ([facility]): 11/24/2021, 01:18 Time of Return Call ([facility]): 11/24/2021, 01:18 # HPI Chief Complaint: weakness (focal) History: 61M with renal failure on HD, HTN, DM, HIV presents with unresponsiveness. EMS called because the patient passed out, hit his head against the wall. BP 162/100. Started improving in the ambulance, and then noted to be weaker on the left side, not squeezing the hand. Not able to lift up the left arm. LKWT 2019. Misses dialysis frequently. # Scores Time of exam and NIHSS ([facility]): 11/24/2021, 01:18 Level of Consciousness 1a: [0] = Alert; keenly responsive LOC Questions 1b: [0] = Answers both questions correctly LOC Commands 1c: [1] = Performs one correctly Best Gaze 2: [0] = Normal Visual 3: [0] = No visual loss Facial Palsy 4: [0] = Normal symmetrical movements Motor Arm Left 5a: [0] = No drift Motor Arm Right 5b: [0] = No drift Motor Leg Left 6a: [2] = Some effort against gravity Motor Leg Right 6b: [2] = Some effort against gravity Limb Ataxia 7: [0] = Absent Sensory 8: [0] = Normal Best Language 9: [1] = [id number] aphasia Dysarthria 10: [1] = [id number]-[id number] dysarthria Extinction and Inattention 11: [0] = No abnormality NIHSS Total: 7 # Data Time Head CT personally read by me ([facility]): 11/24/2021, 01:[address]: no bleed per radiologist read # Assessment Impression: Ischemic Stroke (Acute) # Plan Thrombolytic/Intervention: IV thrombolytic and possible IA candidate Thrombolytic Dosing: IV alteplase 0.9 mg/kg, max dose 90 mg; 10% of dose given over 1 minute IVP, remaining 90% given as infusion over 1 hour Possible IA Candidate: CTA pending Time IV Thrombolytic Recommended ([facility]): 11/24/2021, 01:32 Thrombolytic Administration Recommendations: I reviewed the risks/benefits/alternatives of IV thrombolytic therapy with the patient. They understand there is potential of life threatening hemorrhage from IV thrombolysis. I stated that I believe benefits outweighs risk. They wish to proceed with IV thrombolytic therapy. I have collected independent history specific to time last normal or last known well. We have collaborated with the ED provider and at this time, we have the most current timeline with the information that is available. BP goal< 180/105 for 24hrs post Thrombolytic administration Use Labetolol 10-20mg IV prn or Nicardipine gtt to maintain BP parameters No antiplatelets or anticoagulants for next 24 hrs unless indicated for emergent IA procedure or other life threatening situation ICU admission Other: I have discussed my recommendations with the referring provider Additional Recommendations: If LVO present on CTA, would transfer for possible thrombectomy Disposition: admit # Logistics Telemedicine: Interactive 2 way audio and visual telecommunication technology was utilized during this visit Medications and Allergies Allergies Allergy/AdvReac Type Severity Reaction Status Date / Time No Known Allergies Allergy Verified 10/09/21 11:02 Home Medications Medication Instructions Recorded Confirmed Last Taken Type Bacitracin/Pramoxine/Aloe Vera 1 applicatio TP TID #1 tube 10/09/21 11/02/21 Unknown Rx [Bacitraycin Plus Ointment] Calc Carb/Vit D 500 mg-200 Uni 1 each PO DAILY #30 tablet 10/21/21 11/02/21 11/01/21 10:00 Rx [Oysco D 500 mg-200 Unit] Acetaminophen [Tylenol] 500 mg PO Q6H PRN 10/27/21 11/02/21 Unknown History Famotidine [Pepcid] 10 mg PO BID #60 tablet 11/12/21 Unknown Rx amLODIPine 10 mg PO DAILY #30 tab 11/12/21 Unknown Rx
[2021-11-23 21:36] LABS: Eosinophils # (Auto) 0.1 K/mm3 (0.0-0.4); Hemoglobin 8.5 gm/dl (11.8-15.2); Lymphocytes # (Auto) 0.4 K/mm3 (1.2-5.4); Lymphocytes % (Auto) 9.1 % (13.4-35.0); Mean Corpuscular HGB Conc 32 % (32-34); Mean Corpuscular Volume 84 fl (84-94); Monocytes # (Auto) 0.6 K/mm3 (0.0-0.8); Monocytes % (Auto) 12.6 % (0.0-7.3); Platelet Count 138 K/mm3 (140-440); Red Blood Count 3.23 M/mm3 (3.65-5.03); Red Cell Distribution Width 16.8 % (13.2-15.2)
[2021-11-23] MEDS ORDERED: ALTEPLASE 100 MG INJ KIT IV ONE ×2 (21:40)
[2021-11-23] MEDS ORDERED: SODIUM CHLORIDE 0.9% 50 ML IVPB IV ONE (21:40)
--- NOTE | 2021-11-23 21:44 | Cat Scan Report ---
CT cervical spine wo con INDICATION: neck pain. syncope. TECHNIQUE: Axial CT images of the cervical spine were obtained. Sagittal and coronal reformatted images were pro duced. All CT scans at this location are performed using CT dose reduction for ALARA by means of auto mated exposure control. COMPARISON: None available. FINDINGS: ALIGNMENT: Normal alignment. VERTEBRAE: No fracture. Vertebral body heights are preserved. C1 and C2 are congruent. SPONDYLOSIS: Mild spondylosis. SOFT TISSUES: No significant soft tissue abnormality. ADDITIONAL FINDINGS: Large bilateral pleural effusions. IMPRESSION: 1. No fracture of the cervical spine. 2. Large bilateral pleural effusions. Signer Name: Christiano Hernandez MD Signed: 11/23/2021 9:40 PM Workstation Name: [id number]
[2021-11-23 21:48] LABS: INR 0.96 (0.87-1.13); Thrombin Time 23.3 Sec. (15.1-19.6)
[2021-11-23 21:49] LABS: Partial Thromboplastin Time 39.4 Sec. (24.2-36.6)
--- NOTE | 2021-11-23 21:52 | XRay Report ---
CHEST 1 VIEW 11/23/2021 9:30 PM INDICATION / CLINICAL INFORMATION: syncope. COMPARISON: 11/12/2021 FINDINGS: SUPPORT DEVICES: Permacath has been placed from a right internal jugular approach. The catheter tip p rojects the level the right atrium. HEART / MEDIASTINUM: No significant abnormality. LUNGS / PLEURA: There is perihilar edema. There are small right pleural effusion. No pneumothorax. ADDITIONAL FINDINGS: No significant additional findings. IMPRESSION: 1. Permacath tip projects the level the right atrium. There is bilateral perihilar edema. There is a small right pleural effusion. Signer Name: Hong Perez MD Signed: 11/23/2021 9:47 PM Workstation Name: [id number]
[2021-11-23 22:14] LABS: Creatine Kinase MB 5.7 ng/mL (0.0-4.0)
[2021-11-23 22:15] LABS: Blood Urea Nitrogen 73 mg/dL (9-20); Calcium 8.3 mg/dL (8.4-10.2); Hemolysis Index 4
[2021-11-23 22:17] LABS: Alanine Aminotransferase < 5 units/L (7-56); BUN/Creatinine Ratio 4
--- NOTE | 2021-11-24 00:37 | Cat Scan Report ---
CT angio head, CT angio head, CT angio neck HISTORY: weakness COMPARISON: None. TECHNIQUE: CTA of the neck and head is performed after IV contrast. 3-D/MIP reformats were postproces sed. Percentage stenosis is determined by direct quantitative measurements of diseased internal salvador tid artery diameter compared with normal distal internal carotid artery reference segments or by crit eria similar to NASCET where applicable. All CT scans at this location are performed using CT dose re duction for ALARA by means of automated exposure control. FINDINGS: CTA NECK: Aortic arch: No significant abnormality. Cervical vertebral arteries: No occlusion or hemodynamically significant stenosis. Common Carotid arteries: No occlusion or hemodynamically significant stenosis. Internal carotid arteries: No occlusion or hemodynamically significant stenosis. CTA HEAD: Intracranial internal carotid arteries: No occlusion or significant stenosis. Anterior cerebral arteries: No occlusion or significant stenosis. Middle cerebral arteries: No occlusion or significant stenosis. Intracranial vertebral arteries: No occlusion or significant stenosis. Basilar artery: No occlusion or significant stenosis. Posterior cerebral arteries: No occlusion or significant stenosis. No aneurysm. Additional findings: Large bilateral pleural effusions. IMPRESSION: 1. CTA NECK: No occlusion or significant stenosis of the carotid or vertebral arteries. 2. CTA HEAD: No occlusion or significant stenosis of the major intracranial vasculature. 3. Large bilateral pleural effusions. Signer Name: Christiano Hernandez MD Signed: 11/24/2021 12:33 AM Workstation Name: [id number]
[2021-11-24] MEDS ORDERED: ALBUTEROL 2.5 MG/3 ML NEBU IH PRN (01:02)
[2021-11-24] MEDS ORDERED: MORPHINE 2 MG/1 ML INJ IV PRN (01:02)
[2021-11-24] MEDS ORDERED: MORPHINE 4 MG/1 ML INJ IV PRN (01:02)
[2021-11-24] MEDS ORDERED: ONDANSETRON 4 MG/2 ML INJ IV PRN (01:02)
--- NOTE | 2021-11-24 01:14 | History and Physical Report ---
History of Present Illness Date of examination: 11/24/21 Date of admission: 11/24/21 Chief complaint: Left upper and lower extremity weakness History of present illness: 61-year-old male past medical history of hypertension, congestive heart failure, ESRD on hemodialysis, noninsulin-dependent type 2 diabetes mellitus, HIV (currently not on antiretrovirals/HAART), multiple sclerosis, and sciatica was brought to the emergency room for left-sided weakness after syncopal episode and fall. Patient states when he woke up he was unable to move his left upper extremity and he had left lower extremity weakness. Patient's last known well time was 30 minutes prior to arrival. Patient denies chest pain. Patient denies shortness of breath. Patient hit his head and the back of his neck when falling. Patient had an unknown amount of time of downtime with a syncopal episode. Patient brought in by EMS. Code stroke initiated prior to arrival by EMS. Patient taken directly to CT scan of the head. Patient will have a CT of the head and neck at the same time. Patient CT of the head was negative. Patient's neck CT was negative. Patient arrived from EMS with a c-collar in the c-collar removed once the C- spine was cleared by CT scan. Patient had labs which were significant for end- stage renal disease and anemia. Patient had elevated troponin which is consistent with end-stage renal disease. Neurology saw the patient immediately after the CT was resulted. Neurology recommended tPA. Patient was given tPA in accordance with the tPA protocol of a bolus and a drip. Patient then had a CTA of the head and neck. CTA of the head and neck were negative for large vessel occlusions. Nephrology consulted. ICU mechanic's assistant consulted. Patient admitted to the hospital service for further evaluation and treatment. Past History Past Medical History: diabetes, ESRD, heart failure, HIV/AIDS, hypertension, renal failure, other (MS, Sciatica) Past Surgical History: Other (Right chest Vas-Cath, back surgery) Social history: smoking Family history: hypertension Medications and Allergies Allergies Allergy/AdvReac Type Severity Reaction Status Date / Time No Known Allergies Allergy Verified 10/09/21 11:02 Home Medications Medication Instructions Recorded Confirmed Last Taken Type Bacitracin/Pramoxine/Aloe Vera 1 applicatio TP TID #1 tube 10/09/21 11/02/21 Unknown Rx [Bacitraycin Plus Ointment] Calc Carb/Vit D 500 mg-200 Uni 1 each PO DAILY #30 tablet 10/21/21 11/02/21 11/01/21 10:00 Rx [Oysco D 500 mg-200 Unit] Acetaminophen [Tylenol] 500 mg PO Q6H PRN 10/27/21 11/02/21 Unknown History Famotidine [Pepcid] 10 mg PO BID #60 tablet 11/12/21 Unknown Rx amLODIPine 10 mg PO DAILY #30 tab 11/12/21 Unknown Rx Active Meds: Active Medications Acetaminophen (Acetaminophen 325 Mg Tab) 650 mg PO Q4H PRN PRN Reason: Pain MILD(1-3)/Fever >100.5/RACHEL Albuterol (Albuterol 2.5 Mg/3 Ml Nebu) 2.5 mg IH Q3HRT PRN PRN Reason: Shortness Of Breath Albuterol/Ipratropium (Ipratropium/Albuterol Sulfate 3 Ml Ampul.Neb) 1 ampul IH Q6HRT [facility] Amlodipine Besylate (Amlodipine 10 Mg Tab) 10 mg PO DAILY [facility] Atorvastatin Calcium (Atorvastatin 40 Mg Tab) 40 mg PO QHS [facility] Dextrose (Dextrose 50% In Water (25gm) 50 Ml Syringe) 50 ml IV Q30MIN PRN; Protocol PRN Reason: Hypoglycemia Famotidine (Famotidine 20 Mg/2 Ml Inj) 20 mg IV BID [facility] Insulin Human Lispro (Insulin Lispro 100 Unit/Ml) 0 unit SUB-Q Q6HR [facility]; Protocol Labetalol HCl (Labetalol 20 Mg/4 Ml Inj) 10 mg IV Q5MIN PRN PRN Reason: to maintain SBP < 180 Miscellaneous Medication (Bacitracin/Pramoxine/Aloe Vera [Bacitraycin Plus Ointment]) 1 applicatio TP TID [facility] Morphine Sulfate (Morphine 2 Mg/1 Ml Inj) 2 mg IV Q4H PRN PRN Reason: Pain, Moderate (4-6) Morphine Sulfate (Morphine 4 Mg/1 Ml Inj) 4 mg IV Q4H PRN PRN Reason: Pain , Severe (7-10) Ondansetron HCl (Ondansetron 4 Mg/2 Ml Inj) 4 mg IV Q8H PRN PRN Reason: Nausea And Vomiting Sodium Chloride (Sodium Chloride 0.9% 10 Ml Flush Syringe) 10 ml IV BID [facility] Sodium Chloride (Sodium Chloride 0.9% 10 Ml Flush Syringe) 10 ml IV PRN PRN PRN Reason: LINE FLUSH Sodium Chloride (Sodium Chloride 0.9% 10 Ml Flush Syringe) 10 ml INJ PRN PRN PRN Reason: LINE FLUSH Review of Systems All systems: negative Constitutional: weakness, other (Syncopal episode, fall) Cardiovascular: syncope Neurological: weakness Exam - Constitutional Vitals: Temp Pulse Resp BP Pulse Ox 98 F 90 13 128/80 92 11/23/21 21:38 11/24/21 00:15 11/24/21 00:15 11/23/21 23:45 11/24/21 00:15 General appearance: Present: no acute distress, well-nourished - EENT Eyes: Present: PERRL ENT: hearing intact, clear oral mucosa - Neck Neck: Present: supple, normal ROM - Respiratory Respiratory effort: normal Respiratory: bilateral: diminished - Cardiovascular Heart Sounds: Present: S1 & S2. Absent: rub, click - Extremities Extremities: pulses symmetrical, No edema Peripheral Pulses: within normal limits - Abdominal General gastrointestinal: Present: soft, non-tender, non-distended, normal bowel sounds Male genitourinary: Present: normal - Integumentary Integumentary: Present: clear, warm, dry - Musculoskeletal Musculoskeletal: gait normal, strength equal bilaterally - Psychiatric Psychiatric: appropriate mood/affect, intact judgment & insight - Neurologic Neurologic: CNII-XII intact, other (Left upper and lower extremity weakness) HEART Score - HEART Score Troponin: Troponin T 0.344 ng/mL (0.00-0.029) H* 11/23/21 21:29 Results - Labs CBC & Chem 7: 11/23/21 21:29 11/23/21 21:29 Labs: Laboratory Last Values WBC 4.8 K/mm3 (4.5-11.0) 11/23/21 21:29 RBC 3.23 M/mm3 (3.65-5.03) L 11/23/21 21:29 Hgb 8.5 gm/dl (11.8-15.2) L 11/23/21 21: Hct 27.0 % (35.5-45.6) L 11/23/21 21: MCV 84 fl (84-94) 11/23/21 21: MCH 26 pg (28-32) L 11/23/21 21: MCHC 32 % (32-34) 11/23/21: RDW 16.8 % (13.2-15.2) H 11/23/21 21: Plt Count 138 K/mm3 (140-440) L 11/23/21: Lymph % (Auto) 9.1 % (13.4-35.0) L 11/23/21: [place] % (Auto) 12.6 % (0.0-7.3) H 11/23/21: Eos % (Auto) 3.0 % (0.0-4.3) 11/23/21: Baso % (Auto) 1.0 % (0.0-1.8) 11/23/21: Lymph # (Auto) 0.4 K/mm3 (1.2-5.4) L 11/23/21: [place] # (Auto) 0.6 K/mm3 (0.0-0.8) 11/23/21: Eos # (Auto) 0.1 K/mm3 (0.0-0.4) 11/23/21: Baso # (Auto) 0.0 K/mm3 (0.0-0.1) 11/23/21: Seg Neutrophils % 74.3 % (40.0-70.0) H 11/23/21: Seg Neutrophils # 3.6 K/mm3 (1.8-7.7) 11/23/21: PT 13.8 Sec. (12.2-14.9) 11/23/21: INR 0.96 (0.87-1.13) 11/23/21: APTT 39.4 Sec. (24.2-36.6) H 11/23/21: Thrombin Time 23.3 Sec. (15.1-19.6) H 11/23/21: Sodium 137 mmol/L (137-145) 11/23/21: Potassium 5.1 mmol/L (3.6-5.0) H 11/23/21: Chloride 94.9 mmol/L (98-107) L 11/23/21 21:29 Carbon Dioxide 16 mmol/L (22-30) L 11/23/21 21:29 Anion Gap 31 mmol/L 11/23/21 21:29 BUN 73 mg/dL (9-20) H 11/23/21 21:29 Creatinine 19.8 mg/dL (0.8-1.3) H 11/23/21 21:29 Estimated GFR 3 ml/min 11/23/21 21:29 BUN/Creatinine Ratio 4 % 11/23/21 21:29 Glucose 94 mg/dL (75-100) 11/23/21 21:29 Calcium 8.3 mg/dL (8.4-10.2) L 11/23/21 21: Total Bilirubin 0.20 mg/dL (0.1-1.2) 11/23/21 21: AST 17 units/L (5-40) 11/23/21 21: ALT < 5 units/L (7-56) L 11/23/21 21:29 Alkaline Phosphatase 80 units/L (35-129) 11/23/21 21:29 Total Creatine Kinase 145 units/L (55-170) 11/23/21 21:29 CK-MB (CK-2) 5.7 ng/mL (0.0-4.0) H 11/23/21 21: CK-MB (CK-2) Rel Index 3.9 (0-4) 11/23/21 21:29 Troponin T 0.344 ng/mL (0.00-0.029) H* 11/23/21 21:29 Total Protein 8.4 g/dL (6.3-8.2) H 11/23/21 21:29 Albumin 3.0 g/dL (3.9-5) L 11/23/21 21: Albumin/Globulin Ratio 0.6 % 11/23/21 21: Plasma/Serum Alcohol < 0.01 % (0-0.07) 11/23/21 21:29 - Imaging and Cardiology Chest x-ray: report reviewed CT Scan - head: report reviewed Assessment and Plan VTE prophylaxis?: Mechanical Plan of care discussed with patient/family: Yes - Patient Problems (1) CVA (cerebral vascular accident) Current Visit: Yes Status: Acute Plan to address problem: Admit the patient to the critical care unit. Patient is status post tPA. Patient is seen and evaluated by telemetry neurology. We cannot do MRI of the brain and MRA of the brain and neck with and without contrast. Echocardiogram. Consult neurology in the morning for further evaluation, We also repeat CT scan of the head now because patient complained of increasing headache status post tPA. (2) Diabetes Current Visit: Yes Status: Acute Plan to address problem: Accu-Chek every 6 hours with Humalog moderate dose coverage. Diabetic education (3) Syncope Current Visit: Yes Status: Acute Qualifiers: Syncope type: unspecified Qualified Code(s): R55 - Syncope and collapse Plan to address problem: Patient is a status post tPA. We do the serial cardiac enzyme. We also do echocardiogram. Will consult cardiology for evaluation (4) Congestive heart failure Current Visit: Yes Status: Acute Plan to address problem: Stable. We will continue the home medication (5) HIV (human immunodeficiency virus infection) Current Visit: Yes Status: Acute Plan to address problem: Will continue the home medication. Outpatient follow-up with infectious disease (6) End stage renal disease Current Visit: No Status: Acute Plan to address problem: Patient is an end-stage renal disease on hemodialysis. Will consult nephrology for hemodialysis in the morning. BMP in the morning (7) Hypertension Current Visit: No Status: Chronic Qualifiers: Hypertension type: primary hypertension Qualified Code(s): I10 - Essential (primary) hypertension Plan to address problem: Labetalol 10 mg IV every 5 minutes as needed. We continue the home medication (8) DVT prophylaxis Current Visit: No Status: Acute Plan to address problem: SCD for DVT prophylaxis. Pepcid 20 mg IV every 12 hours for GI prophylaxis. Patient is a full code
--- NOTE | 2021-11-24 02:46 | Cat Scan Report ---
CT HEAD WITHOUT CONTRAST INDICATION / CLINICAL INFORMATION: Rule out bleeding. Headache, change in neuro status TECHNIQUE: All CT scans at this location are performed using CT dose reduction for ALARA by means of automated e xposure control. COMPARISON: 11/23/2021 FINDINGS: HEMORRHAGE: None. EXTRA-AXIAL SPACES: Normal in size and morphology for the patient's age. VENTRICULAR SYSTEM: Normal in size and morphology for the patient's age. CEREBRAL PARENCHYMA: No significant abnormality. No acute territorial infarct. MIDLINE SHIFT OR HERNIATION: None. CEREBELLUM / BRAINSTEM: No significant abnormality. ORBITS: Normal as visualized. SOFT TISSUES of HEAD: No significant abnormality. CALVARIUM: No significant abnormality. PARANASAL SINUSES / MASTOID AIR CELLS: Normal as visualized. ADDITIONAL FINDINGS: None. IMPRESSION: 1. No acute intracranial abnormality. Signer Name: Sotero Herbert MD Signed: 11/24/2021 2:42 AM Workstation Name: [id number]
[2021-11-24 03:55] LABS: HDL Cholesterol 31 mg/dL (40-59); LDL Cholesterol,Direct 100 mg/dL (50-130)
[2021-11-24] MEDS: INSULIN LISPRO 100 UNIT/ML SUB-Q SCH ×3 (07:38→17:51)
[2021-11-24] MEDS ORDERED: [UNRECOGNIZED DRUG - OTHER] TP SCH (08:00)
[2021-11-24] MEDS ORDERED: BACITRACIN TP SCH (08:00)
[2021-11-24] MEDS ORDERED: ALOE VERA TP SCH (08:00)
[2021-11-24] MEDS ORDERED: PRAMOXINE TP SCH (08:00)
[2021-11-24] MEDS: amLODIPine 10 MG TAB PO SCH ×2 (09:42→15:53)
[2021-11-24] MEDS: FAMOTIDINE 20 MG/2 ML INJ IV SCH (09:44)
[2021-11-24] MEDS ORDERED: SODIUM CHLORIDE 0.9% 100 ML IV PRN (09:55)
--- NOTE | 2021-11-24 09:56 | Consultation ---
History of Present Illness - Reason for Consult Consult date: 11/24/21 end stage renal disease - History of Present Illness RFC: ESRD on HD HPI: This is a 61-year-old male with ESRD on HD, HIV, hypertension, CHF, DM, multiple sclerosis and sciatica admitted with left-sided weakness after syncopal episode and fall. Pt does not have outpatient HD unit. ROS: As in HPI otherwise 12 point review of systems -ve Past History Past Medical History: diabetes, ESRD, heart failure, HIV/AIDS, hypertension, renal failure, other (MS, Sciatica) Past Surgical History: Other (Right chest Vas-Cath, back surgery) Social history: smoking Family history: hypertension Medications and Allergies Allergies Allergy/AdvReac Type Severity Reaction Status Date / Time No Known Allergies Allergy Verified 10/09/21 11:02 Home Medications Medication Instructions Recorded Confirmed Last Taken Type Bacitracin/Pramoxine/Aloe Vera 1 applicatio TP TID #1 tube 10/09/21 11/02/21 Unknown Rx [Bacitraycin Plus Ointment] Calc Carb/Vit D 500 mg-200 Uni 1 each PO DAILY #30 tablet 10/21/21 11/02/21 11/01/21 10:00 Rx [Oysco D 500 mg-200 Unit] Acetaminophen [Tylenol] 500 mg PO Q6H PRN 10/27/21 11/02/21 Unknown History Famotidine [Pepcid] 10 mg PO BID #60 tablet 11/12/21 Unknown Rx amLODIPine 10 mg PO DAILY #30 tab 11/12/21 Unknown Rx Active Meds: Active Medications Acetaminophen (Acetaminophen 325 Mg Tab) 650 mg PO Q4H PRN PRN Reason: Pain MILD(1-3)/Fever >100.5/RACHEL Albuterol (Albuterol 2.5 Mg/3 Ml Nebu) 2.5 mg IH Q3HRT PRN PRN Reason: Shortness Of Breath Albuterol/Ipratropium (Ipratropium/Albuterol Sulfate 3 Ml Ampul.Neb) 1 ampul IH Q6HRT [facility] Amlodipine Besylate (Amlodipine 10 Mg Tab) 10 mg PO DAILY [facility] Last Admin: 11/24/21 09:42 Dose: Not Given Atorvastatin Calcium (Atorvastatin 40 Mg Tab) 40 mg PO QHS [facility] Dextrose (Dextrose 50% In Water (25gm) 50 Ml Syringe) 50 ml IV Q30MIN PRN; Protocol PRN Reason: Hypoglycemia Famotidine (Famotidine 20 Mg/2 Ml Inj) 20 mg IV DAILY [facility] Last Admin: 11/24/21 09:44 Dose: Not Given Insulin Human Lispro (Insulin Lispro 100 Unit/Ml) 0 unit SUB-Q Q6HR [facility]; Protocol Last Admin: 11/24/21 07:38 Dose: Not Given Labetalol HCl (Labetalol 20 Mg/4 Ml Inj) 10 mg IV Q5MIN PRN PRN Reason: to maintain SBP < 180 Morphine Sulfate (Morphine 2 Mg/1 Ml Inj) 2 mg IV Q4H PRN PRN Reason: Pain, Moderate (4-6) Morphine Sulfate (Morphine 4 Mg/1 Ml Inj) 4 mg IV Q4H PRN PRN Reason: Pain , Severe (7-10) Ondansetron HCl (Ondansetron 4 Mg/2 Ml Inj) 4 mg IV Q8H PRN PRN Reason: Nausea And Vomiting Sodium Chloride (Sodium Chloride 0.9% 10 Ml Flush Syringe) 10 ml IV BID [facility] Last Admin: 11/24/21 09:42 Dose: 10 ml Sodium Chloride (Sodium Chloride 0.9% 10 Ml Flush Syringe) 10 ml IV PRN PRN PRN Reason: LINE FLUSH Exam - Vital Signs Vital signs: Vital Signs Temp Pulse Resp BP Pulse Ox 98 F 103 H 18 158/98 100 11/23/21 21:38 11/23/21 21:38 11/23/21 21:38 11/23/21 21:38 11/23/21 21:38 - Physical Exam Narrative exam: General appearance: Present: no acute distress, well-nourished - EENT Eyes: Present: PERRL ENT: hearing intact, clear oral mucosa - Neck Neck: Present: supple, normal ROM - Respiratory Respiratory effort: normal Respiratory: bilateral: diminished - Cardiovascular Heart Sounds: Present: S1 & S2. Absent: rub, click - Extremities Extremities: pulses symmetrical, No edema Peripheral Pulses: within normal limits - Abdominal General gastrointestinal: Present: soft, non-tender, non-distended, normal bowel sounds Male genitourinary: Present: normal - Integumentary Integumentary: Present: clear, warm, dry - Musculoskeletal Musculoskeletal: gait normal, strength equal bilaterally - Psychiatric Psychiatric: appropriate mood/affect, intact judgment & insight - Neurologic Neurologic: CNII-XII intact, other (Left upper and lower extremity weakness) Results - Lab Results 11/24/21 09:37 11/24/21 09:37 Most recent lab results Calcium 8.3 mg/dL (8.4-10.2) L 11/23/21 21:29 Assessment and Plan (1) CVA (cerebral vascular accident) (2) Diabetes (3) Syncope (4) Congestive heart failure (5) HIV (human immunodeficiency virus infection) (6) End stage renal disease (7) Hypertension -HD today -Eval for HD need daily -Low K diet -Does not have OP HD unit -Strict I/Os -Follow MRI brain
[2021-11-24] MEDS ORDERED: FAMOTIDINE 20 MG/2 ML INJ IV SCH (10:00)
[2021-11-24 10:12] LABS: Hematocrit 23.3 % (35.5-45.6); Hemoglobin 7.4 gm/dl (11.8-15.2); Mean Corpuscular HGB Conc 32 % (32-34); Mean Corpuscular Volume 84 fl (84-94); Platelet Count 122 K/mm3 (140-440); Red Blood Count 2.79 M/mm3 (3.65-5.03); Red Cell Distribution Width 16.5 % (13.2-15.2)
[2021-11-24 10:27] LABS: Calcium 7.8 mg/dL (8.4-10.2)
[2021-11-24] MEDS: IPRATROPIUM/ALBUTEROL SULFATE 3 ML AMPUL.NEB IH SCH ×4 (11:33→20:28)
--- NOTE | 2021-11-24 13:41 | Consultation ---
History of Present Illness Consult date: 11/24/21 Consult reason: elevated troponin History of present illness: Echo 03/2021 - technically difficult study, EF 60-65%, grade I diastolic dysfunction, no significant valvular abnormalities Past History Past Medical History: diabetes, ESRD, heart failure, HIV/AIDS, hypertension, renal failure, other (MS, Sciatica) Past Surgical History: Other (Right chest Vas-Cath, back surgery) Social history: smoking Family history: hypertension Medications and Allergies Allergies Allergy/AdvReac Type Severity Reaction Status Date / Time No Known Allergies Allergy Verified 10/09/21 11:02 Home Medications Medication Instructions Recorded Confirmed Last Taken Type Bacitracin/Pramoxine/Aloe Vera 1 applicatio TP TID #1 tube 10/09/21 11/02/21 Unknown Rx [Bacitraycin Plus Ointment] Calc Carb/Vit D 500 mg-200 Uni 1 each PO DAILY #30 tablet 10/21/21 11/02/21 11/01/21 10:00 Rx [Oysco D 500 mg-200 Unit] Acetaminophen [Tylenol] 500 mg PO Q6H PRN 10/27/21 11/02/21 Unknown History Famotidine [Pepcid] 10 mg PO BID #60 tablet 11/12/21 Unknown Rx amLODIPine 10 mg PO DAILY #30 tab 11/12/21 Unknown Rx Active Meds: Active Medications Acetaminophen (Acetaminophen 325 Mg Tab) 650 mg PO Q4H PRN PRN Reason: Pain MILD(1-3)/Fever >100.5/RACHEL Albuterol (Albuterol 2.5 Mg/3 Ml Nebu) 2.5 mg IH Q3HRT PRN PRN Reason: Shortness Of Breath Albuterol/Ipratropium (Ipratropium/Albuterol Sulfate 3 Ml Ampul.Neb) 1 ampul IH Q6HRT [facility] Last Admin: 11/24/21 11:34 Dose: Not Given Amlodipine Besylate (Amlodipine 10 Mg Tab) 10 mg PO DAILY [facility] Last Admin: 11/24/21 09:42 Dose: Not Given Atorvastatin Calcium (Atorvastatin 40 Mg Tab) 40 mg PO QHS [facility] Dextrose (Dextrose 50% In Water (25gm) 50 Ml Syringe) 50 ml IV Q30MIN PRN; Protocol PRN Reason: Hypoglycemia Famotidine (Famotidine 20 Mg/2 Ml Inj) 20 mg IV DAILY [facility] Last Admin: 11/24/21 09:44 Dose: Not Given Sodium Chloride (Nacl 0.9%) 100 mls @ 999 mls/hr [place] PRN PRN Reason: Hypotension Insulin Human Lispro (Insulin Lispro 100 Unit/Ml) 0 unit SUB-Q Q6HR [facility]; Protocol Last Admin: 11/24/21 11:53 Dose: Not Given Labetalol HCl (Labetalol 20 Mg/4 Ml Inj) 10 mg IV Q5MIN PRN PRN Reason: to maintain SBP < 180 Morphine Sulfate (Morphine 2 Mg/1 Ml Inj) 2 mg IV Q4H PRN PRN Reason: Pain, Moderate (4-6) Morphine Sulfate (Morphine 4 Mg/1 Ml Inj) 4 mg IV Q4H PRN PRN Reason: Pain , Severe (7-10) Ondansetron HCl (Ondansetron 4 Mg/2 Ml Inj) 4 mg IV Q8H PRN PRN Reason: Nausea And Vomiting Sodium Chloride (Sodium Chloride 0.9% 10 Ml Flush Syringe) 10 ml IV BID [facility] Last Admin: 11/24/21 09:42 Dose: 10 ml Sodium Chloride (Sodium Chloride 0.9% 10 Ml Flush Syringe) 10 ml IV PRN PRN PRN Reason: LINE FLUSH Physical Examination Vital Signs Temp Pulse Resp BP Pulse Ox 98 F 103 H 18 158/98 100 11/23/21 21:38 11/23/21 21:38 11/23/21 21:38 11/23/21 21:38 11/23/21 21:38 Results 11/24/21 09:37 11/24/21 09:37 Cardiac Enzymes 11/23/21 Range/Units 21:29 AST 17 (5-40) units/L CK-MB (CK-2) 5.7 H (0.0-4.0) ng/mL Coagulation 11/23/21 Range/Units 21:29 PT 13.8 (12.2-14.9) Sec. INR 0.96 (0.87-1.13) APTT 39.4 H (24.2-36.6) Sec. Lipids 11/23/21 Range/Units 21:29 Triglycerides 177 H (2-149) mg/dL Cholesterol 180 (50-199) mg/dL HDL Cholesterol 31 L (40-59) mg/dL Cholesterol/HDL Ratio 5.80 % CBC 11/23/21 11/24/21 Range/Units 21:29 09:37 WBC 4.8 4.5 (4.5-11.0) K/mm3 RBC 3.23 L 2.79 L (3.65-5.03) M/mm3 Hgb 8.5 L 7.4 L (11.8-15.2) gm/dl Hct 27.0 L 23.3 L (35.5-45.6) % Plt Count 138 L 122 L (140-440) K/mm3 Lymph # (Auto) 0.4 L (1.2-5.4) K/mm3 [place] # (Auto) 0.6 (0.0-0.8) K/mm3 Eos # (Auto) 0.1 (0.0-0.4) K/mm3 Baso # (Auto) 0.0 (0.0-0.1) K/mm3 Comprehensive Metabolic Panel 11/23/21 11/24/21 Range/Units 21:29 09:37 Sodium 137 137 (137-145) mmol/L Potassium 5.1 H 5.8 H (3.6-5.0) mmol/L Chloride 94.9 L 99.0 (98-107) mmol/L Carbon Dioxide 16 L 17 L (22-30) mmol/L BUN 73 H 77 H (9-20) mg/dL Creatinine 19.8 H 21.9 H (0.8-1.3) mg/dL Glucose 94 79 (75-100) mg/dL Calcium 8.3 L 7.8 L (8.4-10.2) mg/dL AST 17 (5-40) units/L ALT < 5 L (7-56) units/L Alkaline Phosphatase 80 (35-129) units/L Total Protein 8.4 H (6.3-8.2) g/dL Albumin 3.0 L (3.9-5) g/dL
--- NOTE | 2021-11-24 13:47 | Consultation ---
History of Present Illness - Reason for Consult Consult date: 11/24/21 Stroke s/p TPA - History of Present Illness 61 y/o male with known ESRD on HD admitted with stroke like symptoms. S/p TPA with resolution of some symptoms. Remainder is negative. Currently undergoing HD. Past History Past Medical History: diabetes, ESRD, heart failure, HIV/AIDS, hypertension, renal failure, other (MS, Sciatica) Past Surgical History: Other (Right chest Vas-Cath, back surgery) Social history: smoking Family history: hypertension Medications and Allergies Allergies Allergy/AdvReac Type Severity Reaction Status Date / Time No Known Allergies Allergy Verified 10/09/21 11:02 Home Medications Medication Instructions Recorded Confirmed Last Taken Type Bacitracin/Pramoxine/Aloe Vera 1 applicatio TP TID #1 tube 10/09/21 11/02/21 Unknown Rx [Bacitraycin Plus Ointment] Calc Carb/Vit D 500 mg-200 Uni 1 each PO DAILY #30 tablet 10/21/21 11/02/21 11/01/21 10:00 Rx [Oysco D 500 mg-200 Unit] Acetaminophen [Tylenol] 500 mg PO Q6H PRN 10/27/21 11/02/21 Unknown History Famotidine [Pepcid] 10 mg PO BID #60 tablet 11/12/21 Unknown Rx amLODIPine 10 mg PO DAILY #30 tab 11/12/21 Unknown Rx Active Meds: Active Medications Acetaminophen (Acetaminophen 325 Mg Tab) 650 mg PO Q4H PRN PRN Reason: Pain MILD(1-3)/Fever >100.5/RACHEL Albuterol (Albuterol 2.5 Mg/3 Ml Nebu) 2.5 mg IH Q3HRT PRN PRN Reason: Shortness Of Breath Albuterol/Ipratropium (Ipratropium/Albuterol Sulfate 3 Ml Ampul.Neb) 1 ampul IH Q6HRT [facility] Last Admin: 11/24/21 11:34 Dose: Not Given Amlodipine Besylate (Amlodipine 10 Mg Tab) 10 mg PO DAILY [facility] Last Admin: 11/24/21 09:42 Dose: Not Given Atorvastatin Calcium (Atorvastatin 40 Mg Tab) 40 mg PO QHS [facility] Dextrose (Dextrose 50% In Water (25gm) 50 Ml Syringe) 50 ml IV Q30MIN PRN; Protocol PRN Reason: Hypoglycemia Famotidine (Famotidine 20 Mg/2 Ml Inj) 20 mg IV DAILY [facility] Last Admin: 11/24/21 09:44 Dose: Not Given Sodium Chloride (Nacl 0.9%) 100 mls @ 999 mls/hr [facility] PRN PRN Reason: Hypotension Insulin Human Lispro (Insulin Lispro 100 Unit/Ml) 0 unit SUB-Q Q6HR [facility]; Protocol Last Admin: 11/24/21 11:53 Dose: Not Given Labetalol HCl (Labetalol 20 Mg/4 Ml Inj) 10 mg IV Q5MIN PRN PRN Reason: to maintain SBP < 180 Morphine Sulfate (Morphine 2 Mg/1 Ml Inj) 2 mg IV Q4H PRN PRN Reason: Pain, Moderate (4-6) Morphine Sulfate (Morphine 4 Mg/1 Ml Inj) 4 mg IV Q4H PRN PRN Reason: Pain , Severe (7-10) Ondansetron HCl (Ondansetron 4 Mg/2 Ml Inj) 4 mg IV Q8H PRN PRN Reason: Nausea And Vomiting Sodium Chloride (Sodium Chloride 0.9% 10 Ml Flush Syringe) 10 ml IV BID [facility] Last Admin: 11/24/21 09:42 Dose: 10 ml Sodium Chloride (Sodium Chloride 0.9% 10 Ml Flush Syringe) 10 ml IV PRN PRN PRN Reason: LINE FLUSH Exam - Constitutional Vitals: Temp Pulse Resp BP Pulse Ox 98.9 F 99 H 25 H 122/79 98 11/24/21 11:52 11/24/21 13:30 11/24/21 13:15 11/24/21 13:30 11/24/21 13:15 Results - Labs CBC & Chem 7: 11/25/21 07:27 11/25/21 07:27 Labs: Abnormal lab results 11/23/21 11/23/21 11/23/21 Range/Units 21:29 21:29 21:29 RBC 3.23 L (3.65-5.03) M/mm3 Hgb 8.5 L (11.8-15.2) gm/dl Hct 27.0 L (35.5-45.6) % MCH 26 L (28-32) pg RDW 16.8 H (13.2-15.2) % Plt Count 138 L (140-440) K/mm3 Lymph % (Auto) 9.1 L (13.4-35.0) % [place] % (Auto) 12.6 H (0.0-7.3) % Lymph # (Auto) 0.4 L (1.2-5.4) K/mm3 Seg Neutrophils % 74.3 H (40.0-70.0) % APTT 39.4 H (24.2-36.6) Sec. Thrombin Time 23.3 H (15.1-19.6) Sec. Potassium 5.1 H (3.6-5.0) mmol/L Chloride 94.9 L (98-107) mmol/L Carbon Dioxide 16 L (22-30) mmol/L BUN 73 H (9-20) mg/dL Creatinine 19.8 H (0.8-1.3) mg/dL Calcium 8.3 L (8.4-10.2) mg/dL ALT < 5 L (7-56) units/L CK-MB (CK-2) 5.7 H (0.0-4.0) ng/mL Troponin T 0.344 H* (0.00-0.029) ng/mL Total Protein 8.4 H (6.3-8.2) g/dL Albumin 3.0 L (3.9-5) g/dL Triglycerides 177 H (2-149) mg/dL HDL Cholesterol 31 L (40-59) mg/dL 11/24/21 11/24/21 Range/Units 09:37 09:37 RBC 2.79 L (3.65-5.03) M/mm3 Hgb 7.4 L (11.8-15.2) gm/dl Hct 23.3 L (35.5-45.6) % MCH 27 L (28-32) pg RDW 16.5 H (13.2-15.2) % Plt Count 122 L (140-440) K/mm3 Lymph % (Auto) (13.4-35.0) % [place] % (Auto) (0.0-7.3) % Lymph # (Auto) (1.2-5.4) K/mm3 Seg Neutrophils % (40.0-70.0) % APTT (24.2-36.6) Sec. Thrombin Time (15.1-19.6) Sec. Potassium 5.8 H (3.6-5.0) mmol/L Chloride (98-107) mmol/L Carbon Dioxide 17 L (22-30) mmol/L BUN 77 H (9-20) mg/dL Creatinine 21.9 H (0.8-1.3) mg/dL Calcium 7.8 L (8.4-10.2) mg/dL ALT (7-56) units/L CK-MB (CK-2) (0.0-4.0) ng/mL Troponin T (0.00-0.029) ng/mL Total Protein (6.3-8.2) g/dL Albumin (3.9-5) g/dL Triglycerides (2-149) mg/dL HDL Cholesterol (40-59) mg/dL Assessment and Plan 61 y/o on HD admitted with stroke 1. Stroke protocol, q1 hour neuro checks 2. BP control 3. HD per renal CCT 31 minutes
--- NOTE | 2021-11-24 15:30 | Event Note ---
<JAVIER ORDOENZ - Last Filed: 11/24/21 15:29> Date: 11/24/21 This is a 61-year-old male with ESRD on HD, HIV, hypertension, CHF, DM, multiple sclerosis and sciatica presented to emergency department on 11/24 via EMS with complaints of left-sided weakness after syncopal episode and fall with last known well time 30 minutes prior to arrival. Code stroke was initiated prior to arrival to the ED. In the emergency department patient received a CT head and neck which were both negative for acute events and patient c-collar was removed after C-spine clearance. Work-up showed elevated kidney function tests, elevated troponins, anemia and hyperkalemia. Teleneurology was consulted and patient received tPA CTA head/neck showed no large vessel occlusions. Patient was admitted to the hospitalist service with consults to neurology, nephrology and [facility]. Hospital course to date: 11/24: Patient receiving hemodialysis today, CT scan 24-hour post tPA scheduled for tonight. MR a/MRV head and MRI brain pending. Echocardiogram completed at bedside. Assessment and plan: This is a 61-year-old male with HTN, CHF, ESRD on HD, diabetes mellitus, HIV, multiple sclerosis and sciatica with medical noncompliance admitted for CVA s/p tPA administration Neuro: r/o CVA, medical noncompliance, h/o multiple sclerosis, sciatic nerve pain -[facility] 11/24 2100 -Admit NIHSS 7 -Telemetry neurology consulted who deemed patient candidate for tPA -S/p tPA -Neurology consulted, appreciate recommendations -CCM consulted, patient recommendations -Admit CT head without acute intracranial abnormality -CT C-spine shows no acute fracture of the cervical spine, large bilateral ple ural effusions -CTA head shows no occlusion or significant stenosis of major intracranial vasculature -CTA neck shows no occlusion or significant stenosis of carotid or vertebral vasculature -Repeat CT head shows no acute intracranial abnormality -MRI brain pending -MRA head pending -PT/OT/ST consulted -Bilateral carotid ultrasound pending -Start aspirin if CT head 24 hours post tPA negative -Lipid panel noted in chart -Statin -Aim for normotension and euglycemia Cardiac: Admitted with syncopal episode, h/o HTN, CHF -Blood pressure monitoring per protocol -Resume home amlodipine -Bilateral carotid ultrasound pending -Echocardiogram pending -Labetalol IV as needed Respiratory: Acute hypoxic respiratory failure, bilateral pleural effusions (likely secondary to volume overload) -CT imaging noted large bilateral pleural effusions -CXR showed small right pleural effusion -Supplemental oxygen as needed -Pulmonary hygiene -SPO2 monitoring per protocol GI: Dysphagia, moderate protein calorie malnutrition -ST evaluation pending -Failed bedside swallow -PPI -NTR consulted for tube feedings -BR: Colace : ESRD on HD, hyperkalemia, metabolic acidosis -Nephrology consulted, appreciate recommendations -HD per nephrology -Renally dose medications -Avoid nephrotoxic medications -Trend BMP ID: NAD -Monitor WBC and temperature curve Endo: h/o DM II -Avoid hypoglycemia -SSI -Accu-Cheks q6hr Heme: Anemia of chronic disease -Trend CBC -Transfuse hemoglobin less than 7 -SCDs to BLE while in bed -Heparin subcu The high probability of a clinically significant, sudden or life threatening deterioration of the [neuro/renal] system(s) required my full and direct attention, intervention and personal management. The aggregate critical care time was [60] minutes. This time is in addition to time spent performing re ported procedures but includes the following: [x] Data Review and interpretation [x] Patient assessment and monitoring of vital signs [x] Documentation [x] Medication orders and management <HELEN DAVID - Last Filed: 11/27/21 10:05> I saw and evaluated the patient. Discussed with the nurse practitioner and agree with their findings and plan as documented in this note.
[2021-11-24] MEDS ORDERED: SIMPLE SYRUP 15 ML FEEDTUBE PRN ×2 (15:34)
[2021-11-24] MEDS ORDERED: LIPASE 10,500/PROTEASE 25,000/AMYLASE 43,750 (UNITS) DR CAP FEEDTUBE PRN (15:34)
[2021-11-24] MEDS ORDERED: SODIUM BICARBONATE 325 MG TAB FEEDTUBE PRN (15:34)
--- NOTE | 2021-11-24 16:18 | Consultation ---
History of Present Illness Consult date: 11/24/21 Requesting physician: HA MITCHELL Consult reason: elevated troponin History of present illness: Pt is a 61-year-old male with a hx of ESRD on HD, Takotsubo CMP (dx August 2021), HTN, DM2, HIV/AIDs, ?MS (per chart review), and medical non-compliance who presented with complaints of neck pain after sustaining a fall. Pt reports left- sided upper and lower extremity weakness. Upon standing he briefly lost consciousness and fell. He does not recall any preceding dizziness, lightheadedness, or palpitations. When he fell, he hit his head and neck on the wall. Of note, pt is a poor historian. As such, majority of aforementioned HPI has been obtained from chart. Upon assessment today, all that he recalls is having an emotionally stressful phone call with his sister followed by an "out of body experience." He has no cardiac complaints whatsoever. Cardiology has been consulted for elevated troponin. Pt is previously unknown to our practice. He denies chest pain. ECG reveals no acute ischemic changes. Past History Past Medical History: diabetes, dialysis, ESRD, HIV/AIDS, hypertension, other (Takotsubo CMP, MS, Sciatica) Past Surgical History: Other (VasCath placement). denies: valve replacement, CABG, PTCA Social history: denies: smoking, alcohol abuse Family history: hypertension, other (CKD) Medications and Allergies Allergies Allergy/AdvReac Type Severity Reaction Status Date / Time No Known Allergies Allergy Verified 10/09/21 11:02 Home Medications Medication Instructions Recorded Confirmed Last Taken Type Bacitracin/Pramoxine/Aloe Vera 1 applicatio TP TID #1 tube 10/09/21 11/02/21 Unknown Rx [Bacitraycin Plus Ointment] Calc Carb/Vit D 500 mg-200 Uni 1 each PO DAILY #30 tablet 10/21/21 11/02/21 11/01/21 10:00 Rx [Oysco D 500 mg-200 Unit] Acetaminophen [Tylenol] 500 mg PO Q6H PRN 10/27/21 11/02/21 Unknown History Famotidine [Pepcid] 10 mg PO BID #60 tablet 11/12/21 Unknown Rx amLODIPine 10 mg PO DAILY #30 tab 11/12/21 Unknown Rx Active Meds: Active Medications Acetaminophen (Acetaminophen 325 Mg Tab) 650 mg PO Q4H PRN PRN Reason: Pain MILD(1-3)/Fever >100.5/RACHEL Albuterol (Albuterol 2.5 Mg/3 Ml Nebu) 2.5 mg IH Q3HRT PRN PRN Reason: Shortness Of Breath Albuterol/Ipratropium (Ipratropium/Albuterol Sulfate 3 Ml Ampul.Neb) 1 ampul IH Q6HRT [facility] Last Admin: 11/24/21 14:32 Dose: 1 ampul Amlodipine Besylate (Amlodipine 10 Mg Tab) 10 mg PO DAILY [facility] Last Admin: 11/24/21 15:53 Dose: 10 mg Atorvastatin Calcium (Atorvastatin 40 Mg Tab) 40 mg PO QHS [facility] Dextrose (Dextrose 50% In Water (25gm) 50 Ml Syringe) 50 ml IV Q30MIN PRN; Protocol PRN Reason: Hypoglycemia Docusate Sodium (Docusate Sodium 100 Mg/10 Ml Oral Liqd) 100 mg PO BID [facility] Famotidine (Famotidine 20 Mg/2 Ml Inj) 20 mg IV DAILY [facility] Last Admin: 11/24/21 09:44 Dose: Not Given Sodium Chloride (Nacl 0.9%) 100 mls @ 999 mls/hr [facility] PRN PRN Reason: Hypotension Insulin Human Lispro (Insulin Lispro 100 Unit/Ml) 0 unit SUB-Q Q6HR [facility]; Protocol Last Admin: 11/24/21 11:53 Dose: Not Given Labetalol HCl (Labetalol 20 Mg/4 Ml Inj) 10 mg IV Q5MIN PRN PRN Reason: to maintain SBP < 180 Morphine Sulfate (Morphine 2 Mg/1 Ml Inj) 2 mg IV Q4H PRN PRN Reason: Pain, Moderate (4-6) Morphine Sulfate (Morphine 4 Mg/1 Ml Inj) 4 mg IV Q4H PRN PRN Reason: Pain , Severe (7-10) Ondansetron HCl (Ondansetron 4 Mg/2 Ml Inj) 4 mg IV Q8H PRN PRN Reason: Nausea And Vomiting Sodium Chloride (Sodium Chloride 0.9% 10 Ml Flush Syringe) 10 ml IV BID [facility] Last Admin: 11/24/21 09:42 Dose: 10 ml Sodium Chloride (Sodium Chloride 0.9% 10 Ml Flush Syringe) 10 ml IV PRN PRN PRN Reason: LINE FLUSH Review of Systems Constitutional: no fever, no chills Ears, nose, mouth and throat: no nasal congestion, no sore throat Cardiovascular: syncope, no chest pain, no palpitations, no rapid/irregular heart beat, no edema, no lightheadedness, no shortness of breath Respiratory: no cough, no shortness of breath Gastrointestinal: no nausea, no vomiting Genitourinary Male: no dysuria Musculoskeletal: no myalgias Integumentary: no rash, no wounds Neurological: head injury, weakness (left-sided), syncope, no seizures, no vertigo, no headaches Endocrine: no cold intolerance, no heat intolerance Hematologic/Lymphatic: no easy bruising, no easy bleeding Allergic/Immunologic: no anaphylaxis Physical Examination Vital Signs Temp Pulse Resp BP Pulse Ox 98 F 103 H 18 158/98 100 11/23/21 21:38 11/23/21 21:38 11/23/21 21:38 11/23/21 21:38 11/23/21 21:38 General appearance: no acute distress HEENT: Positive: EOMI, Normocephaly Neck: Negative: JVD/HJR Cardiac: Positive: Reg Rate and Rhythm, S1/S2 Lungs: Positive: Other (diminished bases) Neuro: Positive: Grossly Intact Abdomen: Positive: Soft. Negative: Tender Skin: Negative: Rash Musculoskeletal: No Pain Extremities: Present: lower extr. pulses, warm. Absent: edema Results 11/24/21 09:37 11/24/21 09:37 Cardiac Enzymes 11/23/21 Range/Units 21:29 AST 17 (5-40) units/L CK-MB (CK-2) 5.7 H (0.0-4.0) ng/mL Coagulation 11/23/21 Range/Units 21:29 PT 13.8 (12.2-14.9) Sec. INR 0.96 (0.87-1.13) APTT 39.4 H (24.2-36.6) Sec. Lipids 11/23/21 Range/Units 21:29 Triglycerides 177 H (2-149) mg/dL Cholesterol 180 (50-199) mg/dL HDL Cholesterol 31 L (40-59) mg/dL Cholesterol/HDL Ratio 5.80 % CBC 06/03/22 06/04/22 Range/Units 21:29 09:37 WBC 4.8 4.5 (4.5-11.0) K/mm3 RBC 3.23 L 2.79 L (3.65-5.03) M/mm3 Hgb 8.5 L 7.4 L (11.8-15.2) gm/dl Hct 27.0 L 23.3 L (35.5-45.6) % Plt Count 138 L 122 L (140-440) K/mm3 Lymph # (Auto) 0.4 L (1.2-5.4) K/mm3 [place] # (Auto) 0.6 (0.0-0.8) K/mm3 Eos # (Auto) 0.1 (0.0-0.4) K/mm3 Baso # (Auto) 0.0 (0.0-0.1) K/mm3 Comprehensive Metabolic Panel 22 11/24/21 Range/Units 21:29 09:37 Sodium 137 137 (137-145) mmol/L Potassium 5.1 H 5.8 H (3.6-5.0) mmol/L Chloride 94.9 L 99.0 (98-107) mmol/L Carbon Dioxide 16 L 17 L (22-30) mmol/L BUN 73 H 77 H (9-20) mg/dL Creatinine 19.8 H 21.9 H (0.8-1.3) mg/dL Glucose 94 79 (75-100) mg/dL Calcium 8.3 L 7.8 L (8.4-10.2) mg/dL AST 17 (5-40) units/L ALT < 5 L (7-56) units/L Alkaline Phosphatase 80 (35-129) units/L Total Protein 8.4 H (6.3-8.2) g/dL Albumin 3.0 L (3.9-5) g/dL - Imaging and Cardiology Echo: pending, report reviewed Cardiac cath: report reviewed EKG: report reviewed, image reviewed - EKG Interpretation EKG: no acute changes EKG interpretations - Telemetry EKG Rhythm: Sinus Rhythm - EKG Sinus rhythms and dysrhythmias: sinus rhythm Repolarization changes or abnormalities: nonspecific abnormality, ST segment, and/or T wave Assessment and Plan Assessment: AMS // ?CVA (s/p tPA 11/23 @ [id number]) Syncope w/Collapse Acute Respiratory Failure Bilateral Pleural Effusions // Volume Overload ESRD on HD Hyperkalemia Anemia Thrombocytopenia Elevated Tn H/o Takotsubo Cardiomyopathy (dx August 2021) HTN DM2 HIV/AIDS (not on ART) Medical Non-Compliance H/o Multiple Sclerosis (per chart review) Cardiographics: Echo 08/2021: LVEF 30-35%, mildly enlarged LV, akinetic apex and anterior wall suggestive of LAD lesion/Takotsubo CMP, grade 2 diastolic dysfunction, normal RV SF, moderately dilated LA, no significant AV abnormalities, mild MR, mild TR, RVSP 42.9 mmHg, no pericardial effusion Echo 03/2021: LVEF 66%, mild LVH, grade 1 diastolic dysfunction, trace MR, trace TR LHC 08/30/2021: Right dominant system LM: large caliber vessel, angiographically free of disease LAD: large caliber vessel, wraps around the apex, angiographically free of disease D1: large caliber vessel, free of disease D2: small caliber vessel, free of disease LCx: large caliber vessel, angiographically free of disease OM1: small caliber vessel, free of disease OM2: smallmedium caliber vessel with a tortuous course in the proximal part, angiographically free of disease RCA: large caliber vessel, angiographically free of disease R PDA: medium caliber vessel, angiographically free of disease *Angiogram is consistent with Takotsubo cardiomyopathy, LVEF 35-40%, elevated LVEDP Plan: Neuro recs appreciated. MRI brain / MRA head & bilateral carotid US pending. Trend cardiac enzymes. Only 1 troponin result available for review at this time. Doubt CE elevation is suggestive of ischemia. Recent LHC performed August 2021 revealed no evidence of obstructive CAD. Echo reviewed - LVEF 50%, moderate diastolic dysfunction, moderate MR, no evidence of PFO. Echo also revealed a mass in the RA measuring 0.68 x 0.33 cm attached to catheter suspicious for thrombus. Recommend systemic anticoagulation if no contraindications from a Neuro standpoint or otherwise. D/w ICU PB, who will confirm with Neuro. Possibly ok to start AC pending no acute findings on head CT @ 2200. Otherwise case/images to be reviewed with Vasc in AM for further guidance. Volume optimization via HD. Continue tele monitoring. SR 90s, no events thus far. PRN correction of electrolytes to avoid arrhythmias. Will check orthostatic VS when clinically stable. Resume GDMT for Takotsubo CMP unless any contraindications for permissive HTN from a Neuro standpoint. Outpatient cardiac regimen: Coreg 12.5mg BID, Losartan 50mg daily, Imdur 60mg daily. Pt seen in conjunction with Dr. Natarajan, who agrees with the assessment and plan of care. - Patient Problems (1) CVA (cerebral vascular accident) Current Visit: Yes Status: Suspected (2) Syncope and collapse Current Visit: Yes Status: Acute (3) End-stage renal disease needing dialysis Current Visit: Yes Status: Acute (4) Elevated troponin Current Visit: Yes Status: Acute (5) Takotsubo cardiomyopathy Onset Date: ~08/30/21 Current Visit: Yes Status: Chronic (6) Multiple sclerosis Current Visit: Yes Status: Chronic (7) HIV (human immunodeficiency virus infection) Current Visit: Yes Status: Chronic (8) Medical non-compliance Current Visit: Yes Status: Chronic
[2021-11-24] MEDS: carvediloL 12.5 MG TAB PO SCH (23:28)
[2021-11-24] MEDS: DOCUSATE SODIUM 100 MG/10 ML ORAL LIQD PO SCH (23:29)
--- NOTE | 2021-11-25 00:33 | Cat Scan Report ---
CT HEAD WITHOUT CONTRAST 10:44 PM INDICATION / CLINICAL INFORMATION: 24 hours post tpa at 2200 11/24/2021. TECHNIQUE: All CT scans at this location are performed using CT dose reduction for ALARA by means of automated e xposure control. COMPARISON: Head CT 2:15 AM same day FINDINGS: HEMORRHAGE: None. EXTRA-AXIAL SPACES: Normal in size and morphology for the patient's age. VENTRICULAR SYSTEM: Normal in size and morphology for the patient's age. CEREBRAL PARENCHYMA: No significant abnormality. No acute territorial infarct. MIDLINE SHIFT OR HERNIATION: None. CEREBELLUM / BRAINSTEM: No significant abnormality. ORBITS: Normal as visualized. SOFT TISSUES of HEAD: No significant abnormality. CALVARIUM: No significant abnormality. PARANASAL SINUSES / MASTOID AIR CELLS: Normal as visualized. ADDITIONAL FINDINGS: None. IMPRESSION: 1. No intracranial bleed or large territorial infarction. No detrimental change. Signer Name: Sotero Herbert MD Signed: 11/25/2021 12:29 AM Workstation Name: [id number]
[2021-11-25] MEDS: INSULIN LISPRO 100 UNIT/ML SUB-Q SCH ×3 (06:02→17:40)
[2021-11-25] MEDS: IPRATROPIUM/ALBUTEROL SULFATE 3 ML AMPUL.NEB IH SCH ×4 (08:22→20:34)
[2021-11-25 08:39] LABS: Hematocrit 25.5 % (35.5-45.6); Hemoglobin 8.1 gm/dl (11.8-15.2); Mean Corpuscular HGB Conc 32 % (32-34); Mean Corpuscular Volume 84 fl (84-94); Platelet Count 112 K/mm3 (140-440); Red Blood Count 3.04 M/mm3 (3.65-5.03); Red Cell Distribution Width 16.3 % (13.2-15.2)
[2021-11-25 08:54] LABS: Calcium 7.7 mg/dL (8.4-10.2)
[2021-11-25] MEDS: carvediloL 12.5 MG TAB PO SCH ×2 (10:12→22:05)
[2021-11-25] MEDS: DOCUSATE SODIUM 100 MG/10 ML ORAL LIQD PO SCH (10:12)
[2021-11-25] MEDS: oxyCODONE 5 MG TAB PO PRN ×2 (10:12→22:35)
[2021-11-25] MEDS: FAMOTIDINE 20 MG/2 ML INJ IV SCH (10:16)
[2021-11-25] MEDS ORDERED: HEPARIN 10,000 UNITS/10 ML VIAL IV PRN (10:25)
--- NOTE | 2021-11-25 10:29 | Progress Note ---
Assessment and Plan 61 y/o on HD admitted with stroke, now found to have right atrial thrombus 11/25/21. Reached out to [facility] via [facility]. They will place a note but state they are ok with using heparin infusion. We will not bolus. Will obtain stat Head CT prior to initiation and then another 24 hours post initiation of therapy. Will continue ICU monitoring. 1. Stroke protocol, q1 hour neuro checks 2. BP control 3. HD per renal CCT 31 minutes Subjective Date of service: 11/25/21 Interval history: Found to have right atrial thrombus after getting echo from stroke. Its dolly ched to the [facility] for HD. It has been greater than 24 hours since TPA administration. Objective - Constitutional Vitals: Vital Signs - 12hr 11/24/21 11/24/21 11/24/21 22:30 22:53 23:00 Temperature Pulse Rate 89 101 H 93 H Pulse Rate [ From Monitor] Pulse Rate [ Throughout] Respiratory 8 L 14 Rate Respiratory Rate [ Throughout] Blood Pressure 139/88 139/88 162/86 O2 Sat by Pulse 98 100 Oximetry 11/24/21 11/24/21 11/24/21 23:15 23:28 23:31 Temperature Pulse Rate 93 H 96 H 98 H Pulse Rate [ From Monitor] Pulse Rate [ Throughout] Respiratory 11 L 12 Rate Respiratory Rate [ Throughout] Blood Pressure 148/70 148/70 150/73 O2 Sat by Pulse 100 100 Oximetry 11/24/21 11/25/21 11/25/21 23:45 00:00 00:15 Temperature 98.6 F Pulse Rate 93 H 91 H 88 Pulse Rate [ 76 From Monitor] Pulse Rate [ Throughout] Respiratory 11 L 10 L 10 L Rate Respiratory Rate [ Throughout] Blood Pressure 145/82 135/80 140/82 O2 Sat by Pulse 100 100 100 Oximetry 11/25/21 11/25/21 11/25/21 00:30 00:45 01:00 Temperature Pulse Rate 85 80 79 Pulse Rate [ From Monitor] Pulse Rate [ Throughout] Respiratory 11 L 11 L 11 L Rate Respiratory Rate [ Throughout] Blood Pressure 130/81 126/76 125/76 O2 Sat by Pulse 100 Oximetry 11/25/21 11/25/21 11/25/21 01:15 01:30 01:45 Temperature Pulse Rate 77 79 78 Pulse Rate [ From Monitor] Pulse Rate [ Throughout] Respiratory 8 L 9 L 8 L Rate Respiratory Rate [ Throughout] Blood Pressure 121/80 124/82 121/80 O2 Sat by Pulse 100 100 Oximetry 11/25/21 11/25/21 11/25/21 02:00 02:15 02:30 Temperature Pulse Rate 79 76 79 Pulse Rate [ From Monitor] Pulse Rate [ Throughout] Respiratory 11 L 11 L 11 L Rate Respiratory Rate [ Throughout] Blood Pressure 126/80 130/79 141/87 O2 Sat by Pulse 98 100 Oximetry 11/25/21 11/25/21 11/25/21 02:45 03:00 03:15 Temperature Pulse Rate 74 75 76 Pulse Rate [ From Monitor] Pulse Rate [ Throughout] Respiratory 9 L 9 L 10 L Rate Respiratory Rate [ Throughout] Blood Pressure 124/79 127/79 121/79 O2 Sat by Pulse 100 Oximetry 11/25/21 11/25/21 11/25/21 03:30 03:45 03:54 Temperature 98.9 F Pulse Rate 77 80 Pulse Rate [ From Monitor] Pulse Rate [ Throughout] Respiratory 10 L 10 L Rate Respiratory Rate [ Throughout] Blood Pressure 130/77 133/82 O2 Sat by Pulse 99 99 Oximetry 11/25/21 11/25/21 11/25/21 04:00 04:15 04:30 Temperature Pulse Rate 79 74 Pulse Rate [ 77 From Monitor] Pulse Rate [ Throughout] Respiratory 9 L 9 L Rate Respiratory Rate [ Throughout] Blood Pressure 127/85 127/77 124/80 O2 Sat by Pulse 100 100 Oximetry 11/25/21 11/25/21 11/25/21 04:45 05:00 05:15 Temperature Pulse Rate 82 79 79 Pulse Rate [ From Monitor] Pulse Rate [ Throughout] Respiratory 10 L 8 L 9 L Rate Respiratory Rate [ Throughout] Blood Pressure 127/91 127/83 129/76 O2 Sat by Pulse 99 100 100 Oximetry 11/25/21 11/25/21 11/25/21 05:30 05:45 06:00 Temperature Pulse Rate 79 81 78 Pulse Rate [ From Monitor] Pulse Rate [ Throughout] Respiratory 9 L 9 L 9 L Rate Respiratory Rate [ Throughout] Blood Pressure 129/87 131/95 131/85 O2 Sat by Pulse 100 100 100 Oximetry 11/25/21 11/25/21 11/25/21 06:15 06:30 06:45 Temperature Pulse Rate 80 80 79 Pulse Rate [ From Monitor] Pulse Rate [ Throughout] Respiratory 9 L 10 L 8 L Rate Respiratory Rate [ Throughout] Blood Pressure 137/84 132/82 136/83 O2 Sat by Pulse 100 100 100 Oximetry 11/25/21 11/25/21 11/25/21 07:00 07:15 07:30 Temperature Pulse Rate 77 78 85 Pulse Rate [ From Monitor] Pulse Rate [ Throughout] Respiratory 9 L 10 L 12 Rate Respiratory Rate [ Throughout] Blood Pressure 125/82 125/76 147/92 O2 Sat by Pulse 100 100 100 Oximetry 11/25/21 11/25/21 11/25/21 07:45 07:47 08:00 Temperature 98.5 F Pulse Rate 93 H 79 Pulse Rate [ 86 From Monitor] Pulse Rate [ 88 Throughout] Respiratory 12 13 Rate Respiratory 18 Rate [ Throughout] Blood Pressure 147/92 O2 Sat by Pulse 99 100 Oximetry 11/25/21 11/25/21 11/25/21 08:01 08:15 08:29 Temperature Pulse Rate 91 H 85 Pulse Rate [ From Monitor] Pulse Rate [ Throughout] Respiratory 15 21 Rate Respiratory Rate [ Throughout] Blood Pressure 140/83 142/79 O2 Sat by Pulse 97 100 100 Oximetry 11/25/21 11/25/21 11/25/21 08:31 08:45 09:01 Temperature Pulse Rate 90 89 100 H Pulse Rate [ From Monitor] Pulse Rate [ Throughout] Respiratory 13 13 16 Rate Respiratory Rate [ Throughout] Blood Pressure 142/79 149/93 149/93 O2 Sat by Pulse 100 97 Oximetry 11/25/21 11/25/21 11/25/21 09:15 09:30 09:45 Temperature Pulse Rate 84 82 Pulse Rate [ From Monitor] Pulse Rate [ Throughout] Respiratory 20 16 Rate Respiratory Rate [ Throughout] Blood Pressure 149/93 149/93 138/83 O2 Sat by Pulse 86 93 Oximetry 11/25/21 11/25/21 10:00 10:12 Temperature Pulse Rate 90 90 Pulse Rate [ From Monitor] Pulse Rate [ Throughout] Respiratory 17 Rate Respiratory Rate [ Throughout] Blood Pressure 142/87 142/87 O2 Sat by Pulse 90 Oximetry - Labs CBC & Chem 7: 11/25/21 07:27 11/25/21 07:27 Labs: Abnormal lab results 11/24/21 11/24/21 11/24/21 Range/Units 09:37 17:33 17:47 WBC (4.5-11.0) K/mm3 RBC (3.65-5.03) M/mm3 Hgb (11.8-15.2) gm/dl Hct (35.5-45.6) % MCH (28-32) pg RDW (13.2-15.2) % Plt Count (140-440) K/mm3 Potassium 5.8 H (3.6-5.0) mmol/L Carbon Dioxide 17 L (22-30) mmol/L BUN 77 H (9-20) mg/dL Creatinine 21.9 H (0.8-1.3) mg/dL POC Glucose 130 H (70-105) mg/dL Calcium 7.8 L (8.4-10.2) mg/dL Troponin T 0.305 H* (0.00-0.029) ng/mL 11/24/21 11/25/21 11/25/21 Range/Units 20:52 07:27 07:27 WBC 4.3 L (4.5-11.0) K/mm3 RBC 3.04 L (3.65-5.03) M/mm3 Hgb 8.1 L (11.8-15.2) gm/dl Hct 25.5 L (35.5-45.6) % MCH 27 L (28-32) pg RDW 16.3 H (13.2-15.2) % Plt Count 112 L (140-440) K/mm3 Potassium 5.4 H (3.6-5.0) mmol/L Carbon Dioxide 21 L (22-30) mmol/L BUN 39 H (9-20) mg/dL Creatinine 14.1 H (0.8-1.3) mg/dL POC Glucose (70-105) mg/dL Calcium 7.7 L (8.4-10.2) mg/dL Troponin T 0.324 H* (0.00-0.029) ng/mL Medications & Allergies - Medications Allergies/Adverse Reactions: Allergies No Known Allergies Allergy (Verified 10/09/21 11:02) Home Medications: Home Medications Medication Instructions Recorded Confirmed Last Taken Type Bacitracin/Pramoxine/Aloe Vera 1 applicatio TP TID #1 tube 10/09/21 11/02/21 Unknown Rx [Bacitraycin Plus Ointment] Calc Carb/Vit D 500 mg-200 Uni 1 each PO DAILY #30 tablet 10/21/21 11/02/21 11/01/21 10:00 Rx [Oysco D 500 mg-200 Unit] Acetaminophen [Tylenol] 500 mg PO Q6H PRN 10/27/21 11/02/21 Unknown History Famotidine [Pepcid] 10 mg PO BID #60 tablet 11/12/21 Unknown Rx amLODIPine 10 mg PO DAILY #30 tab 11/12/21 Unknown Rx Active Medications: Generic Name Dose Route Start Last Admin Trade Name Freq PRN Reason Stop Dose Admin Acetaminophen 650 mg 11/24/21 01:02 Acetaminophen 325 Mg Tab PO Q4H PRN Pain MILD(1-3)/Fever >100.5/RACHEL Albuterol 2.5 mg 11/24/21 01:02 Albuterol 2.5 Mg/3 Ml Nebu IH Q3HRT PRN Shortness Of Breath Albuterol/Ipratropium 1 ampul 11/24/21 02:00 11/25/21 08:24 Ipratropium/Albuterol Sulfate 3 Ml Ampul.Neb IH 1 ampul Q6HRT CAILIN Administration Atorvastatin Calcium 40 mg 11/24/21 22:00 11/24/21 23:28 Atorvastatin 40 Mg Tab PO 40 mg QHS CAILIN Administration Carvedilol 12.5 mg 11/24/21 22:00 11/25/21 10:12 Carvedilol 12.5 Mg Tab PO 12.5 mg BID CAILIN Administration Dextrose 50 ml 11/24/21 01:02 Dextrose 50% In Water (25gm) 50 Ml Syringe IV Q30MIN PRN Hypoglycemia Protocol Docusate Sodium 100 mg 11/24/21 22:00 11/25/21 10:12 Docusate Sodium 100 Mg/10 Ml Oral Liqd PO 100 mg BID CAILIN Administration Famotidine 20 mg 11/24/21 10:00 11/25/21 10:16 Famotidine 20 Mg/2 Ml Inj IV Not Given DAILY CAILIN Sodium Chloride 100 mls @ 999 mls/hr 11/24/21 09:55 Nacl 0.9% IV LKAE PRN Hypotension Insulin Human Lispro 0 unit 11/24/21 06:00 11/25/21 06:02 Insulin Lispro 100 Unit/Ml SUB-Q Not Given Q6HR CAILIN Protocol Labetalol HCl 10 mg 11/24/21 01:02 Labetalol 20 Mg/4 Ml Inj IV Q5MIN PRN to maintain SBP < 180 Morphine Sulfate 4 mg 11/24/21 01:02 11/24/21 23:29 Morphine 4 Mg/1 Ml Inj IV 4 mg Q4H PRN Administration Pain , Severe (7-10) Ondansetron HCl 4 mg 11/24/21 01:02 Ondansetron 4 Mg/2 Ml Inj IV Q8H PRN Nausea And Vomiting Oxycodone HCl 5 mg 11/25/21 08:56 11/25/21 10:12 Oxycodone 5 Mg Tab PO 5 mg Q6H PRN Administration Pain, Moderate (4-6) Sodium Chloride 10 ml 11/24/21 10:00 11/25/21 10:13 Sodium Chloride 0.9% 10 Ml Flush Syringe IV 10 ml BID CAILIN Administration Sodium Chloride 10 ml 11/24/21 01:02 Sodium Chloride 0.9% 10 Ml Flush Syringe IV PRN PRN LINE FLUSH HEART Score - HEART Score Troponin: Troponin T 0.324 ng/mL (0.00-0.029) H* 11/24/21 20:52
--- NOTE | 2021-11-25 10:33 | Progress Note ---
<JAVIER ORDONEZ - Last Filed: 11/25/21 12:35> Assessment and Plan Assessment and plan: Assessment and plan: This is a 61-year-old male with HTN, CHF, ESRD on HD, diabetes mellitus, HIV, multiple sclerosis and sciatica with medical noncompliance admitted for CVA s/p tPA administration Neuro: r/o CVA, medical noncompliance, h/o multiple sclerosis, sciatic nerve pain -[facility] 11/24 2100 -Admit NIHSS 7 -Telemetry neurology consulted who deemed patient candidate for tPA -S/p tPA -Neurology consulted, appreciate recommendations -CCM consulted, patient recommendations -Admit CT head without acute intracranial abnormality -CT C-spine shows no acute fracture of the cervical spine, large bilateral pleural effusions -CTA head shows no occlusion or significant stenosis of major intracranial vasculature -CTA neck shows no occlusion or significant stenosis of carotid or vertebral vasculature -Repeat CT head shows no acute intracranial abnormality -MRI brain pending -MRA head pending -PT/OT/ST consulted -Bilateral carotid ultrasound pending -Lipid panel noted in chart -Statin -Aim for normotension and euglycemia Cardiac: Admitted with syncopal episode, h/o HTN, CHF -Blood pressure monitoring per protocol -Resume home amlodipine -Bilateral carotid ultrasound pending -Echocardiogram shows RA thrombus attached to HD catheter, No PFO, LVEF 50% -Labetalol IV as needed Respiratory: Acute hypoxic respiratory failure, bilateral pleural effusions (likely secondary to volume overload) -CT imaging noted large bilateral pleural effusions -CXR showed small right pleural effusion -Supplemental oxygen as needed -Pulmonary hygiene -SPO2 monitoring per protocol GI: Dysphagia, moderate protein calorie malnutrition -CC cardiac renal diet, mechanical soft -PPI -BR: Colace : ESRD on HD, hyperkalemia, metabolic acidosis -Nephrology consulted, appreciate recommendations -HD per nephrology -Renally dose medications -Avoid nephrotoxic medications -Trend BMP -Kionex x1 ID: [id number] -Monitor WBC and temperature curve Endo: h/o DM II -Avoid hypoglycemia -SSI -Accu-Cheks q6hr Heme: Anemia of chronic disease, RA thrombus attached to vascath (noted on echo) -Echo showed no PFO. Given admin of tPA within 24 hours, cardiology suggested to ask vascular or IR to review the images in the AM. -Teleneuro consulted re anticoagulation -Dr. Greene (teleneuro) has okayed heparin gtt -Will repeat CT head prior to initiation and they prefer no bolus -CT head in 24 hours post initiation -Trend CBC -Transfuse hemoglobin less than 7 -SCDs to BLE while in bed -Heparin gtt post CT head The high probability of a clinically significant, sudden or life threatening deterioration of the [neuro/renal] system(s) required my full and direct attention, intervention and personal management. The aggregate critical care t iker was [60] minutes. This time is in addition to time spent performing reported procedures but includes the following: [x] Data Review and interpretation [x] Patient assessment and monitoring of vital signs [x] Documentation [x] Medication orders and management History Interval history: This is a 61-year-old male with ESRD on HD, HIV, hypertension, CHF, DM, multiple sclerosis and sciatica presented to emergency department on 11/24 via EMS with complaints of left-sided weakness after syncopal episode and fall with last known well time 30 minutes prior to arrival. Code stroke was initiated prior to arrival to the ED. In the emergency department patient received a CT head and neck which were both negative for acute events and patient c-collar was removed after C-spine clearance. Work-up showed elevated kidney function tests, elevated troponins, anemia and hyperkalemia. Teleneurology was consulted and patient received tPA CTA head/neck showed no large vessel occlusions. Patient was admitted to the hospitalist service with consults to neurology, nephrology and [facility]. Hospital course to date: 11/24: Patient receiving hemodialysis today, CT scan 24-hour post tPA scheduled for tonight. MR a/MRV head and MRI brain pending. Echocardiogram completed at bedside. 11/25: Repeat CT head with no acute abnormality, cleared by neurology to restart heparin drip after repeat head CT today which showed no acute abnormality. We will start heparin drip given RA thrombus. Vascular surgery consulted to review images. We will repeat CT head in 24 hours. Hospitalist Physical - Constitutional Vitals: Temp Pulse Resp BP Pulse Ox 98.5 F 90 17 142/87 90 11/25/21 07:47 11/25/21 10:12 11/25/21 10:00 11/25/21 10:12 11/25/21 10:00 General appearance: Present: no acute distress - EENT Eyes: Present: PERRL, EOM intact ENT: clear oral mucosa, poor dentition - Neck Neck: Present: normal ROM - Respiratory Respiratory effort: normal Respiratory: bilateral: diminished - Cardiovascular Rhythm: regular Heart Sounds: Present: S1 & S2. Absent: systolic murmur, diastolic murmur - Extremities Extremities: no ischemia, pulses intact, pulses symmetrical, normal color Peripheral Pulses: within normal limits - Abdominal General gastrointestinal: soft, non-tender, non-distended, normal bowel sounds - Psychiatric Psychiatric: appropriate mood/affect, cooperative - Neurologic Neurologic: other (weakness to left UE/LE with decreased sensation to LUE) - Allied Health Allied health notes reviewed: nursing, RT, social work HEART Score - HEART Score Troponin: Troponin T 0.324 ng/mL (0.00-0.029) H* 11/24/21 20:52 Results - Labs CBC & Chem 7: 11/25/21 07:27 11/25/21 07:27 Labs: Laboratory Last Values WBC 4.3 K/mm3 (4.5-11.0) L 11/25/21 07:27 RBC 3.04 M/mm3 (3.65-5.03) L 11/25/21 07:27 Hgb 8.1 gm/dl (11.8-15.2) L 11/25/21 07:27 Hct 25.5 % (35.5-45.6) L 11/25/21 07:27 MCV 84 fl (84-94) 11/25/21 07:27 MCH 27 pg (28-32) L 11/25/21 07:27 MCHC 32 % (32-34) 11/25/21 07:27 RDW 16.3 % (13.2-15.2) H 11/25/21 07:27 Plt Count 112 K/mm3 (140-440) L 11/25/21 07:27 Lymph % (Auto) 9.1 % (13.4-35.0) L 11/23/21 21:29 Levy % (Auto) 12.6 % (0.0-7.3) H 11/23/21 21:29 Eos % (Auto) 3.0 % (0.0-4.3) 11/23/21 21:29 Baso % (Auto) 1.0 % (0.0-1.8) 11/23/21 21:29 Lymph # (Auto) 0.4 K/mm3 (1.2-5.4) L 11/23/21 21:29 Levy # (Auto) 0.6 K/mm3 (0.0-0.8) 11/23/21 21:29 Eos # (Auto) 0.1 K/mm3 (0.0-0.4) 11/23/21 21: Baso # (Auto) 0.0 K/mm3 (0.0-0.1) 11/23/21 21:29 Seg Neutrophils % 74.3 % (40.0-70.0) H 11/23/21 21: Seg Neutrophils # 3.6 K/mm3 (1.8-7.7) 11/23/21 21: PT 13.8 Sec. (12.2-14.9) 11/23/21 21: INR 0.96 (0.87-1.13) 11/23/21 21: APTT 39.4 Sec. (24.2-36.6) H 11/23/21 21: Thrombin Time 23.3 Sec. (15.1-19.6) H 11/23/21 21:29 Sodium 137 mmol/L (137-145) 11/25/21 07:27 Potassium 5.4 mmol/L (3.6-5.0) H 11/25/21 07:27 Chloride 100.1 mmol/L (98-107) 11/25/21 07:27 Carbon Dioxide 21 mmol/L (22-30) L 11/25/21 07:27 Anion Gap 21 mmol/L 11/25/21 07:27 BUN 39 mg/dL (9-20) H 11/25/21 07:27 Creatinine 14.1 mg/dL (0.8-1.3) H 11/25/21 07:27 Estimated GFR 4 ml/min 11/25/21 07:27 BUN/Creatinine Ratio 3 % 11/25/21 07:27 Glucose 77 mg/dL (75-100) 11/25/21 07:27 POC Glucose 94 mg/dL (70-105) 11/25/21 05:22 Calcium 7.7 mg/dL (8.4-10.2) L 11/25/21 07:27 Total Bilirubin 0.20 mg/dL (0.1-1.2) 11/23/21 21:29 AST 17 units/L (5-40) 11/23/21 21:29 ALT < 5 units/L (7-56) L 11/23/21 21:29 Alkaline Phosphatase 80 units/L (35-129) 11/23/21 21:29 Total Creatine Kinase 145 units/L (55-170) 11/23/21 21:29 CK-MB (CK-2) 5.7 ng/mL (0.0-4.0) H 11/23/21 21:29 CK-MB (CK-2) Rel Index 3.9 (0-4) 11/23/21 21:29 Troponin T 0.324 ng/mL (0.00-0.029) H* 11/24/21 20:52 Total Protein 8.4 g/dL (6.3-8.2) H 11/23/21 21:29 Albumin 3.0 g/dL (3.9-5) L 11/23/21 21:29 Albumin/Globulin Ratio 0.6 % 11/23/21 21:29 Triglycerides 177 mg/dL (2-149) H 11/23/21 21:29 Cholesterol 180 mg/dL (50-199) 11/23/21 21:29 LDL Cholesterol Direct 100 mg/dL (50-130) 11/23/21 21:29 HDL Cholesterol 31 mg/dL (40-59) L 11/23/21 21:29 Cholesterol/HDL Ratio 5.80 % 11/23/21 21:29 Plasma/Serum Alcohol < 0.01 % (0-0.07) 11/23/21 21:29 Active Medications - Current Medications Current Medications: Generic Name Dose Route Start Last Admin Trade Name Freq PRN Reason Stop Dose Admin Acetaminophen 650 mg 11/24/21 01:02 Acetaminophen 325 Mg Tab PO Q4H PRN Pain MILD(1-3)/Fever >100.5/RACHEL Albuterol 2.5 mg 11/24/21 01:02 Albuterol 2.5 Mg/3 Ml Nebu IH Q3HRT PRN Shortness Of Breath Albuterol/Ipratropium 1 ampul 11/24/21 02:00 11/25/21 08:24 Ipratropium/Albuterol Sulfate 3 Ml Ampul.Neb IH 1 ampul Q6HRT [facility] Administration Atorvastatin Calcium 40 mg 11/24/21 22:00 11/24/21 23:28 Atorvastatin 40 Mg Tab PO 40 mg QHS CAILIN Administration Carvedilol 12.5 mg 11/24/21 22:00 11/25/21 10:12 Carvedilol 12.5 Mg Tab PO 12.5 mg BID CAILIN Administration Dextrose 50 ml 11/24/21 01:02 Dextrose 50% In Water (25gm) 50 Ml Syringe IV Q30MIN PRN Hypoglycemia Protocol Docusate Sodium 100 mg 11/24/21 22:00 11/25/21 10:12 Docusate Sodium 100 Mg/10 Ml Oral Liqd PO 100 mg BID [facility] Administration Famotidine 20 mg 11/24/21 10:00 11/25/21 10:16 Famotidine 20 Mg/2 Ml Inj IV Not Given DAILY [facility] Sodium Chloride 100 mls @ 999 mls/hr 11/24/21 09:55 Nacl 0.9% IV LAKE PRN Hypotension Insulin Human Lispro 0 unit 11/24/21 06:00 11/25/21 06:02 Insulin Lispro 100 Unit/Ml SUB-Q Not Given Q6HR [facility] Protocol Labetalol HCl 10 mg 11/24/21 01:02 Labetalol 20 Mg/4 Ml Inj IV Q5MIN PRN to maintain SBP < 180 Morphine Sulfate 4 mg 11/24/21 01:02 11/24/21 23:29 Morphine 4 Mg/1 Ml Inj IV 4 mg Q4H PRN Administration Pain , Severe (7-10) Ondansetron HCl 4 mg 11/24/21 01:02 Ondansetron 4 Mg/2 Ml Inj IV Q8H PRN Nausea And Vomiting Oxycodone HCl 5 mg 11/25/21 08:56 11/25/21 10:12 Oxycodone 5 Mg Tab PO 5 mg Q6H PRN Administration Pain, Moderate (4-6) Sodium Chloride 10 ml 11/24/21 10:00 11/25/21 10:13 Sodium Chloride 0.9% 10 Ml Flush Syringe IV 10 ml BID CAILIN Administration Sodium Chloride 10 ml 11/24/21 01:02 Sodium Chloride 0.9% 10 Ml Flush Syringe IV PRN PRN LINE FLUSH Nutrition/Malnutrition Assess - Dietary Evaluation Nutrition/Malnutrition Findings: Nutrition Notes Start: 11/24/21 12:49 Freq: Status: Active Protocol: Document 11/24/21 16:18 GILLIAN (Rec: 11/24/21 16:42 GILLIAN [id number]) Nutrition Notes Initial or Follow up Brief Note Current Diagnosis CKD (stage V CKD),Diabetes, Hypertension,Stroke Other Pertinent Diagnosis ESRD+HD, CHF, Syncope/Fall, HIV, MS. Current Diet Cardiac/Consistent Carbohydrates -Renal, Chopped Meats- Diet (D 11/24). Height 6 ft Weight 77 kg [place] Body Weight (kg) 80.90 BMI 23.0 Weight Status Appropriate Subjective/Other Information RD consult for write/manage TF . TF discontinued and Pt advanced to PO diet, no reports available yet on Pt's PO intake of meals, will assess at F/U. Percent of energy/protein needs met: Prescribed Cardiac/Consistent Carbohydrates -Renal, Chopped Meats- Diet provides for energy/protein needs (1,977 Kcal/86 g) during LOS. #1 Nutrition Diagnosis Biting/Chewing (masticatory) difficulty Diagnosis Progress(for reassessment Continues documentation) Is patient on ventilator? No Is Patient Ambulatory and/or Out of Bed Yes REE-([place]-ambulatory/OOB) [ 2096.900 NUTR.MSJOOB] Kcal/Kg value to use for calculation 29 Approximate Energy Requirements Using 2233 kcal/Kg Calculation Used for Recommendations Kcal/kg Additional Notes Protein: >1.2 g/Kg ABW; >92 g/ day. Fluids: 1 ml/Kcal, or as per MD. Nutrition Intervention Change Diet Order: Start Cardiac/Consistent Carbohydrates -Renal, Chopped Meats- Diet Nutrition Support: HOLD TF-Nepro w/CARBSTEADY @ 50 ml/hr. Flush: 225 ml water Q 4 hr, or as per MD. Kcal 2,180 Protein (gm) 98 Carbohydrates (gm) 195 Fat (gm) 116 Fluid (mL) 880 Fiber (gm) 15 % RDI: 98% Kcal; 100% AA. Goal #1 Facilitate PO intake of meals with elemental, textural, or mechanical modification during LOS. Goal #2 Adjust the dietary intervention to better serve Pt's needs and clinical conditions during LOS. Goal #3 Maintain body weight within +/ -3% of admission body weight during LOS. Follow-Up By: 11/30/21 Additional Comments Start monitoring food tolerance, %PO intake of meals , and BM. <HELEN DAVID - Last Filed: 11/27/21 09:56> Assessment and Plan Assessment and plan: I saw and evaluated the patient. Discussed with the nurse practitioner and agree with their findings and plan as documented in this note. Hospitalist Physical - Constitutional Vitals: Temp Pulse Resp BP Pulse Ox 98.4 F 85 16 155/87 94 11/27/21 07:34 11/27/21 07:34 11/27/21 04:26 11/27/21 07:34 11/27/21 07:34 HEART Score - HEART Score Troponin: Troponin T 0.324 ng/mL (0.00-0.029) H* 11/24/21 20:52 Results - Labs CBC & Chem 7: 11/27/21 04:29 11/27/21 04:29 Labs: Laboratory Last Values WBC 3.7 K/mm3 (4.5-11.0) L 11/27/21 04:29 RBC 2.52 M/mm3 (3.65-5.03) L 11/27/21 04:29 Hgb 6.7 gm/dl (11.8-15.2) L 11/27/21 04:29 Hct 20.5 % (35.5-45.6) L 11/27/21 04:29 MCV 82 fl (84-94) L 11/27/21 04:29 MCH 27 pg (28-32) L 11/27/21 04:29 MCHC 33 % (32-34) 11/27/21 04:29 RDW 16.2 % (13.2-15.2) H 11/27/21 04:29 Plt Count 101 K/mm3 (140-440) L 11/27/21 04:29 Lymph % (Auto) 9.1 % (13.4-35.0) L 11/23/21 21:29 Levy % (Auto) 12.6 % (0.0-7.3) H 11/23/21 21:29 Eos % (Auto) 3.0 % (0.0-4.3) 11/23/21 21:29 Baso % (Auto) 1.0 % (0.0-1.8) 11/23/21 21:29 Lymph # (Auto) 0.4 K/mm3 (1.2-5.4) L 11/23/21 21:29 Levy # (Auto) 0.6 K/mm3 (0.0-0.8) 11/23/21 21:29 Eos # (Auto) 0.1 K/mm3 (0.0-0.4) 11/23/21 21:29 Baso # (Auto) 0.0 K/mm3 (0.0-0.1) 11/23/21 21:29 Seg Neutrophils % 74.3 % (40.0-70.0) H 11/23/21 21:29 Seg Neutrophils # 3.6 K/mm3 (1.8-7.7) 11/23/21 21:29 PT 13.8 Sec. (12.2-14.9) 11/25/21 08:30 INR 0.96 (0.87-1.13) 11/25/21 08:30 APTT 34.0 Sec. (24.2-36.6) 11/25/21 08:30 Thrombin Time 23.3 Sec. (15.1-19.6) H 11/23/21 21:29 Heparin Anti-Xa Level 0.32 U.I./ml (0.3-0.7) 11/26/21 11:54 Sodium 138 mmol/L (137-145) 11/27/21 04:29 Potassium 3.5 mmol/L (3.6-5.0) L D 11/27/21 04:29 Chloride 101.6 mmol/L (98-107) 11/27/21 04:29 Carbon Dioxide 26 mmol/L (22-30) 11/27/21 04:29 Anion Gap 14 mmol/L 11/27/21 04:29 BUN 18 mg/dL (9-20) 11/27/21 04:29 Creatinine 7.8 mg/dL (0.8-1.3) H 11/27/21 04:29 Estimated GFR 9 ml/min 11/27/21 04:29 BUN/Creatinine Ratio 2 % 11/27/21 04:29 Glucose 103 mg/dL (75-100) H 11/27/21 04:29 POC Glucose 81 mg/dL (70-105) 11/27/21 07:36 Calcium 7.4 mg/dL (8.4-10.2) L 11/27/21 04:29 Phosphorus 7.40 mg/dL (2.5-4.5) H 11/26/21 04:08 Magnesium 1.80 mg/dL (1.7-2.3) 11/26/21 04:08 Total Bilirubin 0.20 mg/dL (0.1-1.2) 11/23/21 21:29 AST 17 units/L (5-40) 11/23/21 21:29 ALT < 5 units/L (7-56) L 11/23/21 21:29 Alkaline Phosphatase 80 units/L (35-129) 11/23/21 21:29 Total Creatine Kinase 145 units/L (55-170) 11/23/21 21:29 CK-MB (CK-2) 5.7 ng/mL (0.0-4.0) H 11/23/21 21:29 CK-MB (CK-2) Rel Index 3.9 (0-4) 11/23/21 21:29 Troponin T 0.324 ng/mL (0.00-0.029) H* 11/24/21 20:52 Total Protein 8.4 g/dL (6.3-8.2) H 11/23/21 21:29 Albumin 3.0 g/dL (3.9-5) L 11/23/21 21:29 Albumin/Globulin Ratio 0.6 % 11/23/21 21:29 Triglycerides 177 mg/dL (2-149) H 11/23/21 21:29 Cholesterol 180 mg/dL (50-199) 11/23/21 21:29 LDL Cholesterol Direct 100 mg/dL (50-130) 11/23/21 21:29 HDL Cholesterol 31 mg/dL (40-59) L 11/23/21 21:29 Cholesterol/HDL Ratio 5.80 % 11/23/21 21:29 Plasma/Serum Alcohol < 0.01 % (0-0.07) 11/23/21 21:29 Atkins/IV: Voiding Method Urinal Active Medications - Current Medications Current Medications: Generic Name Dose Route Start Last Admin Trade Name Freq PRN Reason Stop Dose Admin Acetaminophen 650 mg 11/24/21 01:02 Acetaminophen 325 Mg Tab PO Q4H PRN Pain MILD(1-3)/Fever >100.5/RACHEL Albuterol 2.5 mg 11/26/21 14:47 Albuterol 2.5 Mg/3 Ml Nebu IH Q4HRT PRN Shortness Of Breath Albuterol/Ipratropium 1 ampul 11/26/21 20:00 11/26/21 19:54 Ipratropium/Albuterol Sulfate 3 Ml Ampul.Neb IH 1 ampul BIDRT CAILIN Administration Atorvastatin Calcium 40 mg 11/24/21 22:00 11/26/21 23:24 Atorvastatin 40 Mg Tab PO 40 mg QHS CAILIN Administration Carvedilol 12.5 mg 11/24/21 22:00 11/26/21 23:24 Carvedilol 12.5 Mg Tab PO 12.5 mg BID CAILIN Administration Dextrose 50 ml 11/24/21 01:02 11/27/21 06:12 Dextrose 50% In Water (25gm) 50 Ml Syringe IV 10 ml Q30MIN PRN Administration Hypoglycemia Protocol Docusate Sodium 100 mg 11/25/21 22:00 11/26/21 23:24 Docusate Sodium 100 Mg Cap PO Not Given BID [facility] Famotidine 20 mg 11/27/21 10:00 Famotidine 20 Mg Tab PO DAILY [facility] Heparin Sodium (Porcine) 3,100 unit 11/25/21 10:25 Heparin 10,000 Units/10 Ml Vial 40 unit/kg (3100 unit) IV Q6H PRN Anti-Xa Assay < 0.1 units/ml Sodium Chloride 100 mls @ 999 mls/hr 11/24/21 09:55 Nacl 0.9% IV LAKE PRN Hypotension Sodium Chloride 500 mls @ 0 mls/hr 11/27/21 09:30 Nacl 0.9% 500 Ml IV 11/27/21 18:00 ONCE@0930 [facility] As Directed Insulin Human Lispro 0 unit 11/24/21 06:00 11/27/21 06:13 Insulin Lispro 100 Unit/Ml SUB-Q Not Given Q6HR [facility] Protocol Ondansetron HCl 4 mg 11/24/21 01:02 11/25/21 12:48 Ondansetron 4 Mg/2 Ml Inj IV 4 mg Q8H PRN Administration Nausea And Vomiting Oxycodone HCl 5 mg 11/25/21 08:56 11/26/21 23:43 Oxycodone 5 Mg Tab PO 5 mg Q6H PRN Administration Pain, Moderate (4-6) Sodium Chloride 10 ml 11/24/21 10:00 11/26/21 23:25 Sodium Chloride 0.9% 10 Ml Flush Syringe IV 10 ml BID CAILIN Administration Sodium Chloride 10 ml 11/24/21 01:02 Sodium Chloride 0.9% 10 Ml Flush Syringe IV PRN PRN LINE FLUSH Nutrition/Malnutrition Assess - Dietary Evaluation Nutrition/Malnutrition Findings: Nutrition Notes Start: 11/24/21 12:49 Freq: Status: Active Protocol: Document 11/24/21 16:18 GILLIAN (Rec: 11/24/21 16:42 GILLIAN [id number]) Nutrition Notes Initial or Follow up Brief Note Current Diagnosis CKD (stage V CKD),Diabetes, Hypertension,Stroke Other Pertinent Diagnosis ESRD+HD, CHF, Syncope/Fall, HIV, MS. Current Diet Cardiac/Consistent Carbohydrates -Renal, Chopped Meats- Diet (D 11/24). Height 6 ft Weight 77 kg [place] Body Weight (kg) 80.90 BMI 23.0 Weight Status Appropriate Subjective/Other Information RD consult for write/manage TF . TF discontinued and Pt advanced to PO diet, no reports available yet on Pt's PO intake of meals, will assess at F/U. Percent of energy/protein needs met: Prescribed Cardiac/Consistent Carbohydrates -Renal, Chopped Meats- Diet provides for energy/protein needs (1,977 Kcal/86 g) during LOS. #1 Nutrition Diagnosis Biting/Chewing (masticatory) difficulty Diagnosis Progress(for reassessment Continues documentation) Is patient on ventilator? No Is Patient Ambulatory and/or Out of Bed Yes REE-([place]-ambulatory/OOB) [ 8434.900 NUTR.MSJOOB] Kcal/Kg value to use for calculation 29 Approximate Energy Requirements Using 2233 kcal/Kg Calculation Used for Recommendations Kcal/kg Additional Notes Protein: >1.2 g/Kg ABW; >92 g/ day. Fluids: 1 ml/Kcal, or as per MD. Nutrition Intervention Change Diet Order: Start Cardiac/Consistent Carbohydrates -Renal, Chopped Meats- Diet Nutrition Support: HOLD TF-Nepro w/CARBSTEADY @ 50 ml/hr. Flush: 225 ml water Q 4 hr, or as per MD. Kcal 2,180 Protein (gm) 98 Carbohydrates (gm) 195 Fat (gm) 116 Fluid (mL) 880 Fiber (gm) 15 % RDI: 98% Kcal; 100% AA. Goal #1 Facilitate PO intake of meals with elemental, textural, or mechanical modification during LOS. Goal #2 Adjust the dietary intervention to better serve Pt's needs and clinical conditions during LOS. Goal #3 Maintain body weight within +/ -3% of admission body weight during LOS. Follow-Up By: 11/30/21 Additional Comments Start monitoring food tolerance, %PO intake of meals , and BM.
--- NOTE | 2021-11-25 10:45 | Event Note ---
Date: 11/25/21 Case d/w ICU PB. Neuro to obtain repeat head CT this AM. If no acute findings, cleared to start heparin gtt without bolus for possible thrombus as previously documented.
[2021-11-25 11:09] LABS: INR 0.96 (0.87-1.13)
--- NOTE | 2021-11-25 12:19 | Cat Scan Report ---
CT HEAD WITHOUT CONTRAST INDICATION / CLINICAL INFORMATION: eval prior to initiation of heparin gtt. TECHNIQUE: All CT scans at this location are performed using CT dose reduction for ALARA by means of automated exposure control. COMPARISON: 11/24/2021 FINDINGS: HEMORRHAGE: None. EXTRA-AXIAL SPACES: Normal in size and morphology for the patient's age. VENTRICULAR SYSTEM: Normal in size and morphology for the patient's age. CEREBRAL PARENCHYMA: No significant abnormality. No acute territorial infarct. MIDLINE SHIFT / HERNIATION: None. CEREBELLUM / BRAINSTEM: No significant abnormality. ORBITS: Normal as visualized SOFT TISSUES: No significant abnormality. SKULL: No significant abnormality. PARANASAL SINUSES / MASTOID AIR CELLS: Normal as visualized ADDITIONAL FINDINGS: None. IMPRESSION: 1. No acute intracranial abnormality. Signer Name: González Keen DO Signed: 11/25/2021 12:15 PM Workstation Name: [id number] [id number]
--- NOTE | 2021-11-25 12:29 | Progress Note ---
Assessment and Plan (1) CVA (cerebral vascular accident) (2) Diabetes (3) Syncope (4) Congestive heart failure (5) HIV (human immunodeficiency virus infection) (6) End stage renal disease (7) Hypertension -s/p HD yesterday, no HD today, HD tommorow -Eval for HD need daily -Kayxelate ordered, Low K diet -Does not have OP HD unit -Strict I/Os -Follow MRI brain Subjective Date of service: 11/25/21 Interval history: Tolerated HD yesterday, NAD. Objective - Exam Narrative Exam: General appearance: Present: no acute distress, well-nourished - EENT Eyes: Present: PERRL ENT: hearing intact, clear oral mucosa - Neck Neck: Present: supple, normal ROM - Respiratory Respiratory effort: normal Respiratory: bilateral: diminished - Cardiovascular Heart Sounds: Present: S1 & S2. Absent: rub, click - Extremities Extremities: pulses symmetrical, No edema Peripheral Pulses: within normal limits - Abdominal General gastrointestinal: Present: soft, non-tender, non-distended, normal bowel sounds Male genitourinary: Present: normal - Integumentary Integumentary: Present: clear, warm, dry - Musculoskeletal Musculoskeletal: gait normal, strength equal bilaterally - Psychiatric Psychiatric: appropriate mood/affect, intact judgment & insight - Neurologic Neurologic: CNII-XII intact, other (Left upper and lower extremity weakness) - Vital Signs Vital signs: Vital Signs - 12hr 11/25/21 11/25/21 11/25/21 00:30 00:45 01:00 Temperature Pulse Rate 85 80 79 Pulse Rate [ From Monitor] Pulse Rate [ Throughout] Respiratory 11 L 11 L 11 L Rate Respiratory Rate [ Throughout] Blood Pressure 130/81 126/76 125/76 O2 Sat by Pulse 100 Oximetry 11/25/21 11/25/21 11/25/21 01:15 01:30 01:45 Temperature Pulse Rate 77 79 78 Pulse Rate [ From Monitor] Pulse Rate [ Throughout] Respiratory 8 L 9 L 8 L Rate Respiratory Rate [ Throughout] Blood Pressure 121/80 124/82 121/80 O2 Sat by Pulse 100 100 Oximetry 11/25/21 11/25/21 11/25/21 02:00 02:15 02:30 Temperature Pulse Rate 79 76 79 Pulse Rate [ From Monitor] Pulse Rate [ Throughout] Respiratory 11 L 11 L 11 L Rate Respiratory Rate [ Throughout] Blood Pressure 126/80 130/79 141/87 O2 Sat by Pulse 98 100 Oximetry 11/25/21 11/25/21 11/25/21 02:45 03:00 03:15 Temperature Pulse Rate 74 75 76 Pulse Rate [ From Monitor] Pulse Rate [ Throughout] Respiratory 9 L 9 L 10 L Rate Respiratory Rate [ Throughout] Blood Pressure 124/79 127/79 121/79 O2 Sat by Pulse 100 Oximetry 11/25/21 11/25/21 11/25/21 03:30 03:45 03:54 Temperature 98.9 F Pulse Rate 77 80 Pulse Rate [ From Monitor] Pulse Rate [ Throughout] Respiratory 10 L 10 L Rate Respiratory Rate [ Throughout] Blood Pressure 130/77 133/82 O2 Sat by Pulse 99 99 Oximetry 11/25/21 11/25/21 11/25/21 04:00 04:15 04:30 Temperature Pulse Rate 79 74 Pulse Rate [ 77 From Monitor] Pulse Rate [ Throughout] Respiratory 9 L 9 L Rate Respiratory Rate [ Throughout] Blood Pressure 127/85 127/77 124/80 O2 Sat by Pulse 100 100 Oximetry 11/25/21 11/25/21 11/25/21 04:45 05:00 05:15 Temperature Pulse Rate 82 79 79 Pulse Rate [ From Monitor] Pulse Rate [ Throughout] Respiratory 10 L 8 L 9 L Rate Respiratory Rate [ Throughout] Blood Pressure 127/91 127/83 129/76 O2 Sat by Pulse 99 100 100 Oximetry 11/25/21 11/25/21 11/25/21 05:30 05:45 06:00 Temperature Pulse Rate 79 81 78 Pulse Rate [ From Monitor] Pulse Rate [ Throughout] Respiratory 9 L 9 L 9 L Rate Respiratory Rate [ Throughout] Blood Pressure 129/87 131/95 131/85 O2 Sat by Pulse 100 100 100 Oximetry 11/25/21 11/25/21 11/25/21 06:15 06:30 06:45 Temperature Pulse Rate 80 80 79 Pulse Rate [ From Monitor] Pulse Rate [ Throughout] Respiratory 9 L 10 L 8 L Rate Respiratory Rate [ Throughout] Blood Pressure 137/84 132/82 136/83 O2 Sat by Pulse 100 100 100 Oximetry 11/25/21 11/25/21 11/25/21 07:00 07:15 07:30 Temperature Pulse Rate 77 78 85 Pulse Rate [ From Monitor] Pulse Rate [ Throughout] Respiratory 9 L 10 L 12 Rate Respiratory Rate [ Throughout] Blood Pressure 125/82 125/76 147/92 O2 Sat by Pulse 100 100 100 Oximetry 11/25/21 11/25/21 11/25/21 07:45 07:47 08:00 Temperature 98.5 F Pulse Rate 93 H 79 Pulse Rate [ 86 From Monitor] Pulse Rate [ 88 Throughout] Respiratory 12 13 Rate Respiratory 18 Rate [ Throughout] Blood Pressure 147/92 O2 Sat by Pulse 99 100 Oximetry 11/25/21 11/25/21 11/25/21 08:01 08:15 08:29 Temperature Pulse Rate 91 H 85 Pulse Rate [ From Monitor] Pulse Rate [ Throughout] Respiratory 15 21 Rate Respiratory Rate [ Throughout] Blood Pressure 140/83 142/79 O2 Sat by Pulse 97 100 100 Oximetry 11/25/21 11/25/21 11/25/21 08:31 08:45 09:01 Temperature Pulse Rate 90 89 100 H Pulse Rate [ From Monitor] Pulse Rate [ Throughout] Respiratory 13 13 16 Rate Respiratory Rate [ Throughout] Blood Pressure 142/79 149/93 149/93 O2 Sat by Pulse 100 97 Oximetry 11/25/21 11/25/21 11/25/21 09:15 09:30 09:45 Temperature Pulse Rate 84 82 Pulse Rate [ From Monitor] Pulse Rate [ Throughout] Respiratory 20 16 Rate Respiratory Rate [ Throughout] Blood Pressure 149/93 149/93 138/83 O2 Sat by Pulse 86 93 Oximetry 11/25/21 11/25/21 11/25/21 10:00 10:12 10:15 Temperature Pulse Rate 90 90 92 H Pulse Rate [ From Monitor] Pulse Rate [ Throughout] Respiratory 17 22 Rate Respiratory Rate [ Throughout] Blood Pressure 142/87 142/87 154/91 O2 Sat by Pulse 90 97 Oximetry 11/25/21 11/25/21 11/25/21 10:30 10:45 11:43 Temperature Pulse Rate 87 86 89 Pulse Rate [ From Monitor] Pulse Rate [ Throughout] Respiratory 17 17 17 Rate Respiratory Rate [ Throughout] Blood Pressure 142/78 139/85 139/85 O2 Sat by Pulse 95 92 91 Oximetry 11/25/21 11:45 Temperature Pulse Rate 88 Pulse Rate [ From Monitor] Pulse Rate [ Throughout] Respiratory 14 Rate Respiratory Rate [ Throughout] Blood Pressure 139/85 O2 Sat by Pulse 96 Oximetry - Lab 11/25/21 07:27 11/25/21 07:27 Most recent lab results Calcium 7.7 mg/dL (8.4-10.2) L 11/25/21 07:27 Medications & Allergies - Medications Allergies/Adverse Reactions: Allergies No Known Allergies Allergy (Verified 10/09/21 11:02) Home Medications: Home Medications Medication Instructions Recorded Confirmed Last Taken Type Bacitracin/Pramoxine/Aloe Vera 1 applicatio TP TID #1 tube 10/09/21 11/02/21 Unknown Rx [Bacitraycin Plus Ointment] Calc Carb/Vit D 500 mg-200 Uni 1 each PO DAILY #30 tablet 10/21/21 11/02/21 11/01/21 10:00 Rx [Oysco D 500 mg-200 Unit] Acetaminophen [Tylenol] 500 mg PO Q6H PRN 10/27/21 11/02/21 Unknown History Famotidine [Pepcid] 10 mg PO BID #60 tablet 11/12/21 Unknown Rx amLODIPine 10 mg PO DAILY #30 tab 11/12/21 Unknown Rx Active Medications: Generic Name Dose Route Start Last Admin Trade Name Freq PRN Reason Stop Dose Admin Acetaminophen 650 mg 11/24/21 01:02 Acetaminophen 325 Mg Tab PO Q4H PRN Pain MILD(1-3)/Fever >100.5/RACHEL Albuterol 2.5 mg 11/24/21 01:02 Albuterol 2.5 Mg/3 Ml Nebu IH Q3HRT PRN Shortness Of Breath Albuterol/Ipratropium 1 ampul 11/24/21 02:00 11/25/21 08:24 Ipratropium/Albuterol Sulfate 3 Ml Ampul.Neb IH 1 ampul Q6HRT CAILIN Administration Atorvastatin Calcium 40 mg 11/24/21 22:00 11/24/21 23:28 Atorvastatin 40 Mg Tab PO 40 mg QHS CAILIN Administration Carvedilol 12.5 mg 11/24/21 22:00 11/25/21 10:12 Carvedilol 12.5 Mg Tab PO 12.5 mg BID CAILIN Administration Dextrose 50 ml 11/24/21 01:02 Dextrose 50% In Water (25gm) 50 Ml Syringe IV Q30MIN PRN Hypoglycemia Protocol Docusate Sodium 100 mg 11/24/21 22:00 11/25/21 10:12 Docusate Sodium 100 Mg/10 Ml Oral Liqd PO 100 mg BID [facility] Administration Famotidine 20 mg 11/24/21 10:00 11/25/21 10:16 Famotidine 20 Mg/2 Ml Inj IV Not Given DAILY [facility] Heparin Sodium (Porcine) 3,100 unit 11/25/21 10:25 Heparin 10,000 Units/10 Ml Vial 40 unit/kg (3100 unit) IV Q6H PRN Anti-Xa Assay < 0.1 units/ml Sodium Chloride 100 mls @ 999 mls/hr 11/24/21 09:55 Nacl 0.9% IV LAKE PRN Hypotension Heparin Sodium/Sodium Chloride 25,000 unit in 500 mls @ 23 mls/hr 11/25/21 11:00 Heparin/ 0.45% Nacl-25,000 Unit/500 Ml IV TITR [facility] Protocol 1,150 UNITS/HR Insulin Human Lispro 0 unit 11/24/21 06:00 11/25/21 06:02 Insulin Lispro 100 Unit/Ml SUB-Q Not Given Q6HR [facility] Protocol Labetalol HCl 10 mg 11/24/21 01:02 Labetalol 20 Mg/4 Ml Inj IV Q5MIN PRN to maintain SBP < 180 Morphine Sulfate 4 mg 11/24/21 01:02 11/24/21 23:29 Morphine 4 Mg/1 Ml Inj IV 4 mg Q4H PRN Administration Pain , Severe (7-10) Ondansetron HCl 4 mg 11/24/21 01:02 Ondansetron 4 Mg/2 Ml Inj IV Q8H PRN Nausea And Vomiting Oxycodone HCl 5 mg 11/25/21 08:56 11/25/21 10:12 Oxycodone 5 Mg Tab PO 5 mg Q6H PRN Administration Pain, Moderate (4-6) Sodium Chloride 10 ml 11/24/21 10:00 11/25/21 10:13 Sodium Chloride 0.9% 10 Ml Flush Syringe IV 10 ml BID [facility] Administration Sodium Chloride 10 ml 11/24/21 01:02 Sodium Chloride 0.9% 10 Ml Flush Syringe IV PRN PRN LINE FLUSH
[2021-11-25] MEDS ORDERED: SODIUM POLYSTYRENE 15 GM/60 ML ORAL LIQD PO ONE (13:00)
--- NOTE | 2021-11-25 14:21 | Event Note ---
[place] [facility] Consult Note # Demographics Consult Type: General Neurology Patient Location: Inpatient First Name: Kurtis Last Name: Don Date of : 1960 Age: 61 Gender: Male Facility: [facility] Time of Initial Page (Eastern Time): 11/25/2021, 10:11 Time of Return Call (Eastern Time): 11/25/2021, 10:11 Phone Only Consult: Dr. Waggoner wanted to discuss if patient can start anticoagulation for RV thrombus noted on ECHO. Patient is >24 hours from tpa at this time. I discussed with Dr. Waggoner the risk of bleeding. Recommend CTH to rule out any intracranial hemorrhage. In addition, if the stroke size is moderate to large then risk of bleeding is higher and generally anticoagulation is not recommended, however risk and benefit should be weighed. If cardiology feels patient needs to be started on anticoagulation then can consider heparin. Repeat CTH now and then 24 hours after starting anticoagulation. If stroke size found to be moderate to large or if bleed on CTH, please reconsult neurology for further consideration. Good control of BP and blood glucose is recommended.
--- NOTE | 2021-11-25 15:13 | Progress Note ---
Assessment and Plan ECHO 11/24/21: EF 50%, ? small thrombus on catheter tip AMS // ?CVA (s/p tPA 11/23 @ 7068) Syncope w/Collapse Acute Respiratory Failure Bilateral Pleural Effusions // Volume Overload ESRD on HD Hyperkalemia Anemia Thrombocytopenia Elevated cardiac enzymes Takotsubo Cardiomyopathy (dx August 2021) EF 30-35% HTN DM2 HIV/AIDS (not on ART) Medical Non-Compliance Multiple Sclerosis (per chart review) Cardiographics: Echo 08/2021: LVEF 30-35%, mildly enlarged LV, akinetic apex and anterior wall suggestive of LAD lesion/Takotsubo CMP, grade 2 diastolic dysfunction, normal RV SF, moderately dilated LA, no significant AV abnormalities, mild MR, mild TR, RVSP 42.9 mmHg, no pericardial effusion Echo 03/2021: LVEF 66%, mild LVH, grade 1 diastolic dysfunction, trace MR, trace TR LHC 08/30/2021: Right dominant system LM: large caliber vessel, angiographically free of disease LAD: large caliber vessel, wraps around the apex, angiographically free of disease D1: large caliber vessel, free of disease D2: small caliber vessel, free of disease LCx: large caliber vessel, angiographically free of disease OM1: small caliber vessel, free of disease OM2: smallmedium caliber vessel with a tortuous course in the proximal part, angiographically free of disease RCA: large caliber vessel, angiographically free of disease R PDA: medium caliber vessel, angiographically free of disease *Angiogram is consistent with Takotsubo cardiomyopathy, LVEF 35-40%, elevated LVEDP Plan: Echo also revealed a mass in the RA measuring 0.68 x 0.33 cm attached to cat heter suspicious for thrombus. Recommend systemic anticoagulation if no contraindications from a Neuro standpoint or otherwise. Resume GDMT for Takotsubo CMP unless any contraindications Outpatient cardiac regimen: Coreg 12.5mg BID, Losartan 50mg daily, Imdur 60mg daily. Subjective Date of service: 11/25/21 Principal diagnosis: Syncope Interval history: Pt sitting up without complaints. Objective Vital Signs Temp Pulse Pulse Pulse Resp Resp BP 11/25/21 13:30 84 16 158/101 11/25/21 13:15 81 11 L 147/94 11/25/21 13:00 89 12 144/96 11/25/21 12:45 87 18 142/93 11/25/21 12:30 78 13 143/89 11/25/21 12:15 85 12 142/98 11/25/21 12:00 97.8 F 87 82 13 146/103 11/25/21 11:45 88 14 139/85 11/25/21 11:43 89 17 139/85 11/25/21 10:45 86 17 139/85 11/25/21 10:30 87 17 142/78 11/25/21 10:15 92 H 22 154/91 11/25/21 10:12 90 142/87 11/25/21 10:00 90 17 142/87 11/25/21 09:45 82 16 138/83 11/25/21 09:30 149/93 11/25/21 09:15 84 20 149/93 11/25/21 09:01 100 H 16 149/93 11/25/21 08:45 89 13 149/93 11/25/21 08:31 90 13 142/79 11/25/21 08:29 11/25/21 08:15 85 21 142/79 11/25/21 08:01 91 H 15 140/83 11/25/21 08:00 79 86 88 13 18 11/25/21 07:47 98.5 F 11/25/21 07:45 93 H 12 147/92 11/25/21 07:30 85 12 147/92 11/25/21 07:15 78 10 L 125/76 11/25/21 07:00 77 9 L 125/82 11/25/21 06:45 79 8 L 136/83 11/25/21 06:30 80 10 L 132/82 11/25/21 06:15 80 9 L 137/84 11/25/21 06:00 78 9 L 131/85 11/25/21 05:45 81 9 L 131/95 11/25/21 05:30 79 9 L 129/87 11/25/21 05:15 79 9 L 129/76 11/25/21 05:00 79 8 L 127/83 11/25/21 04:45 82 10 L 127/91 11/25/21 04:30 74 9 L 124/80 11/25/21 04:15 127/77 11/25/21 04:00 79 77 9 L 127/85 11/25/21 03:54 98.9 F 11/25/21 03:45 80 10 L 133/82 11/25/21 03:30 77 10 L 130/77 11/25/21 03:15 76 10 L 121/79 11/25/21 03:00 75 9 L 127/79 11/25/21 02:45 74 9 L 124/79 11/25/21 02:30 79 11 L 141/87 11/25/21 02:15 76 11 L 130/79 11/25/21 02:00 79 11 L 126/80 11/25/21 01:45 78 8 L 121/80 11/25/21 01:30 79 9 L 124/82 11/25/21 01:15 77 8 L 121/80 11/25/21 01:00 79 11 L 125/76 11/25/21 00:45 80 11 L 126/76 11/25/21 00:30 85 11 L 130/81 11/25/21 00:15 88 10 L 140/82 11/25/21 00:00 98.6 F 91 H 76 10 L 135/80 11/24/21 23:45 93 H 11 L 145/82 11/24/21 23:31 98 H 12 150/73 11/24/21 23:28 96 H 148/70 11/24/21 23:15 93 H 11 L 148/70 11/24/21 23:00 93 H 14 162/86 11/24/21 22:53 101 H 139/88 11/24/21 22:30 89 8 L 139/88 11/24/21 22:15 92 H 14 140/83 11/24/21 22:00 88 10 L 132/80 11/24/21 21:52 11/24/21 21:45 95 H 12 142/80 11/24/21 21:30 88 11 L 141/81 11/24/21 21:15 91 H 11 L 137/90 11/24/21 21:00 90 10 L 137/90 11/24/21 20:45 99 H 18 132/80 11/24/21 20:30 94 H 98 H 19 20 132/80 11/24/21 20:15 94 H 15 139/86 11/24/21 20:00 98.7 F 94 H 95 H 14 139/88 06/04/22 19:45 95 H 14 138/88 11/24/21 19:30 93 H 13 138/90 11/24/21 19:15 93 H 14 143/86 11/24/21 19:00 94 H 11 L 136/90 11/24/21 18:45 94 H 11 L 136/90 11/24/21 18:36 94 H 14 128/88 11/24/21 18:30 94 H 12 128/88 11/24/21 18:15 92 H 10 L 134/87 11/24/21 18:00 90 12 141/76 11/24/21 17:45 94 H 15 140/85 11/24/21 17:30 99 H 21 146/94 11/24/21 17:16 101 H 12 145/79 11/24/21 17:00 105 H 15 155/74 11/24/21 16:46 102 H 16 159/83 11/24/21 16:30 104 H 12 152/89 11/24/21 16:15 98 H 18 157/87 11/24/21 16:00 98.2 F 96 H 103 H 13 158/91 11/24/21 15:53 98 H 165/92 11/24/21 15:46 97 H 22 165/92 11/24/21 15:30 91 H 10 L 158/92 11/24/21 15:15 91 H 12 157/90 Pulse Ox 11/25/21 13:30 98 11/25/21 13:15 11/25/21 13:00 97 11/25/21 12:45 98 11/25/21 12:30 98 11/25/21 12:15 11/25/21 12:00 99 11/25/21 11:45 96 11/25/21 11:43 91 11/25/21 10:45 92 11/25/21 10:30 95 11/25/21 10:15 97 11/25/21 10:12 11/25/21 10:00 90 11/25/21 09:45 93 11/25/21 09:30 86 11/25/21 09:15 11/25/21 09:01 11/25/21 08:45 97 11/25/21 08:31 100 11/25/21 08:29 100 11/25/21 08:15 100 11/25/21 08:01 97 11/25/21 08:00 100 11/25/21 07:47 11/25/21 07:45 99 11/25/21 07:30 100 11/25/21 07:15 100 11/25/21 07:00 100 11/25/21 06:45 100 11/25/21 06:30 100 11/25/21 06:15 100 11/25/21 06:00 100 11/25/21 05:45 100 11/25/21 05:30 100 11/25/21 05:15 100 11/25/21 05:00 100 11/25/21 04:45 99 11/25/21 04:30 100 11/25/21 04:15 11/25/21 04:00 100 11/25/21 03:54 11/25/21 03:45 99 11/25/21 03:30 99 11/25/21 03:15 11/25/21 03:00 11/25/21 02:45 100 11/25/21 02:30 100 11/25/21 02:15 11/25/21 02:00 98 11/25/21 01:45 100 11/25/21 01:30 100 11/25/21 01:15 11/25/21 01:00 11/25/21 00:45 11/25/21 00:30 100 11/25/21 00:15 100 11/25/21 00:00 100 11/24/21 23:45 100 11/24/21 23:31 100 11/24/21 23:28 11/24/21 23:15 100 11/24/21 23:00 100 11/24/21 22:53 98 11/24/21 22:30 11/24/21 22:15 100 11/24/21 22:00 100 11/24/21 21:52 99 11/24/21 21:45 100 11/24/21 21:30 100 11/24/21 21:15 11/24/21 21:00 100 11/24/21 20:45 99 11/24/21 20:30 98 11/24/21 20:15 11/24/21 20:00 99 11/24/21 19:45 100 11/24/21 19:30 100 11/24/21 19:15 99 11/24/21 19:00 100 11/24/21 18:45 11/24/21 18:36 99 11/24/21 18:30 99 11/24/21 18:15 99 11/24/21 18:00 100 11/24/21 17:45 11/24/21 17:30 100 11/24/21 17:16 99 11/24/21 17:00 98 11/24/21 16:46 99 11/24/21 16:30 98 11/24/21 16:15 99 11/24/21 16:00 98 11/24/21 15:53 11/24/21 15:46 100 11/24/21 15:30 100 11/24/21 15:15 100 - Physical Examination HEENT: Positive: EOMI, Normocephaly Neck: Negative: JVD/HJR Lungs: Positive: clear to auscultation, Decreased Breath Sounds Neuro: Positive: Grossly Intact Abdomen: Positive: Soft. Negative: Tender Skin: Negative: Rash Musculoskeletal: No Pain Extremities: Present: lower extr. pulses, warm. Absent: edema - Labs and Meds Coagulation 11/25/21 Range/Units 08:30 PT 13.8 (12.2-14.9) Sec. INR 0.96 (0.87-1.13) APTT 34.0 (24.2-36.6) Sec. CBC 11/25/21 Range/Units 07:27 WBC 4.3 L (4.5-11.0) K/mm3 RBC 3.04 L (3.65-5.03) M/mm3 Hgb 8.1 L (11.8-15.2) gm/dl Hct 25.5 L (35.5-45.6) % Plt Count 112 L (140-440) K/mm3 Comprehensive Metabolic Panel 11/25/21 Range/Units 07:27 Sodium 137 (137-145) mmol/L Potassium 5.4 H (3.6-5.0) mmol/L Chloride 100.1 (98-107) mmol/L Carbon Dioxide 21 L (22-30) mmol/L BUN 39 H (9-20) mg/dL Creatinine 14.1 H (0.8-1.3) mg/dL Glucose 77 (75-100) mg/dL Calcium 7.7 L (8.4-10.2) mg/dL - Imaging and Cardiology EKG: report reviewed, image reviewed Echo: report reviewed Cardiac cath: report reviewed - EKG Sinus rhythms and dysrhythmias: sinus rhythm Repolarization changes or abnormalities: nonspecific abnormality, ST segment, and/or T wave
[2021-11-25] MEDS: HEPARIN/ 0.45% NACL DRIP 25,000 UNIT/500 ML BAG IV SCH (20:53)
[2021-11-25] MEDS: DOCUSATE SODIUM 100 MG CAP PO SCH (22:00)
[2021-11-26] MEDS: IPRATROPIUM/ALBUTEROL SULFATE 3 ML AMPUL.NEB IH SCH ×4 (02:39→19:54)
[2021-11-26 04:16] LABS: Hematocrit 21.8 % (35.5-45.6); Hemoglobin 7.1 gm/dl (11.8-15.2); Mean Corpuscular HGB Conc 33 % (32-34); Mean Corpuscular Volume 83 fl (84-94); Platelet Count 100 K/mm3 (140-440); Red Blood Count 2.64 M/mm3 (3.65-5.03); Red Cell Distribution Width 15.6 % (13.2-15.2)
[2021-11-26 04:44] LABS: Calcium 7.4 mg/dL (8.4-10.2)
[2021-11-26] MEDS: oxyCODONE 5 MG TAB PO PRN ×2 (05:10→23:43)
[2021-11-26] MEDS: INSULIN LISPRO 100 UNIT/ML SUB-Q SCH ×4 (06:00→19:05)
[2021-11-26] MEDS: carvediloL 12.5 MG TAB PO SCH ×2 (09:42→23:24)
[2021-11-26] MEDS: DOCUSATE SODIUM 100 MG CAP PO SCH ×2 (09:42→23:24)
[2021-11-26] MEDS ORDERED: FAMOTIDINE 20 MG TAB PO SCH (10:00)
--- NOTE | 2021-11-26 10:30 | Progress Note ---
<MICHAEL TRAVIS - Last Filed: 11/27/21 07:21> Assessment and Plan Assessment and plan: This is a 61-year-old male with HTN, Takotsubo cardiomyopathy, CHF, ESRD on HD, diabetes mellitus, HIV, multiple sclerosis, and sciatica with medical noncompliance admitted for CVA s/p tPA in the ED Hospital course to date: 11/24: Patient receiving hemodialysis today, CT scan 24-hour post tPA scheduled for tonight. MR a/MRV head and MRI brain pending. Echocardiogram completed at bedside. 11/25: Repeat CT head with no acute abnormality, cleared by neurology to restart heparin drip after repeat head CT today which showed no acute abnormality. We will start heparin drip given RA thrombus. Vascular surgery consulted to review images. We will repeat CT head in 24 hours. 11/26: SHARON overnight. Remains on heparin gtt per protocol. MRI brain and MRA head/Neck pending, Neurology consult pending. Worsen anemia and thrombocytopenia noted, no s/s of any active bleeding noted. Will continue to monitor. Plan for HD today per nephro. Possible transfer to the floor today if patient remains stable. Assessment and Plan Neuro: R/o CVA, medical noncompliance, h/o multiple sclerosis, sciatic nerve pain -Presented with left-sided weakness after syncopal episode and fall -[facility] 11/24 @ 2100, Admit NIHSS 7 -Telemetry neurology consulted in the ED S/p tPA -Neuro deficits resolved post tPA -Neurology consulted, appreciate recommendations -Admit CT head without acute intracranial abnormality -CT C-spine shows no acute fracture of the cervical spine, large bilateral pleural effusions -CTA head shows no occlusion or significant stenosis of major intracranial vasculature -CTA neck shows no occlusion or significant stenosis of carotid or vertebral vasculature -Repeat CT head shows no acute intracranial abnormality -MRI brain and MRA head/Neck pending -PT/OT/ST consulted -Bilateral carotid ultrasound pending -Lipid panel noted in chart -Statin -[facility] also on consulted Cardiac: Syncopal with Collapse Right Atrial Thrombus H/o Takotsubo cardiomyopathy, HTN, CHF -Report syncope episode and fall prior to admit -EKG revealed NSR, with no ST changes -Elevated troponin X3 -Cardiology on consult, appreciated recommendation -No plan for any intervention at this time -Echo reviewed - LVEF 50%, moderate diastolic dysfunction, moderate MR, no evidence of PFO. -Echo also revealed a mass in the RA measuring 0.68 x 0.33 cm attached to catheter suspicious for thrombus. -Heparin gtt initiated per protocol -Vascular surgery was also consulted, who recommends 6 to 8 weeks of AC and follow Echo to evaluate thrombus. Awaiting neurology consult for recommendations -Home meds resumed -Continue blood pressure monitor per protocol -Maintain SBP less than 160 Respiratory: Acute hypoxic respiratory failure, bilateral pleural effusions (likely secondary to volume overload) -CT imaging noted large bilateral pleural effusions -CXR showed small right pleural effusion -Patient stable on 2L NC, SPO2 at 100% -Continue O2 Supplemental, wean as tolerated -Pulmonary hygiene -Continue SPO2 monitoring for SPO2 goal above 92% -CCM consulted, appreciate recommendations GI: Dysphagia, moderate protein calorie malnutrition -CC cardiac renal diet, mechanical soft -PPI -BR: Colace : ESRD on HD, hyperkalemia, metabolic acidosis -Nephrology consulted, appreciate recommendations -HD per nephrology -Renally dose medications -Avoid nephrotoxic medications -Trend BMP -Kionex x1 Endo: h/o DM II -Avoid hypoglycemia -SSI -Accu-Cheks q6hr Heme: Anemia of chronic disease, Thrombocytopenia RA thrombus attached to vascath (noted on echo) -Echo showed no PFO. Given admin of tPA within 24 hours, cardiology suggested to ask vascular or IR to review the images in the AM. -Teleneuro consulted re anticoagulation -Dr. Greene (teleneuro) has okayed heparin gtt -Will repeat CT head prior to initiation and they prefer no bolus -CT head in 24 hours post initiation -Trend CBC -Transfuse hemoglobin less than 7 -SCDs to BLE while in bed -Heparin gtt per protocol -Vascular Surgery also consulted, who recommends 6 to 8 weeks of AC and follow Echo to evaluate thrombus The high probability of a clinically significant, sudden or life threatening deterioration of the [neuro/renal] system(s) required my full and direct attention, intervention and personal management. The aggregate critical care time was [60] minutes. This time is in addition to time spent performing reported procedures but includes the following: [x] Data Review and interpretation [x] Patient assessment and monitoring of vital signs [x] Documentation [x] Medication orders and management Disposition Plan: ICU Total Time Spent with Patient (Minutes): 60 History Interval history: Patient seen and examined at the bedside. Fully AAO, on 2L NC, no neuro deficits appreciated. Patient denied any pain nor any discomfort at this time. Remains on heaprin gtt per protocol. SHARON overnight Hospitalist Physical - Constitutional Vitals: Temp Pulse Resp BP Pulse Ox 97.9 F 87 12 142/93 100 11/26/21 07:38 11/26/21 10:00 11/26/21 10:00 11/26/21 10:00 11/26/21 10:00 General appearance: Present: no acute distress - EENT Eyes: Present: PERRL, EOM intact ENT: hearing intact, clear oral mucosa - Neck Neck: Present: normal ROM - Respiratory Respiratory effort: normal Respiratory: bilateral: diminished - Cardiovascular Rhythm: regular Heart Sounds: Present: S1 & S2 - Extremities Extremities: no ischemia, pulses intact, pulses symmetrical Peripheral Pulses: within normal limits - Abdominal General gastrointestinal: soft, non-distended, normal bowel sounds - Integumentary Integumentary: Present: warm, dry - Psychiatric Psychiatric: appropriate mood/affect, cooperative - Neurologic Neurologic: CNII-XII intact, moves all extremities - Allied Health Allied health notes reviewed: nursing HEART Score - HEART Score Troponin: Troponin T 0.324 ng/mL (0.00-0.029) H* 11/24/21 20:52 Results - Labs CBC & Chem 7: 11/27/21 04:29 11/27/21 04:29 Labs: Laboratory Last Values WBC 4.6 K/mm3 (4.5-11.0) 11/26/21 04:08 RBC 2.64 M/mm3 (3.65-5.03) L 11/26/21 04:08 Hgb 7.1 gm/dl (11.8-15.2) L 11/26/21 04:08 Hct 21.8 % (35.5-45.6) L 11/26/21 04:08 MCV 83 fl (84-94) L 11/26/21 04:08 MCH 27 pg (28-32) L 11/26/21 04:08 MCHC 33 % (32-34) 11/26/21 04:08 RDW 15.6 % (13.2-15.2) H 11/26/21 04:08 Plt Count 100 K/mm3 (140-440) L 11/26/21 04:08 Lymph % (Auto) 9.1 % (13.4-35.0) L 11/23/21 21:29 Lassen % (Auto) 12.6 % (0.0-7.3) H 11/23/21 21:29 Eos % (Auto) 3.0 % (0.0-4.3) 11/23/21 21:29 Baso % (Auto) 1.0 % (0.0-1.8) 11/23/21 21:29 Lymph # (Auto) 0.4 K/mm3 (1.2-5.4) L 11/23/21 21:29 Lassen # (Auto) 0.6 K/mm3 (0.0-0.8) 11/23/21 21: Eos # (Auto) 0.1 K/mm3 (0.0-0.4) 11/23/21 21: Baso # (Auto) 0.0 K/mm3 (0.0-0.1) 11/23/21 21: Seg Neutrophils % 74.3 % (40.0-70.0) H 11/23/21 21:29 Seg Neutrophils # 3.6 K/mm3 (1.8-7.7) 11/23/21 21: PT 13.8 Sec. (12.2-14.9) 11/25/21 08:30 INR 0.96 (0.87-1.13) 11/25/21 08:30 APTT 34.0 Sec. (24.2-36.6) 11/25/21 08:30 Thrombin Time 23.3 Sec. (15.1-19.6) H 11/23/21 21:29 Heparin Anti-Xa Level 0.52 U.I./ml (0.3-0.7) 11/26/21 04:08 Sodium 138 mmol/L (137-145) 11/26/21 04:08 Potassium 4.4 mmol/L (3.6-5.0) 11/26/21 04:08 Chloride 98.1 mmol/L (98-107) 11/26/21 04:08 Carbon Dioxide 22 mmol/L (22-30) 11/26/21 04:08 Anion Gap 22 mmol/L 11/26/21 04:08 BUN 43 mg/dL (9-20) H 11/26/21 04:08 Creatinine 14.3 mg/dL (0.8-1.3) H 11/26/21 04:08 Estimated GFR 4 ml/min 11/26/21 04:08 BUN/Creatinine Ratio 3 % 11/26/21 04:08 Glucose 91 mg/dL (75-100) 11/26/21 04:08 POC Glucose 88 mg/dL (70-105) 11/26/21 05:23 Calcium 7.4 mg/dL (8.4-10.2) L 11/26/21 04:08 Phosphorus 7.40 mg/dL (2.5-4.5) H 11/26/21 04:08 Magnesium 1.80 mg/dL (1.7-2.3) 11/26/21 04:08 Total Bilirubin 0.20 mg/dL (0.1-1.2) 11/23/21 21:29 AST 17 units/L (5-40) 11/23/21 21:29 ALT < 5 units/L (7-56) L 11/23/21 21:29 Alkaline Phosphatase 80 units/L (35-129) 11/23/21 21:29 Total Creatine Kinase 145 units/L (55-170) 11/23/21 21:29 CK-MB (CK-2) 5.7 ng/mL (0.0-4.0) H 11/23/21 21:29 CK-MB (CK-2) Rel Index 3.9 (0-4) 11/23/21 21:29 Troponin T 0.324 ng/mL (0.00-0.029) H* 11/24/21 20:52 Total Protein 8.4 g/dL (6.3-8.2) H 11/23/21 21:29 Albumin 3.0 g/dL (3.9-5) L 11/23/21 21:29 Albumin/Globulin Ratio 0.6 % 11/23/21 21:29 Triglycerides 177 mg/dL (2-149) H 11/23/21 21:29 Cholesterol 180 mg/dL (50-199) 11/23/21 21:29 LDL Cholesterol Direct 100 mg/dL (50-130) 11/23/21 21:29 HDL Cholesterol 31 mg/dL (40-59) L 11/23/21 21:29 Cholesterol/HDL Ratio 5.80 % 11/23/21 21:29 Plasma/Serum Alcohol < 0.01 % (0-0.07) 11/23/21 21:29 Active Medications - Current Medications Current Medications: Generic Name Dose Route Start Last Admin Trade Name Freq PRN Reason Stop Dose Admin Acetaminophen 650 mg 11/24/21 01:02 Acetaminophen 325 Mg Tab PO Q4H PRN Pain MILD(1-3)/Fever >100.5/RACHEL Albuterol 2.5 mg 11/24/21 01:02 Albuterol 2.5 Mg/3 Ml Nebu IH Q3HRT PRN Shortness Of Breath Albuterol/Ipratropium 1 ampul 11/24/21 02:00 11/26/21 02:39 Ipratropium/Albuterol Sulfate 3 Ml Ampul.Neb IH 1 ampul Q6HRT CAILIN Administration Atorvastatin Calcium 40 mg 11/24/21 22:00 11/25/21 22:05 Atorvastatin 40 Mg Tab PO 40 mg QHS CAILIN Administration Carvedilol 12.5 mg 11/24/21 22:00 11/26/21 09:42 Carvedilol 12.5 Mg Tab PO 12.5 mg BID CAILIN Administration Dextrose 50 ml 11/24/21 01:02 Dextrose 50% In Water (25gm) 50 Ml Syringe IV Q30MIN PRN Hypoglycemia Protocol Docusate Sodium 100 mg 11/25/21 22:00 11/26/21 09:42 Docusate Sodium 100 Mg Cap PO Not Given BID CAILIN Famotidine 20 mg 11/26/21 10:00 11/26/21 09:42 Famotidine 20 Mg Tab PO 20 mg BID CAILIN Administration Heparin Sodium (Porcine) 3,100 unit 11/25/21 10:25 Heparin 10,000 Units/10 Ml Vial 40 unit/kg (3100 unit) IV Q6H PRN Anti-Xa Assay < 0.1 units/ml Sodium Chloride 100 mls @ 999 mls/hr 11/24/21 09:55 Nacl 0.9% IV LAKE PRN Hypotension Heparin Sodium/Sodium Chloride 25,000 unit in 500 mls @ 23 mls/hr 11/25/21 11:00 11/26/21 05:21 Heparin/ 0.45% Nacl-25,000 Unit/500 Ml IV 950 units/hr TITR CAILIN 19 mls/hr Titration Protocol 1,150 UNITS/HR Insulin Human Lispro 0 unit 11/24/21 06:00 11/26/21 06:00 Insulin Lispro 100 Unit/Ml SUB-Q Not Given Q6HR [facility] Protocol Labetalol HCl 10 mg 11/24/21 01:02 Labetalol 20 Mg/4 Ml Inj IV Q5MIN PRN to maintain SBP < 180 Morphine Sulfate 4 mg 11/24/21 01:02 11/24/21 23:29 Morphine 4 Mg/1 Ml Inj IV 4 mg Q4H PRN Administration Pain , Severe (7-10) Ondansetron HCl 4 mg 11/24/21 01:02 11/25/21 12:48 Ondansetron 4 Mg/2 Ml Inj IV 4 mg Q8H PRN Administration Nausea And Vomiting Oxycodone HCl 5 mg 11/25/21 08:56 11/26/21 05:10 Oxycodone 5 Mg Tab PO 5 mg Q6H PRN Administration Pain, Moderate (4-6) Sodium Chloride 10 ml 11/24/21 10:00 11/26/21 09:42 Sodium Chloride 0.9% 10 Ml Flush Syringe IV 10 ml BID CAILIN Administration Sodium Chloride 10 ml 11/24/21 01:02 Sodium Chloride 0.9% 10 Ml Flush Syringe IV PRN PRN LINE FLUSH Nutrition/Malnutrition Assess - Dietary Evaluation Nutrition/Malnutrition Findings: Nutrition Notes Start: 11/24/21 12:49 Freq: Status: Active Protocol: Document 11/24/21 16:18 GILLIAN (Rec: 11/24/21 16:42 GILLIAN [id number]) Nutrition Notes Initial or Follow up Brief Note Current Diagnosis CKD (stage V CKD),Diabetes, Hypertension,Stroke Other Pertinent Diagnosis ESRD+HD, CHF, Syncope/Fall, HIV, MS. Current Diet Cardiac/Consistent Carbohydrates -Renal, Chopped Meats- Diet (D 11/24). Height 6 ft Weight 77 kg [place] Body Weight (kg) 80.90 BMI 23.0 Weight Status Appropriate Subjective/Other Information RD consult for write/manage TF . TF discontinued and Pt advanced to PO diet, no reports available yet on Pt's PO intake of meals, will assess at F/U. Percent of energy/protein needs met: Prescribed Cardiac/Consistent Carbohydrates -Renal, Chopped Meats- Diet provides for energy/protein needs (1,977 Kcal/86 g) during LOS. #1 Nutrition Diagnosis Biting/Chewing (masticatory) difficulty Diagnosis Progress(for reassessment Continues documentation) Is patient on ventilator? No Is Patient Ambulatory and/or Out of Bed Yes [facility] [ 1492.900 NUTR.[email or web address]] Kcal/Kg value to use for calculation 29 Approximate Energy Requirements Using 2233 kcal/Kg Calculation Used for Recommendations Kcal/kg Additional Notes Protein: >1.2 g/Kg ABW; >92 g/ day. Fluids: 1 ml/Kcal, or as per MD. Nutrition Intervention Change Diet Order: Start Cardiac/Consistent Carbohydrates -Renal, Chopped Meats- Diet Nutrition Support: HOLD TF-Nepro w/CARBSTEADY @ 50 ml/hr. Flush: 225 ml water Q 4 hr, or as per MD. Kcal 2,180 Protein (gm) 98 Carbohydrates (gm) 195 Fat (gm) 116 Fluid (mL) 880 Fiber (gm) 15 % RDI: 98% Kcal; 100% AA. Goal #1 Facilitate PO intake of meals with elemental, textural, or mechanical modification during LOS. Goal #2 Adjust the dietary intervention to better serve Pt's needs and clinical conditions during LOS. Goal #3 Maintain body weight within +/ -3% of admission body weight during LOS. Follow-Up By: 11/30/21 Additional Comments Start monitoring food tolerance, %PO intake of meals , and BM. <HELEN DAVID - Last Filed: 11/27/21 09:48> Assessment and Plan Assessment and plan: I saw and evaluated the patient. Discussed with the nurse practitioner and agree with their findings and plan as documented in this note. Hospitalist Physical - Constitutional Vitals: Temp Pulse Resp BP Pulse Ox 98.4 F 85 16 155/87 94 11/27/21 07:34 11/27/21 07:34 11/27/21 04:26 11/27/21 07:34 11/27/21 07:34 HEART Score - HEART Score Troponin: Troponin T 0.324 ng/mL (0.00-0.029) H* 11/24/21 20:52 Results - Labs CBC & Chem 7: 11/27/21 04:29 11/27/21 04:29 Labs: Laboratory Last Values WBC 3.7 K/mm3 (4.5-11.0) L 11/27/21 04:29 RBC 2.52 M/mm3 (3.65-5.03) L 11/27/21 04:29 Hgb 6.7 gm/dl (11.8-15.2) L 11/27/21 04:29 Hct 20.5 % (35.5-45.6) L 11/27/21 04: MCV 82 fl (84-94) L 11/27/21 04:29 MCH 27 pg (28-32) L 11/27/21 04: MCHC 33 % (32-34) 11/27/21 04: RDW 16.2 % (13.2-15.2) H 11/27/21 04:29 Plt Count 101 K/mm3 (140-440) L 11/27/21 04:29 Lymph % (Auto) 9.1 % (13.4-35.0) L 11/23/21 21: Lassen % (Auto) 12.6 % (0.0-7.3) H 11/23/21 21: Eos % (Auto) 3.0 % (0.0-4.3) 11/23/21 21: Baso % (Auto) 1.0 % (0.0-1.8) 11/23/21 21: Lymph # (Auto) 0.4 K/mm3 (1.2-5.4) L 11/23/21 21: Lassen # (Auto) 0.6 K/mm3 (0.0-0.8) 11/23/21 21: Eos # (Auto) 0.1 K/mm3 (0.0-0.4) 11/23/21 21: Baso # (Auto) 0.0 K/mm3 (0.0-0.1) 11/23/21 21: Seg Neutrophils % 74.3 % (40.0-70.0) H 11/23/21 21: Seg Neutrophils # 3.6 K/mm3 (1.8-7.7) 11/23/21 21: PT 13.8 Sec. (12.2-14.9) 11/25/21 08:30 INR 0.96 (0.87-1.13) 11/25/21 08:30 APTT 34.0 Sec. (24.2-36.6) 11/25/21 08:30 Thrombin Time 23.3 Sec. (15.1-19.6) H 11/23/21 21:29 Heparin Anti-Xa Level 0.32 U.I./ml (0.3-0.7) 11/26/21 11:54 Sodium 138 mmol/L (137-145) 11/27/21 04:29 Potassium 3.5 mmol/L (3.6-5.0) L D 11/27/21 04:29 Chloride 101.6 mmol/L (98-107) 11/27/21 04:29 Carbon Dioxide 26 mmol/L (22-30) 11/27/21 04:29 Anion Gap 14 mmol/L 11/27/21 04:29 BUN 18 mg/dL (9-20) 11/27/21 04:29 Creatinine 7.8 mg/dL (0.8-1.3) H 11/27/21 04:29 Estimated GFR 9 ml/min 11/27/21 04:29 BUN/Creatinine Ratio 2 % 11/27/21 04:29 Glucose 103 mg/dL (75-100) H 11/27/21 04:29 POC Glucose 81 mg/dL (70-105) 11/27/21 07:36 Calcium 7.4 mg/dL (8.4-10.2) L 11/27/21 04:29 Phosphorus 7.40 mg/dL (2.5-4.5) H 11/26/21 04:08 Magnesium 1.80 mg/dL (1.7-2.3) 11/26/21 04:08 Total Bilirubin 0.20 mg/dL (0.1-1.2) 11/23/21 21:29 AST 17 units/L (5-40) 11/23/21 21:29 ALT < 5 units/L (7-56) L 11/23/21 21:29 Alkaline Phosphatase 80 units/L (35-129) 11/23/21 21:29 Total Creatine Kinase 145 units/L (55-170) 11/23/21 21:29 CK-MB (CK-2) 5.7 ng/mL (0.0-4.0) H 11/23/21 21:29 CK-MB (CK-2) Rel Index 3.9 (0-4) 11/23/21 21:29 Troponin T 0.324 ng/mL (0.00-0.029) H* 11/24/21 20:52 Total Protein 8.4 g/dL (6.3-8.2) H 11/23/21 21:29 Albumin 3.0 g/dL (3.9-5) L 11/23/21 21:29 Albumin/Globulin Ratio 0.6 % 11/23/21 21:29 Triglycerides 177 mg/dL (2-149) H 11/23/21 21:29 Cholesterol 180 mg/dL (50-199) 11/23/21 21:29 LDL Cholesterol Direct 100 mg/dL (50-130) 11/23/21 21:29 HDL Cholesterol 31 mg/dL (40-59) L 11/23/21 21:29 Cholesterol/HDL Ratio 5.80 % 11/23/21 21:29 Plasma/Serum Alcohol < 0.01 % (0-0.07) 11/23/21 21:29 Atkins/IV: Voiding Method Urinal Active Medications - Current Medications Current Medications: Generic Name Dose Route Start Last Admin Trade Name Freq PRN Reason Stop Dose Admin Acetaminophen 650 mg 11/24/21 01:02 Acetaminophen 325 Mg Tab PO Q4H PRN Pain MILD(1-3)/Fever >100.5/RACHEL Albuterol 2.5 mg 11/26/21 14:47 Albuterol 2.5 Mg/3 Ml Nebu IH Q4HRT PRN Shortness Of Breath Albuterol/Ipratropium 1 ampul 11/26/21 20:00 11/26/21 19:54 Ipratropium/Albuterol Sulfate 3 Ml Ampul.Neb IH 1 ampul BIDRT CAILIN Administration Atorvastatin Calcium 40 mg 11/24/21 22:00 11/26/21 23:24 Atorvastatin 40 Mg Tab PO 40 mg QHS CAILIN Administration Carvedilol 12.5 mg 11/24/21 22:00 11/26/21 23:24 Carvedilol 12.5 Mg Tab PO 12.5 mg BID CAILIN Administration Dextrose 50 ml 11/24/21 01:02 11/27/21 06:12 Dextrose 50% In Water (25gm) 50 Ml Syringe IV 10 ml Q30MIN PRN Administration Hypoglycemia Protocol Docusate Sodium 100 mg 11/25/21 22:00 11/26/21 23:24 Docusate Sodium 100 Mg Cap PO Not Given BID [facility] Famotidine 20 mg 11/27/21 10:00 Famotidine 20 Mg Tab PO DAILY [facility] Heparin Sodium (Porcine) 3,100 unit 11/25/21 10:25 Heparin 10,000 Units/10 Ml Vial 40 unit/kg (3100 unit) IV Q6H PRN Anti-Xa Assay < 0.1 units/ml Sodium Chloride 100 mls @ 999 mls/hr 11/24/21 09:55 Nacl 0.9% IV LAKE PRN Hypotension Sodium Chloride 500 mls @ 0 mls/hr 11/27/21 09:30 Nacl 0.9% 500 Ml IV 11/27/21 18:00 [id number] [facility] As Directed Insulin Human Lispro 0 unit 11/24/21 06:00 11/27/21 06:13 Insulin Lispro 100 Unit/Ml SUB-Q Not Given Q6HR [facility] Protocol Ondansetron HCl 4 mg 11/24/21 01:02 11/25/21 12:48 Ondansetron 4 Mg/2 Ml Inj IV 4 mg Q8H PRN Administration Nausea And Vomiting Oxycodone HCl 5 mg 11/25/21 08:56 11/26/21 23:43 Oxycodone 5 Mg Tab PO 5 mg Q6H PRN Administration Pain, Moderate (4-6) Sodium Chloride 10 ml 11/24/21 10:00 11/26/21 23:25 Sodium Chloride 0.9% 10 Ml Flush Syringe IV 10 ml BID CAILIN Administration Sodium Chloride 10 ml 11/24/21 01:02 Sodium Chloride 0.9% 10 Ml Flush Syringe IV PRN PRN LINE FLUSH Nutrition/Malnutrition Assess - Dietary Evaluation Nutrition/Malnutrition Findings: Nutrition Notes Start: 11/24/21 12:49 Freq: Status: Active Protocol: Document 11/24/21 16:18 GILLIAN (Rec: 11/24/21 16:42 GILLIAN [id number]) Nutrition Notes Initial or Follow up Brief Note Current Diagnosis CKD (stage V CKD),Diabetes, Hypertension,Stroke Other Pertinent Diagnosis ESRD+HD, CHF, Syncope/Fall, HIV, MS. Current Diet Cardiac/Consistent Carbohydrates -Renal, Chopped Meats- Diet (D 11/24). Height 6 ft Weight 77 kg [place] Body Weight (kg) 80.90 BMI 23.0 Weight Status Appropriate Subjective/Other Information RD consult for write/manage TF . TF discontinued and Pt advanced to PO diet, no reports available yet on Pt's PO intake of meals, will assess at F/U. Percent of energy/protein needs met: Prescribed Cardiac/Consistent Carbohydrates -Renal, Chopped Meats- Diet provides for energy/protein needs (1,977 Kcal/86 g) during LOS. #1 Nutrition Diagnosis Biting/Chewing (masticatory) difficulty Diagnosis Progress(for reassessment Continues documentation) Is patient on ventilator? No Is Patient Ambulatory and/or Out of Bed Yes [facility] [ 2095.900 NUTR.MSJOOB] Kcal/Kg value to use for calculation 29 Approximate Energy Requirements Using 2233 kcal/Kg Calculation Used for Recommendations Kcal/kg Additional Notes Protein: >1.2 g/Kg ABW; >92 g/ day. Fluids: 1 ml/Kcal, or as per MD. Nutrition Intervention Change Diet Order: Start Cardiac/Consistent Carbohydrates -Renal, Chopped Meats- Diet Nutrition Support: HOLD TF-Nepro w/CARBSTEADY @ 50 ml/hr. Flush: 225 ml water Q 4 hr, or as per MD. Kcal 2,180 Protein (gm) 98 Carbohydrates (gm) 195 Fat (gm) 116 Fluid (mL) 880 Fiber (gm) 15 % RDI: 98% Kcal; 100% AA. Goal #1 Facilitate PO intake of meals with elemental, textural, or mechanical modification during LOS. Goal #2 Adjust the dietary intervention to better serve Pt's needs and clinical conditions during LOS. Goal #3 Maintain body weight within +/ -3% of admission body weight during LOS. Follow-Up By: 11/30/21 Additional Comments Start monitoring food tolerance, %PO intake of meals , and BM.
--- NOTE | 2021-11-26 10:48 | Consultation ---
History of Present Illness - Reason for Consult Consult date: 11/25/21 Catheter Related Atrial Thrombus Requesting physician: JAVIER ORDONEZ - History of Present Illness The patient is a 61-year-old male with history of end-stage renal disease who was on hemodialysis through a right internal jugular permacath. The patient presented to the emergency department with complaints of a possible syncopal episode and left upper and and lower extremity weakness. His work-up was negative for a CVA however his work-up did include an echocardiogram which demonstrated a possible right atrial thrombus associated with his permacath. He denies any fever or chills. He has no additional complaints at this time. Past History Past Medical History: diabetes, ESRD, heart failure, HIV/AIDS, hypertension, renal failure, other (MS, Sciatica) Past Surgical History: Other (Right chest Vas-Cath, back surgery) Social history: no significant social history, smoking Family history: hypertension Medications and Allergies Allergies Allergy/AdvReac Type Severity Reaction Status Date / Time No Known Allergies Allergy Verified 10/09/21 11:02 Home Medications Medication Instructions Recorded Confirmed Last Taken Type Bacitracin/Pramoxine/Aloe Vera 1 applicatio TP TID #1 tube 10/09/21 11/02/21 Unknown Rx [Bacitraycin Plus Ointment] Calc Carb/Vit D 500 mg-200 Uni 1 each PO DAILY #30 tablet 10/21/21 11/02/21 11/01/21 10:00 Rx [Oysco D 500 mg-200 Unit] Acetaminophen [Tylenol] 500 mg PO Q6H PRN 10/27/21 11/02/21 Unknown History Famotidine [Pepcid] 10 mg PO BID #60 tablet 11/12/21 Unknown Rx amLODIPine 10 mg PO DAILY #30 tab 11/12/21 Unknown Rx Active Meds: Active Medications Acetaminophen (Acetaminophen 325 Mg Tab) 650 mg PO Q4H PRN PRN Reason: Pain MILD(1-3)/Fever >100.5/RACHEL Albuterol (Albuterol 2.5 Mg/3 Ml Nebu) 2.5 mg IH Q3HRT PRN PRN Reason: Shortness Of Breath Albuterol/Ipratropium (Ipratropium/Albuterol Sulfate 3 Ml Ampul.Neb) 1 ampul IH Q6HRT [facility] Last Admin: 11/26/21 02:39 Dose: 1 ampul Atorvastatin Calcium (Atorvastatin 40 Mg Tab) 40 mg PO QHS [facility] Last Admin: 11/25/21 22:05 Dose: 40 mg Carvedilol (Carvedilol 12.5 Mg Tab) 12.5 mg PO BID [facility] Last Admin: 11/26/21 09:42 Dose: 12.5 mg Dextrose (Dextrose 50% In Water (25gm) 50 Ml Syringe) 50 ml IV Q30MIN PRN; Protocol PRN Reason: Hypoglycemia Docusate Sodium (Docusate Sodium 100 Mg Cap) 100 mg PO BID [facility] Last Admin: 11/26/21 09:42 Dose: Not Given Famotidine (Famotidine 20 Mg Tab) 20 mg PO BID [facility] Last Admin: 11/26/21 09:42 Dose: 20 mg Heparin Sodium (Porcine) (Heparin 10,000 Units/10 Ml Vial) 3,100 unit 40 unit/kg (3100 unit) IV Q6H PRN PRN Reason: Anti-Xa Assay < 0.1 units/ml Sodium Chloride (Nacl 0.9%) 100 mls @ 999 mls/hr [facility] [place] PRN PRN Reason: Hypotension Heparin Sodium/Sodium Chloride (Heparin/ 0.45% Nacl-25,000 Unit/500 Ml) 25,000 unit in 500 mls @ 23 mls/hr IV TITR [facility]; Protocol Last Titration: 11/26/21 05:21 Dose: 950 units/hr, 19 mls/hr Insulin Human Lispro (Insulin Lispro 100 Unit/Ml) 0 unit SUB-Q Q6HR [facility]; Protocol Last Admin: 11/26/21 06:00 Dose: Not Given Labetalol HCl (Labetalol 20 Mg/4 Ml Inj) 10 mg IV Q5MIN PRN PRN Reason: to maintain SBP < 180 Morphine Sulfate (Morphine 4 Mg/1 Ml Inj) 4 mg IV Q4H PRN PRN Reason: Pain , Severe (7-10) Last Admin: 11/24/21 23:29 Dose: 4 mg Ondansetron HCl (Ondansetron 4 Mg/2 Ml Inj) 4 mg IV Q8H PRN PRN Reason: Nausea And Vomiting Last Admin: 11/25/21 12:48 Dose: 4 mg Oxycodone HCl (Oxycodone 5 Mg Tab) 5 mg PO Q6H PRN PRN Reason: Pain, Moderate (4-6) Last Admin: 11/26/21 05:10 Dose: 5 mg Sodium Chloride (Sodium Chloride 0.9% 10 Ml Flush Syringe) 10 ml IV BID [facility] Last Admin: 11/26/21 09:42 Dose: 10 ml Sodium Chloride (Sodium Chloride 0.9% 10 Ml Flush Syringe) 10 ml IV PRN PRN PRN Reason: LINE FLUSH Review of Systems All systems: negative Exam - Constitutional Vitals: Temp Pulse Resp BP Pulse Ox 97.9 F 87 12 142/93 100 11/26/21 07:38 11/26/21 10:00 11/26/21 10:00 11/26/21 10:00 11/26/21 10:00 General appearance: Present: no acute distress - Neck Neck: Present: other (Right internal jugular permacath is free of overt signs of infection) - Respiratory Respiratory effort: normal - Cardiovascular Rhythm: regular - Extremities Extremities: no ischemia - Abdominal General gastrointestinal: Present: soft, non-tender Results - Labs CBC & Chem 7: 11/26/21 04:08 11/26/21 04:08 Labs: Abnormal lab results 11/25/21 11/26/21 11/26/21 Range/Units 14:51 04:08 04:08 RBC 2.64 L (3.65-5.03) M/mm3 Hgb 7.1 L (11.8-15.2) gm/dl Hct 21.8 L (35.5-45.6) % MCV 83 L (84-94) fl MCH 27 L (28-32) pg RDW 15.6 H (13.2-15.2) % Plt Count 100 L (140-440) K/mm3 Heparin Anti-Xa Level 0.21 L (0.3-0.7) U.I./ml BUN 43 H (9-20) mg/dL Creatinine 14.3 H (0.8-1.3) mg/dL Calcium 7.4 L (8.4-10.2) mg/dL Phosphorus 7.40 H (2.5-4.5) mg/dL - Imaging and Cardiology Chest x-ray: image reviewed Assessment and Plan The patient is a 61-year-old male who was recently found to have a right atrial thrombus associated with his right internal jugular permacath. The patient has been on hemodialysis since March however his current permacath was just placed on November 12, 2021. The visualized mass on the tip of the permacath is either a fibrin sheath or a thrombus. The patient has no signs or symptoms of permacath infection and the catheter functions so there is no indication for catheter exchange. It is difficult to differentiate whether this is a thrombus or fibrin sheath however given the recent placement of the catheter if this is a thrombus given the size and the acute process would recommend 6 to 8 weeks of oral anticoagulation with reimaging with echocardiogram to evaluate for resolution. Additionally the patient should be evaluated for long-term dialysis access in his upper extremity to prevent further complications of his permacath. I discussed this plan with the patient who expressed understanding and agrees.
--- NOTE | 2021-11-26 11:23 | Consultation ---
History of Present Illness Consult date: 11/26/21 Consult reason: other (Cardiomyopathy) Past History Past Medical History: diabetes, ESRD, heart failure, HIV/AIDS, hypertension, tiff al failure, other (MS, Sciatica) Past Surgical History: Other (Right chest Vas-Cath, back surgery) Social history: no significant social history, smoking Family history: hypertension Medications and Allergies Allergies Allergy/AdvReac Type Severity Reaction Status Date / Time No Known Allergies Allergy Verified 10/09/21 11:02 Home Medications Medication Instructions Recorded Confirmed Last Taken Type Bacitracin/Pramoxine/Aloe Vera 1 applicatio TP TID #1 tube 10/09/21 11/02/21 Unknown Rx [Bacitraycin Plus Ointment] Calc Carb/Vit D 500 mg-200 Uni 1 each PO DAILY #30 tablet 10/21/21 11/02/21 11/01/21 10:00 Rx [Oysco D 500 mg-200 Unit] Acetaminophen [Tylenol] 500 mg PO Q6H PRN 10/27/21 11/02/21 Unknown History Famotidine [Pepcid] 10 mg PO BID #60 tablet 11/12/21 Unknown Rx amLODIPine 10 mg PO DAILY #30 tab 11/12/21 Unknown Rx Active Meds: Active Medications Acetaminophen (Acetaminophen 325 Mg Tab) 650 mg PO Q4H PRN PRN Reason: Pain MILD(1-3)/Fever >100.5/RACHEL Albuterol (Albuterol 2.5 Mg/3 Ml Nebu) 2.5 mg IH Q3HRT PRN PRN Reason: Shortness Of Breath Albuterol/Ipratropium (Ipratropium/Albuterol Sulfate 3 Ml Ampul.Neb) 1 ampul IH Q6HRT [facility] Last Admin: 11/26/21 08:45 Dose: Not Given Atorvastatin Calcium (Atorvastatin 40 Mg Tab) 40 mg PO QHS [facility] Last Admin: 11/25/21 22:05 Dose: 40 mg Carvedilol (Carvedilol 12.5 Mg Tab) 12.5 mg PO BID [facility] Last Admin: 11/26/21 09:42 Dose: 12.5 mg Dextrose (Dextrose 50% In Water (25gm) 50 Ml Syringe) 50 ml IV Q30MIN PRN; Protocol PRN Reason: Hypoglycemia Docusate Sodium (Docusate Sodium 100 Mg Cap) 100 mg PO BID [facility] Last Admin: 11/26/21 09:42 Dose: Not Given Famotidine (Famotidine 20 Mg Tab) 20 mg PO BID [facility] Last Admin: 11/26/21 09:42 Dose: 20 mg Heparin Sodium (Porcine) (Heparin 10,000 Units/10 Ml Vial) 3,100 unit 40 unit/kg (3100 unit) IV Q6H PRN PRN Reason: Anti-Xa Assay < 0.1 units/ml Sodium Chloride (Nacl 0.9%) 100 mls @ 999 mls/hr [facility] [place] PRN PRN Reason: Hypotension Heparin Sodium/Sodium Chloride (Heparin/ 0.45% Nacl-25,000 Unit/500 Ml) 25,000 unit in 500 mls @ 23 mls/hr IV TITR [facility]; Protocol Last Titration: 11/26/21 05:21 Dose: 950 units/hr, 19 mls/hr Insulin Human Lispro (Insulin Lispro 100 Unit/Ml) 0 unit SUB-Q Q6HR [facility]; Protocol Last Admin: 11/26/21 06:00 Dose: Not Given Labetalol HCl (Labetalol 20 Mg/4 Ml Inj) 10 mg IV Q5MIN PRN PRN Reason: to maintain SBP < 180 Morphine Sulfate (Morphine 4 Mg/1 Ml Inj) 4 mg IV Q4H PRN PRN Reason: Pain , Severe (7-10) Last Admin: 11/24/21 23:29 Dose: 4 mg Ondansetron HCl (Ondansetron 4 Mg/2 Ml Inj) 4 mg IV Q8H PRN PRN Reason: Nausea And Vomiting Last Admin: 11/25/21 12:48 Dose: 4 mg Oxycodone HCl (Oxycodone 5 Mg Tab) 5 mg PO Q6H PRN PRN Reason: Pain, Moderate (4-6) Last Admin: 11/26/21 05:10 Dose: 5 mg Sodium Chloride (Sodium Chloride 0.9% 10 Ml Flush Syringe) 10 ml IV BID [facility] Last Admin: 11/26/21 09:42 Dose: 10 ml Sodium Chloride (Sodium Chloride 0.9% 10 Ml Flush Syringe) 10 ml IV PRN PRN PRN Reason: LINE FLUSH Physical Examination Vital Signs Temp Pulse Resp BP Pulse Ox 98 F 103 H 18 158/98 100 11/23/21 21:38 11/23/21 21:38 11/23/21 21:38 11/23/21 21:38 11/23/21 21:38 Results 11/26/21 04:08 11/26/21 04:08 CBC 11/26/21 Range/Units 04:08 WBC 4.6 (4.5-11.0) K/mm3 RBC 2.64 L (3.65-5.03) M/mm3 Hgb 7.1 L (11.8-15.2) gm/dl Hct 21.8 L (35.5-45.6) % Plt Count 100 L (140-440) K/mm3 Comprehensive Metabolic Panel 11/26/21 Range/Units 04:08 Sodium 138 (137-145) mmol/L Potassium 4.4 (3.6-5.0) mmol/L Chloride 98.1 (98-107) mmol/L Carbon Dioxide 22 (22-30) mmol/L BUN 43 H (9-20) mg/dL Creatinine 14.3 H (0.8-1.3) mg/dL Glucose 91 (75-100) mg/dL Calcium 7.4 L (8.4-10.2) mg/dL
--- NOTE | 2021-11-26 11:31 | Vascular Lab Report ---
DUPLEX DOPPLER ULTRASOUND CAROTID, BILATERAL INDICATION / CLINICAL INFORMATION: cva. COMPARISON: CTA neck 11/23/2021. FINDINGS: RIGHT CAROTID: Minimal atherosclerotic plaque. - PLAQUE ESTIMATE (%): < 50% - CCA velocity: 84 cm/sec. - ICA peak systolic velocity: 81 cm/sec. - ICA/CCA PSV Ratio: Less than 2. Right Vertebral Artery: Antegrade flow. LEFT CAROTID: Minimal atherosclerotic plaque. - PLAQUE ESTIMATE (%): < 50% - CCA velocity: 89 cm/sec. - ICA peak systolic velocity: 90 cm/sec. - ICA/CCA PSV Ratio: Less than 2. Left Vertebral Artery: Antegrade flow. IMPRESSION: 1. Right Internal Carotid Artery: Less than 50% diameter stenosis. 2. Left Internal Carotid Artery: Less than 50% diameter stenosis. Velocity criteria are extrapolated from diameter data as defined by the Society of Radiologists [place] [facility] Consensus Conference, Radiology 2003; 229;340-346. NO STENOSIS (NORMAL) - Plaque = none; ICA PSV < 125 cm/sec; ICA/CCA PSV Ratio < 2.0 <50% STENOSIS - Plaque < 50%; ICA PSV < 125 cm/sec; ICA/CCA PSV Ratio < 2.0 50-69% STENOSIS - Plaque > 50%; ICA PSV = 125-230 cm/sec; ICA/CCA PSV Ratio = 2.0-4.0 >70% BUT <100% STENOSIS - Plaque > 50%; ICA PSV > 230 cm/sec; ICA/CCA PSV Ratio > 4.0 NEAR OCCLUSION - Plaque = visible lumen; ICA PSV = high/low/none; ICA/CCA PSV Ratio = variable TOTAL OCCLUSION - Plaque = no lumen; ICA PSV = none; ICA/CCA PSV Ratio = N/A Scribed by: Morena Hawkins RDMS, RVT, RMSKS Scribed: 11/26/2021 10:15 AM I have reviewed the images, agree with this report, and edited this report as needed. Signer Name: Angel North MD Signed: 11/26/2021 11:26 AM Workstation Name: [id number]
--- NOTE | 2021-11-26 12:02 | Consultation ---
History of Present Illness Consult date: 11/26/21 Consult reason: syncope History of present illness: The patient is a 61-year-old man admitted to the hospital several days ago follo wing a syncopal episode. His symptoms were associated with transient left-sided weakness. He was suspected of an acute CVA, and was treated with thrombolytic therapy in the emergency room. Subsequent echocardiogram showed a moderate severity cardiomyopathy, with linear echodensity in the right atrium, and this prompted a cardiac consultation. The patient's comorbidities include end-stage renal disease for which he has been on hemodialysis for the past 9 months, done via an indwelling permacath. On his chest x-ray, the permacath tip is in the right atrium. He has a history of a nonischemic cardiomyopathy, after an extensive recent invasive cardiac work-up. 2 months ago, he underwent a cardiac catheterization at [facility], that demonstrated no significant coronary artery disease, but a moderate severity nonischemic cardiomyopathy with ejection fraction 35 to 40%. Guideline directed medical therapy and risk factor modification was recommended. Other comorbidities include HIV status. I reviewed the patient's current echocardiogram which shows his left ventricular ejection fraction unchanged at 40%, with right atrial linear density representing his indwelling permacath. There is no evidence of vegetation or thrombus associated with the catheter tip there was moderate mitral regurgitation. The contrast bubble study was negative for PFO. EKG shows a sinus rhythm, left axis deviation, nonspecific intraventricular conduction delay and nonspecific diffuse T wave abnormalities. Past History Past Medical History: diabetes, ESRD, heart failure, HIV/AIDS, hypertension, renal failure, other (MS, Sciatica) Past Surgical History: Other (Right chest Vas-Cath, back surgery) Social history: no significant social history, smoking Family history: hypertension Medications and Allergies Allergies Allergy/AdvReac Type Severity Reaction Status Date / Time No Known Allergies Allergy Verified 10/09/21 11:02 Home Medications Medication Instructions Recorded Confirmed Last Taken Type Bacitracin/Pramoxine/Aloe Vera 1 applicatio TP TID #1 tube 10/09/21 11/02/21 Unknown Rx [Bacitraycin Plus Ointment] Calc Carb/Vit D 500 mg-200 Uni 1 each PO DAILY #30 tablet 10/21/21 11/02/21 11/01/21 10:00 Rx [Oysco D 500 mg-200 Unit] Acetaminophen [Tylenol] 500 mg PO Q6H PRN 10/27/21 11/02/21 Unknown History Famotidine [Pepcid] 10 mg PO BID #60 tablet 11/12/21 Unknown Rx amLODIPine 10 mg PO DAILY #30 tab 11/12/21 Unknown Rx Active Meds: Active Medications Acetaminophen (Acetaminophen 325 Mg Tab) 650 mg PO Q4H PRN PRN Reason: Pain MILD(1-3)/Fever >100.5/RACHEL Albuterol (Albuterol 2.5 Mg/3 Ml Nebu) 2.5 mg IH Q3HRT PRN PRN Reason: Shortness Of Breath Albuterol/Ipratropium (Ipratropium/Albuterol Sulfate 3 Ml Ampul.Neb) 1 ampul IH Q6HRT [facility] Last Admin: 11/26/21 08:45 Dose: Not Given Atorvastatin Calcium (Atorvastatin 40 Mg Tab) 40 mg PO QHS [facility] Last Admin: 11/25/21 22:05 Dose: 40 mg Carvedilol (Carvedilol 12.5 Mg Tab) 12.5 mg PO BID [facility] Last Admin: 11/26/21 09:42 Dose: 12.5 mg Dextrose (Dextrose 50% In Water (25gm) 50 Ml Syringe) 50 ml IV Q30MIN PRN; Protocol PRN Reason: Hypoglycemia Docusate Sodium (Docusate Sodium 100 Mg Cap) 100 mg PO BID [facility] Last Admin: 11/26/21 09:42 Dose: Not Given Famotidine (Famotidine 20 Mg Tab) 20 mg PO DAILY [facility] Heparin Sodium (Porcine) (Heparin 10,000 Units/10 Ml Vial) 3,100 unit 40 unit/kg (3100 unit) IV Q6H PRN PRN Reason: Anti-Xa Assay < 0.1 units/ml Sodium Chloride (Nacl 0.9%) 100 mls @ 999 mls/hr [facility] [place] PRN PRN Reason: Hypotension Heparin Sodium/Sodium Chloride (Heparin/ 0.45% Nacl-25,000 Unit/500 Ml) 25,000 unit in 500 mls @ 23 mls/hr IV TITR [facility]; Protocol Last Titration: 11/26/21 05:21 Dose: 950 units/hr, 19 mls/hr Insulin Human Lispro (Insulin Lispro 100 Unit/Ml) 0 unit SUB-Q Q6HR [facility]; Protocol Last Admin: 11/26/21 06:00 Dose: Not Given Labetalol HCl (Labetalol 20 Mg/4 Ml Inj) 10 mg IV Q5MIN PRN PRN Reason: to maintain SBP < 180 Morphine Sulfate (Morphine 4 Mg/1 Ml Inj) 4 mg IV Q4H PRN PRN Reason: Pain , Severe (7-10) Last Admin: 11/24/21 23:29 Dose: 4 mg Ondansetron HCl (Ondansetron 4 Mg/2 Ml Inj) 4 mg IV Q8H PRN PRN Reason: Nausea And Vomiting Last Admin: 11/25/21 12:48 Dose: 4 mg Oxycodone HCl (Oxycodone 5 Mg Tab) 5 mg PO Q6H PRN PRN Reason: Pain, Moderate (4-6) Last Admin: 11/26/21 05:10 Dose: 5 mg Sodium Chloride (Sodium Chloride 0.9% 10 Ml Flush Syringe) 10 ml IV BID [facility] Last Admin: 11/26/21 09:42 Dose: 10 ml Sodium Chloride (Sodium Chloride 0.9% 10 Ml Flush Syringe) 10 ml IV PRN PRN PRN Reason: LINE FLUSH Review of Systems Cardiovascular: syncope, shortness of breath, no chest pain, no orthopnea, no palpitations, no rapid/irregular heart beat, no edema, no lightheadedness Physical Examination Vital Signs Temp Pulse Resp BP Pulse Ox 98 F 103 H 18 158/98 100 11/23/21 21:38 11/23/21 21:38 11/23/21 21:38 11/23/21 21:38 11/23/21 21:38 General appearance: no acute distress HEENT: Positive: PERRL Neck: Positive: neck supple Cardiac: Positive: Reg Rate and Rhythm Lungs: Positive: Decreased Breath Sounds Neuro: Positive: Grossly Intact Abdomen: Positive: Soft Male genitourinary: Positive: deferred Skin: Positive: Clear Extremities: Absent: edema Results 11/26/21 04:08 11/26/21 04:08 CBC 11/26/21 Range/Units 04:08 WBC 4.6 (4.5-11.0) K/mm3 RBC 2.64 L (3.65-5.03) M/mm3 Hgb 7.1 L (11.8-15.2) gm/dl Hct 21.8 L (35.5-45.6) % Plt Count 100 L (140-440) K/mm3 Comprehensive Metabolic Panel 11/26/21 Range/Units 04:08 Sodium 138 (137-145) mmol/L Potassium 4.4 (3.6-5.0) mmol/L Chloride 98.1 (98-107) mmol/L Carbon Dioxide 22 (22-30) mmol/L BUN 43 H (9-20) mg/dL Creatinine 14.3 H (0.8-1.3) mg/dL Glucose 91 (75-100) mg/dL Calcium 7.4 L (8.4-10.2) mg/dL EKG interpretations - Telemetry EKG Rhythm: Sinus Rhythm (With left axis deviation, nonspecific intraventricular conduction delay and diffuse nonspecific T wave abnormality) Assessment and Plan - Patient Problems (1) Abnormal finding on echocardiogram Current Visit: Yes Status: Acute Plan to address problem: The patient's echocardiogram shows a linear echogenicity in the right atrium, consistent with indwelling permacath. There is no evident vegetation or thrombus associated echocardiogram. No further cardiac intervention is indicated. (2) Cardiomyopathy Current Visit: Yes Status: Acute Plan to address problem: Patient has a known, moderate-severe nonischemic cardiomyopathy, status post cardiac catheterization 2 months ago. Continue guideline directed medical therapy as tolerated. (3) Syncope Current Visit: Yes Status: Acute Qualifiers: Syncope type: unspecified Qualified Code(s): R55 - Syncope and collapse Plan to address problem: Patient was admitted with syncope, diagnosed with acute CVA, treated with tPA in the emergency room. Currently, patient has no residual speech or motor deficits. Echocardiogram shows a negative contrast bubble study. ECGs and telemetry strips showed stable sinus rhythm.
[2021-11-26] MEDS: HEPARIN/ 0.45% NACL DRIP 25,000 UNIT/500 ML BAG IV SCH (12:49)
--- NOTE | 2021-11-26 12:50 | Progress Note ---
Assessment and Plan Assessment: CVA (cerebral vascular accident) Diabetes Syncope Congestive heart failure HIV (human immunodeficiency virus infection) End stage renal disease Hypertension Plan: -Hemodialysis today for UF and clearance -Fluid restriction of 1 liter per day -Strict I/O's daily -Obtain daily weights -Assess dialysis needs daily -Comes to E.R for HD as needed -Plan of care reviewed by Dr. Abdi Subjective Date of service: 11/26/21 Principal diagnosis: Syncope Interval history: Patient seen lying in bed. Awake. Objective - Vital Signs Vital signs: Vital Signs - 12hr 11/26/21 11/26/21 11/26/21 01:00 01:30 02:00 Temperature Pulse Rate 82 88 83 Pulse Rate [ From Monitor] Pulse Rate [ Throughout] Respiratory 9 L 9 L 8 L Rate Respiratory Rate [ Throughout] Blood Pressure 136/80 137/98 133/87 O2 Sat by Pulse 100 98 99 Oximetry 11/26/21 11/26/21 11/26/21 02:30 02:35 03:00 Temperature Pulse Rate 82 86 Pulse Rate [ From Monitor] Pulse Rate [ 88 Throughout] Respiratory 9 L 8 L Rate Respiratory 18 Rate [ Throughout] Blood Pressure 138/78 135/81 O2 Sat by Pulse 98 94 Oximetry 11/26/21 11/26/21 11/26/21 03:30 04:00 04:30 Temperature 99.2 F Pulse Rate 82 85 Pulse Rate [ 85 From Monitor] Pulse Rate [ Throughout] Respiratory 8 L 10 L Rate Respiratory Rate [ Throughout] Blood Pressure 143/81 129/89 132/80 O2 Sat by Pulse 99 98 100 Oximetry 11/26/21 11/26/21 11/26/21 05:00 05:10 05:30 Temperature Pulse Rate 84 81 Pulse Rate [ From Monitor] Pulse Rate [ Throughout] Respiratory 10 L 16 11 L Rate Respiratory Rate [ Throughout] Blood Pressure 146/91 119/74 O2 Sat by Pulse 98 99 Oximetry 11/26/21 11/26/21 11/26/21 06:00 06:30 07:00 Temperature Pulse Rate 80 83 79 Pulse Rate [ From Monitor] Pulse Rate [ Throughout] Respiratory 8 L 8 L 8 L Rate Respiratory Rate [ Throughout] Blood Pressure 128/74 131/82 129/76 O2 Sat by Pulse 100 99 99 Oximetry 11/26/21 11/26/21 11/26/21 07:30 07:38 08:01 Temperature 97.9 F Pulse Rate 79 80 88 Pulse Rate [ 82 From Monitor] Pulse Rate [ Throughout] Respiratory 8 L 10 L 10 L Rate Respiratory Rate [ Throughout] Blood Pressure 119/77 114/72 O2 Sat by Pulse 99 100 Oximetry 11/26/21 11/26/21 11/26/21 08:31 09:00 09:30 Temperature Pulse Rate 88 82 82 Pulse Rate [ From Monitor] Pulse Rate [ Throughout] Respiratory 12 9 L 11 L Rate Respiratory Rate [ Throughout] Blood Pressure 139/81 121/76 133/80 O2 Sat by Pulse 100 99 100 Oximetry 11/26/21 11/26/21 11/26/21 09:42 10:00 10:30 Temperature Pulse Rate 82 87 86 Pulse Rate [ From Monitor] Pulse Rate [ Throughout] Respiratory 12 12 Rate Respiratory Rate [ Throughout] Blood Pressure 133/80 142/93 140/79 O2 Sat by Pulse 99 98 Oximetry 11/26/21 11/26/21 11/26/21 11:52 12:00 12:01 Temperature 97.7 F Pulse Rate 81 79 81 Pulse Rate [ 79 From Monitor] Pulse Rate [ Throughout] Respiratory 14 11 L Rate Respiratory Rate [ Throughout] Blood Pressure 132/83 132/76 O2 Sat by Pulse 99 100 Oximetry - General Appearance General appearance: well-developed, appears stated age EENT: ATNC, PERRL, hearing intact, vision intact Neck: no JVD, supple Respiratory: Present: Decreased Breath Sounds Cardiology: S1S2 Gastrointestinal: normoactive bowel sounds Integumentary: warm and dry Neurologic: alert and oriented x3 Musculoskeletal: other (No edema) - Lab 11/26/21 04:08 11/26/21 04:08 Most recent lab results Calcium 7.4 mg/dL (8.4-10.2) L 11/26/21 04:08 Phosphorus 7.40 mg/dL (2.5-4.5) H 11/26/21 04:08 Magnesium 1.80 mg/dL (1.7-2.3) 11/26/21 04:08 Medications & Allergies - Medications Allergies/Adverse Reactions: Allergies No Known Allergies Allergy (Verified 10/09/21 11:02) Home Medications: Home Medications Medication Instructions Recorded Confirmed Last Taken Type Bacitracin/Pramoxine/Aloe Vera 1 applicatio TP TID #1 tube 10/09/21 11/02/21 Unknown Rx [Bacitraycin Plus Ointment] Calc Carb/Vit D 500 mg-200 Uni 1 each PO DAILY #30 tablet 10/21/21 11/02/21 10:00 Rx [Oysco D 500 mg-200 Unit] Acetaminophen [Tylenol] 500 mg PO Q6H PRN 10/27/21 11/02/21 Unknown History Famotidine [Pepcid] 10 mg PO BID #60 tablet 11/12/21 Unknown Rx amLODIPine 10 mg PO DAILY #30 tab 11/12/21 Unknown Rx Active Medications: Generic Name Dose Route Start Last Admin Trade Name Freq PRN Reason Stop Dose Admin Acetaminophen 650 mg 11/24/21 01:02 Acetaminophen 325 Mg Tab PO Q4H PRN Pain MILD(1-3)/Fever >100.5/RACHEL Albuterol 2.5 mg 11/24/21 01:02 Albuterol 2.5 Mg/3 Ml Nebu IH Q3HRT PRN Shortness Of Breath Albuterol/Ipratropium 1 ampul 11/24/21 02:00 11/26/21 08:45 Ipratropium/Albuterol Sulfate 3 Ml Ampul.Neb IH Not Given Q6HRT CAILIN Atorvastatin Calcium 40 mg 11/24/21 22:00 11/25/21 22:05 Atorvastatin 40 Mg Tab PO 40 mg QHS CAILIN Administration Carvedilol 12.5 mg 11/24/21 22:00 11/26/21 09:42 Carvedilol 12.5 Mg Tab PO 12.5 mg BID CAILIN Administration Dextrose 50 ml 11/24/21 01:02 Dextrose 50% In Water (25gm) 50 Ml Syringe IV Q30MIN PRN Hypoglycemia Protocol Docusate Sodium 100 mg 11/25/21 22:00 11/26/21 09:42 Docusate Sodium 100 Mg Cap PO Not Given BID CAILIN Famotidine 20 mg 11/27/21 10:00 Famotidine 20 Mg Tab PO DAILY CAILIN Heparin Sodium (Porcine) 3,100 unit 11/25/21 10:25 Heparin 10,000 Units/10 Ml Vial 40 unit/kg (3100 unit) IV Q6H PRN Anti-Xa Assay < 0.1 units/ml Sodium Chloride 100 mls @ 999 mls/hr 11/24/21 09:55 Nacl 0.9% IV [place] PRN Hypotension Heparin Sodium/Sodium Chloride 25,000 unit in 500 mls @ 23 mls/hr 11/25/21 11:00 11/26/21 05:21 Heparin/ 0.45% Nacl-25,000 Unit/500 Ml IV 950 units/hr TITR CAILIN 19 mls/hr Titration Protocol 1,150 UNITS/HR Insulin Human Lispro 0 unit 11/24/21 06:00 11/26/21 12:17 Insulin Lispro 100 Unit/Ml SUB-Q Not Given Q6HR [facility] Protocol Labetalol HCl 10 mg 11/24/21 01:02 Labetalol 20 Mg/4 Ml Inj IV Q5MIN PRN to maintain SBP < 180 Morphine Sulfate 4 mg 11/24/21 01:02 11/24/21 23:29 Morphine 4 Mg/1 Ml Inj IV 4 mg Q4H PRN Administration Pain , Severe (7-10) Ondansetron HCl 4 mg 11/24/21 01:02 11/25/21 12:48 Ondansetron 4 Mg/2 Ml Inj IV 4 mg Q8H PRN Administration Nausea And Vomiting Oxycodone HCl 5 mg 11/25/21 08:56 11/26/21 05:10 Oxycodone 5 Mg Tab PO 5 mg Q6H PRN Administration Pain, Moderate (4-6) Sodium Chloride 10 ml 11/24/21 10:00 11/26/21 09:42 Sodium Chloride 0.9% 10 Ml Flush Syringe IV 10 ml BID CAILIN Administration Sodium Chloride 10 ml 11/24/21 01:02 Sodium Chloride 0.9% 10 Ml Flush Syringe IV PRN PRN LINE FLUSH
--- NOTE | 2021-11-26 13:49 | Progress Note ---
Assessment and Plan 61 y/o on HD admitted with stroke, now found to have right atrial thrombus 11/26/21: No bleed, per vascular needs group home anticoagulation. Need to discuss with neuro if this is ok and would they would suggest for group home. Stable for transfer out of unit. 11/25/21. Reached out to [facility] via [facility]. They will place a note but state they are ok with using heparin infusion. We will not bolus. Will obtain stat Head CT prior to initiation and then another 24 hours post initiation of therapy. Will continue ICU monitoring. 1. Stroke protocol, q1 hour neuro checks 2. BP control 3. HD per renal CCT 31 minutes Subjective Date of service: 11/26/21 Principal diagnosis: Syncope Interval history: No evidence of bleeding, tolerating heparin Objective - Constitutional Vitals: Vital Signs - 12hr 11/26/21 11/26/21 11/26/21 02:00 02:30 02:35 Temperature Pulse Rate 83 82 Pulse Rate [ From Monitor] Pulse Rate [ 88 Throughout] Respiratory 8 L 9 L Rate Respiratory 18 Rate [ Throughout] Blood Pressure 133/87 138/78 O2 Sat by Pulse 99 98 Oximetry 11/26/21 11/26/21 11/26/21 03:00 03:30 04:00 Temperature 99.2 F Pulse Rate 86 82 85 Pulse Rate [ 85 From Monitor] Pulse Rate [ Throughout] Respiratory 8 L 8 L 10 L Rate Respiratory Rate [ Throughout] Blood Pressure 135/81 143/81 129/89 O2 Sat by Pulse 94 99 98 Oximetry 11/26/21 11/26/21 11/26/21 04:30 05:00 05:10 Temperature Pulse Rate 84 Pulse Rate [ From Monitor] Pulse Rate [ Throughout] Respiratory 10 L 16 Rate Respiratory Rate [ Throughout] Blood Pressure 132/80 146/91 O2 Sat by Pulse 100 98 Oximetry 11/26/21 11/26/21 11/26/21 05:30 06:00 06:30 Temperature Pulse Rate 81 80 83 Pulse Rate [ From Monitor] Pulse Rate [ Throughout] Respiratory 11 L 8 L 8 L Rate Respiratory Rate [ Throughout] Blood Pressure 119/74 128/74 131/82 O2 Sat by Pulse 99 100 99 Oximetry 11/26/21 11/26/21 11/26/21 07:00 07:30 07:38 Temperature 97.9 F Pulse Rate 79 79 80 Pulse Rate [ 82 From Monitor] Pulse Rate [ Throughout] Respiratory 8 L 8 L 10 L Rate Respiratory Rate [ Throughout] Blood Pressure 129/76 119/77 O2 Sat by Pulse 99 99 100 Oximetry 11/26/21 11/26/21 11/26/21 08:01 08:31 09:00 Temperature Pulse Rate 88 88 82 Pulse Rate [ From Monitor] Pulse Rate [ Throughout] Respiratory 10 L 12 9 L Rate Respiratory Rate [ Throughout] Blood Pressure 114/72 139/81 121/76 O2 Sat by Pulse 100 99 Oximetry 11/26/21 11/26/21 11/26/21 09:30 09:42 10:00 Temperature Pulse Rate 82 82 87 Pulse Rate [ From Monitor] Pulse Rate [ Throughout] Respiratory 11 L 12 Rate Respiratory Rate [ Throughout] Blood Pressure 133/80 133/80 142/93 O2 Sat by Pulse 100 99 Oximetry 11/26/21 11/26/21 11/26/21 10:30 11:52 12:00 Temperature 97.7 F Pulse Rate 86 81 79 Pulse Rate [ 79 From Monitor] Pulse Rate [ Throughout] Respiratory 12 14 Rate Respiratory Rate [ Throughout] Blood Pressure 140/79 132/83 O2 Sat by Pulse 98 99 100 Oximetry 11/26/21 11/26/21 11/26/21 12:01 12:31 13:00 Temperature Pulse Rate 81 87 76 Pulse Rate [ From Monitor] Pulse Rate [ Throughout] Respiratory 11 L 13 10 L Rate Respiratory Rate [ Throughout] Blood Pressure 132/76 134/101 135/82 O2 Sat by Pulse Oximetry - Labs CBC & Chem 7: 11/26/21 04:08 11/26/21 04:08 Labs: Abnormal lab results 11/25/21 11/26/21 11/26/21 Range/Units 14:51 04:08 04:08 RBC 2.64 L (3.65-5.03) M/mm3 Hgb 7.1 L (11.8-15.2) gm/dl Hct 21.8 L (35.5-45.6) % MCV 83 L (84-94) fl MCH 27 L (28-32) pg RDW 15.6 H (13.2-15.2) % Plt Count 100 L (140-440) K/mm3 Heparin Anti-Xa Level 0.21 L (0.3-0.7) U.I./ml BUN 43 H (9-20) mg/dL Creatinine 14.3 H (0.8-1.3) mg/dL Calcium 7.4 L (8.4-10.2) mg/dL Phosphorus 7.40 H (2.5-4.5) mg/dL Medications & Allergies - Medications Allergies/Adverse Reactions: Allergies No Known Allergies Allergy (Verified 10/09/21 11:02) Home Medications: Home Medications Medication Instructions Recorded Confirmed Last Taken Type Bacitracin/Pramoxine/Aloe Vera 1 applicatio TP TID #1 tube 10/09/21 11/02/21 Unknown Rx [Bacitraycin Plus Ointment] Calc Carb/Vit D 500 mg-200 Uni 1 each PO DAILY #30 tablet 10/21/21 11/02/21 11/01/21 10:00 Rx [Oysco D 500 mg-200 Unit] Acetaminophen [Tylenol] 500 mg PO Q6H PRN 10/27/21 11/02/21 Unknown History Famotidine [Pepcid] 10 mg PO BID #60 tablet 11/12/21 Unknown Rx amLODIPine 10 mg PO DAILY #30 tab 11/12/21 Unknown Rx Active Medications: Generic Name Dose Route Start Last Admin Trade Name Freq PRN Reason Stop Dose Admin Acetaminophen 650 mg 11/24/21 01:02 Acetaminophen 325 Mg Tab PO Q4H PRN Pain MILD(1-3)/Fever >100.5/RACHEL Albuterol 2.5 mg 11/24/21 01:02 Albuterol 2.5 Mg/3 Ml Nebu IH Q3HRT PRN Shortness Of Breath Albuterol/Ipratropium 1 ampul 11/24/21 02:00 11/26/21 08:45 Ipratropium/Albuterol Sulfate 3 Ml Ampul.Neb IH Not Given Q6HRT CAILIN Atorvastatin Calcium 40 mg 11/24/21 22:00 11/25/21 22:05 Atorvastatin 40 Mg Tab PO 40 mg QHS CAILIN Administration Carvedilol 12.5 mg 11/24/21 22:00 11/26/21 09:42 Carvedilol 12.5 Mg Tab PO 12.5 mg BID CAILIN Administration Dextrose 50 ml 11/24/21 01:02 Dextrose 50% In Water (25gm) 50 Ml Syringe IV Q30MIN PRN Hypoglycemia Protocol Docusate Sodium 100 mg 11/25/21 22:00 11/26/21 09:42 Docusate Sodium 100 Mg Cap PO Not Given BID [facility] Famotidine 20 mg 11/27/21 10:00 Famotidine 20 Mg Tab PO DAILY [facility] Heparin Sodium (Porcine) 3,100 unit 11/25/21 10:25 Heparin 10,000 Units/10 Ml Vial 40 unit/kg (3100 unit) IV Q6H PRN Anti-Xa Assay < 0.1 units/ml Sodium Chloride 100 mls @ 999 mls/hr 11/24/21 09:55 Nacl 0.9% IV [place] PRN Hypotension Heparin Sodium/Sodium Chloride 25,000 unit in 500 mls @ 23 mls/hr 11/25/21 11:00 11/26/21 05:21 Heparin/ 0.45% Nacl-25,000 Unit/500 Ml IV 950 units/hr TITR CAILIN 19 mls/hr Titration Protocol 1,150 UNITS/HR Insulin Human Lispro 0 unit 11/24/21 06:00 11/26/21 12:17 Insulin Lispro 100 Unit/Ml SUB-Q Not Given Q6HR [facility] Protocol Labetalol HCl 10 mg 11/24/21 01:02 Labetalol 20 Mg/4 Ml Inj IV Q5MIN PRN to maintain SBP < 180 Morphine Sulfate 4 mg 11/24/21 01:02 11/24/21 23:29 Morphine 4 Mg/1 Ml Inj IV 4 mg Q4H PRN Administration Pain , Severe (7-10) Ondansetron HCl 4 mg 11/24/21 01:02 11/25/21 12:48 Ondansetron 4 Mg/2 Ml Inj IV 4 mg Q8H PRN Administration Nausea And Vomiting Oxycodone HCl 5 mg 11/25/21 08:56 11/26/21 05:10 Oxycodone 5 Mg Tab PO 5 mg Q6H PRN Administration Pain, Moderate (4-6) Sodium Chloride 10 ml 11/24/21 10:00 11/26/21 09:42 Sodium Chloride 0.9% 10 Ml Flush Syringe IV 10 ml BID CAILIN Administration Sodium Chloride 10 ml 11/24/21 01:02 Sodium Chloride 0.9% 10 Ml Flush Syringe IV PRN PRN LINE FLUSH HEART Score - HEART Score Troponin: Troponin T 0.324 ng/mL (0.00-0.029) H* 11/24/21 20:52
--- NOTE | 2021-11-26 14:13 | Magnetic Resonance Report ---
NONENHANCED MR SCAN OF THE BRAIN: INDICATION / CLINICAL INFORMATION: stroke. TECHNIQUE: Multiplanar, multisequence MR images of the brain obtained. COMPARISON: CT scan of the head from 11/25/2021, 11/24/2021 and 11/23/2021 FINDINGS: BRAIN / INTRACRANIAL CONTENTS: No acute ischemia, acute hemorrhage, mass effect, midline shift, or hy drocephalus. No chronic infarct or atrophy. No significant white matter abnormality. CRANIOCERVICAL JUNCTION: No significant abnormality. VASCULAR FLOW-VOIDS: No significant abnormality. ORBITS: No significant abnormality of visualized orbits. SINUSES / MASTOIDS: No significant abnormality of visualized sinuses and mastoid air cells. ADDITIONAL FINDINGS: None. IMPRESSION: 1. Normal MR scan of the brain; no acute/subacute ischemia or hemorrhage MRA HEAD WITHOUT CONTRAST COMPARISON: None. TECHNIQUE: Routine MRA of the head is performed. 3-D/MIP reformats postprocessed. CONTRAST: None. FINDINGS: Intracranial vertebral arteries: No significant abnormality. Basilar artery: No significant abnormality. Posterior cerebral arteries: No significant abnormality. Intracranial internal carotid arteries: No significant abnormality. Anterior cerebral arteries: No significant abnormality. Middle cerebral arteries: No significant abnormality. Variants and anomalies:None Additional findings: None. IMPRESSION: No significant abnormality. Signer Name: Josi Elizondo MD Signed: 11/26/2021 2:08 PM Workstation Name: [email or web address]
[2021-11-26] MEDS ORDERED: ALBUTEROL 2.5 MG/3 ML NEBU IH PRN (14:47)
[2021-11-27] MEDS: DEXTROSE 50% IN WATER (25GM) 50 ML SYRINGE IV PRN ×2 (00:31→06:12)
[2021-11-27] MEDS: INSULIN LISPRO 100 UNIT/ML SUB-Q SCH ×3 (00:32→13:19)
[2021-11-27 05:02] LABS: Hematocrit 20.5 % (35.5-45.6); Hemoglobin 6.7 gm/dl (11.8-15.2); Mean Corpuscular HGB Conc 33 % (32-34); Mean Corpuscular Volume 82 fl (84-94); Platelet Count 101 K/mm3 (140-440); Red Blood Count 2.52 M/mm3 (3.65-5.03); Red Cell Distribution Width 16.2 % (13.2-15.2)
[2021-11-27 05:24] LABS: Calcium 7.4 mg/dL (8.4-10.2)
[2021-11-27] MEDS: IPRATROPIUM/ALBUTEROL SULFATE 3 ML AMPUL.NEB IH SCH ×2 (08:00→21:55)
[2021-11-27] MEDS ORDERED: SODIUM CHLORIDE 0.9% 500 ML 500 ML IV SCH (09:30)
[2021-11-27] MEDS: ACETAMINOPHEN 325 MG TAB PO PRN ×2 (10:19→18:22)
[2021-11-27] MEDS: carvediloL 12.5 MG TAB PO SCH ×2 (10:20→21:05)
[2021-11-27] MEDS: FAMOTIDINE 20 MG TAB PO SCH (10:20)
[2021-11-27] MEDS: DOCUSATE SODIUM 100 MG CAP PO SCH ×2 (10:21→21:05)
[2021-11-27] MEDS: oxyCODONE 5 MG TAB PO PRN (10:22)
--- NOTE | 2021-11-27 10:31 | Progress Note ---
Assessment and Plan 61 y/o on HD admitted with stroke, now found to have right atrial thrombus 11/27/21: Pulm status stable. Will sign off. Call if questions. 11/26/21: No bleed, per vascular needs documentum consultant anticoagulation. Need to discuss with neuro if this is ok and would they would suggest for documentum consultant. Stable for transfer out of unit. 11/25/21. Reached out to [facility] via [facility]. They will place a note but state they are ok with using heparin infusion. We will not bolus. Will obtain stat Head CT prior to initiation and then another 24 hours post initiation of therapy. Will continue ICU monitoring. 1. Stroke protocol, q1 hour neuro checks 2. BP control 3. HD per renal CCT 31 minutes Subjective Date of service: 11/27/21 Principal diagnosis: Syncope Interval history: Successful transfer to floor. Stable on room air. Objective - Constitutional Vitals: Vital Signs - 12hr 11/26/21 11/27/21 11/27/21 23:42 00:00 04:00 Temperature 98.8 F Pulse Rate 83 83 89 Pulse Rate [ 83 From Monitor] Respiratory 18 18 Rate Blood Pressure 151/84 O2 Sat by Pulse 90 95 Oximetry 11/27/21 11/27/21 04:26 07:34 Temperature 99.4 F 98.4 F Pulse Rate 67 85 Pulse Rate [ From Monitor] Respiratory 16 Rate Blood Pressure 126/75 155/87 O2 Sat by Pulse 93 94 Oximetry - Labs CBC & Chem 7: 11/27/21 04:29 11/27/21 04:29 Labs: Abnormal lab results 11/27/21 11/27/21 11/27/21 Range/Units 00:16 04:29 04:29 WBC 3.7 L (4.5-11.0) K/mm3 RBC 2.52 L (3.65-5.03) M/mm3 Hgb 6.7 L (11.8-15.2) gm/dl Hct 20.5 L (35.5-45.6) % MCV 82 L (84-94) fl MCH 27 L (28-32) pg RDW 16.2 H (13.2-15.2) % Plt Count 101 L (140-440) K/mm3 Potassium 3.5 L D (3.6-5.0) mmol/L Creatinine 7.8 H (0.8-1.3) mg/dL Glucose 103 H (75-100) mg/dL POC Glucose 65 L (70-105) mg/dL Calcium 7.4 L (8.4-10.2) mg/dL Medications & Allergies - Medications Allergies/Adverse Reactions: Allergies No Known Allergies Allergy (Verified 10/09/21 11:02) Home Medications: Home Medications Medication Instructions Recorded Confirmed Last Taken Type Bacitracin/Pramoxine/Aloe Vera 1 applicatio TP TID #1 tube 10/09/21 11/02/21 Unknown Rx [Bacitraycin Plus Ointment] Calc Carb/Vit D 500 mg-200 Uni 1 each PO DAILY #30 tablet 10/21/21 11/02/21 11/01/21 10:00 Rx [Oysco D 500 mg-200 Unit] Acetaminophen [Tylenol] 500 mg PO Q6H PRN 10/27/21 11/02/21 Unknown History Famotidine [Pepcid] 10 mg PO BID #60 tablet 11/12/21 Unknown Rx amLODIPine 10 mg PO DAILY #30 tab 11/12/21 Unknown Rx Active Medications: Generic Name Dose Route Start Last Admin Trade Name Freq PRN Reason Stop Dose Admin Acetaminophen 650 mg 11/24/21 01:02 11/27/21 10:19 Acetaminophen 325 Mg Tab PO 650 mg Q4H PRN Administration Pain MILD(1-3)/Fever >100.5/RACHEL Albuterol 2.5 mg 11/26/21 14:47 Albuterol 2.5 Mg/3 Ml Nebu IH Q4HRT PRN Shortness Of Breath Albuterol/Ipratropium 1 ampul 11/26/21 20:00 11/26/21 19:54 Ipratropium/Albuterol Sulfate 3 Ml Ampul.Neb IH 1 ampul BIDRT CAILIN Administration Atorvastatin Calcium 40 mg 11/24/21 22:00 11/26/21 23:24 Atorvastatin 40 Mg Tab PO 40 mg QHS CAILIN Administration Carvedilol 12.5 mg 11/24/21 22:00 11/27/21 10:20 Carvedilol 12.5 Mg Tab PO 12.5 mg BID CAILIN Administration Dextrose 50 ml 11/24/21 01:02 11/27/21 06:12 Dextrose 50% In Water (25gm) 50 Ml Syringe IV 10 ml Q30MIN PRN Administration Hypoglycemia Protocol Docusate Sodium 100 mg 11/25/21 22:00 11/27/21 10:21 Docusate Sodium 100 Mg Cap PO 100 mg BID CAILIN Administration Famotidine 20 mg 11/27/21 10:00 11/27/21 10:20 Famotidine 20 Mg Tab PO 20 mg DAILY CAILIN Administration Sodium Chloride 100 mls @ 999 mls/hr 11/24/21 09:55 Nacl 0.9% IV [place] PRN Hypotension Sodium Chloride 500 mls @ 0 mls/hr 11/27/21 09:30 Nacl 0.9% 500 Ml IV 11/27/21 18:00 [id number] [facility] As Directed Insulin Human Lispro 0 unit 11/24/21 06:00 11/27/21 06:13 Insulin Lispro 100 Unit/Ml SUB-Q Not Given Q6HR [facility] Protocol Ondansetron HCl 4 mg 11/24/21 01:02 11/25/21 12:48 Ondansetron 4 Mg/2 Ml Inj IV 4 mg Q8H PRN Administration Nausea And Vomiting Oxycodone HCl 5 mg 11/25/21 08:56 11/27/21 10:22 Oxycodone 5 Mg Tab PO 5 mg Q6H PRN Administration Pain, Moderate (4-6) Sodium Chloride 10 ml 11/24/21 10:00 11/26/21 23:25 Sodium Chloride 0.9% 10 Ml Flush Syringe IV 10 ml BID CAILIN Administration Sodium Chloride 10 ml 11/24/21 01:02 Sodium Chloride 0.9% 10 Ml Flush Syringe IV PRN PRN LINE FLUSH HEART Score - HEART Score Troponin: Troponin T 0.324 ng/mL (0.00-0.029) H* 11/24/21 20:52
--- NOTE | 2021-11-27 11:27 | Progress Note ---
Assessment and Plan - Patient Problems (1) Abnormal finding on echocardiogram Current Visit: Yes Status: Acute Plan to address problem: The patient's echocardiogram shows a linear echogenicity in the right atrium, consistent with indwelling permacath. There is no evident vegetation or thrombus. No further cardiac intervention is indicated. (2) Cardiomyopathy Current Visit: Yes Status: Acute Plan to address problem: Patient has a known, moderate-severe nonischemic cardiomyopathy, status post cardiac catheterization 2 months ago. Continue guideline directed medical therapy as tolerated. (3) Syncope Current Visit: Yes Status: Acute Qualifiers: Syncope type: unspecified Qualified Code(s): R55 - Syncope and collapse Plan to address problem: Patient was admitted with syncope, diagnosed with acute CVA, treated with tPA in the emergency room. Currently, patient has no residual speech or motor deficits. Echocardiogram shows a negative contrast bubble study. ECGs and telemetry strips showed stable sinus rhythm. Continue work-up and management as directed by neurology. Subjective Date of service: 11/27/21 Principal diagnosis: Syncope Interval history: Patient is breathing comfortably, no acute distress, no new cardiac complaints. Objective Vital Signs Temp Pulse Pulse Pulse Resp Resp BP 11/27/21 07:34 98.4 F 85 155/87 11/27/21 04:26 99.4 F 67 16 126/75 11/27/21 04:00 89 11/27/21 00:00 83 83 18 11/26/21 23:42 98.8 F 83 18 151/84 11/26/21 21:00 84 84 17 11/26/21 20:30 85 11 L 166/91 11/26/21 20:21 86 17 159/87 11/26/21 20:11 86 11 L 147/81 11/26/21 20:03 84 17 147/81 11/26/21 20:01 84 15 147/81 11/26/21 20:00 85 85 16 11/26/21 19:54 85 16 11/26/21 19:52 11/26/21 19:32 83 14 159/90 11/26/21 19:30 159/90 11/26/21 19:00 87 11 L 144/83 11/26/21 18:52 97.4 F L 73 20 158/93 11/26/21 18:45 86 17 133/84 11/26/21 18:15 58 L 141/75 11/26/21 18:00 65 129/80 11/26/21 17:45 57 L 153/68 11/26/21 17:30 59 L 139/78 11/26/21 17:15 64 139/67 11/26/21 17:00 50 L 128/59 11/26/21 16:45 66 135/65 11/26/21 16:30 56 L 131/66 11/26/21 16:15 55 L 139/94 11/26/21 16:00 71 126/81 11/26/21 15:45 69 156/84 11/26/21 15:30 68 153/91 11/26/21 15:10 98.8 F 78 20 143/84 11/26/21 14:43 11/26/21 14:39 73 12 11/26/21 14:30 73 10 L 142/89 11/26/21 14:01 80 18 134/85 11/26/21 13:30 135/82 11/26/21 13:00 76 10 L 135/82 11/26/21 12:31 87 13 134/101 11/26/21 12:01 81 11 L 132/76 11/26/21 12:00 97.7 F 79 79 14 11/26/21 11:52 81 132/83 Pulse Ox Pulse Ox 11/27/21 07:34 94 11/27/21 04:26 93 11/27/21 04:00 11/27/21 00:00 95 11/26/21 23:42 90 11/26/21 21:00 95 11/26/21 20:30 94 11/26/21 20:21 92 11/26/21 20:11 94 11/26/21 20:03 93 11/26/21 20:01 95 11/26/21 20:00 100 11/26/21 19:54 11/26/21 19:52 94 11/26/21 19:32 96 11/26/21 19:30 97 11/26/21 19:00 98 11/26/21 18:52 98 11/26/21 18:45 11/26/21 18:15 11/26/21 18:00 11/26/21 17:45 11/26/21 17:30 11/26/21 17:15 11/26/21 17:00 11/26/21 16:45 11/26/21 16:30 11/26/21 16:15 11/26/21 16:00 11/26/21 15:45 11/26/21 15:30 98 11/26/21 15:10 98 11/26/21 14:43 100 11/26/21 14:39 11/26/21 14:30 100 11/26/21 14:01 99 11/26/21 13:30 87 11/26/21 13:00 11/26/21 12:31 11/26/21 12:01 11/26/21 12:00 100 11/26/21 11:52 99 - Physical Examination General: No Apparent Distress HEENT: Positive: PERRL Neck: Positive: neck supple Cardiac: Positive: Reg Rate and Rhythm Lungs: Positive: Decreased Breath Sounds Neuro: Positive: Grossly Intact Abdomen: Positive: Soft Skin: Positive: Clear Musculoskeletal: No Pain Extremities: Absent: edema - Labs and Meds CBC 11/27/21 Range/Units 04:29 WBC 3.7 L (4.5-11.0) K/mm3 RBC 2.52 L (3.65-5.03) M/mm3 Hgb 6.7 L (11.8-15.2) gm/dl Hct 20.5 L (35.5-45.6) % Plt Count 101 L (140-440) K/mm3 Comprehensive Metabolic Panel 11/27/21 Range/Units 04:29 Sodium 138 (137-145) mmol/L Potassium 3.5 L D (3.6-5.0) mmol/L Chloride 101.6 (98-107) mmol/L Carbon Dioxide 26 (22-30) mmol/L BUN 18 (9-20) mg/dL Creatinine 7.8 H (0.8-1.3) mg/dL Glucose 103 H (75-100) mg/dL Calcium 7.4 L (8.4-10.2) mg/dL - Imaging and Cardiology EKG: report reviewed, image reviewed Echo: report reviewed Cardiac cath: report reviewed - EKG Sinus rhythms and dysrhythmias: sinus rhythm Repolarization changes or abnormalities: nonspecific abnormality, ST segment, and/or T wave
--- NOTE | 2021-11-27 12:13 | Electrocardiograph Report ---
[facility] Test Date: 2021-11-23 Test Time: 23:20:07 Pat Name: TERESA HARGROVE Department: Room: A467 Gender: M Finance Analyst: ADRIANNE : 1960 Requested By: REGINA ARAMBULA III Order Number: [id number] Reading MD: Parul Rodriguez Measurements Intervals [place] Rate: 83 P: 50 [place]: 133 QRS: -65 QRSD: 107 T: 134 QT: 422 QTc: 496 Interpretive Statements Sinus rhythm Probable left atrial enlargement LAD, consider left anterior fascicular block Anteroseptal infarct, age indeterminate Compared to ECG 11/04/2021 07:40:00 No significant change Electronically Signed On 11-27-2021 12:13:36 EDT by Parul Rodriguez
--- NOTE | 2021-11-27 12:48 | Progress Note ---
Assessment and Plan Assessment: CVA (cerebral vascular accident) Diabetes Syncope Congestive heart failure HIV (human immunodeficiency virus infection) End stage renal disease Hypertension Anemia Plan: -S/P hemodialysis yesterday for UF and clearance -Anemia- Epogen 20,000 units with HD. Transfuse as needed -Fluid restriction of 1 liter per day -Strict I/O's daily -Obtain daily weights -Assess dialysis needs daily -Comes to E.R for HD as needed -Plan of care reviewed by Dr. Abdi Subjective Date of service: 11/27/21 Principal diagnosis: Syncope Interval history: Patient in bathroom. Informed plans for HD tomorrow if still in hospital. Objective - Vital Signs Vital signs: Vital Signs - 12hr 11/27/21 11/27/21 11/27/21 04:00 04:26 07:34 Temperature 99.4 F 98.4 F Pulse Rate 89 67 85 Pulse Rate [ From Monitor] Respiratory 16 Rate Blood Pressure 126/75 155/87 O2 Sat by Pulse 93 94 Oximetry 11/27/21 11/27/21 10:00 11:37 Temperature 98.3 F Pulse Rate 78 Pulse Rate [ 85 From Monitor] Respiratory 16 Rate Blood Pressure 154/81 O2 Sat by Pulse 94 98 Oximetry - Lab 11/27/21 04:29 11/27/21 04:29 Most recent lab results Calcium 7.4 mg/dL (8.4-10.2) L 11/27/21 04:29 Phosphorus 7.40 mg/dL (2.5-4.5) H 11/26/21 04:08 Magnesium 1.80 mg/dL (1.7-2.3) 11/26/21 04:08 Medications & Allergies - Medications Allergies/Adverse Reactions: Allergies No Known Allergies Allergy (Verified 10/09/21 11:02) Home Medications: Home Medications Medication Instructions Recorded Confirmed Last Taken Type Bacitracin/Pramoxine/Aloe Vera 1 applicatio TP TID #1 tube 10/09/21 11/02/21 Unknown Rx [Bacitraycin Plus Ointment] Calc Carb/Vit D 500 mg-200 Uni 1 each PO DAILY #30 tablet 10/21/21 11/02/21 10:00 Rx [Oysco D 500 mg-200 Unit] Acetaminophen [Tylenol] 500 mg PO Q6H PRN 10/27/21 11/02/21 Unknown History Famotidine [Pepcid] 10 mg PO BID #60 tablet 11/12/21 Unknown Rx amLODIPine 10 mg PO DAILY #30 tab 11/12/21 Unknown Rx Active Medications: Generic Name Dose Route Start Last Admin Trade Name Shahbazq PRN Reason Stop Dose Admin Acetaminophen 650 mg 11/24/21 01:02 11/27/21 10:19 Acetaminophen 325 Mg Tab PO 650 mg Q4H PRN Administration Pain MILD(1-3)/Fever >100.5/RACHEL Albuterol 2.5 mg 11/26/21 14:47 Albuterol 2.5 Mg/3 Ml Nebu IH Q4HRT PRN Shortness Of Breath Albuterol/Ipratropium 1 ampul 11/26/21 20:00 11/27/21 08:00 Ipratropium/Albuterol Sulfate 3 Ml Ampul.Neb IH Not Given BIDRT CAILIN Atorvastatin Calcium 40 mg 11/24/21 22:00 11/26/21 23:24 Atorvastatin 40 Mg Tab PO 40 mg QHS CAILIN Administration Carvedilol 12.5 mg 11/24/21 22:00 11/27/21 10:20 Carvedilol 12.5 Mg Tab PO 12.5 mg BID CAILIN Administration Dextrose 50 ml 11/24/21 01:02 11/27/21 06:12 Dextrose 50% In Water (25gm) 50 Ml Syringe IV 10 ml Q30MIN PRN Administration Hypoglycemia Protocol Docusate Sodium 100 mg 11/25/21 22:00 11/27/21 10:21 Docusate Sodium 100 Mg Cap PO 100 mg BID CAILIN Administration Famotidine 20 mg 11/27/21 10:00 11/27/21 10:20 Famotidine 20 Mg Tab PO 20 mg DAILY CAILIN Administration Sodium Chloride 100 mls @ 999 mls/hr 11/24/21 09:55 Nacl 0.9% IV LAKE PRN Hypotension Sodium Chloride 500 mls @ 0 mls/hr 11/27/21 09:30 Nacl 0.9% 500 Ml IV 11/27/21 18:00 ONCE@[id number] CAILIN As Directed Insulin Human Lispro 0 unit 11/24/21 06:00 11/27/21 06:13 Insulin Lispro 100 Unit/Ml SUB-Q Not Given Q6HR CAILIN Protocol Ondansetron HCl 4 mg 11/24/21 01:02 11/25/21 12:48 Ondansetron 4 Mg/2 Ml Inj IV 4 mg Q8H PRN Administration Nausea And Vomiting Oxycodone HCl 5 mg 11/25/21 08:56 11/27/21 10:22 Oxycodone 5 Mg Tab PO 5 mg Q6H PRN Administration Pain, Moderate (4-6) Sodium Chloride 10 ml 11/24/21 10:00 11/26/21 23:25 Sodium Chloride 0.9% 10 Ml Flush Syringe IV 10 ml BID CAILIN Administration Sodium Chloride 10 ml 11/24/21 01:02 Sodium Chloride 0.9% 10 Ml Flush Syringe IV PRN PRN LINE FLUSH
[2021-11-27] MEDS ORDERED: EPOETIN ALFA-EPBX 20,000 UNIT/1 ML VIAL IV PRN (13:00)
--- NOTE | 2021-11-27 16:09 | Progress Note ---
Assessment and Plan This is a 61-year-old male with HTN, Takotsubo cardiomyopathy, CHF, ESRD on HD, diabetes mellitus, HIV, multiple sclerosis, and sciatica with medical noncompliance admitted for CVA s/p tPA in the ED Hospital course to date: 11/24: Patient receiving hemodialysis today, CT scan 24-hour post tPA scheduled for tonight. MR a/MRV head and MRI brain pending. Echocardiogram completed at bedside. 11/25: Repeat CT head with no acute abnormality, cleared by neurology to restart heparin drip after repeat head CT today which showed no acute abnormality. We will start heparin drip given RA thrombus. Vascular surgery consulted to review images. We will repeat CT head in 24 hours. 11/26: SHARON overnight. Remains on heparin gtt per protocol. MRI brain and MRA head/Neck pending, Neurology consult pending. Worsen anemia and thrombocytopenia noted, no s/s of any active bleeding noted. Will continue to monitor. Plan for HD today per nephro. Possible transfer to the floor today if patient remains stable. 11/27: Reviewed cardiology recommendation and also discussed with Dr. Rodriguez personally that patient does not have any right heart thrombus and heparin drip could be discontinued.. Patient clinically stable. Hemoglobin dropped to 6.7.. We will stop heparin drip and will transfuse 1 unit of packed RBC. Continue to monitor H&H. Assessment and Plan Neuro: R/o CVA, medical noncompliance, h/o multiple sclerosis, sciatic nerve pain -Presented with left-sided weakness after syncopal episode and fall -[facility] 11/24 @ 2100, Admit NIHSS 7 -Telemetry neurology consulted in the ED S/p tPA -Neuro deficits resolved post tPA -Neurology consulted, appreciate recommendations -Admit CT head without acute intracranial abnormality -CT C-spine shows no acute fracture of the cervical spine, large bilateral pleural effusions -CTA head shows no occlusion or significant stenosis of major intracranial vasculature -CTA neck shows no occlusion or significant stenosis of carotid or vertebral vasculature -Repeat CT head shows no acute intracranial abnormality -MRI brain and MRA head/Neck pending -PT/OT/ST consulted -Bilateral carotid ultrasound pending -Lipid panel noted in chart -Statin -CCM also on consulted Cardiac: Syncopal with Collapse Right Atrial Thrombus H/o Takotsubo cardiomyopathy, HTN, CHF -Report syncope episode and fall prior to admit -EKG revealed NSR, with no ST changes -Elevated troponin X3 -Cardiology on consult, appreciated recommendation -No plan for any intervention at this time -Echo reviewed - LVEF 50%, moderate diastolic dysfunction, moderate MR, no evidence of PFO. -Echo also revealed a mass in the RA measuring 0.68 x 0.33 cm attached to catheter suspicious for thrombus. -Heparin gtt initiated per protocol -Vascular surgery was also consulted, who recommends 6 to 8 weeks of AC and follow Echo to evaluate thrombus. Awaiting neurology consult for recommendations -Home meds resumed -Continue blood pressure monitor per protocol -Maintain SBP less than 160 Respiratory: Acute hypoxic respiratory failure, bilateral pleural effusions (likely secondary to volume overload) -CT imaging noted large bilateral pleural effusions -CXR showed small right pleural effusion -Patient stable on 2L NC, SPO2 at 100% -Continue O2 Supplemental, wean as tolerated -Pulmonary hygiene -Continue SPO2 monitoring for SPO2 goal above 92% -CCM consulted, appreciate recommendations GI: Dysphagia, moderate protein calorie malnutrition -CC cardiac renal diet, mechanical soft -PPI -BR: Colace : ESRD on HD, hyperkalemia, metabolic acidosis -Nephrology consulted, appreciate recommendations -HD per nephrology -Renally dose medications -Avoid nephrotoxic medications -Trend BMP -Kionex x1 Endo: h/o DM II -Avoid hypoglycemia -SSI -Accu-Cheks q6hr Heme: Anemia of chronic disease, Thrombocytopenia RA thrombus attached to vascath (noted on echo) -ruled out -s/p Heparin gtt per protocol -now stopped -Patient has been evaluated by cardiology and vascular surgery -Initially suspicious for right atrial thrombus and recommended to continue anticoagulation -His echocardiogram was reviewed by cardiology again and finalized that patient does not have any right atrial thrombus -Heparin drip now discontinued -Hemoglobin dropped to 6.7 and will transfuse 1 unit of packed RBC Subjective Date of service: 11/27/21 Principal diagnosis: Syncope Interval history: Patient seen and examined. Medical records and medication list reviewed. No acute event overnight noted by the RN. Patient denies any chest pain or difficulty breathing. Patient is tolerating diet. Discussed plan of care at bedside with patient. Objective - Exam Narrative Exam: General appearance: Present: no acute distress - EENT Eyes: Present: PERRL, EOM intact ENT: hearing intact, clear oral mucosa - Neck Neck: Present: normal ROM - Respiratory Respiratory effort: normal Respiratory: bilateral: diminished - Cardiovascular Rhythm: regular Heart Sounds: Present: S1 & S2 - Extremities Extremities: no ischemia, pulses intact, pulses symmetrical Peripheral Pulses: within normal limits - Abdominal General gastrointestinal: soft, non-distended, normal bowel sounds - Integumentary Integumentary: Present: warm, dry - Psychiatric Psychiatric: appropriate mood/affect, cooperative - Neurologic Neurologic: CNII-XII intact, moves all extremities - Allied Health Allied health notes reviewed: nursing - Constitutional Vitals: Vital Signs - 12hr 11/27/21 11/27/21 11/27/21 04:26 07:34 10:00 Temperature 99.4 F 98.4 F Pulse Rate 67 85 Pulse Rate [ 85 From Monitor] Respiratory 16 16 Rate Blood Pressure 126/75 155/87 O2 Sat by Pulse 93 94 94 Oximetry 11/27/21 11/27/21 11:37 15:37 Temperature 98.3 F 98.0 F Pulse Rate 78 77 Pulse Rate [ From Monitor] Respiratory Rate Blood Pressure 154/81 138/96 O2 Sat by Pulse 98 92 Oximetry - Labs CBC & Chem 7: 11/27/21 04:29 11/27/21 04:29 Labs: Abnormal lab results 11/27/21 11/27/21 11/27/21 Range/Units 00:16 04:29 04:29 WBC 3.7 L (4.5-11.0) K/mm3 RBC 2.52 L (3.65-5.03) M/mm3 Hgb 6.7 L (11.8-15.2) gm/dl Hct 20.5 L (35.5-45.6) % MCV 82 L (84-94) fl MCH 27 L (28-32) pg RDW 16.2 H (13.2-15.2) % Plt Count 101 L (140-440) K/mm3 Heparin Anti-Xa Level (0.3-0.7) U.I./ml Potassium 3.5 L D (3.6-5.0) mmol/L Creatinine 7.8 H (0.8-1.3) mg/dL Glucose 103 H (75-100) mg/dL POC Glucose 65 L (70-105) mg/dL Calcium 7.4 L (8.4-10.2) mg/dL Crossmatch 11/27/21 11/27/21 Range/Units 14:47 14:55 WBC (4.5-11.0) K/mm3 RBC (3.65-5.03) M/mm3 Hgb (11.8-15.2) gm/dl Hct (35.5-45.6) % MCV (84-94) fl MCH (28-32) pg RDW (13.2-15.2) % Plt Count (140-440) K/mm3 Heparin Anti-Xa Level 0.10 L (0.3-0.7) U.I./ml Potassium (3.6-5.0) mmol/L Creatinine (0.8-1.3) mg/dL Glucose (75-100) mg/dL POC Glucose (70-105) mg/dL Calcium (8.4-10.2) mg/dL Crossmatch See Detail HEART Score - HEART Score Troponin: Troponin T 0.324 ng/mL (0.00-0.029) H* 11/24/21 20:52
--- NOTE | 2021-11-27 23:50 | Consultation ---
History of Present Illness Consult date: 11/27/21 Reason for Consult: CVA s/p tPA Chief complaint: CVA s/p tPA History of present illness: Patient not seen via televideo. All information obtained per EMR. 61 yo male with hiv, htn, dm, chf, esrdx on hd, ms, sciatica who presents with an episode where he fell and woke up with noted left-sided weakness. He unfortunately hit his head with the fall. He received IV-tPA per telestroke evaluation. Hospital course includes initially a concern for possible thrombus on tte but then with an official cardiology consult revealing no evidence of a cardiac thrombus on TTE. Past History Past Medical History: diabetes, ESRD, heart failure, HIV/AIDS, hypertension, renal failure, other (MS, Sciatica) Past Surgical History: Other (Right chest Vas-Cath, back surgery) Social history: no significant social history, smoking Family history: hypertension Medications and Allergies Allergies Allergy/AdvReac Type Severity Reaction Status Date / Time No Known Allergies Allergy Verified 10/09/21 11:02 Home Medications Medication Instructions Recorded Confirmed Last Taken Type Bacitracin/Pramoxine/Aloe Vera 1 applicatio TP TID #1 tube 10/09/21 11/02/21 Unknown Rx [Bacitraycin Plus Ointment] Calc Carb/Vit D 500 mg-200 Uni 1 each PO DAILY #30 tablet 10/21/21 11/02/21 11/01/21 10:00 Rx [Oysco D 500 mg-200 Unit] Acetaminophen [Tylenol] 500 mg PO Q6H PRN 10/27/21 11/02/21 Unknown History Famotidine [Pepcid] 10 mg PO BID #60 tablet 11/12/21 Unknown Rx amLODIPine 10 mg PO DAILY #30 tab 11/12/21 Unknown Rx Active Meds: Active Medications Acetaminophen (Acetaminophen 325 Mg Tab) 650 mg PO Q4H PRN PRN Reason: Pain MILD(1-3)/Fever >100.5/RACHEL Last Admin: 11/27/21 18:22 Dose: 650 mg Albuterol (Albuterol 2.5 Mg/3 Ml Nebu) 2.5 mg IH Q4HRT PRN PRN Reason: Shortness Of Breath Albuterol/Ipratropium (Ipratropium/Albuterol Sulfate 3 Ml Ampul.Neb) 1 ampul IH BIDRT [facility] Last Admin: 11/27/21 21:55 Dose: 1 ampul Atorvastatin Calcium (Atorvastatin 40 Mg Tab) 40 mg PO QHS [facility] Last Admin: 11/27/21 21:05 Dose: 40 mg Carvedilol (Carvedilol 12.5 Mg Tab) 12.5 mg PO BID [facility] Last Admin: 11/27/21 21:05 Dose: 12.5 mg Dextrose (Dextrose 50% In Water (25gm) 50 Ml Syringe) 50 ml IV Q30MIN PRN; Protocol PRN Reason: Hypoglycemia Last Admin: 11/27/21 06:12 Dose: 10 ml Docusate Sodium (Docusate Sodium 100 Mg Cap) 100 mg PO BID [facility] Last Admin: 11/27/21 21:05 Dose: 100 mg Epoetin Alen-epbx (Epoetin Alen-Epbx 20,000 Unit/1 Ml Vial) 20,000 unit IV LAKE PRN PRN Reason: hemodialysis Famotidine (Famotidine 20 Mg Tab) 20 mg PO DAILY [facility] Last Admin: 11/27/21 10:20 Dose: 20 mg Sodium Chloride (Nacl 0.9%) 100 mls @ 999 mls/hr IV LAKE PRN PRN Reason: Hypotension Insulin Human Lispro (Insulin Lispro 100 Unit/Ml) 0 unit SUB-Q Q6HR [facility]; Protocol Last Admin: 11/27/21 13:19 Dose: Not Given Ondansetron HCl (Ondansetron 4 Mg/2 Ml Inj) 4 mg IV Q8H PRN PRN Reason: Nausea And Vomiting Last Admin: 11/25/21 12:48 Dose: 4 mg Oxycodone HCl (Oxycodone 5 Mg Tab) 5 mg PO Q6H PRN PRN Reason: Pain, Moderate (4-6) Last Admin: 11/27/21 10:22 Dose: 5 mg Sodium Chloride (Sodium Chloride 0.9% 10 Ml Flush Syringe) 10 ml IV BID [facility] Last Admin: 11/27/21 21:06 Dose: 10 ml Sodium Chloride (Sodium Chloride 0.9% 10 Ml Flush Syringe) 10 ml IV PRN PRN PRN Reason: LINE FLUSH Physical Examination - Vital Signs Vital Signs: Vital Signs Temp Pulse Resp BP Pulse Ox 98 F 103 H 18 158/98 100 11/23/21 21:38 11/23/21 21:38 11/23/21 21:38 11/23/21 21:38 11/23/21 21:38 - Physical Exam Narrative exam: Patient is not seen by televideo today. Results - Laboratory Findings CBC and BMP: 11/27/21 04:29 11/27/21 04:29 Abnormal Lab Findings: Abnormal Labs 11/23/21 11/23/21 11/23/21 21:29 21:29 21:29 WBC RBC 3.23 L Hgb 8.5 L Hct 27.0 L MCV MCH 26 L RDW 16.8 H Plt Count 138 L Lymph % (Auto) 9.1 L [place] % (Auto) 12.6 H Lymph # (Auto) 0.4 L Seg Neutrophils % 74.3 H APTT 39.4 H Thrombin Time 23.3 H Heparin Anti-Xa Level Potassium 5.1 H Chloride 94.9 L Carbon Dioxide 16 L BUN 73 H Creatinine 19.8 H Glucose POC Glucose Calcium 8.3 L Phosphorus ALT < 5 L CK-MB (CK-2) 5.7 H Troponin T 0.344 H* Total Protein 8.4 H Albumin 3.0 L Triglycerides 177 H HDL Cholesterol 31 L Crossmatch 11/24/21 11/24/21 11/24/21 09:37 09:37 17:33 WBC RBC 2.79 L Hgb 7.4 L Hct 23.3 L MCV MCH 27 L RDW 16.5 H Plt Count 122 L Lymph % (Auto) [place] % (Auto) Lymph # (Auto) Seg Neutrophils % APTT Thrombin Time Heparin Anti-Xa Level Potassium 5.8 H Chloride Carbon Dioxide 17 L BUN 77 H Creatinine 21.9 H Glucose POC Glucose Calcium 7.8 L Phosphorus ALT CK-MB (CK-2) Troponin T 0.305 H* Total Protein Albumin Triglycerides HDL Cholesterol Crossmatch 11/24/21 11/24/21 11/25/21 17:47 20:52 07:27 WBC 4.3 L RBC 3.04 L Hgb 8.1 L Hct 25.5 L MCV MCH 27 L RDW 16.3 H Plt Count 112 L Lymph % (Auto) [place] % (Auto) Lymph # (Auto) Seg Neutrophils % APTT Thrombin Time Heparin Anti-Xa Level Potassium Chloride Carbon Dioxide BUN Creatinine Glucose POC Glucose 130 H Calcium Phosphorus ALT CK-MB (CK-2) Troponin T 0.324 H* Total Protein Albumin Triglycerides HDL Cholesterol Crossmatch 11/25/21 11/25/21 11/26/21 07:27 14:51 04:08 WBC RBC 2.64 L Hgb 7.1 L Hct 21.8 L MCV 83 L MCH 27 L RDW 15.6 H Plt Count 100 L Lymph % (Auto) [place] % (Auto) Lymph # (Auto) Seg Neutrophils % APTT Thrombin Time Heparin Anti-Xa Level 0.21 L Potassium 5.4 H Chloride Carbon Dioxide 21 L BUN 39 H Creatinine 14.1 H Glucose POC Glucose Calcium 7.7 L Phosphorus ALT CK-MB (CK-2) Troponin T Total Protein Albumin Triglycerides HDL Cholesterol Crossmatch 11/26/21 11/27/21 11/27/21 04:08 00:16 04:29 WBC 3.7 L RBC 2.52 L Hgb 6.7 L Hct 20.5 L MCV 82 L MCH 27 L RDW 16.2 H Plt Count 101 L Lymph % (Auto) [place] % (Auto) Lymph # (Auto) Seg Neutrophils % APTT Thrombin Time Heparin Anti-Xa Level Potassium Chloride Carbon Dioxide BUN 43 H Creatinine 14.3 H Glucose POC Glucose 65 L Calcium 7.4 L Phosphorus 7.40 H ALT CK-MB (CK-2) Troponin T Total Protein Albumin Triglycerides HDL Cholesterol Crossmatch 11/27/21 11/27/21 11/27/21 04:29 14:47 14:55 WBC RBC Hgb Hct MCV MCH RDW Plt Count Lymph % (Auto) [place] % (Auto) Lymph # (Auto) Seg Neutrophils % APTT Thrombin Time Heparin Anti-Xa Level 0.10 L Potassium 3.5 L D Chloride Carbon Dioxide BUN Creatinine 7.8 H Glucose 103 H POC Glucose Calcium 7.4 L Phosphorus ALT CK-MB (CK-2) Troponin T Total Protein Albumin Triglycerides HDL Cholesterol Crossmatch See Detail Assessment and Plan 61 yo male with hiv, htn, dm, chf, esrdx on hd, ms, sciatica who presents with an episode where he fell and woke up with noted left-sided weakness. He unfortunately hit his head with the fall. He received IV-tPA per telestroke e valuation. Hospital course includes initially a concern for possible thrombus on tte but then with an official cardiology consult revealing no evidence of a cardiac thrombus on TTE. 1. Seizure - concern is raised based on review of EMR for ossible seizure event that led to a eric's paralysis; in the setting of hiv, recommend mri brain w/ contrast csf evaluation (including basic labs and cytology + flow cytometry) and eeg (ordered). 2. TIA / Averted Stroke - aspirin 325 mg po qday; hold off on plavix 75 mg po qd x21 days until 24 hours after the LP; statin therapy for a goal ldl of 70; pt/ot /st evaluation/monitoring. 4. Multiple Sclerosis - confirm no new enhancing lesiion that can serve as a nidus or an ictal event or for the patient's transient left-sided wekness. 5. HIV - ID evaluation for underlying cd4, viral load, and relevant csf labs. 6. Hypertension - aim for normotension since cta reveals no acute/relevant findings. 7. DM - maintain euglcemia. Nakul Denny MD Neurology
[2021-11-28 05:33] LABS: Basophils % (Auto) 0.8 % (0.0-1.8); Eosinophils # (Auto) 0.2 K/mm3 (0.0-0.4); Eosinophils % (Auto) 4.7 % (0.0-4.3); Hematocrit 26.7 % (35.5-45.6); Hemoglobin 8.7 gm/dl (11.8-15.2); Lymphocytes # (Auto) 0.9 K/mm3 (1.2-5.4); Lymphocytes % (Auto) 20.7 % (13.4-35.0); Mean Corpuscular HGB Conc 33 % (32-34); Mean Corpuscular Volume 83 fl (84-94); Monocytes # (Auto) 0.6 K/mm3 (0.0-0.8); Monocytes % (Auto) 12.6 % (0.0-7.3); Platelet Count 134 K/mm3 (140-440); Red Blood Count 3.21 M/mm3 (3.65-5.03); Red Cell Distribution Width 15.6 % (13.2-15.2)
[2021-11-28 05:44] LABS: Calcium 7.5 mg/dL (8.4-10.2)
[2021-11-28] MEDS: IPRATROPIUM/ALBUTEROL SULFATE 3 ML AMPUL.NEB IH SCH ×2 (09:49→21:15)
[2021-11-28] MEDS: DOCUSATE SODIUM 100 MG CAP PO SCH ×2 (10:22→21:41)
[2021-11-28] MEDS: ASPIRIN 325 MG TAB PO SCH (10:22)
[2021-11-28] MEDS: FAMOTIDINE 20 MG TAB PO SCH (10:22)
[2021-11-28] MEDS: carvediloL 12.5 MG TAB PO SCH ×2 (10:22→21:41)
--- NOTE | 2021-11-28 10:24 | Magnetic Resonance Report ---
MR brain w con INDICATION / CLINICAL INFORMATION: HIV, possible seizure, hx of MS. TECHNIQUE: Multiplanar, multisequence MR images of the brain were obtained. COMPARISON: None available. FINDINGS: INTRACRANIAL: No restricted diffusion. No hemorrhage. Ventricular caliber is normal. No extra-axial c ollection. No mass. No herniation. Major intracranial vascular flow voids are preserved. Left fronta l DVA. ORBITS: No significant abnormality of visualized orbits. SINUSES / MASTOIDS: 1cm left maxillary mucosal retention cyst. No significant abnormality of visuali zed sinuses and mastoid air cells. ADDITIONAL FINDINGS: None. IMPRESSION: 1. No significant intracranial abnormality. Signer Name: Christiano Hernandez MD Signed: 11/28/2021 10:20 AM Workstation Name: [id number]
--- NOTE | 2021-11-28 11:49 | Procedure Note ---
Date of procedure: 11/28/21 Pre-op diagnosis: cva,seizure Post-op diagnosis: same Procedure: flouro guided lumbar puncture Findings: none Anesthesia: local Surgeon: DELORIS OLIVEIRA Estimated blood loss: none Pathology: list (4 csf tubes) Specimen disposition: to lab Condition: stable Disposition: floor
--- NOTE | 2021-11-28 11:55 | Fluoroscopy Report ---
LUMBAR PUNCTURE INDICATION : CVA, seizure PROCEDURE: The risks (including but not limited to bleeding, infection, and spinal headache) and lavonne efits were explained to the patient and informed consent was obtained. A time out procedure was perf ormed. The procedure site was prepped and draped in the usual sterile fashion and lidocaine was used for local anesthesia. Under fluoroscopic guidance, a 22-gauge spinal needle was advanced into the L2-3 interlaminar space. The opening pressure was 100 mm H2O. 4 separate collection tubes were used to obtain 2 cc of CSF eac h Samples were sent to the lab per the ordering physician specifications for further evaluation. The patient tolerated the procedure well with no complications. IMPRESSION: Successful lumbar puncture as outlined above. Opening pressure was 100 mm H20. Fluoroscopic time: 0.6 Number of fluoroscopic images: 1 Signer Name: Jamie Cee Jr, MD Signed: 11/28/2021 11:50 AM Workstation Name: [id number]
--- NOTE | 2021-11-28 12:36 | Progress Note ---
Assessment and Plan Assessment: CVA (cerebral vascular accident) Diabetes Syncope Congestive heart failure HIV (human immunodeficiency virus infection) End stage renal disease Hypertension Anemia Plan: -Hemodialysis today for UF and clearance -Anemia- Epogen 20,000 units with HD. Transfuse as needed -Fluid restriction of 1 liter per day -Strict I/O's daily -Obtain daily weights -Assess dialysis needs daily -Comes to E.R for HD as needed -Plan of care reviewed by Dr. Abdi Subjective Date of service: 11/28/21 Principal diagnosis: Syncope Interval history: Patient off floor Objective - Vital Signs Vital signs: Vital Signs - 12hr 11/28/21 11/28/21 11/28/21 04:00 04:53 07:46 Temperature 98.8 F 98.5 F Pulse Rate 76 75 77 Respiratory 16 Rate Blood Pressure 156/98 163/97 O2 Sat by Pulse 89 93 Oximetry 11/28/21 11/28/21 09:11 11:40 Temperature 98.9 F Pulse Rate 77 78 Respiratory Rate Blood Pressure 163/100 O2 Sat by Pulse 100 99 Oximetry - Lab 11/28/21 04:42 11/28/21 04:42 Most recent lab results Calcium 7.5 mg/dL (8.4-10.2) L 11/28/21 04:42 Phosphorus 7.40 mg/dL (2.5-4.5) H 11/26/21 04:08 Magnesium 1.80 mg/dL (1.7-2.3) 11/26/21 04:08 Medications & Allergies - Medications Allergies/Adverse Reactions: Allergies No Known Allergies Allergy (Verified 10/09/21 11:02) Home Medications: Home Medications Medication Instructions Recorded Confirmed Last Taken Type Bacitracin/Pramoxine/Aloe Vera 1 applicatio TP TID #1 tube 10/09/21 11/02/21 Unknown Rx [Bacitraycin Plus Ointment] Calc Carb/Vit D 500 mg-200 Uni 1 each PO DAILY #30 tablet 10/21/21 11/02/21 11/01/21 10:00 Rx [Oysco D 500 mg-200 Unit] Acetaminophen [Tylenol] 500 mg PO Q6H PRN 10/27/21 11/02/21 Unknown History Famotidine [Pepcid] 10 mg PO BID #60 tablet 11/12/21 Unknown Rx amLODIPine 10 mg PO DAILY #30 tab 11/12/21 Unknown Rx Active Medications: Generic Name Dose Route Start Last Admin Trade Name Freq PRN Reason Stop Dose Admin Acetaminophen 650 mg 11/24/21 01:02 11/27/21 18:22 Acetaminophen 325 Mg Tab PO 650 mg Q4H PRN Administration Pain MILD(1-3)/Fever >100.5/RACHEL Albuterol 2.5 mg 11/26/21 14:47 Albuterol 2.5 Mg/3 Ml Nebu IH Q4HRT PRN Shortness Of Breath Albuterol/Ipratropium 1 ampul 11/26/21 20:00 11/28/21 09:49 Ipratropium/Albuterol Sulfate 3 Ml Ampul.Neb IH Not Given BIDRT CAILIN Aspirin 325 mg 11/28/21 10:00 11/28/21 10:22 Aspirin 325 Mg Tab PO 325 mg QDAY CAILIN Administration Atorvastatin Calcium 40 mg 11/24/21 22:00 11/27/21 21:05 Atorvastatin 40 Mg Tab PO 40 mg QHS CAILIN Administration Carvedilol 12.5 mg 11/24/21 22:00 11/28/21 10:22 Carvedilol 12.5 Mg Tab PO 12.5 mg BID CAILIN Administration Dextrose 50 ml 11/24/21 01:02 11/27/21 06:12 Dextrose 50% In Water (25gm) 50 Ml Syringe IV 10 ml Q30MIN PRN Administration Hypoglycemia Protocol Docusate Sodium 100 mg 11/25/21 22:00 11/28/21 10:22 Docusate Sodium 100 Mg Cap PO 100 mg BID CAILIN Administration Epoetin Alen-epbx 20,000 unit 11/27/21 13:00 Epoetin Alen-Epbx 20,000 Unit/1 Ml Vial IV LAKE PRN hemodialysis Famotidine 20 mg 11/27/21 10:00 11/28/21 10:22 Famotidine 20 Mg Tab PO 20 mg DAILY CAILIN Administration Sodium Chloride 100 mls @ 999 mls/hr 11/24/21 09:55 Nacl 0.9% IV LAKE PRN Hypotension Insulin Human Lispro 0 unit 11/24/21 06:00 11/27/21 13:19 Insulin Lispro 100 Unit/Ml SUB-Q Not Given Q6HR [facility] Protocol Ondansetron HCl 4 mg 11/24/21 01:02 11/25/21 12:48 Ondansetron 4 Mg/2 Ml Inj IV 4 mg Q8H PRN Administration Nausea And Vomiting Oxycodone HCl 5 mg 11/25/21 08:56 11/27/21 10:22 Oxycodone 5 Mg Tab PO 5 mg Q6H PRN Administration Pain, Moderate (4-6) Sodium Chloride 10 ml 11/24/21 10:00 11/28/21 10:22 Sodium Chloride 0.9% 10 Ml Flush Syringe IV 10 ml BID CAILIN Administration Sodium Chloride 10 ml 11/24/21 01:02 Sodium Chloride 0.9% 10 Ml Flush Syringe IV PRN PRN LINE FLUSH
--- NOTE | 2021-11-28 13:26 | Progress Note ---
Assessment and Plan - Patient Problems (1) Abnormal finding on echocardiogram Current Visit: Yes Status: Acute Plan to address problem: The patient's echocardiogram shows a linear echogenicity in the right atrium, consistent with indwelling permacath. There is no evident vegetation or thrombus. No further cardiac intervention is indicated. (2) Cardiomyopathy Current Visit: Yes Status: Acute Plan to address problem: Patient has a known, moderate-severe nonischemic cardiomyopathy, status post cardiac catheterization 2 months ago. Continue guideline directed medical therapy as tolerated. (3) Syncope Current Visit: Yes Status: Acute Qualifiers: Syncope type: unspecified Qualified Code(s): R55 - Syncope and collapse Plan to address problem: Patient was admitted with syncope, diagnosed with acute CVA, treated with tPA in the emergency room. Currently, patient has no residual speech or motor deficits. Echocardiogram shows a negative contrast bubble study. ECGs and telemetry strips showed stable sinus rhythm. Continue work-up and management as directed by neurology. Subjective Date of service: 11/28/21 Principal diagnosis: Syncope Interval history: Patient is breathing comfortably, no acute distress, no new cardiac complaints. Objective Vital Signs Temp Pulse Pulse Resp Resp BP Pulse Ox 11/28/21 11:40 98.9 F 78 163/100 99 11/28/21 09:11 77 100 11/28/21 07:46 98.5 F 77 163/97 93 11/28/21 04:53 98.8 F 75 16 156/98 89 11/28/21 04:00 76 11/28/21 00:00 76 97 11/27/21 23:56 97.6 F 74 16 149/93 94 11/27/21 22:05 97.8 F 78 16 153/93 98 11/27/21 21:58 71 16 11/27/21 21:56 98 11/27/21 21:37 97.4 F L 78 17 152/91 99 11/27/21 21:07 97.3 F L 71 16 154/88 97 11/27/21 21:05 71 11/27/21 20:37 97.8 F 73 18 142/80 97 11/27/21 20:07 97.6 F 69 17 146/83 95 11/27/21 20:00 97 H 19 98 11/27/21 19:37 97.6 F 76 16 159/96 95 11/27/21 19:07 98.4 F 80 20 159/98 93 11/27/21 19:03 84 159/98 94 11/27/21 18:56 73 20 94 11/27/21 18:52 98.3 F 83 20 152/98 95 11/27/21 18:35 76 20 152/98 94 11/27/21 16:00 77 11/27/21 15:37 98.0 F 77 138/96 92 - Physical Examination General: No Apparent Distress HEENT: Positive: PERRL Neck: Positive: neck supple Cardiac: Positive: Reg Rate and Rhythm Lungs: Positive: Decreased Breath Sounds Neuro: Positive: Grossly Intact Abdomen: Positive: Soft Skin: Positive: Clear Musculoskeletal: No Pain Extremities: Absent: edema - Labs and Meds CBC 11/28/21 Range/Units 04:42 WBC 4.4 L (4.5-11.0) K/mm3 RBC 3.21 L (3.65-5.03) M/mm3 Hgb 8.7 L (11.8-15.2) gm/dl Hct 26.7 L D (35.5-45.6) % Plt Count 134 L (140-440) K/mm3 Lymph # (Auto) 0.9 L (1.2-5.4) K/mm3 Snyder # (Auto) 0.6 (0.0-0.8) K/mm3 Eos # (Auto) 0.2 (0.0-0.4) K/mm3 Baso # (Auto) 0.0 (0.0-0.1) K/mm3 Comprehensive Metabolic Panel 11/28/21 Range/Units 04:42 Sodium 139 (137-145) mmol/L Potassium 3.5 L (3.6-5.0) mmol/L Chloride 101.4 (98-107) mmol/L Carbon Dioxide 24 (22-30) mmol/L BUN 22 H (9-20) mg/dL Creatinine 9.9 H (0.8-1.3) mg/dL Glucose 74 L (75-100) mg/dL Calcium 7.5 L (8.4-10.2) mg/dL - Imaging and Cardiology EKG: report reviewed, image reviewed Echo: report reviewed Cardiac cath: report reviewed - EKG Sinus rhythms and dysrhythmias: sinus rhythm Repolarization changes or abnormalities: nonspecific abnormality, ST segment, and/or T wave
[2021-11-28] MEDS: INSULIN LISPRO 100 UNIT/ML SUB-Q SCH ×4 (13:41→21:42)
[2021-11-28 14:06] LABS: Glucose,CSF 50 mg/dL
--- NOTE | 2021-11-28 15:03 | Progress Note ---
Assessment and Plan This is a 61-year-old male with HTN, Takotsubo cardiomyopathy, CHF, ESRD on HD, diabetes mellitus, HIV, multiple sclerosis, and sciatica with medical noncompliance admitted for CVA s/p tPA in the ED Hospital course to date: 11/24: Patient receiving hemodialysis today, CT scan 24-hour post tPA scheduled for tonight. MR a/MRV head and MRI brain pending. Echocardiogram completed at bedside. 11/25: Repeat CT head with no acute abnormality, cleared by neurology to restart heparin drip after repeat head CT today which showed no acute abnormality. We will start heparin drip given RA thrombus. Vascular surgery consulted to review images. We will repeat CT head in 24 hours. 11/26: SHARON overnight. Remains on heparin gtt per protocol. MRI brain and MRA head/Neck pending, Neurology consult pending. Worsen anemia and thrombocytopenia noted, no s/s of any active bleeding noted. Will continue to monitor. Plan for HD today per nephro. Possible transfer to the floor today if patient remains stable. 11/27: Reviewed cardiology recommendation and also discussed with Dr. Rodriguez personally that patient does not have any right heart thrombus and heparin drip could be discontinued.. Patient clinically stable. Hemoglobin dropped to 6.7.. We will stop heparin drip and will transfuse 1 unit of packed RBC. Continue to monitor H&H. 11/28: H&H stable, neurology recommended MRI brain with contrast and CSF study. Ordered for LP and will follow-up CSF culture study result. If CSF study unremarkable. Patient can be discharged home tomorrow Assessment and Plan Neuro: R/o CVA, medical noncompliance, h/o multiple sclerosis, sciatic nerve pain -Presented with left-sided weakness after syncopal episode and fall -[facility] 11/24 @ 2100, Admit NIHSS 7 -Telemetry neurology consulted in the ED S/p tPA -Neuro deficits resolved post tPA -Neurology consulted, appreciate recommendations -Admit CT head without acute intracranial abnormality -CT C-spine shows no acute fracture of the cervical spine, large bilateral pleural effusions -CTA head shows no occlusion or significant stenosis of major intracranial vasculature -CTA neck shows no occlusion or significant stenosis of carotid or vertebral vasculature -Repeat CT head shows no acute intracranial abnormality -MRI brain and MRA head/Neck pending -PT/OT/ST consulted -Bilateral carotid ultrasound pending -Lipid panel noted in chart -Statin -CCM also on consulted Cardiac: Syncopal with Collapse Right Atrial Thrombus H/o Takotsubo cardiomyopathy, HTN, CHF -Report syncope episode and fall prior to admit -EKG revealed NSR, with no ST changes -Elevated troponin X3 -Cardiology on consult, appreciated recommendation -No plan for any intervention at this time -Echo reviewed - LVEF 50%, moderate diastolic dysfunction, moderate MR, no evidence of PFO. -Echo also revealed a mass in the RA measuring 0.68 x 0.33 cm attached to catheter suspicious for thrombus. -Heparin gtt initiated per protocol -Vascular surgery was also consulted, who recommends 6 to 8 weeks of AC and follow Echo to evaluate thrombus. Awaiting neurology consult for recommendations -Home meds resumed -Continue blood pressure monitor per protocol -Maintain SBP less than 160 Respiratory: Acute hypoxic respiratory failure, bilateral pleural effusions (likely secondary to volume overload) -CT imaging noted large bilateral pleural effusions -CXR showed small right pleural effusion -Patient stable on 2L NC, SPO2 at 100% -Continue O2 Supplemental, wean as tolerated -Pulmonary hygiene -Continue SPO2 monitoring for SPO2 goal above 92% -CCM consulted, appreciate recommendations GI: Dysphagia, moderate protein calorie malnutrition -CC cardiac renal diet, mechanical soft -PPI -BR: Colace : ESRD on HD, hyperkalemia, metabolic acidosis -Nephrology consulted, appreciate recommendations -HD per nephrology -Renally dose medications -Avoid nephrotoxic medications -Trend BMP -Kionex x1 Endo: h/o DM II -Avoid hypoglycemia -SSI -Accu-Cheks q6hr Heme: Anemia of chronic disease, Thrombocytopenia RA thrombus attached to vascath (noted on echo) -ruled out -s/p Heparin gtt per protocol -now stopped -Patient has been evaluated by cardiology and vascular surgery -Initially suspicious for right atrial thrombus and recommended to continue anticoagulation -His echocardiogram was reviewed by cardiology again and finalized that patient does not have any right atrial thrombus -Heparin drip now discontinued -Hemoglobin dropped to 6.7 and will transfuse 1 unit of packed RBC Subjective Date of service: 11/28/21 Principal diagnosis: Syncope Interval history: Patient seen and examined. Medical records and medication list reviewed. No acute event overnight noted by the RN. Patient denies any chest pain or difficulty breathing. Patient is tolerating diet. Discussed plan of care at bedside with patient. Objective - Exam Narrative Exam: General appearance: Present: no acute distress - EENT Eyes: Present: PERRL, EOM intact ENT: hearing intact, clear oral mucosa - Neck Neck: Present: normal ROM - Respiratory Respiratory effort: normal Respiratory: bilateral: diminished - Cardiovascular Rhythm: regular Heart Sounds: Present: S1 & S2 - Extremities Extremities: no ischemia, pulses intact, pulses symmetrical Peripheral Pulses: within normal limits - Abdominal General gastrointestinal: soft, non-distended, normal bowel sounds - Integumentary Integumentary: Present: warm, dry - Psychiatric Psychiatric: appropriate mood/affect, cooperative - Neurologic Neurologic: CNII-XII intact, moves all extremities - Allied Health Allied health notes reviewed: nursing - Constitutional Vitals: Vital Signs - 12hr 11/28/21 11/28/21 11/28/21 04:00 04:53 07:46 Temperature 98.8 F 98.5 F Pulse Rate 76 75 77 Respiratory 16 Rate Blood Pressure 156/98 163/97 O2 Sat by Pulse 89 93 Oximetry 11/28/21 11/28/21 09:11 11:40 Temperature 98.9 F Pulse Rate 77 78 Respiratory Rate Blood Pressure 163/100 O2 Sat by Pulse 100 99 Oximetry - Labs CBC & Chem 7: 11/28/21 04:42 11/28/21 04:42 Labs: Abnormal lab results 11/27/21 11/27/21 11/28/21 Range/Units 14:47 14:55 04:42 WBC (4.5-11.0) K/mm3 RBC (3.65-5.03) M/mm3 Hgb (11.8-15.2) gm/dl Hct (35.5-45.6) % MCV (84-94) fl MCH (28-32) pg RDW (13.2-15.2) % Plt Count (140-440) K/mm3 Crenshaw % (Auto) (0.0-7.3) % Eos % (Auto) (0.0-4.3) % Lymph # (Auto) (1.2-5.4) K/mm3 Heparin Anti-Xa Level 0.10 L (0.3-0.7) U.I./ml Potassium 3.5 L (3.6-5.0) mmol/L BUN 22 H (9-20) mg/dL Creatinine 9.9 H (0.8-1.3) mg/dL Glucose 74 L (75-100) mg/dL Calcium 7.5 L (8.4-10.2) mg/dL Crossmatch See Detail 11/28/21 Range/Units 04:42 WBC 4.4 L (4.5-11.0) K/mm3 RBC 3.21 L (3.65-5.03) M/mm3 Hgb 8.7 L (11.8-15.2) gm/dl Hct 26.7 L D (35.5-45.6) % MCV 83 L (84-94) fl MCH 27 L (28-32) pg RDW 15.6 H (13.2-15.2) % Plt Count 134 L (140-440) K/mm3 Crenshaw % (Auto) 12.6 H (0.0-7.3) % Eos % (Auto) 4.7 H (0.0-4.3) % Lymph # (Auto) 0.9 L (1.2-5.4) K/mm3 Heparin Anti-Xa Level (0.3-0.7) U.I./ml Potassium (3.6-5.0) mmol/L BUN (9-20) mg/dL Creatinine (0.8-1.3) mg/dL Glucose (75-100) mg/dL Calcium (8.4-10.2) mg/dL Crossmatch HEART Score - HEART Score Troponin: Troponin T 0.324 ng/mL (0.00-0.029) H* 11/24/21 20:52
[2021-11-28 15:23] LABS: Appearance,CSF Clear; Red Blood Cell,CSF 0 /mm3 (0-0); White Blood Cell,CSF 0 /mm3 (1-10)
[2021-11-29] MEDS: IPRATROPIUM/ALBUTEROL SULFATE 3 ML AMPUL.NEB IH SCH (08:06)
[2021-11-29 08:26] VITALS: BP 143/77
[2021-11-29 09:01] LABS: Calcium 7.8 mg/dL (8.4-10.2)
[2021-11-29] MEDS: INSULIN LISPRO 100 UNIT/ML SUB-Q SCH ×2 (09:04→12:16)
--- NOTE | 2021-11-29 09:14 | Progress Note ---
Assessment and Plan CVA (cerebral vascular accident) Diabetes Syncope Congestive heart failure HIV (human immunodeficiency virus infection) End stage renal disease Hypertension Anemia Plan: -no indication for HD today -Anemia- Epogen 20,000 units with HD. Transfuse as needed -Fluid restriction of 1 liter per day -Strict I/O's daily -Obtain daily weights -Assess dialysis needs daily -Comes to E.R for HD as needed Subjective Date of service: 11/29/21 Principal diagnosis: Syncope Interval history: tolerated HD yesterday Objective - Vital Signs Vital signs: Vital Signs - 12hr 11/28/21 11/28/21 11/29/21 21:17 21:18 02:51 Temperature 98.7 F Pulse Rate 75 Pulse Rate [ 80 Throughout] Respiratory 16 Rate Respiratory 17 Rate [ Throughout] Blood Pressure Blood Pressure 158/83 [Left] O2 Sat by Pulse 98 96 Oximetry 11/29/21 11/29/21 08:07 08:24 Temperature 98.4 F Pulse Rate 74 Pulse Rate [ Throughout] Respiratory 16 Rate Respiratory Rate [ Throughout] Blood Pressure 143/77 Blood Pressure [Left] O2 Sat by Pulse 98 99 Oximetry - Lab 11/28/21 04:42 11/29/21 07:58 Most recent lab results Calcium 7.8 mg/dL (8.4-10.2) L 11/29/21 07:58 Phosphorus 7.40 mg/dL (2.5-4.5) H 11/26/21 04:08 Magnesium 1.80 mg/dL (1.7-2.3) 11/26/21 04:08 Medications & Allergies - Medications Allergies/Adverse Reactions: Allergies No Known Allergies Allergy (Verified 10/09/21 11:02) Home Medications: Home Medications Medication Instructions Recorded Confirmed Last Taken Type Bacitracin/Pramoxine/Aloe Vera 1 applicatio TP TID #1 tube 10/09/21 11/29/21 11/26/21 Rx [Bacitraycin Plus Ointment] Calc Carb/Vit D 500 mg-200 Uni 1 each PO DAILY #30 tablet 10/21/21 11/29/21 11/26/21 Rx [Oysco D 500 mg-200 Unit] Acetaminophen [Tylenol] 500 mg PO Q6H PRN 10/27/21 11/29/21 11/26/21 History Famotidine [Pepcid] 10 mg PO BID #60 tablet 11/12/21 11/29/21 11/26/21 Rx amLODIPine 10 mg PO DAILY #30 tab 11/12/21 11/26/21 Rx Active Medications: Generic Name Dose Route Start Last Admin Trade Name Freq PRN Reason Stop Dose Admin Acetaminophen 650 mg 11/24/21 01:02 11/27/21 18:22 Acetaminophen 325 Mg Tab PO 650 mg Q4H PRN Administration Pain MILD(1-3)/Fever >100.5/RACHEL Albuterol 2.5 mg 11/26/21 14:47 Albuterol 2.5 Mg/3 Ml Nebu IH Q4HRT PRN Shortness Of Breath Albuterol/Ipratropium 1 ampul 11/26/21 20:00 11/29/21 08:06 Ipratropium/Albuterol Sulfate 3 Ml Ampul.Neb IH Not Given BIDRT CAILIN Aspirin 325 mg 11/28/21 10:00 11/28/21 10:22 Aspirin 325 Mg Tab PO 325 mg QDAY CAILIN Administration Atorvastatin Calcium 40 mg 11/24/21 22:00 11/28/21 21:41 Atorvastatin 40 Mg Tab PO 40 mg QHS CAILIN Administration Carvedilol 12.5 mg 11/24/21 22:00 11/28/21 21:41 Carvedilol 12.5 Mg Tab PO 12.5 mg BID CAILIN Administration Dextrose 50 ml 11/24/21 01:02 11/27/21 06:12 Dextrose 50% In Water (25gm) 50 Ml Syringe IV 10 ml Q30MIN PRN Administration Hypoglycemia Protocol Docusate Sodium 100 mg 11/25/21 22:00 11/28/21 21:41 Docusate Sodium 100 Mg Cap PO 100 mg BID CAILIN Administration Epoetin Alen-epbx 20,000 unit 11/27/21 13:00 11/28/21 15:51 Epoetin Alen-Epbx 20,000 Unit/1 Ml Vial IV 20,000 unit LAKE PRN Administration hemodialysis Famotidine 20 mg 11/27/21 10:00 11/28/21 10:22 Famotidine 20 Mg Tab PO 20 mg DAILY CAILIN Administration Sodium Chloride 100 mls @ 999 mls/hr 11/24/21 09:55 Nacl 0.9% IV LAKE PRN Hypotension Insulin Human Lispro 0 unit 11/24/21 06:00 11/28/21 21:42 Insulin Lispro 100 Unit/Ml SUB-Q Not Given Q6HR [facility] Protocol Ondansetron HCl 4 mg 11/24/21 01:02 11/25/21 12:48 Ondansetron 4 Mg/2 Ml Inj IV 4 mg Q8H PRN Administration Nausea And Vomiting Oxycodone HCl 5 mg 11/25/21 08:56 11/27/21 10:22 Oxycodone 5 Mg Tab PO 5 mg Q6H PRN Administration Pain, Moderate (4-6) Sodium Chloride 10 ml 11/24/21 10:00 11/28/21 21:42 Sodium Chloride 0.9% 10 Ml Flush Syringe IV 10 ml BID CAILIN Administration Sodium Chloride 10 ml 11/24/21 01:02 Sodium Chloride 0.9% 10 Ml Flush Syringe IV PRN PRN LINE FLUSH
[2021-11-29] MEDS: FAMOTIDINE 20 MG TAB PO SCH ×2 (10:03→10:18)
[2021-11-29] MEDS: carvediloL 12.5 MG TAB PO SCH ×2 (10:03→10:17)
[2021-11-29] MEDS: DOCUSATE SODIUM 100 MG CAP PO SCH ×2 (10:03→10:09)
[2021-11-29] MEDS: ASPIRIN 325 MG TAB PO SCH ×2 (10:03→10:17)
--- NOTE | 2021-11-29 11:38 | Progress Note ---
Assessment and Plan - Patient Problems (1) Abnormal finding on echocardiogram Current Visit: Yes Status: Acute Plan to address problem: The patient's echocardiogram shows a linear echogenicity in the right atrium, consistent with indwelling permacath. There is no evident vegetation or thrombus. No further cardiac intervention is indicated. (2) Cardiomyopathy Current Visit: Yes Status: Acute Plan to address problem: Patient has a known, moderate-severe nonischemic cardiomyopathy, status post cardiac catheterization 2 months ago. Continue guideline directed medical therapy as tolerated. (3) Syncope Current Visit: Yes Status: Acute Qualifiers: Syncope type: unspecified Qualified Code(s): R55 - Syncope and collapse Plan to address problem: Patient was admitted with syncope, diagnosed with acute CVA, treated with tPA in the emergency room. Currently, patient has no residual speech or motor deficits. Echocardiogram shows a negative contrast bubble study. ECGs and telemetry strips showed stable sinus rhythm. Continue work-up and management as directed by neurology. Subjective Date of service: 11/29/21 Principal diagnosis: Syncope Interval history: Patient is comfortable, no cardiac complaints. No new cardiac events reported. Objective Vital Signs Temp Pulse Pulse Resp Resp BP BP 11/29/21 08:24 98.4 F 74 16 143/77 11/29/21 08:07 11/29/21 02:51 98.7 F 75 16 158/83 11/28/21 21:18 80 17 11/28/21 21:17 11/28/21 21:10 98.2 F 87 16 149/90 11/28/21 20:00 11/28/21 17:11 98.3 F 44 L 131/92 11/28/21 17:00 97.2 F L 79 18 167/90 11/28/21 16:45 68 172/80 11/28/21 16:30 82 159/68 11/28/21 16:15 71 168/89 11/28/21 16:00 69 172/92 11/28/21 15:51 98.4 F 76 18 152/96 11/28/21 15:45 59 L 169/92 11/28/21 15:30 59 L 166/97 11/28/21 15:15 68 175/97 11/28/21 15:00 78 158/93 11/28/21 14:45 67 155/80 11/28/21 14:30 69 166/106 11/28/21 14:15 76 152/96 11/28/21 11:40 98.9 F 78 163/100 Pulse Ox Pulse Ox 11/29/21 08:24 99 11/29/21 08:07 98 11/29/21 02:51 96 11/28/21 21:18 11/28/21 21:17 98 11/28/21 21:10 97 11/28/21 20:00 100 11/28/21 17:11 99 11/28/21 17:00 95 11/28/21 16:45 11/28/21 16:30 11/28/21 16:15 11/28/21 16:00 11/28/21 15:51 95 11/28/21 15:45 11/28/21 15:30 11/28/21 15:15 11/28/21 15:00 11/28/21 14:45 11/28/21 14:30 11/28/21 14:15 11/28/21 11:40 99 - Physical Examination General: No Apparent Distress HEENT: Positive: PERRL Neck: Positive: neck supple Cardiac: Positive: Reg Rate and Rhythm Lungs: Positive: Decreased Breath Sounds Neuro: Positive: Grossly Intact Abdomen: Positive: Soft Skin: Positive: Clear Musculoskeletal: No Pain Extremities: Absent: edema - Labs and Meds Comprehensive Metabolic Panel 11/29/21 Range/Units 07:58 Sodium 138 (137-145) mmol/L Potassium 3.3 L (3.6-5.0) mmol/L Chloride 100.8 (98-107) mmol/L Carbon Dioxide 25 (22-30) mmol/L BUN 15 (9-20) mg/dL Creatinine 7.2 H (0.8-1.3) mg/dL Glucose 80 (75-100) mg/dL Calcium 7.8 L (8.4-10.2) mg/dL - Imaging and Cardiology EKG: report reviewed, image reviewed Echo: report reviewed Cardiac cath: report reviewed - EKG Sinus rhythms and dysrhythmias: sinus rhythm Repolarization changes or abnormalities: nonspecific abnormality, ST segment, and/or T wave
--- NOTE | 2021-11-29 12:26 | Discharge Summary ---
Providers - Providers Date of Admission: 11/24/21 01:02 Date of discharge: 11/29/21 Attending physician: SCOTT ISNGH 11/24/21 00:18 Consult to Physician [CONS] Routine Comment: spoke to dr. blankenship/ nikita Consulting Provider: MARGIE SALAS Physician Instructions: Reason For Exam: esrd 11/24/21 01:02 Consult to Dietitian/Nutrition [CONS] Routine Physician Instructions: Reason For Exam: Reason for Consult: Write/Manage Tube Feeding Occupational Therapy Evaluate and Treat [CONS] Routine Comment: Reason For Exam: Neuro deficits Physical Therapy Evaluation and Treat [CONS] Routine Comment: Reason For Exam: Neuro deficits 11/24/21 01:20 Consult to Physician [CONS] Routine Comment: shelia hyatt/ nikita Consulting Provider: JOSE ANGEL BASHIR Physician Instructions: Reason For Exam: Elevated troponin 11/24/21 08:03 Speech Therapy Evaluation and Treat [CONS] Routine Reason For Exam: post cva, failed bedsdie swallow eval 11/24/21 15:34 Consult to Dietitian/Nutrition [CONS] Routine Physician Instructions: Assess nutrtn needs, initiate, modify, manage TF Reason For Exam: Reason for Consult: Write/Manage Tube Feeding Reason for Consult: Write/Manage Tube Feeding 11/25/21 07:31 Consult to Physician [CONS] Routine Comment: Consulting Provider: CRISTINA TIERNEY Physician Instructions: Reason For Exam: RA thrombus 11/27/21 07:19 Consult to Physician [CONS] Routine Comment: Consulting Provider: BRITNEY WOOD Physician Instructions: Reason For Exam: CVA s/p TPA Primary care physician: JEANNETTE WALSH Hospitalization Condition: Critical Hospital course: This is a 61-year-old male with HTN, Takotsubo cardiomyopathy, CHF, ESRD on HD, diabetes mellitus, HIV, multiple sclerosis, and sciatica with medical noncompliance admitted for CVA s/p tPA in the ED Hospital course to date: 11/24: Patient receiving hemodialysis today, CT scan 24-hour post tPA scheduled for tonight. MR a/MRV head and MRI brain pending. Echocardiogram completed at bedside. 11/25: Repeat CT head with no acute abnormality, cleared by neurology to restart heparin drip after repeat head CT today which showed no acute abnormality. We will start heparin drip given RA thrombus. Vascular surgery consulted to review images. We will repeat CT head in 24 hours. 11/26: SHARON overnight. Remains on heparin gtt per protocol. MRI brain and MRA head/Neck pending, Neurology consult pending. Worsen anemia and thrombocytopenia noted, no s/s of any active bleeding noted. Will continue to monitor. Plan for HD today per nephro. Possible transfer to the floor today if patient remains stable. 11/27: Reviewed cardiology recommendation and also discussed with Dr. Bashir personally that patient does not have any right heart thrombus and heparin drip could be discontinued.. Patient clinically stable. Hemoglobin dropped to 6.7.. We will stop heparin drip and will transfuse 1 unit of packed RBC. Continue to monitor H&H. 11/28: H&H stable, neurology recommended MRI brain with contrast and CSF study. Ordered for LP and will follow-up CSF culture study result. If CSF study unremarkable. Patient can be discharged home tomorrow 11/29: No growth in CSF culture. Patient received hemodialysis today. MRI studies unremarkable. Patient was discharged home in stable condition with outpatient follow-up after dialysis. Assessment and Plan Neuro: R/o CVA, medical noncompliance, h/o multiple sclerosis, sciatic nerve pain -Presented with left-sided weakness after syncopal episode and fall -[facility] 11/24 @ 2100, Admit NIHSS 7 -Telemetry neurology consulted in the ED S/p tPA -Neuro deficits resolved post tPA -Neurology consulted, appreciate recommendations -Admit CT head without acute intracranial abnormality -CT C-spine shows no acute fracture of the cervical spine, large bilateral pleural effusions -CTA head shows no occlusion or significant stenosis of major intracranial vasculature -CTA neck shows no occlusion or significant stenosis of carotid or vertebral vasculature -Repeat CT head shows no acute intracranial abnormality -MRI brain and MRA head/Neck pending -PT/OT/ST consulted -Bilateral carotid ultrasound pending -Lipid panel noted in chart -Statin -CCM also on consulted Cardiac: Syncopal with Collapse Right Atrial Thrombus H/o Takotsubo cardiomyopathy, HTN, CHF -Report syncope episode and fall prior to admit -EKG revealed NSR, with no ST changes -Elevated troponin X3 -Cardiology on consult, appreciated recommendation -No plan for any intervention at this time -Echo reviewed - LVEF 50%, moderate diastolic dysfunction, moderate MR, no evidence of PFO. -Echo also revealed a mass in the RA measuring 0.68 x 0.33 cm attached to catheter suspicious for thrombus. -Heparin gtt initiated per protocol -Vascular surgery was also consulted, who recommends 6 to 8 weeks of AC and follow Echo to evaluate thrombus. Awaiting neurology consult for recommendations -Home meds resumed -Continue blood pressure monitor per protocol -Maintain SBP less than 160 Respiratory: Acute hypoxic respiratory failure, bilateral pleural effusions (likely secondary to volume overload) -CT imaging noted large bilateral pleural effusions -CXR showed small right pleural effusion -Patient stable on 2L NC, SPO2 at 100% -Continue O2 Supplemental, wean as tolerated -Pulmonary hygiene -Continue SPO2 monitoring for SPO2 goal above 92% -CCM consulted, appreciate recommendations GI: moderate protein calorie malnutrition -CC cardiac renal diet, mechanical soft -PPI -BR: Colace : ESRD on HD, hyperkalemia, metabolic acidosis -Nephrology consulted, appreciate recommendations -HD per nephrology -Renally dose medications -Avoid nephrotoxic medications -Trend BMP -Kionex x1 Endo: h/o DM II -Avoid hypoglycemia -SSI -Accu-Cheks q6hr Heme: Anemia of chronic disease, Thrombocytopenia RA thrombus attached to vascath (noted on echo) -ruled out -s/p Heparin gtt per protocol -now stopped -Patient has been evaluated by cardiology and vascular surgery -Initially suspicious for right atrial thrombus and recommended to continue anticoagulation -His echocardiogram was reviewed by cardiology again and finalized that patient does not have any right atrial thrombus -Heparin drip now discontinued -Hemoglobin dropped to 6.7 and s/p 1 unit of packed RBC transfusion Disposition: HOME / SELF CARE / HOMELESS Final Discharge Diagnosis (Prints w/discharge instructions): -- R/o CVA, medical noncompliance, h/o multiple sclerosis, sciatic nerve pain. --Syncopal with Collapse. --Right Atrial Thrombus, ruled out. --H/o Takotsubo cardiomyopathy, HTN, CHF. --Acute hypoxic respiratory failure, bilateral pleural effusions (likely secondary to volume overload). --ESRD on HD, hyperkalemia, metabolic acidosis. -- h/o DM II. -- Anemia of chronic disease, Thrombocytopenia. --Moderate protein calorie malnutrition Time spent for discharge: 34 minutes Core Measure Documentation - Palliative Care Palliative Care/ Comfort Measures: Not Applicable - Core Measures Any of the following diagnoses?: none Exam - Physical Exam Narrative exam: General appearance: Present: no acute distress - EENT Eyes: Present: PERRL, EOM intact ENT: hearing intact, clear oral mucosa - Neck Neck: Present: normal ROM - Respiratory Respiratory effort: normal Respiratory: bilateral: diminished - Cardiovascular Rhythm: regular Heart Sounds: Present: S1 & S2 - Extremities Extremities: no ischemia, pulses intact, pulses symmetrical Peripheral Pulses: within normal limits - Abdominal General gastrointestinal: soft, non-distended, normal bowel sounds - Integumentary Integumentary: Present: warm, dry - Psychiatric Psychiatric: appropriate mood/affect, cooperative - Neurologic Neurologic: CNII-XII intact, moves all extremities - Allied Health Allied health notes reviewed: nursing - Constitutional Vitals: Temp Pulse Resp BP Pulse Ox 98.4 F 74 16 143/77 99 11/29/21 08:24 11/29/21 08:24 11/29/21 08:24 11/29/21 08:24 11/29/21 08:24 Plan Activity: advance as tolerated Weight Bearing Status: Weight Bear as Tolerated Diet: renal Special Instructions: restrict fluid intake to (1.2 L daily) Follow up with: JEANNETTE WALSH MD [Primary Care Provider] - 3-5 Days Prescriptions: AtorvaSTATin [Lipitor] 40 mg PO QHS #30 tablet Aspirin 325 mg PO QDAY #30 tablet carvediloL [Coreg] 12.5 mg PO BID #60 tablet
== END 2021-11-29 15:00 | disposition home health service (06) | DRG 64 ==
LOC: ED 20:50 → CC1 11-24 01:02 → 4A 11-26 20:57
PROVIDERS: ADMIT Hospitalist; ATTEND Internal Medicine
PROC: 5A1D70Z Performance of Urinary Filtration, Intermittent, Less than 6 Hours Per Day (ICD-10-PCS; 2021-11-24)
PROC: 5A1D70Z Performance of Urinary Filtration, Intermittent, Less than 6 Hours Per Day (ICD-10-PCS; 2021-11-26)
PROC: 30233N1 Transfusion of Nonautologous Red Blood Cells into Peripheral Vein, Percutaneous Approach (ICD-10-PCS; 2021-11-27)
PROC: 009U3ZX Drainage of Spinal Canal, Percutaneous Approach, Diagnostic (ICD-10-PCS; principal; 2021-11-28)
PROC: B01B1ZZ Fluoroscopy of Spinal Cord using Low Osmolar Contrast (ICD-10-PCS; 2021-11-28)
PROC: 5A1D70Z Performance of Urinary Filtration, Intermittent, Less than 6 Hours Per Day (ICD-10-PCS; 2021-11-28)
DX: I63.9 Cerebral infarction, unspecified (principal); N18.6 End stage renal disease; J96.01 Acute respiratory failure with hypoxia; B20 Human immunodeficiency virus [HIV] disease; I13.2 Hypertensive heart and chronic kidney disease with heart failure and with stage 5 chronic kidney disease, or end stage renal disease; E44.0 Moderate protein-calorie malnutrition; R55 Syncope and collapse; I50.9 Heart failure, unspecified; G35 Multiple sclerosis; E11.22 Type 2 diabetes mellitus with diabetic chronic kidney disease; D69.6 Thrombocytopenia, unspecified; E87.5 Hyperkalemia; D64.9 Anemia, unspecified; Z68.22 Body mass index [BMI] 22.0-22.9, adult; Z99.2 Dependence on renal dialysis; Z82.49 Family history of ischemic heart disease and other diseases of the circulatory system; Z91.14 Patient's other noncompliance with medication regimen
CPT/HCPCS: 36415; 62270; 62328; 70450; 70496; 70498; 70544; 70551; 70552; 71045; 72125; 80048; 80053; 80061; 80320; 82550; 82553; 82947; 82962; 83735; 84100; 84160; 84484; 85025; 85027; 85520; 85610; 85670; 85730; 86592; 86850; 86900; 86901; 86920; 87116; 87498; 87799; 89051; 93005; 93306; 93880; 94640; 94760; 97129; 97130; G0378; J3490; A9575; C8929; G0480; J0885; J1644; J2270; J2405; J2997; J7040; P9016; Q9967

== ENCOUNTER 2021-12-07 07:52 | Emergency (ER) | payer SELFPAY ==
[2021-12-07 11:13] LABS: Calcium 8.9 mg/dL (8.4-10.2)
[2021-12-07 12:41] LABS: Hematocrit 29.1 % (35.5-45.6); Hemoglobin 9.3 gm/dl (11.8-15.2); Mean Corpuscular HGB Conc 32 % (32-34); Mean Corpuscular Volume 85 fl (84-94); Platelet Count 166 K/mm3 (140-440); Red Blood Count 3.42 M/mm3 (3.65-5.03)
--- NOTE | 2021-12-08 04:35 | Emergency Department Report ---
ED General Adult HPI - General Chief complaint: Medical Clearance Stated complaint: DIALYSIS TREATMENT Source: patient Mode of arrival: Ambulatory Limitations: No Limitations - History of Present Illness Initial comments: Patient is a 61-year-old male presenting to ED with request for routine dialysis. He denies any complaints. Severity scale (0 -10): 0 - Related Data Previous Rx's Medication Instructions Recorded Last Taken Type Calc Carb/Vit D 500 mg-200 Uni 1 each PO DAILY #30 tablet 10/21/21 11/26/21 Rx [Oysco D 500 mg-200 Unit] Famotidine [Pepcid] 10 mg PO BID #60 tablet 11/12/21 11/26/21 Rx Aspirin 325 mg PO QDAY #30 tablet 11/29/21 Unknown Rx AtorvaSTATin [Lipitor] 40 mg PO QHS #30 tablet 11/29/21 Unknown Rx carvediloL [Coreg] 12.5 mg PO BID #60 tablet 11/29/21 Unknown Rx Allergies Allergy/AdvReac Type Severity Reaction Status Date / Time No Known Allergies Allergy Verified 12/07/21 08:19 ED Review of Systems ROS: Stated complaint: DIALYSIS TREATMENT Other details as noted in HPI Comment: All other systems reviewed and negative Constitutional: denies: chills, fever Respiratory: denies: cough, shortness of breath, wheezing Cardiovascular: denies: chest pain, palpitations Gastrointestinal: denies: abdominal pain, nausea, diarrhea Genitourinary: denies: urgency, dysuria Skin: denies: rash, lesions Neurological: denies: headache, weakness, paresthesias Psychiatric: denies: anxiety, depression ED Past Medical Hx - Past Medical History Hx Hypertension: Yes Hx Congestive Heart Failure: Yes Hx Diabetes: Yes Hx Renal Disease: Yes Hx HIV: Yes Additional medical history: MS, Sciatica - Surgical History Additional Surgical History: Right chest Vas-Cath, back surgery - Social History Smoking Status: Never Smoker - Medications Home Medications: Home Medications Medication Instructions Recorded Confirmed Last Taken Type Calc Carb/Vit D 500 mg-200 Uni 1 each PO DAILY #30 tablet 10/21/21 11/29/21 11/26/21 Rx [Oysco D 500 mg-200 Unit] Famotidine [Pepcid] 10 mg PO BID #60 tablet 11/12/21 11/29/21 11/26/21 Rx Aspirin 325 mg PO QDAY #30 tablet 11/29/21 Unknown Rx AtorvaSTATin [Lipitor] 40 mg PO QHS #30 tablet 11/29/21 Unknown Rx carvediloL [Coreg] 12.5 mg PO BID #60 tablet 11/29/21 Unknown Rx ED Physical Exam - General Limitations: No Limitations General appearance: alert, in no apparent distress - Head Head exam: Present: atraumatic, normocephalic - Respiratory Respiratory exam: Present: normal lung sounds bilaterally. Absent: respiratory distress - Cardiovascular Cardiovascular Exam: Present: regular rate, normal rhythm, normal heart sounds - GI/Abdominal GI/Abdominal exam: Present: soft. Absent: distended, tenderness - Rectal Rectal exam: Present: deferred - Neurological Exam Neurological exam: Present: alert, oriented X3 - Psychiatric Psychiatric exam: Present: normal affect, normal mood ED Course Vital Signs 12/07/21 12/08/21 12/08/21 08:18 03:39 03:46 Temperature 98.1 F Pulse Rate 95 H 90 84 Respiratory 16 15 13 Rate Blood Pressure 134/108 Blood Pressure 155/91 [Left] O2 Sat by Pulse 100 100 Oximetry 12/08/21 12/08/21 04:00 04:04 Temperature 98 F Pulse Rate 84 Respiratory 10 L Rate Blood Pressure 129/74 Blood Pressure [Left] O2 Sat by Pulse 99 Oximetry ED Medical Decision Making - Lab Data Result diagrams: 12/07/21 12:22 12/07/21 08:31 - Medical Decision Making Patient presenting with request for routine dialysis. I explained to him that we do not perform routine dialysis here. Basic labs were obtained and reviewed. He does not meet any admission criteria. He is stable for discharge home. Critical care attestation.: If time is entered above; I have spent that time in minutes in the direct care of this critically ill patient, excluding procedure time. ED Disposition Clinical Impression: Chronic kidney disease Disposition: 01 HOME / SELF CARE / HOMELESS Is pt being admited?: No Condition: Stable Instructions: Chronic Kidney Disease, Adult, [id number] Referrals: JEANNETTE WALSH MD [Primary Care Provider] - 3-5 Days
[2021-12-08 05:07] VITALS: BP 129/73
== END 2021-12-08 05:53 | disposition home or self-care (01) ==
LOC: ED 07:52
DX: I13.11 Hypertensive heart and chronic kidney disease without heart failure, with stage 5 chronic kidney disease, or end stage renal disease (principal); E11.22 Type 2 diabetes mellitus with diabetic chronic kidney disease; N18.6 End stage renal disease; Z99.2 Dependence on renal dialysis; Z21 Asymptomatic human immunodeficiency virus [HIV] infection status; Z79.899 Other long term (current) drug therapy
CPT/HCPCS: 36415; 80053; 85025; 99283